=== PATIENT | female | born 1950 | race Caucasian/White ===

== ENCOUNTER → 2021-10-15 10:54 | Outpatient (BNVA) | payer MEDICARE, OTHER, SELFPAY | PROVIDERS: PCP Nurse Practitioner Family; Visit Provider Hospitalist | DX: R91.8 Other nonspecific abnormal finding of lung field (principal); J98.11 Atelectasis | CPT/HCPCS: 99202 ==

== ENCOUNTER 2021-10-16 07:25 | Day surgery (SDC) | payer MEDICARE, OTHER, SELFPAY ==
[2021-10-16] VITALS (12 sets, daily range): BP systolic 98–148; BP diastolic 46–69; PULSE 77–113; RESP 15–28; TEMP 36.2–36.9; O2SAT 93–97; BMI 29.1
--- NOTE | ~2021-10-16 | XR_ITS ---
EXAMINATION: XR CHEST CLINICAL INFORMATION: Status post bronchoscopy and left biopsies COMPARISON: None TECHNIQUE: AP portable view of the chest was obtained. FINDINGS: There is soft tissue density seen involving the superior left and right upper lobe suspicious for possible mass and less likely atelectatic change. No pneumothorax. There is some haziness seen at the left lung base which may be related to small pleural effusion. Right hemithorax unremarkable. Heart normal size. No evidence of pulmonary edema. XR/XR chest 1V IMPRESSION: Left upper lobe density without pneumothorax identified. Question small left pleural effusion.
--- NOTE | 2021-10-16 08:01 | HO.ANESPROP2 ---
HPI - Anesthesia Eval Consult details Narrative: 71 F for EBUS mild MR hyper Parathyroidism , Sleep Apnea , CPAP PMFSH Active Problems Active Problems: All Active Problems (Updated 10/16/21 @ 07:37 by Mary Saab RN) Atelectasis of left lung (Acute) Lung mass (Acute) Past Medical History Medical History (Updated 10/16/21 @ 07:37 by Mary Saab RN) Atelectasis of left lung Elevated cholesterol Lung mass Mild aortic regurgitation Family History Family history of problems with anesthesia: No Surgical History Surgical History (Updated 10/16/21 @ 07:38 by Mary Saab RN) History of total hip replacement Hx of appendectomy Hx of colonoscopy History of Problems with Anesthesia: No Social History Social History (Updated 10/15/21 @ 11:26 by ALEENA Reinoso) Patient Tobacco Use Status: Never used Tobacco Meds Allergies Allergy/AdvReac Type Severity Reaction Status Date / Time No Known Allergies Allergy Verified 10/15/21 11:25 Home Medications Medication Instructions Recorded Confirmed Last Taken Type celecoxib 100 mg capsule mg PO 10/15/21 Unknown History denosumab 60 mg/mL subcutaneous mg SUBCUT 10/15/21 Unknown History syringe (Prolia) rosuvastatin 10 mg tablet 10 mg PO BEDTIME 10/15/21 Unknown History Exam Exam Date and Time: October 16, [id number] Height,Weight and Vital Signs: Height 5 ft 3.5 in Weight 75.75 kg Last Vital Signs Temp 98.4 F 10/16/21 07:52 Pulse 77 10/16/21 07:52 Resp 16 10/16/21 07:52 BP 148/69 H 10/16/21 07:52 Pulse Ox 93 10/16/21 07:52 Airway Mallampati Class: II TM Dist: >3cm Neck ROM: Full Loose/Missing/Broken Teeth: Yes (Crowns ) Heart: rrr Lungs: bl breath sounds Assessment and Plan Assessment Anesthesia Assessment: Anesthesia Plan Discussed Final Anesthetic Review Family History of Problems with Anesthesia: No History of Problems with Anesthesia: No NPO: Yes ASA Class: III Final Preanesthetic Review: Anes Risks/Benef Reviewed Patient Risk: High Procedure Risk: Intermediate Anesthetic Plan Anesthetic Plan: GA Disposition: Standard PACU
[2021-10-16] MEDS: Lactated Ringers 1,000 ML 80 ML IVCONT (08:13)
--- NOTE | 2021-10-16 08:46 | MHC.SHP ---
Pre-Procedural Eval Section A Date of Service: 10/16/21 The patient is an INPATIENT: No The History & Physical has been completed within 30 days and I have reviewed it.: Yes Section B Chief Complaint: Lung Cancer Allergies: Allergies Allergy/AdvReac Type Severity Reaction Status Date / Time No Known Allergies Allergy Verified 10/15/21 11:25 Plan I have reviewed the history and physical and performed a pertinent physical examination on my patient. No changes have occurred unless specified.
--- NOTE | 2021-10-16 10:06 | PM.OP ---
Brief Operative Note Date of Service: 10/16/21 Pre-op diagnosis: left lung mass Post-op diagnosis: same Procedure: EBUS with TBNA and bronchoscopy with biopsy Implants: Surgeon: Williams Begum MD Anesthesia: GETA Was an Technical Support Internship used for this Procedure?: No Estimated blood loss (mL): 2 Pathology: other (SCARLET biopsies) Condition: stable Disposition: same day
[2021-10-16] MEDS: Racepinephrine HCL 0.5 ML VIAL.NEB INHALE (11:25)
--- NOTE | 2021-10-16 15:20 | OP_ITS ---
SURGEON: Williams Begum MD PREOPERATIVE DIAGNOSIS: Left lung mass and atelectasis. POSTOPERATIVE DIAGNOSIS: Left lung mass and atelectasis. PROCEDURE PERFORMED: Endobronchial ultrasound bronchoscopy with transbronchial needle aspirations in addition to bronchoscopy with brushings, washings and biopsies. ESTIMATED BLOOD LOSS: COMPLICATIONS: None. ANESTHESIA: General anesthesia was provided with #[address] ASSISTANTS: SPECIMENS: INTERPRETATION: 1. EBUS transbronchial needle aspirations station 4R 7 and left hilar mass. 2. Forceps biopsies of the left upper lobe masslike density. 3. Brushings from the left upper lobe. 4. Bronchial washings from the left upper lobe, both for cytology and microbiology. 5. Status post epinephrine administration 1 n.p.o. 6. Status post DuoNeb and racemic epi x1 via nebulizer. DESCRIPTION OF PROCEDURE: After the patient was adequately sedated, the flexible digital bronchoscope with endobronchial ultrasound was inserted via the ET tube to the level of the trachea. Using lidocaine, a total of 12 mL of lidocaine was administered to the airways for local effect. Using the ultrasound guidance, the lymph node stations were assessed. The patient has very small normal appearing station 4R lymph node measuring about half a cm appeared to have a larger subcarinal lymph node measuring between 1-2 cm in size, irregular in shape. Using ultrasound guidance, the bronchoscope was wedged into the distal left mainstem bronchus also demonstrating irregular activity suggesting hilar mass. Using ultrasound-guided transbronchial needle aspiration and 1 pass collected a station 4R. No significant specimens collected, but because of the normal appearance of the lymph node, we went ahead and moved along 2 stations 7, 3 passes were done at station 7 of the transbronchial needle aspirate and was sent for cytology. Next, the bronchoscope was navigated to the hilar area and 3 specimens were collected of the left hilar masslike density and that was sent to cytology as well. The endobronchial ultrasound was then removed and replaced with the regular bronchoscopy. The bronchoscope was navigated to the entire tracheobronchial airway except for the left upper lobe, where there appears to be a masslike density that was obstructing the left upper lobe airways, both the apical posterior and anterior segment and to some degree the lingular segments. The area looked friable, erythematous and had a foul smell to it suggesting the possibility of an infection. That being said, no evidence of any purulent secretions noted. Using a cytologic brush that was introduced into the left upper lobe and specimen sent to cytology. Then, using forceps, endobronchial biopsies were collected from the mass like obstruction and they sent to pathology. Due to the significant swelling, not so much any bleeding, I did opt to provide epinephrine and 1 ampules of epinephrine 1:1000 was provided mixed in with saline to the left upper lobe with interval improvement of the swelling. The bronchoscope was then removed. The total endoscopic time approximately 45 minutes. The patient tolerated the procedure well. She was extubated after surgery. She did have some evidence of stridor. The patient received a DuoNeb and then received 1 treatment with racemic epi and she did feel better. MD ELBA Gagnon/ARLETTE / [phone]
== END 2021-10-16 12:34 | disposition home or self-care (01) ==
PROVIDERS: PCP Nurse Practitioner Family; Visit Provider Hospitalist
PROC: (CPT 31653; principal; 2021-10-16 09:00)
DX: C34.82 Malignant neoplasm of overlapping sites of left bronchus and lung (principal); C77.1 Secondary and unspecified malignant neoplasm of intrathoracic lymph nodes; J98.11 Atelectasis; R06.00 Dyspnea, unspecified
CPT/HCPCS: 31653; 31625; 31623; 36415; 71045; 81210; 81235; 86850; 86900; 86901; 87071; 87205; 88112; 88173; 88305; 88341; 88342; 88360; 88374; 88377; 94640; J0171; J2405; J3010

== ENCOUNTER → 2021-10-24 13:39 | Outpatient (BNV) | payer MEDICARE, OTHER, SELFPAY | PROVIDERS: PCP Nurse Practitioner Family; Referring Provider Hospitalist; Visit Provider Internal Medicine | DX: C34.90 Malignant neoplasm of unspecified part of unspecified bronchus or lung (principal) | CPT/HCPCS: 99213; 99214 ==

== ENCOUNTER 2021-10-29 13:36 | Outpatient (REF) | payer MEDICARE, OTHER, SELFPAY ==
--- NOTE | ~2021-10-29 | MR_ITS ---
EXAMINATION: MR BRAIN WITHOUT AND WITH CONTRAST CLINICAL INFORMATION: 71-year-old with history of lung CA undergoing staging. COMPARISON: None TECHNIQUE: Multiplanar, multisequence MRI of the brain was obtained before and after the intravenous administration of 7.5 mL Gadavist. FINDINGS: Brain Volume: Within normal limits. Structural: No malformations. Brain and Meninges: DWI sequence demonstrates no restricted diffusion. Specifically, there is no evidence for acute or subacute cerebral ischemia. There are scattered small zones of FLAIR/T2 signal hyperintensity within the subcortical and deeper white matter of both cerebral hemispheres with no abnormal enhancement, likely reflecting chronic ischemic microangiopathy. Note is made of a 6 x 5 x 6 mm extra-axial enhancing dural-based mass along the anterior aspect of the right middle cranial fossa, best visualized on image 9 of series 9 and image 19 of series 10 which corresponds to a T2 hypointense structure on the axial T2-weighted images. This could reflect a small meningioma, but given the patient's history, metastatic disease cannot be entirely excluded. Some adjacent dural enhancement is seen consistent with a dural tail. A follow-up in 3 months is recommended to further assess this to include thin section postcontrast imaging. The remainder of the brain is normal in signal intensity. There is no evidence for hemorrhage, hemosiderin staining or abnormal mineral deposition. No extra-axial fluid collections, parenchymal mass lesion, or midline shift. Ventricles and Subarachnoid Spaces: The ventricular system and subarachnoid spaces are within normal limits without hydrocephalus. Orbital Structures: Bilateral lens extractions are noted. Otherwise, the visualized orbital structures are grossly unremarkable within the limitations of the study. Vascular: Signal voids are noted in the visualized major intracranial vessels. Sinuses and Osseous Structures: Note is made of a 9 mm focus of the T1 signal loss on the left side of the C3 vertebral body which raises the possibility for metastatic focus. There is bilateral facet arthropathy at C3-C4 and C4-C5. MR/MR head/brain wo/w con IMPRESSION: 1. 6 mm extra-axial enhancing mass lesion along the anterior aspect of the right middle cranial fossa, likely reflecting a small meningioma. Given the patient's history, metastatic disease cannot be entirely excluded and, therefore, a follow-up MRI of the brain with contrast and thin section postcontrast imaging is recommended in 3 months to reassess. 2. Chronic microvascular ischemic white matter changes in both cerebral hemispheres. 3. Focus of signal loss on the left side of the C3 vertebral body which is worrisome for the possibility of osseous metastatic disease. Recommend correlation with radionuclide skeletal scintigraphy. The [facility] staff will call to confirm receipt of this report with acknowledgement of the findings and any recommendations.
== END 2021-10-29 13:37 | disposition home or self-care (01) ==
LOC: HO.MRI 13:36
PROVIDERS: PCP Nurse Practitioner Family; Visit Provider Internal Medicine
DX: C34.90 Malignant neoplasm of unspecified part of unspecified bronchus or lung (principal)
CPT/HCPCS: 70553; A9585

== ENCOUNTER → 2021-10-30 13:17 | Outpatient (BNVA) | payer MEDICARE, OTHER, SELFPAY | PROVIDERS: PCP Nurse Practitioner Family; Visit Provider Hospitalist | DX: J98.11 Atelectasis (principal); R91.8 Other nonspecific abnormal finding of lung field | CPT/HCPCS: 99212 ==

== ENCOUNTER 2021-11-11 12:42 | Outpatient (REF) | payer MEDICARE, OTHER, SELFPAY ==
--- NOTE | ~2021-11-11 | CT_ITS ---
EXAMINATION: CT ANGIOGRAM OF THE CHEST WITH AND WITHOUT CONTRAST (CT PULMONARY ANGIOGRAM FOR PE) CLINICAL INFORMATION: Reason for Exam History of non-small cell lung cancer. Chest pain. ?P.E COMPARISON: Previous outside chest CT 10/14/2021 chest x-ray 10/16/2021 TECHNIQUE: Prior to contrast administration, noncontrast localization images were obtained. Subsequently, multidetector volumetric imaging was performed from the thoracic inlet to below the diaphragms following the administration of 65 mL Omnipaque 350 intravenous contrast. No contrast reaction reported Sagittal, coronal, and MIP oblique sagittal reformatted images were obtained on the CT workstation, uploaded to PACS, and reviewed. This CT examination was performed using dose optimization techniques as appropriate, variously including the following: *Automated exposure control *Adjustment of mA and/or kV according to patient size (this includes techniques or standardized protocols for targeted exams where dose is matched to indication/reason for exam; i.e. extremities or head) *Use of iterative reconstruction technique Total exam dose-length product 129 mGy-cm FINDINGS: QUALITY OF STUDY/CONTRAST BOLUS: Satisfactory. PULMONARY ARTERIES: No central or segmental pulmonary emboli. THORACIC AORTA: No aneurysm or dissection. LUNG: There is volume loss to the left upper lobe. There is abnormal soft tissue seen in the left upper lobe along the left pleural fissure. This appears decreased in size from October 2021 exam. There is improved aeration of the more anterior left upper lobe compared to October 2021 exam. There is abnormal soft tissue seen surrounding the left upper lobe bronchus. This is slightly decreased. There is a small 3 mm right lower lobe nodule adjacent to the major fissure axial image 396 and 415 series 12. There is subsegmental atelectasis at the right lung base. PLEURA: There is a trace left pleural effusion or pleural thickening that is unchanged. There is no right pleural effusion. There is no pneumothorax.. MEDIASTINUM: There are small mediastinal lymph nodes. These appear stable. No enlarged mediastinal lymph nodes are seen. There is abnormal soft tissue seen in the central left upper lobe surrounding the left upper lobe bronchus questionable for mass versus adenopathy. This area measures 2 x 2.5 cm axial image 25 series 6. This is decreased in size from approximately 2.8 x 4.2 cm October 2021 exam. The heart does not appear enlarged. There is a small pericardial effusion. This is not appreciably changed. The thoracic aorta is normal in caliber. No pulmonary embolism is seen. No evidence of septal bowing or right heart strain. CHEST WALL/AXILLA: No axillary or internal mammary lymphadenopathy. OSSEOUS STRUCTURES: There are multiple sclerotic bone lesions involving the T2 and T5 T10 and L1 vertebral bodies. There is a pathologic compression fracture of the right inferior endplate T10 vertebral body. UPPER ABDOMEN: Unremarkable. No reflux of contrast into the hepatic veins to suggest elevated right heart pressures. CT/CT angio chest PE protocol IMPRESSION: No evidence of pulmonary embolism. Interval decrease in size in the mass in the left upper lobe and improved aeration of the left upper lobe. Stable sclerotic bone lesions and probable pathologic compression fracture of the right inferior endplate of the T10 vertebral body. VTE: negative
== END 2021-11-11 12:43 | disposition home or self-care (01) ==
LOC: HO.CT 12:42
PROVIDERS: PCP Nurse Practitioner Family; Visit Provider Internal Medicine Medical Oncology
DX: C34.90 Malignant neoplasm of unspecified part of unspecified bronchus or lung (principal); R07.9 Chest pain, unspecified
CPT/HCPCS: 71275

== ENCOUNTER → 2021-11-17 13:01 | Outpatient (REF) | payer MEDICARE, OTHER, SELFPAY ==
--- NOTE | 2021-11-17 13:03 | CA_ITS ---
Transthoracic Echocardiogram Patient (Last, First, Middle): Marleen Romero, Gender: Female Date of : 1950 Age: 71 Procedure Date: 11/17/2021 Procedure Type: Transthoracic Echocardiogram Location: OP Height: 160.02 cm Weight: 80.74 kg BSA: 1.84 m2 Heart Rate: bpm BP: 144 / 70 mmHg Automatic Drill Operator: JANETTE Referring MD: Luli Castillo MD Symptoms: scheduled to start osimertinib Study Quality: Fair ECG Rhythm: Sinus Conclusions: - The left ventricular systolic function is normal. The calculated ejection fraction is 64% by biplane method. - No obvious valvular pathology seen on this study. - Small pericardial effusion localized posterior to the left ventricle. Findings Left Ventricle Normal left ventricular cavity size. There is mildly increased left ventricular wall thickness. The left ventricular systolic function is normal. The calculated ejection fraction is 64% by biplane method. There is no evidence of regional wall motion abnormalities. Diastolic function is normal for age. LV peak GLS -18.5% (normal). Right Ventricle Normal right ventricular cavity size and systolic function. Atria Both atria are normal in size. Aortic Valve There is a normal trileaflet aortic valve. There is no aortic valve stenosis. There is no aortic valve regurgitation. Mitral Valve The mitral valve appears normal. There is trace mitral valve regurgitation. There is no mitral valve stenosis. Pulmonic Valve The pulmonic valve was not well visualized. Tricuspid Valve There is no tricuspid valve regurgitation. The pulmonary artery systolic pressure is normal. Great Vessels The aortic annulus, sinuses of valsalva, and asc aorta are normal in size. Venous The inferior vena cava is normal in size and collapses greater than 50% with inspiration. Pericardium/Pleural Small pericardial effusion localized posterior to the left ventricle. Prior Study Comparison No prior study available for comparison. Recommendations, Care & Conclusions No obvious valvular pathology seen on this study. Measurements 2D Linear Measurements IVSd: 1.01 0.6-0.9/0.6-1.0 cm LVIDd: 4.09 3.9-5.3/4.2-5.9 cm LVIDd Index: 2.22 2.4-3.2/2.2-3.1 cm/m2 LVIDs: 2.35 2.0-3.6 cm LVPWd: 1.03 0.7-1.1 cm Ao Root: 3.20 2.1-3.5 cm LA Diam: 3.20 2.7-3.8/3.0-4.0 cm LAIDs Index: 1.74 1.5-2.3 cm/m2 LV Mass: 168.41 67-162/88-224 g LV Mass Index: 91.52 43-95/49-115 g/m2 LVOT Diam: 2.00 3.0+(-)1.3 cm 2D Systolic Function EF 4C: 66.60 >55% EF 2C: 60.40 >55% EF BiP: 63.90 >55% Mitral Valve MV Pk E: 1.16 MV PK A: 1.15 MV Decel Time: 193.00 E/A: 1.00 E'Lateral: 7.62 E'Medial: 7.29 E/E' Med: 15.90 E/E' Lat: 15.20 PHT: 56.00 MVA PHT: 3.93 Decel [place]: 6.00 Aortic Valve AoV Pk Mohan: 1.57 AoV Mn Mohan: 0.99 AoV VTI: 0.36 AoV Pk Grad: 10.00 Aov Mn Grad: 5.00 STEPHANIE Cont.VTI: 3.19 LVOT LVOT Pk Mohan: 1.56 LVOT Mn Mohan: 1.07 LVOT VTI: 0.37 LVOT Pk Grad: 10.00 LVOT Mn Grad: 5.00 LVOT Diam: 2.00 LVOT Area: 3.14 Diastolic Function MV Pk E: 1.16 MV Pk A: 1.15 E/A: 1.00 E'Medial: 7.29 E/E' Med: 15.90 E' Laterial: 7.62 E/E' Lat: 15.20 Right Ventricle TAPSE (mm): 25.00 TVS' Mohan: 12.00 Tricuspid Valve TR Pk Mohan: 1.21 TR Pk Grad: 6.00 RA Press: 8.00 RVSP: 14.00 Great Vessels Aorta Ao Root-2D: 3.20 2.0-3.7 cm Ao Asc: 2.90 2.1-3.4 cm Ao Arch: 2.50 Updated in Other Vendor System with Status of Final Donovan Spann MD electronically signed on 11/17/2021 4:08:41 PM with status of Final
== END ==
LOC: HO.CARD 13:01
PROVIDERS: PCP Nurse Practitioner Family; Visit Provider Internal Medicine
DX: I42.7 Cardiomyopathy due to drug and external agent (principal); T45.1X5A Adverse effect of antineoplastic and immunosuppressive drugs, initial encounter; Y92.9 Unspecified place or not applicable
CPT/HCPCS: 93306

== ENCOUNTER → 2021-11-20 10:48 | Outpatient (REF) | payer MEDICARE, OTHER, SELFPAY ==
--- NOTE | ~2021-11-20 | NM_ITS ---
EXAMINATION: NM BONE SCAN OF THE WHOLE BODY CLINICAL INFORMATION: Lung cancer, bone metastases, progression at T10. COMPARISON: No previous bone scan is available for comparison. Radiographs of the chest dated 10/16/2021 is available for comparison. CT angiogram of the chest dated 11/11/2021 and MRI of the brain dated 10/29/2021 are also available for comparison. TECHNIQUE: Multiple gamma scintillation camera images of the whole body were performed 2.75 hours following the intravenous administration of 25 mCi Tc-99m MDP. FINDINGS: In the head, there is increased activity in the frontal calvarium bilaterally, which may be in part due to hyperostosis frontalis interna, but the intensity as well as the heterogeneity, particularly on the right suggests this increased activity is not entirely due to hyperostosis. There is also some increased activity that is likely in the clivus and also likely abnormal. In the thoracic cage and upper extremities, several foci of mildly increased activity are present in the ribs, most prominently in the lateral aspect of the left ninth rib and the posterolateral aspect of the right ninth rib. Is also a lesion in the coracoid process of the right scapula and another in the medial aspect of the upper left scapula. There is intense abnormality in the upper sternum. In the spine, multiple moderate to markedly intense foci are present throughout the thoracic and lumbar spine and in the cervical spine likely at C3 an corresponding to the abnormality visualized at this site on the 10/29/2021 MRI. The most intense abnormality is diffusely in the T10 vertebral body. In the pelvis, multiple foci of mildly to moderately increased activity are present in the posterior iliac bones bilaterally, the left side of the upper sacrum and the left acetabular region. In the lower extremities, there is minimally increased activity in the medial compartment of the left knee and faintly in a small focus laterally in the right knee. There is mildly increased activity in the first metatarsophalangeal joint regions bilaterally. No other definite bony abnormalities are noted. The urinary bladder and faint visualization of both kidneys are noted. NM/NM bone scan whole body IMPRESSION: Widespread metastatic tumor involvement of bone. The most intense abnormalities are in the T10 vertebral body, upper sternum, and upper thoracic spine, but as noted above, multiple abnormalities are present.
[2021-11-20 11:16] LABS: MANUAL DIFF FLAG NO
[2021-11-20 11:32] LABS: Basophils Percent Auto 0.3 % (0-2); Eosinophils Absolute Auto 0.2 X10*3/uL (0.0-0.4); Eosinophils Percent Auto 3.3 % (0-4); Hematocrit 40.6 % (37.0-47.0); Hemoglobin 13.2 g/dl (12.0-16.0); Imm Gran Abs Auto 0.02 X10*3/uL (0.00-0.03); Imm Gran Pct Auto 0.3 % (0.0-0.4); Lymphocytes Absolute Auto 0.8 X10*3/uL (1.2-4.9); Lymphocytes Percent Auto 12.4 % (20-40); Mean Corpuscular HGB Conc 32.5 g/dl (31.0-35.0); Mean Corpuscular Hemoglobin 30.9 pg (27.0-33.0); Mean Corpuscular Volume 95.1 fL (80.0-98.0); Mean Platelet Volume 9.8 fL (9.4-12.3); Monocytes Absolute Auto 0.4 X10*3/uL (0.1-1.2); Neutrophils Absolute Auto 5.2 x10*3/uL (2.0-8.3); Neutrophils Percent Auto 77.7 % (45-73); Platelet Count 180 X10*3/uL (160-400); Red Blood Count 4.27 X10*6/uL (4.20-5.50); Red Cell Distribution Width 13.8 % (11.0-16.0); White Blood Count 6.7 X10*3/uL (4.8-10.8)
[2021-11-20 12:09] LABS: Alanine Aminotransferase 32 U/L (0-31); Albumin Level 4.1 g/dL (3.5-5.0); Alkaline Phosphatase 141 U/L (39-117); Anion Gap 12 (12-20); Aspartate Amino Transferase 24 U/L (5-31); Bilirubin Total 0.4 mg/dL (0.0-1.0); Blood Urea Nitrogen 17 mg/dL (9-16); Calcium 9.8 mg/dL (8.4-10.2); Carbon Dioxide 24 mmol/L (22-29); Chloride 107 mmol/L (96-108); Estimated Glomerular Filt Rate 52; Glucose Random 105 mg/dL (60-115); Potassium 4.8 mmol/L (3.3-5.1); Sodium 138 mmol/L (135-145); Total Protein 6.7 g/dL (6.5-8.0)
== END ==
LOC: HO.NUCMED 10:48
PROVIDERS: Absent Provider Internal Medicine; PCP Nurse Practitioner Family; Visit Provider Internal Medicine Medical Oncology
DX: C79.51 Secondary malignant neoplasm of bone (principal); C34.90 Malignant neoplasm of unspecified part of unspecified bronchus or lung
CPT/HCPCS: 36415; 78306; 80053; 82378; 85025; A9503

== ENCOUNTER 2022-02-02 13:23 | Outpatient (REF) | payer MEDICARE, OTHER, SELFPAY ==
--- NOTE | ~2022-02-02 | XR_ITS ---
EXAMINATION: XR CHEST CLINICAL INFORMATION: Malignant neoplasm. COMPARISON: 11/11/2021 and 10/16/2021. TECHNIQUE: 2 views of the chest were obtained. FINDINGS: There is a 2 cm spiculated mass seen within the left upper lobe adjacent to a discoid density. There appears be less loss of volume within the lingula compared to previous studies. No new region of disease is appreciated. No pneumothorax or pleural effusion. Heart normal size. No evidence of pulmonary edema. XR/XR chest 2V IMPRESSION: Left upper lobe irregular mass density. Appearance of improved aeration of the lingula since prior studies.
== END 2022-02-02 13:24 | disposition home or self-care (01) ==
LOC: HO.XRAY 13:23
PROVIDERS: PCP Nurse Practitioner Family; Visit Provider Hospitalist
DX: C34.90 Malignant neoplasm of unspecified part of unspecified bronchus or lung (principal); J98.11 Atelectasis
CPT/HCPCS: 71046; 99212

== ENCOUNTER 2022-02-09 15:20 | Outpatient (REF) | payer MEDICARE, OTHER, SELFPAY ==
--- NOTE | ~2022-02-09 | MR_ITS ---
EXAMINATION: MR BRAIN WITHOUT AND WITH CONTRAST CLINICAL INFORMATION: 72-year-old with history of lung CA for followup exam. COMPARISON: None TECHNIQUE: Multiplanar, multisequence MRI of the brain was obtained before and after the intravenous administration of 8 mL Gadavist. FINDINGS: BRAIN VOLUME: No interval change. STRUCTURAL: No malformations. BRAIN AND MENINGES: DWI sequence demonstrates no restricted diffusion to suggest acute or subacute cerebral ischemia. Redemonstrated are scattered foci of FLAIR/T2 signal hyperintensity in the white matter of both cerebral hemispheres with no abnormal enhancement stable in appearance consistent with chronic ischemic microangiopathy. No new parenchymal T2 hyperintensities are identified. The previously noted small extra-axial enhancing mass along the anterior aspect of the right middle cranial fossa is stable in size and configuration when compared to the previous study. This most likely represents a very small meningioma and appears to demonstrate susceptibility-weighted signal loss suggesting some degree of calcification. Previously noted adjacent dural enhancement is stable. The remainder of the study demonstrates no new intracranial mass lesions, abnormal enhancement, significant space-occupying process or mass effect when accounting for ghosting artifacts in the posterior fossa. No extra-axial fluid collections are identified. No evidence for hemorrhage, hemosiderin staining or abnormal mineral deposition. VENTRICLES AND SUBARACHNOID SPACES: The ventricular system and subarachnoid spaces are within normal limits without hydrocephalus stable in appearance. ORBITAL STRUCTURES: Bilateral lens extractions are again noted. Otherwise, the visualized orbital structures are grossly unremarkable within the limitations of the study. VASCULAR: Signal voids are noted in the visualized major intracranial vessels. 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 No abnormality seen to correspond to the findings on the previous bone scan in this location. Previous bone scan suggested some abnormal activity in the clivus. Clival marrow signal appears grossly unremarkable. The previously noted lesion involving the C3 vertebral body on the left is again noted similar to previous study. MR/MR head/brain wo/w con IMPRESSION: 1. Stable small extra-axial enhancing lesion along the anterior right middle cranial fossa, likely a meningioma. No abnormal uptake was noted in this region on the previous bone scan. 2. 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 No specific abnormality seen to correspond to the abnormal activity on previous bone scan in this region. C3 vertebral body lesion on the left is again noted consistent with a metastasis. 3. Chronic ischemic microangiopathy in the white matter of both cerebral hemispheres largely unchanged in appearance. No abnormal brain parenchymal or leptomeningeal enhancement seen throughout the remainder of the brain. 4. Note that thin section postcontrast gradient echo T1-weighted imaging was not performed at this time and therefore there is less sensitivity for detecting tiny brain metastases on the current study. However, there is no brain edema or mass effect.
== END 2022-02-09 15:21 | disposition home or self-care (01) ==
LOC: HO.MRI 15:20
PROVIDERS: Visit Provider Internal Medicine
DX: C34.90 Malignant neoplasm of unspecified part of unspecified bronchus or lung (principal)
CPT/HCPCS: 70553; A9585

== ENCOUNTER 2022-03-18 12:38 | Outpatient (REF) | payer MEDICARE, OTHER, SELFPAY ==
--- NOTE | 2022-03-18 13:45 | PFT_ITS ---
INDICATION: Lung cancer. SPIROMETRY: FEV1 to FVC 75%, post bronchodilator 69%, pre bronchodilators with an FEV1 of 2.15 L, which is 100% predicted and an FVC of 2.87 L which is 101% predicted. No significant response to bronchodilators noted. The maximum voluntary ventilation 113% predicted. LUNG VOLUMES: Total lung capacity 116% predicted. DIFFUSION CAPACITY: DLCO 64% predicted. COMPARISONS: None available. INTERPRETATION: There appears to be a reversible obstructive ventilatory defect suggestive of hyperreactive airways and diagnosis of asthma. No significant response to bronchodilators noted. There is some evidence of small airway disease, which also could be associated with diagnosis of asthma. Normal maximum voluntary ventilation. Lung volumes are within normal limits. Diffusion capacity, there is a mild diffusion impairment. Clinical correlation warranted. Williams Begum MD MR/MODL / [id number]
== END 2022-03-18 12:39 | disposition home or self-care (01) ==
LOC: HO.RESP 12:38
PROVIDERS: Visit Provider Hospitalist
DX: C34.90 Malignant neoplasm of unspecified part of unspecified bronchus or lung (principal); J98.11 Atelectasis; Z79.899 Other long term (current) drug therapy
CPT/HCPCS: 94060; 94727; 94729

== ENCOUNTER 2022-03-31 09:00 | Outpatient (REF) | payer MEDICARE, OTHER, SELFPAY ==
--- NOTE | ~2022-03-31 | PE_ITS ---
EXAMINATION: PET/CT IMAGING WHOLE BODY INDICATION: Assess for response to therapy. COMPARISON: Comparison CT chest dated 11/11/2021. TECHNIQUE: Dedicated coincidence imaging from the base of the skull to the thighs. 16.4 mCi F-18 deoxyglucose. FINDINGS: The neck activity is felt to be within normal limits. In the mediastinum, there is mild activity in the left hilar region. This is measuring 3.1 SUV max. Baseline mediastinal activity is measuring 2.1 SUV max. The left lung upper lobe abnormality continues to decrease with some residual opacity showing mild uptake at 1.7 SUV max. This appears more peripheral in the lung field, but the left lung is shifting due to better expansion of the lung. Therefore, this could well represent an area of atelectasis or infiltrate but tumor cannot be excluded. No suspicious finding in the right lung. Upper Abdomen: The liver uptake is felt to be within normal limits. Normal low-level splenic uptake. Normal uptake within the kidneys and bladder. Low-level bowel uptake is noted. Some uptake is seen about the prosthesis on the right greater than left. Multiple sclerotic bony lesions are once again seen, but there is no suspicious associated uptake. PET/PET CT fusion skull to thigh IMPRESSION: Morphologically, the area in the left upper lobe continues to decrease in size. There is mild uptake in residual lung opacity and, as described, some mild uptake in the left hilum which is likely adenopathy. Although these findings could be inflammatory, residual tumor would need to be considered and attention to followup would be recommended here. Importantly, there is no other suspicious uptake. Multiple sclerotic bony lesions are seen consistent with metastatic disease. Please Correlate with the patient's history of a previous malignancy such as prostate. Importantly, none of these areas demonstrate suspicious increased uptake. Attention to followup.
== END 2022-03-31 09:01 | disposition home or self-care (01) ==
LOC: HO.PET 09:00
PROVIDERS: Visit Provider Internal Medicine
DX: Z13.89 Encounter for screening for other disorder (principal)

== ENCOUNTER → 2022-05-08 13:00 | Outpatient (BNVA) | payer MEDICARE, OTHER, SELFPAY | PROVIDERS: PCP Nurse Practitioner Family; Visit Provider Hospitalist | DX: C34.90 Malignant neoplasm of unspecified part of unspecified bronchus or lung (principal); J98.11 Atelectasis; J45.909 Unspecified asthma, uncomplicated; Z79.899 Other long term (current) drug therapy | CPT/HCPCS: 99212 ==

== ENCOUNTER → 2022-08-03 10:50 | Outpatient (REF) | payer MEDICARE, OTHER, SELFPAY ==
--- NOTE | ~2022-08-03 | NM_ITS ---
EXAMINATION: NM BONE SCAN OF THE WHOLE BODY CLINICAL INFORMATION: 72-year-old female with history of lung cancer, metastases to the bone. For follow-up. COMPARISON: Whole-body bone scan done on 11/20/2021. TECHNIQUE: Multiple gamma scintillation camera images of the whole body were 3 hours following the intravenous administration of 28 mCi Tc-99m MDP. FINDINGS: In the head, bifrontal abnormal increased radiotracer activities are present, appear more pronounced since the prior study (right greater than left). In the thoracic cage and upper extremities, multifocal abnormal increased activities involving sternum, and the thoracic cage appear improved. In the spine, abnormal increased radiotracer activities within the proximal to mid cervical spine appear improved. Multifocal increased radiotracer activities involving the thoracic spine, specifically the most intense abnormal activity seen involving T10 shows significant interval improvement. Multifocal increased radiotracer activities involving the lumbar spine also appear improved. In the pelvis, multifocal abnormal increased activity seen bilaterally within the posterior iliac spine show interval improvement. In the lower extremities, mildly increased radiotracer activities around both knees and both feet appear stable, likely represent posttraumatic and/or degenerative changes. No other definite bony abnormalities are noted. The urinary bladder and faint visualization of both kidneys are noted. NM/NM bone scan whole body IMPRESSION: 1. Relative mild increased radiotracer activities are present at both frontal calvarium, new since prior study dated 11/20/2021. 2. The remainder of the entire visualized axial and appendicular skeleton otherwise shows significant interval improvement, specifically in the spine, the thoracic cage, the sternum and the pelvis since prior the prior whole body bone scan dated 11/20/2021.
== END ==
LOC: HO.NUCMED 10:50
PROVIDERS: PCP Nurse Practitioner Family; Visit Provider Internal Medicine
DX: C79.51 Secondary malignant neoplasm of bone (principal)
CPT/HCPCS: 78306; A9503

== ENCOUNTER 2022-11-19 08:14 | Outpatient (REF) | payer MEDICARE, OTHER, SELFPAY ==
--- NOTE | ~2022-11-19 | CT_ITS ---
EXAMINATION: CT CHEST WITH CONTRAST CLINICAL INFORMATION: Lung cancer, response to treatment COMPARISON: 11/11/2021 TECHNIQUE: Multidetector volumetric CT imaging of the chest was obtained after the administration of 65 mL of Omnipaque 350 intravenous contrast without immediate adverse reactions. Axial MIP volume rendering provided. Sagittal and coronal reformatted images were obtained. This CT examination was performed using dose optimization techniques as appropriate, variously including the following: *Automated exposure control *Adjustment of mA and/or kV according to patient size (this includes techniques or standardized protocols for targeted exams where dose is matched to indication/reason for exam; i.e. extremities or head) *Use of iterative reconstruction technique DLP: 140 FINDINGS: LUNGS: Left upper lobe volume loss and soft tissue along the pleural fissure has decreased from prior study measuring up to 9 mm in maximum thickness (8:37) with more linear opacity as it extends to the hilum without any discrete left hilar soft tissue. Lungs are otherwise clear. No new or enlarging pulmonary nodule. Central airways are patent. MEDIASTINUM: No mediastinal adenopathy. No hilar adenopathy. No significant coronary artery atherosclerotic calcifications. PLEURA: There is no pleural effusion. No pleural mass or thickening. AXILLA: No lymphadenopathy. UPPER ABDOMEN: Small hiatal hernia. OSSEOUS STRUCTURES/SOFT TISSUES: Again seen are numerous sclerotic lesions throughout the spine, which have increased from prior study. A reference T10 vertebral body lesion completely occupies the vertebral body with possible vertebral body height by approximately 10% and endplate erosive changes (9:16) additional sclerotic foci are new from prior study. A L1 vertebral body sclerotic lesion measures 2.1 cm (9:56) and was not present on prior study. There is increased sclerosis of the manubrium (9:65) with expansile appearance of the superior aspect. CT/CT chest w IV con IMPRESSION: 1. Left upper lobe volume loss and soft tissue along the pleural fissure has decreased from prior study. No new or enlarging pulmonary nodule. 2. Interval increase in numerous sclerotic lesions throughout the spine and manubrium.
[2022-11-19] MEDS: iohexoL 350 MG/ML 100 ML INFUS..BTL IV (09:06)
== END 2022-11-19 08:15 | disposition home or self-care (01) ==
LOC: HO.CT 08:14
PROVIDERS: PCP Nurse Practitioner Family; Visit Provider Internal Medicine
DX: C34.90 Malignant neoplasm of unspecified part of unspecified bronchus or lung (principal)
CPT/HCPCS: 71260; Q9967

== ENCOUNTER → 2022-12-04 10:48 | Outpatient (REF) | payer MEDICARE, OTHER, SELFPAY ==
--- NOTE | ~2022-12-04 | NM_ITS ---
EXAMINATION: NM BONE SCAN OF THE WHOLE BODY CLINICAL INFORMATION: History of lung cancer. Metastatic bone. Followup. COMPARISON: Bone scan 08/03/2022. TECHNIQUE: Multiple gamma scintillation camera images of the whole body were performed 3 hours following the intravenous administration of 28 mCi Tc-99m MDP. FINDINGS: In the head, again visualized a bifrontal areas of radiotracer activity similar previous study. No new areas. In the thoracic cage and upper extremities, there is increased metabolic activity seen in the upper sternum and right 10th posterior rib, stable. The degree of activity is similar. In the spine, there is mild increased radiotracer activity in mid cervical spine in the anterior projection similar previous study. There are multiple areas of focal activity seen within the upper mid and lower thoracic vertebrae in a similar intensity and number. No new areas of activity seen. In the pelvis, mild increased activity seen in bilateral posterior iliac spine, unchanged. In the lower extremities, mild increase activity seen in the bilateral medial knee joints and bilateral 1st metatarsophalangeal joints of the feet. However, the degree of activity in mild 1st MTP joint space has decreased. No other definite bony abnormalities are noted. The urinary bladder and faint visualization of both kidneys are noted. NM/NM bone scan whole body IMPRESSION: Increased radiotracer activity in bifrontal skull, mid cervical spine, thoracic, pelvis, spine and right rib cage is stable. There are no new areas of radiotracer activity seen at this time.
== END ==
LOC: HO.NUCMED 10:48
PROVIDERS: PCP Nurse Practitioner Family; Visit Provider Internal Medicine
DX: C34.90 Malignant neoplasm of unspecified part of unspecified bronchus or lung (principal)
CPT/HCPCS: 78306; A9503

== ENCOUNTER → 2022-12-08 12:24 | Outpatient (BNVA) | payer MEDICARE, OTHER, SELFPAY | PROVIDERS: PCP Nurse Practitioner Family; Visit Provider Hospitalist | DX: J98.11 Atelectasis (principal); J45.909 Unspecified asthma, uncomplicated; C34.90 Malignant neoplasm of unspecified part of unspecified bronchus or lung | CPT/HCPCS: 99212 ==

== ENCOUNTER 2023-03-01 08:37 | Outpatient (REF) | payer MEDICARE, OTHER, SELFPAY ==
--- NOTE | ~2023-03-01 | CT_ITS ---
EXAMINATION: CT CHEST WITH CONTRAST CLINICAL INFORMATION: Check for disease progression. Lung cancer. COMPARISON: Previous chest CT most recent November 2022 TECHNIQUE: Multidetector volumetric CT imaging of the chest was obtained after the administration of 85 mL of Omnipaque 350 intravenous contrast without immediate adverse reactions. Axial MIP volume rendering provided. Sagittal and coronal reformatted images were obtained. This CT examination was performed using dose optimization techniques as appropriate, variously including the following: *Automated exposure control *Adjustment of mA and/or kV according to patient size (this includes techniques or standardized protocols for targeted exams where dose is matched to indication/reason for exam; i.e. extremities or head) *Use of iterative reconstruction technique DLP: 158 mGy-cm FINDINGS: LUNGS: Volume loss to the left upper lobe. Masslike density in the left upper lobe partially abutting an accessory pleural fissure measures 1.3 x 2.6 cm AP transverse dimension compared to 1.2 x 2 cm and is slightly increased in size. This has spiculations largest anterior spiculation appears increased in thickness. There is a small 3 mm peripheral or subpleural right lower lobe nodule adjacent to the major fissure axial image 293 series 5 that is stable. There is scarring or subsegmental atelectasis at the lung bases. MEDIASTINUM: Abnormal soft tissue seen in the left hilum surrounding the left upper lobe bronchus appears increased. There is some abnormal soft tissue seen inferiorly surrounding the proximal left lower lobe bronchus as well. There is increased soft tissue seen in the left precarinal regions that appears increased. Normal heart size. No pericardial effusion. No coronary artery calcification. PLEURA: There is no pleural effusion. No pleural mass or thickening. AXILLA: No lymphadenopathy. UPPER ABDOMEN: See abdominal and pelvic CT from the same day. OSSEOUS STRUCTURES: Diffuse sclerotic bone disease does not appear appreciably changed. CT/CT chest w IV con IMPRESSION: Slight interval increase in the spiculated nodule in the left upper lobe and interval increase in abnormal soft tissue in the central left lung/hilar adenopathy and left precarinal mediastinal adenopathy. Stable diffuse sclerotic bone disease. Fleischner guidelines were followed.
--- NOTE | ~2023-03-01 | CT_ITS ---
EXAMINATION: CT ABDOMEN AND PELVIS WITH CONTRAST CLINICAL INFORMATION: Disease progression. Lung cancer. COMPARISON: Previous PET/CT March 2022 TECHNIQUE: Multidetector volumetric images were obtained from the superior aspect of the liver through the pubic symphysis following administration 85 mL of Omnipaque 350 intravenous contrast. Sagittal and coronal reformatted images were obtained on the technologist's workstation. Oral contrast: Yes This CT examination was performed using dose optimization techniques as appropriate, variously including the following: *Automated exposure control *Adjustment of mA and/or kV according to patient size (this includes techniques or standardized protocols for targeted exams where dose is matched to indication/reason for exam; i.e. extremities or head) *Use of iterative reconstruction technique DLP: 475 mGy-cm FINDINGS: LUNG BASES: The visualized lung bases are unremarkable. LIVER, GALLBLADDER, AND BILIARY TREE: Question low-attenuation lesion in the anterior segment of the right lobe of the liver measuring 6 x 10 mm axial image 24 series 3. Area of earlier arterial phase enhancement seen on chest CT in the more superior anterior segment of the right lobe of the liver. Normal gallbladder. No biliary duct dilatation. PANCREAS: Unremarkable. SPLEEN: Unremarkable. ADRENAL GLANDS: Unremarkable. KIDNEYS AND URETERS: The kidneys are normal in size, shape, and attenuation. No hydronephrosis, hydroureter, or calculi seen. No perinephric stranding. BLADDER: Unremarkable. GASTROINTESTINAL TRACT: Severe diverticulosis of the colon. Small and large bowel is otherwise unremarkable. The appendix has been removed. The stomach is collapsed. ABDOMINAL WALL: Small umbilical hernia containing fat. LYMPH NODES: Normal. VASCULAR: Prominent pelvic vessels questionable for pelvic congestion, left greater than right. The abdominal aorta is normal in caliber. No aneurysm. PELVIC VISCERA: Prominent pelvic vessels questionable for pelvic congestion, left side greater than right. Uterus and adnexa are otherwise unremarkable. OSSEOUS STRUCTURES: Right hip replacement. Diffuse sclerotic bone disease. This does not appear appreciably changed from PET/CT. No fracture. Degenerative changes of the spine and left hip. CT/CT abdomen pelvis w IV con IMPRESSION: Question 6 x 10 mm low-attenuation liver lesion in the right lobe of the liver. This could be further evaluated with MRI clinically indicated. Diffuse sclerotic bone disease. Severe diverticulosis of the colon. Question pelvic congestion. Fleischner guidelines were followed.
[2023-03-01] MEDS: iohexoL 350 MG/ML 100 ML INFUS..BTL 85 ML IV (10:14)
== END 2023-03-01 08:38 | disposition home or self-care (01) ==
LOC: HO.CT 08:37
PROVIDERS: PCP Nurse Practitioner Family; Visit Provider Internal Medicine
DX: C34.90 Malignant neoplasm of unspecified part of unspecified bronchus or lung (principal); C79.51 Secondary malignant neoplasm of bone
CPT/HCPCS: 71260; 74177; Q9967

== ENCOUNTER → 2023-03-16 13:03 | Outpatient (BNVA) | payer MEDICARE, OTHER, SELFPAY | PROVIDERS: PCP Nurse Practitioner Family; Visit Provider Hospitalist | DX: J98.11 Atelectasis (principal); J45.909 Unspecified asthma, uncomplicated; C34.90 Malignant neoplasm of unspecified part of unspecified bronchus or lung | CPT/HCPCS: 99212 ==

== ENCOUNTER → 2023-03-17 07:50 | Outpatient (REF) | payer MEDICARE, OTHER, SELFPAY ==
--- NOTE | ~2023-03-17 | NM_ITS ---
EXAMINATION: NM BONE SCAN OF THE WHOLE BODY CLINICAL INFORMATION: History of lung cancer, secondary malignant neoplasm of bone. Question progression. COMPARISON: The previous bone scan dated 12/04/2022 is available for comparison. No recent radiographs are available for comparison. The diagnostic CT scan of the chest, abdomen, and pelvis, dated 03/01/2023, is available for comparison. TECHNIQUE: Multiple gamma scintillation camera images of the whole body were performed 3 hours following the intravenous administration of 28 mCi Tc-99m MDP. FINDINGS: In the head, there is mildly increased activity in a bilaterally symmetrical distribution in the frontal calvarium, probably due to hyperostosis frontalis interna. There is an additional focus closer to the midline in the right frontal skull which may represent pathological lesion. In the thoracic cage and upper extremities, there is moderately increased activity in the upper sternum extending into the right side of the sternal manubrium. There is minimally increased activity in the acromioclavicular joints bilaterally that is probably arthritic. In the spine, multiple foci of moderately increased activity are present in the thoracic spine, most prominently at the T10 level and the T5 but several additional lesions are present. There is also abnormally increased activity at multiple sites in the lumbar spine, most prominently in the L4 vertebral body. In the pelvis, foci of mildly increased activity are present in the posterior iliac bones bilaterally adjacent to the sacroiliac joints. There is mildly increased activity diffusely in the left acetabulum. In the lower extremities, a photopenic defect from a well-healed right total hip prosthesis is noted. There is a mild diffuse increase in activity in both knees, slightly more prominently in the medial compartment of the left knee. There is mildly increased activity in the first metatarsophalangeal joint regions bilaterally. No other definite bony abnormalities are noted. The urinary bladder and faint visualization of both kidneys are noted. Compared to the previous bone scan dated 12/04/2022, there has been no change. No new lesions are visualized. The CT scan dated 03/01/2023 shows diffuse sclerotic metastases. NM/NM bone scan whole body IMPRESSION: Stable metastatic tumor involvement of bone. There is no evidence of progression.
== END ==
LOC: HO.NUCMED 07:50
PROVIDERS: PCP Nurse Practitioner Family; Visit Provider Internal Medicine
DX: C79.51 Secondary malignant neoplasm of bone (principal)
CPT/HCPCS: 78306; A9503

== ENCOUNTER 2023-03-23 07:07 | Outpatient (REF) | payer MEDICARE, OTHER, SELFPAY ==
--- NOTE | ~2023-03-23 | PE_ITS ---
EXAMINATION: Fluorine-18 FDG PET/CT Scan CLINICAL INDICATION: Subsequent treatment management. Lung cancer on therapy, question disease progression. PROCEDURE: 67 minutes following the intravenous administration of 17.5 mCi of fluorine 18 FDG, images from the base of the skull to the mid thighs were obtained using a combined PET/CT scanner with CT scan based attenuation correction. No oral contrast was administered. No intravenous contrast was administered. Transverse, coronal, sagittal, and volume reconstruction projections were obtained. The patient's blood glucose as determined by a finger stick, was 89 mg/dl immediately prior to injection. Total CT exam dose-length product 608.76 mGy-cm * These CT images were obtained using dose optimization techniques as appropriate, variously including the following: Automated exposure control * Adjustment of mA and/or kV according to patient size (this includes techniques or standardized protocols for targeted exams where dose is matched to indication/reason for exam; i.e. extremities or head) * Use of iterative reconstruction technique COMPARISON: The previous PET CT scan dated 03/31/2022 is available for comparison. The diagnostic CT scan of the chest, abdomen, and pelvis, dated 03/01/2023, is available for comparison. The report of a less recent prior PET CT scan from October 2021 is available, but the images from that study are not available for review. FINDINGS: NECK AND VISUALIZED HEAD: No foci of abnormal FDG activity are noted. The distribution of FDG activity is physiological. There is no cervical lymphadenopathy. THORAX: There there is a fluid density opacity in the left upper lobe measures approximately 2.2 x 1.2 cm in largest transverse dimensions, slice 206/698. This shows a mean density of 15.6 Hounsfield units. There is no associated abnormal FDG activity. It does not appear significantly changed from the 03/01/[address] scan but appears smaller than on the 03/31/[address] scan, and at that time this focus was weakly FDG avid showing SUVmax 1.7. There has been a mild increase in FDG avidity in a left proximal peribronchial lymph node at the bifurcation of the left mainstem bronchus which now shows SUVmax 4.0, versus SUVmax 3.1 on 03/31/2022. In addition to this mild increase in FDG avidity, there is additional FDG activity extending anterolaterally from this along the course of the left upper lobe bronchus. No additional FDG avid foci or other suspicious pulmonary nodules are visualized. An additional small subcentimeter nodule adjacent to the major fissure in the right lung visualized on the 03/01/[address] scan is not apparent on these nondiagnostic CT images. There is a left perihilar soft tissue density that now shows increased FDG activity which is a new finding compared to 03/31/2022. This shows SUVmax 4.1, slice 74/267 and corresponds to a soft tissue density that measures 1.4 x 0.8 cm in largest transverse dimensions. This appears unchanged when compared to the more recent chest CT dated 03/01/2023. No additional foci of abnormal FDG activity are present in the chest. No additional mediastinal, supraclavicular, no axillary lymphadenopathy is present. There Is scarring or atelectasis posteriorly in the right lung base which is slightly thicker and more prominent than on the 03/01/2023 CT scan but otherwise similar in extent and distribution. There is very weak diffuse FDG activity associated with this. Less prominent scarring is present in the left lung base, most prominently in the lingula. There is no pleural or pericardial fluid, or pneumothorax. ABDOMEN AND PELVIS: No foci of abnormal FDG activity are present in the abdomen or pelvis. There is mild FDG activity throughout the gastrointestinal tract without a suspicious focal component. There is diffuse diverticulosis without evidence of diverticulitis. The hollow viscera are otherwise unremarkable. A subcentimeter hypodensity visualized on the IV contrast enhanced CT scan of the abdomen and pelvis dated 03/01/2023 is not apparent on these nondiagnostic CT images. There is no abnormal FDG activity in this region. The liver appears unremarkable. The gallbladder, spleen, kidneys, adrenal glands and pancreas appear unremarkable. There is no retroperitoneal, mesenteric, pelvic or inguinal lymphadenopathy. The pelvic organs are unremarkable. MUSCULOSKELETAL: There are no foci of abnormal FDG activity in the osseous structures. Multiple sclerotic foci in the spine and pelvis appears stable compared to the prior PET CT scan dated 03/31/2022 and none of these show abnormal FDG activity. The most prominent lesions are in the T2, T5 T10, L1, L2, and the left upper sacrum. VASCULAR: Scattered vascular calcifications are noted. PET/PET CT fusion skull to thigh IMPRESSION: 1. FDG avid left hilar and proximal peribronchial foci are noted and are strongly suspicious for recurrent metastatic lymphadenopathy. Mild progression in the left proximal peribronchial region and a new left perihilar focus of developed since the sixth 10/30/[address] scan. 2. A fluid density in the left upper lobe now shows no abnormal FDG activity, consistent with a complete metabolic response to therapy of this previously FDG avid focus. 3. Multifocal dense sclerotic osseous lesions appear stable since 03/31/2022 and show no abnormal FDG activity. These are most consistent with healed metastases. 4. A subcentimeter hypodensity in the right lobe of the liver visualized on the diagnostic 03/01/2023 CT scan is not apparent on these nondiagnostic CT images and is too small to be characterized on the FDG PET images. This could be further characterized with MRI, performed without and with intravenous contrast, if clinically indicated. 5. No additional abnormalities suspicious for other metastatic or malignant lesions are noted.
== END 2023-03-23 07:08 | disposition home or self-care (01) ==
LOC: HO.PET 07:07
PROVIDERS: PCP Nurse Practitioner Family; Visit Provider Internal Medicine
DX: Z13.89 Encounter for screening for other disorder (principal)

== ENCOUNTER 2023-04-02 08:43 | Day surgery (SDC) | payer MEDICARE, OTHER, SELFPAY ==
--- NOTE | 2023-04-01 10:08 | HO.ANESPROP2 ---
HPI - Anesthesia Eval Consult details Narrative: 73yo F for Endoscopic Bronchial Ultrasound s/p same 10/2021 with GA-ETT 8 PMFSH Active Problems Active Problems: All Active Problems (Updated 12/10/22 @ 09:38 by Brigid Diallo PA-C) Lung cancer (Chronic ~10/2021) Bone metastases (Acute) Atelectasis of left lung (Acute) Asthma (Acute) Past Medical History Medical History Asthma Atelectasis of left lung Elevated cholesterol Hyperparathyroidism Lung cancer (~10/2021) Mild aortic regurgitation Family History Family History Sister Ovarian cancer Mother Lung cancer High cholesterol Daughter Depression Family history of problems with anesthesia: No Surgical History Surgical History History of appendectomy History of bronchoscopy (~10/2021) History of colonoscopy History of total left hip replacement History of Problems with Anesthesia: No Social History Social History Household Members: Spouse and Children Housing: House Are you a primary career placement services counselor to a significant other at home: No Do you presently have visiting nurse or other home services: No Patient Tobacco Use Status: Never used Tobacco service: No Current occupational status: retired 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 Current occupational exposures/hazards: Yes (Stress) Meds Allergies Allergy/AdvReac Type Severity Reaction Status Date / Time No Known Allergies Allergy Verified 04/15/23 09:58 Home Medications Medication Instructions Recorded Confirmed Last Taken Type denosumab 60 mg/mL subcutaneous 60 mg subcut QMONTH 10/15/21 04/05/23 Unknown History syringe (Prolia) rosuvastatin 10 mg tablet (Crestor) 10 mg PO BEDTIME 10/15/21 04/05/23 Unknown History Rebekah-C 1 tab PO DAILY 12/08/21 04/05/23 Unknown History Multi Vitamin 1 tab PO DAILY 12/08/21 04/05/23 Unknown History lactobacillus combination no.4 3 3,000 mmu cells PO DAILY 01/05/22 04/05/23 Unknown History billion cell capsule (Probiotic) cholecalciferol (vitamin D3) 25 25 mcg PO DAILY 02/02/22 04/05/23 Unknown History mcg (1,000 unit) capsule biotin 10,000 mcg disintegrating 10,000 mcg PO DAILY 07/22/22 04/05/23 Unknown History tablet melatonin 5 mg tablet 5 mg PO BEDTIME PRN Sleep 11/10/22 04/05/23 Unknown History celecoxib 100 mg capsule (Celebrex) 100 mg PO BID 03/16/23 04/05/23 Unknown History krill oil 500 mg capsule mg PO 03/16/23 Unknown History nebulizers 03/16/23 04/05/23 Unknown History Exam Exam Date and Time: April 01, 2023 1008 Pertinent Lab Results Pertinent Lab Results: Laboratory Tests 02/05/23 03/05/23 11:58 12:08 WBC 4.8 Hgb 14.0 Hct 42.6 Plt Count 144 L Sodium 138 Potassium 4.5 Chloride 105 Carbon Dioxide 25 BUN 14 Creatinine 0.86 Narrative Narrative: ECHO 11/2021 Conclusions: - The left ventricular systolic function is normal.? The ? calculated ejection fraction is 64% by biplane method. ? - No obvious valvular pathology seen on this study.? - Small pericardial effusion localized posterior to the left ? ? ventricle. ? ? Assessment and Plan Assessment Anesthesia Assessment: Chart Reviewed Final Anesthetic Review Family History of Problems with Anesthesia: No History of Problems with Anesthesia: No
[2023-04-02] VITALS (7 sets, daily range): BP systolic 116–160; BP diastolic 36–59; PULSE 71–81; RESP 16–18; TEMP 36.4–36.8; O2SAT 95–97; BMI 31.4
--- NOTE | 2023-04-02 08:49 | P.CONAN_ITS ---
[facility] Active Problems Active Problems: All Active Problems (Updated 12/10/22 @ 09:38 by Brigid Diallo PA-C) Lung cancer (Chronic ~10/2021) Bone metastases (Acute) Atelectasis of left lung (Acute) Asthma (Acute) Past Medical History Medical History Asthma Atelectasis of left lung Elevated cholesterol Hyperparathyroidism Lung cancer (~10/2021) Mild aortic regurgitation Functional capacity: independent ambulation Family History Family History Sister Ovarian cancer Mother Lung cancer High cholesterol Daughter Depression Family history of problems with anesthesia: No Surgical History Surgical History History of appendectomy History of bronchoscopy (~10/2021) History of colonoscopy History of total left hip replacement History of Problems with Anesthesia: No Social History Social History Household Members: Spouse and Children Housing: House Are you a primary animal daycare provider to a significant other at home: No Do you presently have visiting nurse or other home services: No Patient Tobacco Use Status: Never used Tobacco Advance Directives: No Advance Directives Information Provided: Yes service: No Current occupational status: retired 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 Current occupational exposures/hazards: Yes (Stress) Meds Allergies Allergy/AdvReac Type Severity Reaction Status Date / Time No Known Allergies Allergy Verified 03/16/23 13:15 Active Medications: Current Medications Lactated Ringer's (Lr) 1,000 mls @ 50 mls/hr IVCONT .Q20H [facility] Home Medications Medication Instructions Recorded Confirmed Last Taken Type denosumab 60 mg/mL subcutaneous 60 mg subcut QMONTH 10/15/21 03/10/23 Unknown History syringe (Prolia) rosuvastatin 10 mg tablet (Crestor) 10 mg PO BEDTIME 10/15/21 03/10/23 Unknown History Rebekah-C 1 tab PO DAILY 12/08/21 03/10/23 Unknown History Multi Vitamin 1 tab PO DAILY 12/08/21 03/10/23 Unknown History lactobacillus combination no.4 3 3,000 mmu cells PO DAILY 01/05/22 03/10/23 Unknown History billion cell capsule (Probiotic) cholecalciferol (vitamin D3) 25 25 mcg PO DAILY 02/02/22 03/10/23 Unknown History mcg (1,000 unit) capsule biotin 10,000 mcg disintegrating 10,000 mcg PO DAILY 07/22/22 03/10/23 Unknown History tablet melatonin 5 mg tablet 5 mg PO BEDTIME PRN Sleep 11/10/22 03/10/23 Unknown History celecoxib 100 mg capsule (Celebrex) 100 mg PO BID 03/16/23 Unknown History krill oil 500 mg capsule mg PO 03/16/23 Unknown History nebulizers 03/16/23 Unknown History Exam Exam Date and Time: April 02, 2023 0849 Height,Weight and Vital Signs: Height 5 ft 3 in Weight 80.286 kg Airway Mallampati Class: III TM Dist: >3cm Neck ROM: Full Heart: RRR Lungs: Left lung less BS Assessment and Plan Final Anesthetic Review Family History of Problems with Anesthesia: No History of Problems with Anesthesia: No NPO: Yes ASA Class: III Final Preanesthetic Review: Meds/Allgs Chart Reviewed, Consent Obtained/Reviewed and Anes Risks/Benef Reviewed Patient Risk: Intermediate Procedure Risk: Intermediate Anesthetic Plan Anesthetic Plan: GA Disposition: Standard PACU
[2023-04-02] MEDS: Lactated Ringers 1,000 ML 50 ML IVCONT (09:10)
--- NOTE | 2023-04-02 09:18 | MHC.SHP ---
Pre-Procedural Eval Section A Date of Service: 04/02/23 Changes since office visit: No Cold of Flu in the past 2 weeks, No New Medical Problems, No Changes in Medication and No Patient answered all questions The History & Physical has been completed within 30 days and I have reviewed it.: Yes Section B Chief Complaint: Malignant neoplasm of unspecified part of unspecif Allergies: Allergies Allergy/AdvReac Type Severity Reaction Status Date / Time No Known Allergies Allergy Verified 03/16/23 13:15 Plan I have reviewed the history and physical and performed a pertinent physical examination on my patient. No changes have occurred unless specified. Time Spent With Patient Time: Total time managing care of this patient today ____ minutes.
--- NOTE | 2023-04-02 11:33 | HO.POSTANES ---
Post Anesthesia Evaluation Post Anesthesia Evaluation Date of Service: 04/02/23 Vital Signs: Vital Signs Temp Pulse Resp BP Pulse Ox O2 Del Method O2 Flow Rate 04/02/23 11:27 97.5 F 81 16 116/52 L 97 Shovel Mask 10 04/02/23 08:57 98 F 78 18 160/59 H 96 Room Air FiO2 04/02/23 11:27 60 04/02/23 08:57 Anesthesia: General Endotracheal-GETA Mental Status: Awake Pain Control: Satisfactory Nausea/Vomiting: None Hydration: Adequate Anesthesia-Related Issues: No Anes. Related Issues
--- NOTE | 2023-04-06 23:37 | OP_ITS ---
DATE OF SERVICE: 04/02/2023 SURGEON: Williams Begum MD PREOPERATIVE DIAGNOSIS: Lung cancer. POSTOPERATIVE DIAGNOSIS: Lung cancer. PROCEDURE PERFORMED: Bronchoscopy. ESTIMATED BLOOD LOSS: COMPLICATIONS: ANESTHESIA: General endotracheal anesthesia. ASSISTANTS: None. SPECIMENS: DESCRIPTION OF PROCEDURE: After the patient was adequately sedated, the flexible digital bronchoscope with endobronchial ultrasound (EBUS) was introduced into the ET tube to the level of the trachea. Tracheal mucosa appeared normal. Using the ultrasound guidance, the different lymph node stations were evaluated. Based on the PET scan, there was some FDG activity at station 4L in addition to station 11L. I did visualize small, ill-defined lymph node in station 4L, although not very well circumscribed. Using the ultrasound guidance, real-time transbronchial needle aspirations were collected there. Five passes were done and no evidence of any complications. After that, the EBUS was navigated to station 11L. No real significant lymph nodes appreciated in that area, just normal lung tissue. There was 1 lymph node measuring about less than a centimeter, although there was a pulmonary arterial vessel in between me and the area, so I could not reach it safely. Therefore, I navigated to station 7, where the patient did have a lymph node about a centimeter in size, although it was not positive on PET scan. We collected specimens there with transbronchial needle aspirations there. Four specimens were collected and sent to the appropriate cytology. Bronchial washings were also collected. No evidence of any endobronchial lesions. However just to be complete, using forceps, endobronchial biopsies were collected in that hilar area, where there was some FDG activity. No evidence of any active bleeding. Good hemostasis at the end of the procedure. The bronchoscope was then removed. The total endoscopic time was approximately 40 minutes. INTERPRETATION: 1. Transbronchial needle aspirations with EBUS at station 4L and 7. 2. Bilateral bronchial washings for cytology and microbiology. 3. Endobronchial biopsies with forceps at the level of the left upper lobe area. Williams Begum MD MR/MODL / [id number] MTDD
== END 2023-04-02 12:50 | disposition home or self-care (01) ==
PROVIDERS: PCP Nurse Practitioner Family; Visit Provider Hospitalist
PROC: (CPT 31628; principal; 2023-04-02 10:00)
DX: C34.90 Malignant neoplasm of unspecified part of unspecified bronchus or lung (principal); Z80.1 Family history of malignant neoplasm of trachea, bronchus and lung; Z80.9 Family history of malignant neoplasm, unspecified; J98.11 Atelectasis; J45.909 Unspecified asthma, uncomplicated; Z79.51 Long term (current) use of inhaled steroids; I35.1 Nonrheumatic aortic (valve) insufficiency; E78.00 Pure hypercholesterolemia, unspecified; E21.3 Hyperparathyroidism, unspecified; Z79.899 Other long term (current) drug therapy; Z96.642 Presence of left artificial hip joint; Z86.16 Personal history of COVID-19
CPT/HCPCS: 31628; 31652; 31623; 87070; 87205; 88112; 88172; 88173; 88177; 88305; J0171; J2250; J3010

== ENCOUNTER 2023-04-07 12:40 | Outpatient (REF) | payer MEDICARE, OTHER, SELFPAY ==
--- NOTE | 2023-04-07 13:52 | PFT_ITS ---
FLOWS: 1. FEV1 96% of predicted at 2.03 L. 2. FVC 95% of predicted at 2.65 L. 3. FEV1 to FVC ratio of 0.77. 4. No bronchodilator response, except in small to medium airways. LUNG VOLUMES: 1. Total lung capacity 90% of predicted at 4.42 L. 2. Residual volume 76% of predicted at 1.67 L. 3. Slow vital capacity 101% of predicted at 2.75 L. 4. Expiratory reserve volume 89% of predicted at 0.55 L. 5. Diffusion capacity is mildly decreased. IMPRESSION: No obstructive or restrictive ventilatory defect. No bronchodilator response, except in small to medium airways. Decreased diffusion capacity suggests emphysema. MD SHAMAR Flynn/MODL / [id number]
== END 2023-04-07 12:41 | disposition home or self-care (01) ==
LOC: HO.RESP 12:40
PROVIDERS: PCP Nurse Practitioner Family; Visit Provider Hospitalist
DX: C34.90 Malignant neoplasm of unspecified part of unspecified bronchus or lung (principal)
CPT/HCPCS: 94060; 94727; 94729

== ENCOUNTER → 2023-04-15 09:46 | Outpatient (BNVA) | payer MEDICARE, OTHER, SELFPAY | PROVIDERS: PCP Nurse Practitioner Family; Visit Provider Hospitalist | DX: J45.909 Unspecified asthma, uncomplicated (principal); J98.11 Atelectasis; C34.90 Malignant neoplasm of unspecified part of unspecified bronchus or lung | CPT/HCPCS: 99212 ==

== ENCOUNTER → 2023-05-03 13:41 | Outpatient (BNV) | payer MEDICARE, OTHER, SELFPAY | PROVIDERS: PCP Nurse Practitioner Family; Referring Provider Hospitalist; Visit Provider Internal Medicine Cardiovascular Disease | DX: R94.31 Abnormal electrocardiogram [ECG] [EKG] (principal); Z51.81 Encounter for therapeutic drug level monitoring | CPT/HCPCS: 93010 ==

== ENCOUNTER 2023-05-28 13:59 | Outpatient (AMB) | payer MEDICARE, OTHER, SELFPAY ==
[2023-05-28 14:07] VITALS: BP 128/70; PULSE 64; O2SAT 95; BMI 30.3
--- NOTE | 2023-05-28 14:07 | MHC.OFFVIS ---
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 Prior to that she was doing well. The patient states that because her symptoms were getting significantly worse she was evaluated by primary care doctor who requested a chest x-ray. The chest x-ray was abnormal therefore she was requested for an urgent CT scan of the chest that she had just a few days ago. The patient CT scan demonstrated an abnormal finding concerning for a masslike density causing obstruction to the left upper lobe in addition to that some mild lymphadenopathy and some other potential Bony lesions. Therefore the concern was that this could be a malignant process. The patient was referred to Pulmonary urgently. the patient does have the dyspnea symptoms therefore we did go for brief walking oximetry. The patient did become dyspneic and her oxygen did drop to about 91%. Although at this point she does not qualify for oxygen. In the office we did personally review her CT scan images and it appears that the masslike density is causing in airway obstruction that is causing atelectasis of the anterior segment of the left upper lobe. Therefore bronchoscopic evaluation will be helpful at this time to assess the degree of obstruction and also for diagnostic intervention. the best option is to undergo a endobronchial ultrasound bronchoscopy at this time. In addition to that we talked about the importance of getting a PET scan to assess the severity of disease. On further questioning she does states that her sister of cancer at a younger age. 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 In addition to that 1 of her parents also of lung cancer later in life, but they smoked. At this point the patient is agreeable to undergo the bronchoscopy. We were able to arrange to undergo the EBUS. 12/08/2022 the patient is here for pulmonary follow-up. The the patient now is recovered from COVID-19. She was not that sick. She did get packs lobe it. However, after she started developing worsening cough and chest tightness in addition to mucus production. Also with significant shortness of breath. She continues on her targeted chemotherapy. Recently had a repeat CT scan of the chest were personally reviewed. It appears that she has additional areas of sclerotic bone lesions. Question metastatic disease. The patient did have a request for a PET scan but was denied by her insurance. She did now have a nuclear study bone scan that is still pending results. Will plan to present her at tumor conference in order to discuss if there is any evidence of any progression of disease. Otherwise the parenchymal lung condition appear to be smaller when compared to her previous CT scan which is reassuring although does have around about like of the structure therefore should be monitored very closely. 03/16/2023 the patient is here for a pulmonary follow-up visit. She is still having shortness of breath with activity. Bfqd-[id number] severity. Complaining of chest tightness. She does not have a rescue inhaler. I will make sure to get her Xopenex because she tends to be more sensitive to the inhaler. The patient did have additional imaging studies. Appears that she has interval worsening of her cancer. She will be have additional clears testing and potentially PET scan on potentially will need require additional biopsies. She may need either bone biopsy versus a lung biopsy. I will talk with Oncology. In the meantime will try to maximize her respiratory capacity. Will have a repeat PFTs in 2 months with follow-up. The patient does have a cough. Nonproductive in nature moderate severity. Will go ahead and start the patient on Bentson eyes provided some relief from that sensation. In addition to that she does have her nebulized that she finds helpful. 04/15/2023 the patient is here for a pulmonary follow-up visit. She is status post bronchoscopy, EBUS. She did have an abnormal PET scan with some FDG activity in the the left hilar area and also in the left paratracheal area. The patient did undergo the EBUS without any significant findings. Did send transbronchial needle aspiration from station 4 L with cannot get adequate lymphoid tissue. There was an 18 relief form well suggesting a lymph node in that area either. I did get samples from station 7 demonstrating lymphoid tissue without any malignant see although the PET scan did not show any evidence of any activity in that area. Station 11 L could not be acquired based on the fact that does the vest between the lymph node and the airway and the area looks small 1st place. We did do surgical biopsies in the left upper lobe area and all negative for cancer. At this point it is reassuring at least that there was anything significant on the bronchoscopy. Although, she still going to be referred to [place] for additional evaluation in case she is not responding to the targeted chemotherapy. She is complaining of increasing shortness of breath and cough after the bronchoscopy. Will try some prednisone at this time. Culture negative any mucus clears will hold off on antibiotics. We did go over her inhalers. She should have the Symbicort twice a day and also in the rescue inhaler will be provided as well. 05/28/2023 the patient is here for pulmonary follow-up visit. She is status post bronchoscopy in [place]. Apparently they were able to reach the abnormal density in her lung. She was told that it was consistent with cancer. She still waiting the final pathology. However, she has a hard time breathing. She has chest tightness and significant coughing. Moderate in severity. Difficult time sleeping. Typically does not get congested. The cough is typically nonproductive. Denies any fevers or chills. On exam she does have significant wheezing and a prolonged expiratory phase. Explained to her that the cough is mainly a pumpkin spastic cough. the the patient start with prednisone taper and will optimize her respiratory therapy at this time as well. She will follow-up with Oncology and hopefully she has completed the prednisone in order for her to start a new chemotherapy regimen depending on the pathology molecular markers. [facility] Medical History Asthma Atelectasis of left lung Elevated cholesterol Hyperparathyroidism Lung cancer (~10/2021) Mild aortic regurgitation Surgical History History of appendectomy History of bronchoscopy (~10/2021) History of colonoscopy History of total left hip replacement Family History Sister Ovarian cancer Mother Lung cancer High cholesterol Daughter Depression Social History Household Members: Spouse and Children Housing: House Are you a primary rn patient care to a significant other at home: No Do you presently have visiting nurse or other home services: No Patient Tobacco Use Status: Never used Tobacco service: No Current occupational status: retired 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 Current occupational exposures/hazards: Yes (Stress) Review of Systems Const Denies fatigue, Denies night sweats and Denies poor appetite ENT Denies change in voice, Denies lip swelling, Denies mouth pain and Denies tongue swelling Card Denies chest pain and Reports dyspnea on exertion Resp Reports cough, Reports dyspnea on exertion and Reports wheezing GI Denies abdominal pain Musc Denies no additional complaints Skin/Breast Reports rash Neuro Denies Neuro-related abnormal movements Psych Denies no additional complaints Endo Denies fatigue Elias/Lymph Denies easy bleeding and Denies lymphadenopathy Aller/Immun Denies lip swelling, Denies tongue swelling and Reports wheezing Physical Exam Vital Signs: Last Vital Signs Pulse 64 05/28/23 14:07 BP 128/70 05/28/23 14:07 Pulse Ox 95 05/28/23 14:07 Oxygen Delivery Method Room Air 05/28/23 14:07 BMI result Body Mass Index 30.3 Const General: alert Neck Neck: Yes normal visual inspection, Yes full ROM and Yes no lymphadenopathy Chest Chest palpation & inspection: normal inspection of the chest Resp Effort & Inspection: Actively coughing Quality: actively coughing and prolonged expiratory phase Auscultation: no crackles, no rales, no rhonchi, wheezes and diminished lung sounds Cardio Rate: regular rate Rhythm: regular rhythm Heart sounds: S1 normal heart sound present and S2 normal heart sound present GI Palpation (GI): Soft to palpation and nontender Auscultation: normal bowel sounds Skin General skin exam: rashes and/or lesions noted Office Procedures 6 Minute Walk Time:: 14:20 SPO2 % at rest: 97 Pulse at rest: 75 SPO2 % during excercise: 96 Pulse during excercise: 96 SPO2 % after excercise: 96 Pulse after excercise: 97 Distance in yards walked: 300 Viola Score: 5 Performance Observations:: pt walked on level surface for 6 minutes. spo2 remained in upper 90's the whole walk. viola score 5. no oxygen required at this time. information relayed to Dr. Begum. [id number] - 6 Minute Walk Assessment & Plan Assessment & Plan (1) Atelectasis of left lung: Code(s): J98.11 - Atelectasis (2) Lung cancer: Onset Date: ~10/2021 Comment: (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) Code(s): C34.90 - Malignant neoplasm of unspecified part of unspecified bronchus or lung (3) Asthma: Code(s): J45.909 - Unspecified asthma, uncomplicated Plan continue Symbicort daily Nebulizer Add BUdesonide BID DANE BID Prednisone taper Short-acting beta agonist as needed nebulizer Bezonates for cough Awaiting pathology from [place] F/U with oncology F/U 4-6 months Medications: New prednisone PO daily; Take 2 tabs daily x 5 days, then 1 tablet daily x 5 days 10 days 15 tabs 0RF codeine-guaifenesin 10-100 mg/5 mL 10 mL PO Q6H 10 days PRN 300 mL 0RF cough budesonide 0.5 mg (2 mL) inhalation BID 30 days 120 mL 11RF J44.9 - Chronic obstructive pulmonary disease, unspecified Discontinued osimertinib 80 mg PO DAILY 30 tabs 3RF osimertinib 80 mg (2 x 40 mg) PO DAILY 60 tabs 0RF osimertinib 80 mg PO DAILY 30 tabs 3RF Coding Level of Care Code Est Pt Level 4 (16403) Diagnoses Atelectasis of left lung J98.11 Lung cancer C34.90 Asthma J45.909 CPT Codes Coding ([id number]) Time Spent (min) 18
[2023-05-28 14:39] VITALS: PULSE 75; O2SAT 97
== END 2023-05-28 14:45 | disposition home or self-care (01) ==
PROVIDERS: PCP Nurse Practitioner Family; Visit Provider Hospitalist
DX: J98.11 Atelectasis (principal); C34.90 Malignant neoplasm of unspecified part of unspecified bronchus or lung; J45.909 Unspecified asthma, uncomplicated
CPT/HCPCS: 94618; 99214

== ENCOUNTER → 2023-05-28 13:59 | Outpatient (BNVA) | payer MEDICARE, OTHER, SELFPAY | PROVIDERS: PCP Nurse Practitioner Family; Visit Provider Hospitalist | DX: C34.90 Malignant neoplasm of unspecified part of unspecified bronchus or lung (principal); J98.11 Atelectasis; J45.909 Unspecified asthma, uncomplicated | CPT/HCPCS: 94618; 99212 ==

== ENCOUNTER 2023-08-16 12:54 | Outpatient (AMB) | payer MEDICARE, OTHER, SELFPAY ==
[2023-08-16 13:12] VITALS: BP 128/60; PULSE 65; O2SAT 97; BMI 30.3
--- NOTE | 2023-08-16 13:12 | MHC.OFFVIS ---
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 Prior to that she was doing well. The patient states that because her symptoms were getting significantly worse she was evaluated by primary care doctor who requested a chest x-ray. The chest x-ray was abnormal therefore she was requested for an urgent CT scan of the chest that she had just a few days ago. The patient CT scan demonstrated an abnormal finding concerning for a masslike density causing obstruction to the left upper lobe in addition to that some mild lymphadenopathy and some other potential Bony lesions. Therefore the concern was that this could be a malignant process. The patient was referred to Pulmonary urgently. the patient does have the dyspnea symptoms therefore we did go for brief walking oximetry. The patient did become dyspneic and her oxygen did drop to about 91%. Although at this point she does not qualify for oxygen. In the office we did personally review her CT scan images and it appears that the masslike density is causing in airway obstruction that is causing atelectasis of the anterior segment of the left upper lobe. Therefore bronchoscopic evaluation will be helpful at this time to assess the degree of obstruction and also for diagnostic intervention. the best option is to undergo a endobronchial ultrasound bronchoscopy at this time. In addition to that we talked about the importance of getting a PET scan to assess the severity of disease. On further questioning she does states that her sister of cancer at a younger age. 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 In addition to that 1 of her parents also of lung cancer later in life, but they smoked. At this point the patient is agreeable to undergo the bronchoscopy. We were able to arrange to undergo the EBUS. 05/28/2023 the patient is here for pulmonary follow-up visit. She is status post bronchoscopy in [place]. Apparently they were able to reach the abnormal density in her lung. She was told that it was consistent with cancer. She still waiting the final pathology. However, she has a hard time breathing. She has chest tightness and significant coughing. Moderate in severity. Difficult time sleeping. Typically does not get congested. The cough is typically nonproductive. Denies any fevers or chills. On exam she does have significant wheezing and a prolonged expiratory phase. Explained to her that the cough is mainly a pumpkin spastic cough. the the patient start with prednisone taper and will optimize her respiratory therapy at this time as well. She will follow-up with Oncology and hopefully she has completed the prednisone in order for her to start a new chemotherapy regimen depending on the pathology molecular markers. 08/16/2023 the patient is here for a pulmonary follow-up visit. She was evaluated at [facility] and started a clinical trial. seems to be tolerating the trial for now. Her next dose is next week. She is been having persistent cough though. Moderate severity. Worse at nighttime. Typically nonproductive. Affecting her sleep. She feels tired during the daytime. She does leave the bedroom and goes so far where she can sleep upright. Denies any significant reflux disease. She does have a postnasal drip. On examination the patient does have some expiratory wheezing and post isolation coughing. She does have a Symbicort inhaler but she does not use it regularly. The patient would be better off with a simpler inhaler such as Trelegy that will be able to cover her throughout the day and therefore she would not miss her dosages. In addition to that a rescue inhaler that she can use as needed. She is going to stop the budesonide for now just to try to simplify her respiratory regimen. I did emphasize that inhaler therapy should not interact with her chemotherapy. [facility] Medical History Asthma Atelectasis of left lung Elevated cholesterol Hyperparathyroidism Lung cancer (~10/2021) Mild aortic regurgitation Surgical History History of appendectomy History of bronchoscopy (~10/2021) History of colonoscopy History of total left hip replacement Family History Sister Ovarian cancer Mother Lung cancer High cholesterol Daughter Depression Social History Household Members: Spouse and Children Housing: House Are you a primary human services care specialist to a significant other at home: No Do you presently have visiting nurse or other home services: No Patient Tobacco Use Status: Never used Tobacco service: No 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 occupational 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 Current occupational exposures/hazards: Yes (Stress) Review of Systems Const Denies fatigue, Denies night sweats and Denies poor appetite ENT Denies change in voice, Denies lip swelling, Denies mouth pain and Denies tongue swelling Card Denies chest pain and Reports dyspnea on exertion Resp Reports cough, Reports dyspnea on exertion and Reports wheezing GI Denies abdominal pain Musc Denies no additional complaints Skin/Breast Reports rash Neuro Denies Neuro-related abnormal movements Psych Denies no additional complaints Endo Denies fatigue Elias/Lymph Denies easy bleeding and Denies lymphadenopathy Aller/Immun Denies lip swelling, Denies tongue swelling and Reports wheezing Physical Exam Vital Signs: Last Vital Signs Pulse 65 08/16/23 13:12 BP 128/60 08/16/23 13:12 Pulse Ox 97 08/16/23 13:12 Oxygen Delivery Method Room Air 08/16/23 13:12 BMI result Body Mass Index 30.3 Const General: alert Neck Neck: Yes normal visual inspection, Yes full ROM and Yes no lymphadenopathy Chest Chest palpation & inspection: normal inspection of the chest Resp Effort & Inspection: Actively coughing Quality: actively coughing and prolonged expiratory phase Auscultation: no crackles, no rales, no rhonchi, wheezes and diminished lung sounds Cardio Rate: regular rate Rhythm: regular rhythm Heart sounds: S1 normal heart sound present and S2 normal heart sound present GI Palpation (GI): Soft to palpation and nontender Auscultation: normal bowel sounds Skin General skin exam: rashes and/or lesions noted Assessment & Plan Assessment & Plan (1) Atelectasis of left lung: Code(s): J98.11 - Atelectasis (2) Lung cancer: Onset Date: ~10/2021 Comment: (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) Code(s): C34.90 - Malignant neoplasm of unspecified part of unspecified bronchus or lung Qualifiers: Laterality: unspecified laterality Lung location: unspecified part of lung Qualified Code(s): C34.90 - Malignant neoplasm of unspecified part of unspecified bronchus or lung (3) Asthma: Code(s): J45.909 - Unspecified asthma, uncomplicated Qualifiers: Asthma complication type: uncomplicated Asthma persistence: persistent Asthma severity: moderate Qualified Code(s): J45.40 - Moderate persistent asthma, uncomplicated Plan stop Symbicort daily start Trelegy 200 daily DANE as needed Nebulizer stop BUdesonide BID DANE BID Bezonates for cough Clinical trial on chemo sleep with HOB elevated F/U 3-4 months Medications: New nmrgsquuykl-rihkupdjj-equphndl 200-62.5-25 mcg (Trelegy Ellipta) 1 inh inhalation DAILY 30 days 60 ea 12RF Coding Level of Care Code Est Pt Level 4 (31719) Diagnoses Atelectasis of left lung J98.11 Malignant neoplasm of lung, unspecified laterality, unspecified part of lung C34.90 Laterality: unspecified laterality Lung location: unspecified part of lung Moderate persistent asthma without complication J45.40 Asthma complication type: uncomplicated Asthma persistence: persistent Asthma severity: moderate Time Spent (min) 17
== END 2023-08-16 13:43 | disposition home or self-care (01) ==
PROVIDERS: PCP Nurse Practitioner Family; Visit Provider Hospitalist
DX: J98.11 Atelectasis (principal); C34.90 Malignant neoplasm of unspecified part of unspecified bronchus or lung; J45.40 Moderate persistent asthma, uncomplicated
CPT/HCPCS: 99214

== ENCOUNTER → 2023-08-16 12:54 | Outpatient (BNVA) | payer MEDICARE, OTHER, SELFPAY | PROVIDERS: PCP Nurse Practitioner Family; Visit Provider Hospitalist | DX: J45.40 Moderate persistent asthma, uncomplicated (principal); J98.11 Atelectasis; C34.90 Malignant neoplasm of unspecified part of unspecified bronchus or lung | CPT/HCPCS: 99212 ==

== ENCOUNTER 2023-11-30 13:00 | Outpatient (AMB) | payer MEDICARE, OTHER, SELFPAY ==
[2023-11-30 13:18] VITALS: PULSE 75; O2SAT 95; BMI 30.5
--- NOTE | 2023-11-30 13:18 | MHC.OFFVIS ---
Intake Vital Signs 11/30/23 13:18 Height 5 ft 3 in Weight 172 lb BMI 30.5 Pulse 75 Pulse Source Pulse Oximeter Pulse Oximetry (%) 95 Oxygen Delivery Method Room Air Intake Visit Reasons: lung mass : 3 month f/u [employer]ty [employer] Cook Required: No Allergies No Known Allergies Allergy (Verified 11/30/23 13:19) HPI HPI Comments History of Present Illness Details The patient is a 73-year-old woman, lifelong nonsmoker who apparently was in his usual state health until the last several weeks when she started developing increasing shortness of breath. Prior to that she was doing well. The patient states that because her symptoms were getting significantly worse she was evaluated by primary care doctor who requested a chest x-ray. The chest x-ray was abnormal therefore she was requested for an urgent CT scan of the chest that she had just a few days ago. The patient CT scan demonstrated an abnormal finding concerning for a masslike density causing obstruction to the left upper lobe in addition to that some mild lymphadenopathy and some other potential Bony lesions. Therefore the concern was that this could be a malignant process. The patient was referred to Pulmonary urgently. the patient does have the dyspnea symptoms therefore we did go for brief walking oximetry. The patient did become dyspneic and her oxygen did drop to about 91%. Although at this point she does not qualify for oxygen. In the office we did personally review her CT scan images and it appears that the masslike density is causing in airway obstruction that is causing atelectasis of the anterior segment of the left upper lobe. Therefore bronchoscopic evaluation will be helpful at this time to assess the degree of obstruction and also for diagnostic intervention. the best option is to undergo a endobronchial ultrasound bronchoscopy at this time. In addition to that we talked about the importance of getting a PET scan to assess the severity of disease. On further questioning she does states that her sister of cancer at a younger age. 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 In addition to that 1 of her parents also of lung cancer later in life, but they smoked. At this point the patient is agreeable to undergo the bronchoscopy. We were able to arrange to undergo the EBUS. 05/28/2023 the patient is here for pulmonary follow-up visit. She is status post bronchoscopy in [place]. Apparently they were able to reach the abnormal density in her lung. She was told that it was consistent with cancer. She still waiting the final pathology. However, she has a hard time breathing. She has chest tightness and significant coughing. Moderate in severity. Difficult time sleeping. Typically does not get congested. The cough is typically nonproductive. Denies any fevers or chills. On exam she does have significant wheezing and a prolonged expiratory phase. Explained to her that the cough is mainly a pumpkin spastic cough. the the patient start with prednisone taper and will optimize her respiratory therapy at this time as well. She will follow-up with Oncology and hopefully she has completed the prednisone in order for her to start a new chemotherapy regimen depending on the pathology molecular markers. 08/16/2023 the patient is here for a pulmonary follow-up visit. She was evaluated at [facility] and started a clinical trial. seems to be tolerating the trial for now. Her next dose is next week. She is been having persistent cough though. Moderate severity. Worse at nighttime. Typically nonproductive. Affecting her sleep. She feels tired during the daytime. She does leave the bedroom and goes so far where she can sleep upright. Denies any significant reflux disease. She does have a postnasal drip. On examination the patient does have some expiratory wheezing and post isolation coughing. She does have a Symbicort inhaler but she does not use it regularly. The patient would be better off with a simpler inhaler such as Trelegy that will be able to cover her throughout the day and therefore she would not miss her dosages. In addition to that a rescue inhaler that she can use as needed. She is going to stop the budesonide for now just to try to simplify her respiratory regimen. I did emphasize that inhaler therapy should not interact with her chemotherapy. 11/30/2023 the patient is here for a pulmonary follow-up visit. To take part in the trial at [facility]. She seems to be responding to the trial medication. She did have a CT scan back in October 18 and then more recently repeat CT scan which is 6 weeks later. It appears that the left upper lobe nodular densities unchanged. The atelectasis in the lingula is improved. The patient did have some new ground-glass nodularity area in the right middle lobe. I did suggest that this is likely infectious process. She had been coughing for about 6-8 weeks. Her cough is now better. Recently she was diagnosed with the UTI in she was started on an antibiotic. Likely the antibiotic now is treating her lung as well. The patient does have a Trelegy inhaler. She does not use it regularly. She does have some expiratory wheezing so therefore I did suggest that she use the inhaler at least 3 times a week and then use her rescue inhaler as needed. The patient will be following up in [place]. [facility] Medical History Asthma Atelectasis of left lung Elevated cholesterol Hyperparathyroidism Lung cancer (~10/2021) Mild aortic regurgitation Surgical History History of appendectomy History of bronchoscopy (~10/2021) History of colonoscopy History of total left hip replacement Family History Sister Ovarian cancer Mother Lung cancer High cholesterol Daughter Depression Social History Household Members: Spouse and Children Housing: House Are you a primary care professional to a significant other at home: No Do you presently have visiting nurse or other home services: No Patient Tobacco Use Status: Never used Tobacco service: No 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 Current occupational exposures/hazards: Yes (Stress) Review of Systems Const Denies fatigue, Denies night sweats and Denies poor appetite ENT Denies change in voice, Denies lip swelling, Denies mouth pain and Denies tongue swelling Card Denies chest pain and Reports dyspnea on exertion Resp Reports cough, Reports dyspnea on exertion and Reports wheezing GI Denies abdominal pain Musc Denies no additional complaints Skin/Breast Reports rash Neuro Denies Neuro-related abnormal movements Psych Denies no additional complaints Endo Denies fatigue Elias/Lymph Denies easy bleeding and Denies lymphadenopathy Aller/Immun Denies lip swelling, Denies tongue swelling and Reports wheezing Physical Exam Vital Signs: Last Vital Signs Pulse 75 11/30/23 13:18 Pulse Ox 95 11/30/23 13:18 Oxygen Delivery Method Room Air 11/30/23 13:18 BMI result Body Mass Index 30.5 Const General: alert Neck Neck: Yes normal visual inspection, Yes full ROM and Yes no lymphadenopathy Chest Chest palpation & inspection: normal inspection of the chest Resp Effort & Inspection: Actively coughing Quality: actively coughing and prolonged expiratory phase Auscultation: no crackles, no rales, no rhonchi, no wheezes and diminished lung sounds Cardio Rate: regular rate Rhythm: regular rhythm Heart sounds: S1 normal heart sound present and S2 normal heart sound present GI Palpation (GI): Soft to palpation and nontender Auscultation: normal bowel sounds Skin General skin exam: rashes and/or lesions noted Assessment & Plan Assessment & Plan (1) Atelectasis of left lung: Code(s): J98.11 - Atelectasis (2) Lung cancer: Onset Date: ~10/2021 Comment: (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) Code(s): C34.90 - Malignant neoplasm of unspecified part of unspecified bronchus or lung Qualifiers: Laterality: unspecified laterality Lung location: unspecified part of lung Qualified Code(s): C34.90 - Malignant neoplasm of unspecified part of unspecified bronchus or lung (3) Asthma: Code(s): J45.909 - Unspecified asthma, uncomplicated Qualifiers: Asthma complication type: uncomplicated Asthma persistence: persistent Asthma severity: moderate Qualified Code(s): J45.40 - Moderate persistent asthma, uncomplicated Plan conitnue Trelegy 200 daily DANE as needed Nebulizer Bezonates for cough cough medicine Clinical trial on chemo sleep with HOB elevated F/U 3-4 months Medications: Refilled codeine-guaifenesin 10-100 mg/5 mL 10 mL PO Q6H PRN 300 mL 0RF cough 10 days Coding Level of Care Code Est Pt Level 4 (12818) Diagnoses Atelectasis of left lung J98.11 Malignant neoplasm of lung, unspecified laterality, unspecified part of lung C34.90 Laterality: unspecified laterality Lung location: unspecified part of lung Moderate persistent asthma without complication J45.40 Asthma complication type: uncomplicated Asthma persistence: persistent Asthma severity: moderate Time Spent (min) 18
== END 2023-11-30 13:49 | disposition home or self-care (01) ==
PROVIDERS: PCP Nurse Practitioner Family; Visit Provider Hospitalist
DX: J98.11 Atelectasis (principal); C34.90 Malignant neoplasm of unspecified part of unspecified bronchus or lung; J45.40 Moderate persistent asthma, uncomplicated
CPT/HCPCS: 99214

== ENCOUNTER → 2023-11-30 13:00 | Outpatient (BNVA) | payer MEDICARE, OTHER, SELFPAY | PROVIDERS: PCP Nurse Practitioner Family; Visit Provider Hospitalist | DX: J98.11 Atelectasis (principal); J45.40 Moderate persistent asthma, uncomplicated; C34.90 Malignant neoplasm of unspecified part of unspecified bronchus or lung | CPT/HCPCS: 99212 ==

== ENCOUNTER 2024-02-29 13:49 | Outpatient (AMB) | payer MEDICARE, OTHER, SELFPAY ==
[2024-02-29 14:00] VITALS: PULSE 78; O2SAT 96; BMI 31.7
--- NOTE | 2024-02-29 14:00 | A.OFFVIS_ITS ---
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 Prior to that she was doing well. The patient states that because her symptoms were getting significantly worse she was evaluated by primary care doctor who requested a chest x-ray. The chest x-ray was abnormal therefore she was requested for an urgent CT scan of the chest that she had just a few days ago. The patient CT scan demonstrated an abnormal finding concerning for a masslike density causing obstruction to the left upper lobe in addition to that some mild lymphadenopathy and some other potential Bony lesions. Therefore the concern was that this could be a malignant process. The patient was referred to Pulmonary urgently. the patient does have the dyspnea symptoms therefore we did go for brief walking oximetry. The patient did become dyspneic and her oxygen did drop to about 91%. Although at this point she does not qualify for oxygen. In the office we did personally review her CT scan images and it appears that the masslike density is causing in airway obstruction that is causing atelectasis of the anterior segment of the left upper lobe. Therefore bronchoscopic evaluation will be helpful at this time to assess the degree of obstruction and also for diagnostic intervention. the best option is to undergo a endobronchial ultrasound bronchoscopy at this time. In addition to that we talked about the importance of getting a PET scan to assess the severity of disease. On further questioning she does states that her sister of cancer at a younger age. 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 In addition to that 1 of her parents also of lung cancer later in life, but they smoked. At this point the patient is agreeable to undergo the bronchoscopy. We were able to arrange to undergo the EBUS. 05/28/2023 the patient is here for pulmonary follow-up visit. She is status post bronchoscopy in [place]. Apparently they were able to reach the abnormal density in her lung. She was told that it was consistent with cancer. She still waiting the final pathology. However, she has a hard time breathing. She has chest tightness and significant coughing. Moderate in severity. Difficult time sleeping. Typically does not get congested. The cough is typically nonproductive. Denies any fevers or chills. On exam she does have significant wheezing and a prolonged expiratory phase. Explained to her that the cough is mainly a pumpkin spastic cough. the the patient start with prednisone taper and will optimize her respiratory therapy at this time as well. She will follow-up with Oncology and hopefully she has completed the prednisone in order for her to start a new chemotherapy regimen depending on the pathology molecular markers. 08/16/2023 the patient is here for a pulmonary follow-up visit. She was evaluated at [facility] and started a clinical trial. seems to be tolerating the trial for now. Her next dose is next week. She is been having persistent cough though. Moderate severity. Worse at nighttime. Typically nonproductive. Affecting her sleep. She feels tired during the daytime. She does leave the bedroom and goes so far where she can sleep upright. Denies any significant reflux disease. She does have a postnasal drip. On examination the patient do es have some expiratory wheezing and post isolation coughing. She does have a Symbicort inhaler but she does not use it regularly. The patient would be better off with a simpler inhaler such as Trelegy that will be able to cover her throughout the day and therefore she would not miss her dosages. In addition to that a rescue inhaler that she can use as needed. She is going to stop the budesonide for now just to try to simplify her respiratory regimen. I did emphasize that inhaler therapy should not interact with her chemotherapy. 11/30/2023 the patient is here for a pulmonary follow-up visit. To take part in the trial at [facility]. She seems to be responding to the trial medication. She did have a CT scan back in October 18 and then more recently repeat CT scan which is 6 weeks later. It appears that the left upper lobe nodular densities unchanged. The atelectasis in the lingula is improved. The patient did have some new ground-glass nodularity area in the right middle lobe. I did suggest that this is likely infectious process. She had been coughing for about 6-8 weeks. Her cough is now better. Recently she was diagnosed with the UTI in she was started on an antibiotic. Likely the antibiotic now is treating her lung as well. The patient does have a Trelegy inhaler. She does not use it regularly. She does have some expiratory wheezing so therefore I did suggest that she use the inhaler at least 3 times a week and then use her rescue inhaler as needed. The patient will be following up in [place]. 02/29/2024 the patient is here for a pulmonary follow-up visit. She continues to respond well to the experimental chemotherapy agent. She is tolerating it well. She denies any adverse effects. She does get steroids with the treatment that cause her to be energetic for some time until she crashes. Otherwise she is doing well she continues with current respiratory therapy denies any worsening cough or wheezing. She is going on a cruise I will make sure to send him medications for her to take with her. In the meantime she continues her inhalers without any issues. She recently did undergo a CT scan of the chest done at [facility] and we were able to compared to her CT scan that she had back in February 2023. Seems like her left upper lobe nodular density has shrunken little bit in size which is very reassuring. She still has areas of atelectas is. And she also has some mediastinal lymphadenopathy. Seems overall that her CT scan is unchanged or improved which is reassuring that she is responding positively to her experimental therapy. [facility] Medical History Asthma Atelectasis of left lung Elevated cholesterol Hyperparathyroidism Lung cancer (~10/2021) Mild aortic regurgitation Surgical History History of appendectomy History of bronchoscopy (~10/2021) History of colonoscopy History of total left hip replacement Family History Sister Ovarian cancer Mother Lung cancer High cholesterol Daughter Depression Social History Household Members: Spouse and Children Housing: House Are you a primary child care attendant to a significant other at home: No Do you presently have visiting nurse or other home services: No Patient Tobacco Use Status: Never used Tobacco service: No Current occupational status: retired 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 Current occupational exposures/hazards: Yes (Stress) Review of Systems Const Denies fatigue, Denies night sweats and Denies poor appetite ENT Denies change in voice, Denies lip swelling, Denies mouth pain and Denies tongue swelling Card Denies chest pain and Reports dyspnea on exertion Resp Reports cough, Reports dyspnea on exertion and Denies wheezing GI Denies abdominal pain Musc Denies no additional complaints Skin/Breast Denies rash Neuro Denies Neuro-related abnormal movements Psych Denies no additional complaints Endo Denies fatigue Elias/Lymph Denies easy bleeding and Denies lymphadenopathy Aller/Immun Denies lip swelling, Denies tongue swelling and Denies wheezing Physical Exam Vital Signs: Last Vital Signs Pulse 78 02/29/24 14:00 Pulse Ox 96 02/29/24 14:00 Oxygen Delivery Method Room Air 02/29/24 14:00 BMI result Body Mass Index 31.7 Const General: alert Neck Neck: Yes normal visual inspection, Yes full ROM and Yes no lymphadenopathy Chest Chest palpation & inspection: normal inspection of the chest Resp Effort & Inspection: Actively coughing Quality: actively coughing and prolonged expiratory phase Auscultation: no crackles, no rales, no rhonchi, no wheezes and diminished lung sounds Cardio Rate: regular rate Rhythm: regular rhythm Heart sounds: S1 normal heart sound present and S2 normal heart sound present GI Palpation (GI): Soft to palpation and nontender Auscultation: normal bowel sounds Skin General skin exam: rashes and/or lesions noted Assessment & Plan Assessment & Plan (1) Atelectasis of left lung: Code(s): J98.11 - Atelectasis Category: Medical (2) Lung cancer: Onset Date: ~10/2021 Comment: (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) Code(s): C34.90 - Malignant neoplasm of unspecified part of unspecified bronchus or lung Category: Medical Qualifiers: Laterality: unspecified laterality Lung location: unspecified part of lung Qualified Code(s): C34.90 - Malignant neoplasm of unspecified part of unspecified bronchus or lung (3) Asthma: Code(s): J45.909 - Unspecified asthma, uncomplicated Category: Medical Qualifiers: Asthma complication type: uncomplicated Asthma persistence: persistent Asthma severity: moderate Qualified Code(s): J45.40 - Moderate persistent asthma, uncomplicated Plan conitnrajiv Koeniglegy 200 daily DANE as needed Nebulizer Bezonates for cough cough medicine Clinical trial on chemo sleep with HOB elevated F/U 6 months Medications: New doxycycline hyclate 100 mg PO BID 20 caps 0RF 10 days prednisone PO daily; Take 2 tabs daily x 5 days, then 1 tablet daily x 5 days 15 tabs 0RF 10 days Coding Level of Care Code Est Pt Level 4 (06312) Diagnoses Atelectasis of left lung J98.11 Malignant neoplasm of lung, unspecified laterality, unspecified part of lung C34.90 Laterality: unspecified laterality Lung location: unspecified part of lung Moderate persistent asthma without complication J45.40 Asthma complication type: uncomplicated Asthma persistence: persistent Asthma severity: moderate Time Spent (min) 17
== END 2024-02-29 14:23 | disposition home or self-care (01) ==
PROVIDERS: Visit Provider Hospitalist
DX: J98.11 Atelectasis (principal); C34.90 Malignant neoplasm of unspecified part of unspecified bronchus or lung; J45.40 Moderate persistent asthma, uncomplicated
CPT/HCPCS: 99214

== ENCOUNTER → 2024-02-29 13:49 | Outpatient (BNVA) | payer MEDICARE, OTHER, SELFPAY | PROVIDERS: Visit Provider Hospitalist | DX: C34.90 Malignant neoplasm of unspecified part of unspecified bronchus or lung (principal) | CPT/HCPCS: 99212 ==

== ENCOUNTER 2024-09-01 13:49 | Outpatient (AMB) | payer MEDICARE, OTHER, SELFPAY ==
[2024-09-01 14:01] VITALS: BP 120/62; PULSE 75; O2SAT 95; BMI 30.8
--- NOTE | 2024-09-01 14:01 | A.OFFVIS_ITS ---
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 Prior to that she was doing well. The patient states that because her symptoms were getting significantly worse she was evaluated by primary care doctor who requested a chest x-ray. The chest x-ray was abnormal therefore she was requested for an urgent CT scan of the chest that she had just a few days ago. The patient CT scan demonstrated an abnormal finding concerning for a masslike density causing obstruction to the left upper lobe in addition to that some mild lymphadenopathy and some other potential Bony lesions. Therefore the concern was that this could be a malignant process. The patient was referred to Pulmonary urgently. the patient does have the dyspnea symptoms therefore we did go for brief walking oximetry. The patient did become dyspneic and her oxygen did drop to about 91%. Although at this point she does not qualify for oxygen. In the office we did personally review her CT scan images and it appears that the masslike density is causing in airway obstruction that is causing atelectasis of the anterior segment of the left upper lobe. Therefore bronchoscopic evaluation will be helpful at this time to assess the degree of obstruction and also for diagnostic intervention. the best option is to undergo a endobronchial ultrasound bronchoscopy at this time. In addition to that we talked about the importance of getting a PET scan to assess the severity of disease. On further questioning she does states that her sister of cancer at a younger age. 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 In addition to that 1 of her parents also of lung cancer later in life, but they smoked. At this point the patient is agreeable to undergo the bronchoscopy. We were able to arrange to undergo the EBUS. 05/28/2023 the patient is here for pulmonary follow-up visit. She is status post bronchoscopy in [place]. Apparently they were able to reach the abnormal density in her lung. She was told that it was consistent with cancer. She still waiting the final pathology. However, she has a hard time breathing. She has chest tightness and significant coughing. Moderate in severity. Difficult time sleeping. Typically does not get congested. The cough is typically nonproductive. Denies any fevers or chills. On exam she does have significant wheezing and a prolonged expiratory phase. Explained to her that the cough is mainly a pumpkin spastic cough. the the patient start with prednisone taper and will optimize her respiratory therapy at this time as well. She will follow-up with Oncology and hopefully she has completed the prednisone in order for her to start a new chemotherapy regimen depending on the pathology molecular markers. 08/16/2023 the patient is here for a pulmonary follow-up visit. She was evaluated at [facility] and started a clinical trial. seems to be tolerating the trial for now. Her next dose is next week. She is been having persistent cough though. Moderate severity. Worse at nighttime. Typically nonproductive. Affecting her sleep. She feels tired during the daytime. She does leave the bedroom and goes so far where she can sleep upright. Denies any significant reflux disease. She does have a postnasal drip. On examination the patient does have some expiratory wheezing and post isolation coughing. She does have a Symbicort inhaler but she does not use it regularly. The patient would be better off with a simpler inhaler such as Trelegy that will be able to cover her throughout the day and therefore she would not miss her dosages. In addition to that a rescue inhaler that she can use as needed. She is going to stop the budesonide for now just to try to simplify her respiratory regimen. I did emphasize that inhaler therapy should not interact with her chemotherapy. 11/30/2023 the patient is here for a pulmonary follow-up visit. To take part in the trial at [facility]. She seems to be responding to the trial medication. She did have a CT scan back in October 18 and then more recently repeat CT scan which is 6 weeks later. It appears that the left upper lobe nodular densities unchanged. The atelectasis in the lingula is improved. The patient did have some new ground-glass nodularity area in the right middle lobe. I did suggest that this is likely infectious process. She had been coughing for about 6-8 weeks. Her cough is now better. Recently she was diagnosed with the UTI in she was started on an antibiotic. Likely the antibiotic now is treating her lung as well. The patient does have a Trelegy inhaler. She does not use it regularly. She does have some expiratory wheezing so therefore I did suggest that she use the inhaler at least 3 times a week and then use her rescue inhaler as needed. The patient will be following up in [place]. 02/29/2024 the patient is here for a pulmonary follow-up visit. She continues to respond well to the experimental chemotherapy agent. She is tolerating it well. She denies any adverse effects. She does get steroids with the treatment that cause her to be energetic for some time until she crashes. Otherwise she is doing well she continues with current respiratory therapy denies any worsening cough or wheezing. She is going on a cruise I will make sure to send him medications for her to take with her. In the meantime she continues her inhalers without any issues. She recently did undergo a CT scan of the chest done at [facility] and we were able to compared to her CT scan that she had back in February 2023. Seems like her left upper lobe nodular density has shrunken little bit in size which is very reassuring. She still has areas of atelectasis. And she also has some mediastinal lymphadenopathy. Seems overall that her CT scan is unchanged or improved which is reassuring that she is responding positively to her experimental therapy. 09/01/2024 the patient is here for pulmonary follow-up visit. She continues with her Spiriva until chemotherapy trial. She just signed up for another year. The medication that she is taking has not yet been approved by the FDA so therefore she will continue with the trial. Once the trial completes then she may have to make other decisions. At least from a respiratory status she has had does have increased dyspnea on exertion. [id number] severity. She started going for walks but she walks slowly. She has been taking her Trelegy but not regularly. I did encourage her to take it regularly and to look for the pulmonary rehabilitation online. She lives too far away for the in-person program. She is going to look into the program take medication. When she completes the program if she wants to take a different maintenance medication that has the ability of taking it as needed she can always call and we can make a switch to either air supra or Symbicort. She had been on Symbicort in the past. The patient will continue having imaging studies in [place]. She does state that the findings of the abnormal density has been stable and unchanged. It does not appear to be regressing size but seems like the chemotherapy is keeping it from progressing. Otherwise patient is without any other complaints. She will follow-up in 6-8 months. [facility] Medical History Asthma Atelectasis of left lung Elevated cholesterol Hyperparathyroidism Lung cancer (~10/2021) Mild aortic regurgitation Surgical History History of appendectomy History of bronchoscopy (~10/2021) History of colonoscopy History of total left hip replacement Family History Sister Ovarian cancer Mother Lung cancer High cholesterol Daughter Depression Social History Household Members: Spouse and Children Housing: House Are you a primary after school caregiver to a significant other at home: No Do you presently have visiting nurse or other home services: No Patient Tobacco Use Status: Never used Tobacco service: No Current occupational status: retired 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 Current occupational exposures/hazards: Yes (Stress) Review of Systems Const Denies fatigue, Denies night sweats and Denies poor appetite ENT Denies change in voice, Denies lip swelling, Denies mouth pain and Denies tongue swelling Card Denies chest pain and Reports dyspnea on exertion Resp Reports cough, Reports dyspnea on exertion and Denies wheezing GI Denies abdominal pain Musc Denies no additional complaints Skin/Breast Denies rash Neuro Denies Neuro-related abnormal movements Psych Denies no additional complaints Endo Denies fatigue Elias/Lymph Denies easy bleeding and Denies lymphadenopathy Aller/Immun Denies lip swelling, Denies tongue swelling and Denies wheezing Physical Exam Vital Signs: Last Vital Signs Pulse 75 09/01/24 14:01 BP 120/62 09/01/24 14:01 Pulse Ox 95 09/01/24 14:01 Oxygen Delivery Method Room Air 09/01/24 14:01 BMI result Body Mass Index 30.8 Const General: alert Neck Neck: Yes normal visual inspection, Yes full ROM and Yes no lymphadenopathy Chest Chest palpation & inspection: normal inspection of the chest Resp Effort & Inspection: normal respiratory effort Auscultation: no crackles, no rales, no rhonchi, no wheezes and diminished lung sounds Cardio Rate: regular rate Rhythm: regular rhythm Heart sounds: S1 normal heart sound present and S2 normal heart sound present GI Palpation (GI): Soft to palpation and nontender Auscultation: normal bowel sounds Skin General skin exam: rashes and/or lesions noted Assessment & Plan Assessment & Plan (1) Atelectasis of left lung: Code(s): J98.11 - Atelectasis Category: Medical (2) Lung cancer: Onset Date: ~10/2021 Comment: (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) Code(s): C34.90 - Malignant neoplasm of unspecified part of unspecified bronchus or lung Category: Medical Qualifiers: Laterality: unspecified laterality Lung location: unspecified part of lung Qualified Code(s): C34.90 - Malignant neoplasm of unspecified part of unspecified bronchus or lung (3) Asthma: Code(s): J45.909 - Unspecified asthma, uncomplicated Category: Medical Qualifiers: Asthma complication type: uncomplicated Asthma persistence: persistent Asthma severity: moderate Qualified Code(s): J45.40 - Moderate persistent asthma, uncomplicated Plan conitnue Trelegy 200 daily DANE as needed Nebulizer Bezonates for cough cough medicine Clinical trial on chemo sleep with HOB elevated F/U 6 months Coding Level of Care Code Est Pt Level 4 (27984) Diagnoses Atelectasis of left lung J98.11 Malignant neoplasm of lung, unspecified laterality, unspecified part of lung C34.90 Laterality: unspecified laterality Lung location: unspecified part of lung Moderate persistent asthma without complication J45.40 Asthma complication type: uncomplicated Asthma persistence: persistent Asthma severity: moderate Time Spent (min) 16
== END 2024-09-01 14:29 | disposition home or self-care (01) ==
PROVIDERS: PCP Nurse Practitioner Family; Visit Provider Hospitalist
DX: J98.11 Atelectasis (principal); C34.90 Malignant neoplasm of unspecified part of unspecified bronchus or lung; J45.40 Moderate persistent asthma, uncomplicated
CPT/HCPCS: 99214

== ENCOUNTER → 2024-09-01 13:49 | Outpatient (BNVA) | payer MEDICARE, OTHER, SELFPAY | PROVIDERS: Visit Provider Hospitalist | DX: J98.11 Atelectasis (principal); C34.90 Malignant neoplasm of unspecified part of unspecified bronchus or lung; J45.40 Moderate persistent asthma, uncomplicated | CPT/HCPCS: 99212 ==

== ENCOUNTER 2025-07-24 14:15 | Outpatient (AMB) | payer MEDICARE, OTHER, SELFPAY ==
[2025-07-24 14:16] VITALS: BP 124/60; PULSE 76; O2SAT 98
--- NOTE | 2025-07-24 14:16 | A.OFFVIS_ITS ---
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 Prior to that she was doing well. The patient states that because her symptoms were getting significantly worse she was evaluated by primary care doctor who requested a chest x-ray. The chest x-ray was abnormal therefore she was requested for an urgent CT scan of the chest that she had just a few days ago. The patient CT scan demonstrated an abnormal finding concerning for a masslike density causing obstruction to the left upper lobe in addition to that some mild lymphadenopathy and some other potential Bony lesions. Therefore the concern was that this could be a malignant process. The patient was referred to Pulmonary urgently. the patient does have the dyspnea symptoms therefore we did go for brief walking oximetry. The patient did become dyspneic and her oxygen did drop to about 91%. Although at this point she does not qualify for oxygen. In the office we did personally review her CT scan images and it appears that the masslike density is causing in airway obstruction that is causing atelectasis of the anterior segment of the left upper lobe. Therefore bronchoscopic evaluation will be helpful at this time to assess the degree of obstruction and also for diagnostic intervention. the best option is to undergo a endobronchial ultrasound bronchoscopy at this time. In addition to that we talked about the importance of getting a PET scan to assess the severity of disease. On further questioning she does states that her sister of cancer at a younger age. 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 In addition to that 1 of her parents also of lung cancer later in life, but they smoked. At this point the patient is agreeable to undergo the bronchoscopy. We were able to arrange to undergo the EBUS. 05/28/2023 the patient is here for pulmonary follow-up visit. She is status post bronchoscopy in [place]. Apparently they were able to reach the abnormal density in her lung. She was told that it was consistent with cancer. She still waiting the final pathology. However, she has a hard time breathing. She has chest tightness and significant coughing. Moderate in severity. Difficult time sleeping. Typically does not get congested. The cough is typically nonproductive. Denies any fevers or chills. On exam she does have significant wheezing and a prolonged expiratory phase. Explained to her that the cough is mainly a pumpkin spastic cough. the the patient start with prednisone taper and will optimize her respiratory therapy at this time as well. She will follow-up with Oncology and hopefully she has completed the prednisone in order for her to start a new chemotherapy regimen depending on the pathology molecular markers. 08/16/2023 the patient is here for a pulmonary follow-up visit. She was evaluated at [facility] and started a clinical trial. seems to be tolerating the trial for now. Her next dose is next week. She is been having persistent cough though. Moderate severity. Worse at nighttime. Typically nonproductive. Affecting her sleep. She feels tired during the daytime. She does leave the bedroom and goes so far where she can sleep upright. Denies any significant reflux disease. She does have a postnasal drip. On examination the patient does have some expiratory wheezing and post isolation coughing. She does have a Symbicort inhaler but she does not use it regularly. The patient would be better off with a simpler inhaler such as Trelegy that will be able to cover her throughout the day and therefore she would not miss her dosages. In addition to that a rescue inhaler that she can use as needed. She is going to stop the budesonide for now just to try to simplify her respiratory regimen. I did emphasize that inhaler therapy should not interact with her chemotherapy. 11/30/2023 the patient is here for a pulmonary follow-up visit. To take part in the trial at [facility]. She seems to be responding to the trial medication. She did have a CT scan back in October 18 and then more recently repeat CT scan which is 6 weeks later. It appears that the left upper lobe nodular densities unchanged. The atelectasis in the lingula is improved. The patient did have some new ground-glass nodularity area in the right middle lobe. I did suggest that this is likely infectious process. She had been coughing for about 6-8 weeks. Her cough is now better. Recently she was diagnosed with the UTI in she was started on an antibiotic. Likely the antibiotic now is treating her lung as well. The patient does have a Trelegy inhaler. She does not use it regularly. She does have some expiratory wheezing so therefore I did suggest that she use the inhaler at least 3 times a week and then use her rescue inhaler as needed. The patient will be following up in [place]. 02/29/2024 the patient is here for a pulmonary follow-up visit. She continues to respond well to the experimental chemotherapy agent. She is tolerating it well. She denies any adverse effects. She does get steroids with the treatment that cause her to be energetic for some time until she crashes. Otherwise she is doing well she continues with current respiratory therapy denies any worsening cough or wheezing. She is going on a cruise I will make sure to send him medications for her to take with her. In the meantime she continues her inhalers without any issues. She recently did undergo a CT scan of the chest done at [facility] and we were able to compared to her CT scan that she had back in February 2023. Seems like her left upper lobe nodular density has shrunken little bit in size which is very reassuring. She still has areas of atelectasis. And she also has some mediastinal lymphadenopathy. Seems overall that her CT scan is unchanged or improved which is reassuring that she is responding positively to her experimental therapy. 09/01/2024 the patient is here for pulmonary follow-up visit. She continues with her Spiriva until chemotherapy trial. She just signed up for another year. The medication that she is taking has not yet been approved by the FDA so therefore she will continue with the trial. Once the trial completes then she may have to make other decisions. At least from a respiratory status she has had does have increased dyspnea on exertion. Dxzg-fx-liqzgkln severity. She started going for walks but she walks slowly. She has been taking her Trelegy but not regularly. I did encourage her to take it regularly and to look for the pulmonary rehabilitation online. She lives too far away for the in-person program. She is going to look into the program take medication. When she completes the program if she wants to take a different maintenance medication t hat has the ability of taking it as needed she can always call and we can make a switch to either air supra or Symbicort. She had been on Symbicort in the past. The patient will continue having imaging studies in [place]. She does state that the findings of the abnormal density has been stable and unchanged. It does not appear to be regressing size but seems like the chemotherapy is keeping it from progressing. Otherwise patient is without any other complaints. She will follow-up in 6-8 months. 07/24/2025 the patient is here for pulmonary follow-up visit. Overall the patient is doing well. Although she did have a upper respiratory illness and then afterwards she has had a cough. The cough is been cosl-rp-dkqhjzfq severity associated with some mucus production. She has not taking anything hhhj-xsz-tsakhde as of yet. She is also getting a chemo that sometimes affects her immune system. Therefore, it is not unreasonable for her to go on a Z-Jaleel. She is going to talk to her healthcare team in [place] to make sure she is able to take a Z-Jaleel with her chemotherapy regimen. Should be okay. The patient otherwise is doing good she continues on her respiratory inhalers with good response. 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 She will have another PET scan soon to address the question of metastatic disease. But for now she seems to be tolerating her chemotherapy trial that isn't currently an experimental trial. She has been on it for the last 2 years and she has been seems to be fairly stable on it. [facility] Medical History Asthma Atelectasis of left lung Elevated cholesterol Hyperparathyroidism Lung cancer (~10/2021) Mild aortic regurgitation Surgical History History of appendectomy History of bronchoscopy (~10/2021) History of colonoscopy History of total left hip replacement Family History Sister Ovarian cancer Mother Lung cancer High cholesterol Daughter Depression Social History Household Members: Spouse and Children Housing: House Are you a primary medication care manager to a significant other at home: No Do you presently have visiting nurse or other home services: No Patient Tobacco Use Status: Never used Tobacco service: No Current occupational status: retired 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 Current occupational exposures/hazards: Yes (Stress) Review of Systems Const Denies fatigue, Denies night sweats and Denies poor appetite ENT Denies change in voice, Denies lip swelling, Denies mouth pain and Denies tongue swelling Card Denies chest pain and Reports dyspnea on exertion Resp Reports chest congestion, Reports cough, Reports dyspnea on exertion and Denies wheezing GI Denies abdominal pain Musc Denies no additional complaints Skin/Breast Denies rash Neuro Denies Neuro-related abnormal movements Psych Denies no additional complaints Endo Denies fatigue Elias/Lymph Denies easy bleeding and Denies lymphadenopathy Aller/Immun Denies lip swelling, Denies tongue swelling and Denies wheezing Physical Exam Vital Signs: Last Vital Signs Pulse 76 07/24/25 14:16 BP 124/60 07/24/25 14:16 Pulse Ox 98 07/24/25 14:16 Oxygen Delivery Method Room Air 07/24/25 14:16 BMI result Body Mass Index 30.0 Const General: alert Neck Neck: Yes normal visual inspection, Yes full ROM and Yes no lymphadenopathy Chest Chest palpation & inspection: normal inspection of the chest Resp Effort & Inspection: normal respiratory effort Auscultation: no crackles, no rales, no rhonchi, no wheezes and diminished lung sounds Cardio Rate: regular rate Rhythm: regular rhythm Heart sounds: S1 normal heart sound present and S2 normal heart sound present GI Palpation (GI): Soft to palpation and nontender Auscultation: normal bowel sounds Skin General skin exam: rashes and/or lesions noted Assessment & Plan Assessment & Plan (1) Atelectasis of left lung: Code(s): J98.11 - Atelectasis Category: Medical (2) Lung cancer: Onset Date: ~10/2021 Comment: (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) Code(s): C34.90 - Malignant neoplasm of unspecified part of unspecified bronchus or lung Category: Medical Qualifiers: Laterality: unspecified laterality Lung location: unspecified part of lung Qualified Code(s): C34.90 - Malignant neoplasm of unspecified part of unspecified bronchus or lung (3) Asthma: Code(s): J45.909 - Unspecified asthma, uncomplicated Category: Medical Qualifiers: Asthma complication type: uncomplicated Asthma persistence: persistent Asthma severity: moderate Qualified Code(s): J45.40 - Moderate persistent asthma, uncomplicated Plan stopped Trelegy 200 daily DANE as needed Nebulizer Bezonates for cough cough medicine [facility] Clinical trial chemo regimen continue sleep with HOB elevated pepcid PM F/U 6 months Medications: New azithromycin 500 mg PO DAILY 5 tabs 0RF 5 days Coding Level of Care Code Est Pt Level 4 (78445) Complex EM visit Add On G2211 Diagnoses Atelectasis of left lung J98.11 Malignant neoplasm of lung, unspecified laterality, unspecified part of lung C34.90 Laterality: unspecified laterality Lung location: unspecified part of lung Moderate persistent asthma without complication J45.40 Asthma complication type: uncomplicated Asthma persistence: persistent Asthma severity: moderate Time Spent (min) 16
--- OUTSIDE RECORDS SUMMARY | 2025-07-24 17:12 | XMS_ITS | Encounter Summary ---
Author Organization [facility] Address [address] [place] [address] Phone Care Team Providers Care Respiratory Assistant Name Role Phone Kimberly Bullard POWDER EXPERT Primary Care Provider [phone] Braulio Curran MD Unavailable [phone] Dominic Rivera MD , PhD Unavailable Luli Castillo MD Unavailable [phone] Tricia Brock RN Unavailable [email or web address] Otilia Garcia RN Unavailable [phone] System, Provider Not In PhD Unavailable Unav ailable System, Provider Not In PhD Primary Care Provide r Unavailable Keara Smith POWDER EXPERT Primary Care Provide r Sherin Thomas RN Unavailable [email or web address] Tri Burleson RN Unavailable [email or web address] [email or web address] Mildred Rust RN Unavailable [email or web address] Nanette Tavarez RN Unavailable [email or web address] Alina Pop RN Unavailable Parish [email or web address] Luann House RN Unavailable [email or web address] Daxa Leija RN Unavailable Encounter Details Date Type Department Care Team (Late st Contact Info) Description 12/21/2023 Procedure Pass [facility] [place], [place] [address] Floor [place] [id number] Social History Tobacco Use Types Packs/Day Years Used Date Smoking Tobacco: Never Smokeless Tobacco: Never Alcohol Use Standard Drinks/Week Comments Not Currently 0 (1 standard drink = 0.6 oz pur e alcohol) Child or Family Care Answer Date Record ed Do you have problems with on e of the following making it difficult for you to work, study, or receive health care? No 04/22/2023 Education Answer Date Recorded Are you interested in more education? Not on nolvia e 02/05/2023 Are you concerned about learning? Not on file 02/05/2023 No 02/05/2023 No 02/05/2023 Food Answer Date Recorded Within the past 6 months we worried whether our food would run out before we got money to buy more. Never True 04/22/2023 Within the past 6 months the food we bought just didn't last and we didn't have enough money to get more. Never True Residential Stability Answer Date Recor ded What is your housing situation today? I have mando sing 04/22/2023 How many times have you move d in the past 12 months? Zero (I did not move) 04/22/2023 Paying for Meds Answer Date Recorded Do you have trouble paying for medicines? No 04/22/2023 Paying Utility Bills Answer Date Record ed Do you have trouble paying your heating or elect ricity bill? No 04/22/2023 Transportation Answer Date Recorded Has the lack of transportati on kept you from medical appointments or from getting medications? No 04/22/2023 Digital Access Answer Date Recorded No 03/09/2023 No 03/09/2023 Reliable internet access at home? Not on file 03/09/2023 Device with a working camera? Not on file Intimate Partner Violence Answer Date R ecorded Are you denied basic needs s uch as food, clothing, or medical care? Deferred 07/29/2023 In the past 12 months have y ou been in a relationship with a person who hurts, threatens, or tries to control you? Deferred 07/29/2023 Are you denied basic needs s uch as food, clothing, or medical care? Deferred 07/29/2023 In the past 12 months have y ou been in a relationship with a person who hurts, threatens, or tries to control you? Deferred 07/29/2023 Comments No Sex and Gender Information Value Date Recorded Sex Assigned at Female 04/07/2023 10:02 AM EDT Legal Sex Female 2:49 PM EDT Gender Identity Female 04/16/2020 11:29 AM EDT Sexual Orientation Straight 04/07/2023 10 :02 AM EDT documented as of this encounter Plan of Treatment Upcoming Encounters Date Type Department Care Team (Late st Contact Info) Description 01/18/2025 Procedure Pass [facility] Environmental Protection Inspector Sebastian [address] [facility] [address] [place] [address] 01/18/2025 Procedure Pass [facility] [address] [place] [address] 01/18/2025 Procedure Pass [facility] [address] [facility] [address] [place] [address] 01/18/2025 Procedure Pass [facility] Cardiac Echo [address] [facility] [address] [place] [address] 08/07/2025 9:30 AM EDT Blood Draw Laboratory Services, [facility] [address] [facility] 3rd [place] [address] Dominic Rivera MD, PhD [address] [place] [phone] 08/07/2025 10:30 AM EDT Office Visit [facility] Center for Thoracic Oncology, [facility] at [address] [address] Fela Sandoval NP [address] [place] [address] [email or web address] 08/07/2025 10:30 AM EDT Nurse Only [facility] Center for Thoracic Oncology, [facility] at [address] [address] Dominic Rivera MD, PhD [address] [place] [phone] 08/07/2025 11:30 AM EDT Infusion Infusion Therapy Services [facility] at [address] [address] Dominic Rivera MD, PhD [address] [place] [phone] Luann House, RN [address] [place] [phone] Olga [email or web address] 08/24/2025 9:00 AM EST Appointment [facility] Cardiac Echo 850 [address] [facility] [address] [place] [address] Dominic Rivera MD, PhD [address] [place] [phone] 08/24/2025 10:15 AM EST Appointment [facility] [address] [facility] [address] [place] [address] Dominic Rivear MD, PhD [address] [place] [phone] 08/24/2025 11:15 AM EST Appointment [facility] Environmental Protection Inspector Center [address] [facility] [address] [place] [address] Dominic Rivera MD, PhD [address] [place] [phone] 08/29/2025 10:30 AM EST Blood Draw Laboratory Services, [facility] [address] [facility] 2nd [place] [address] Dominic Rivera MD, PhD [address] [place] [phone] 08/29/2025 11:30 AM EST Office Visit [facility], [address] [place] [address] Dominic Rivera MD, PhD [address] [place] [phone] 08/29/2025 11:30 AM EST Nurse Only [facility], [address] [place] [address] Dominic Rivera MD, PhD [address] [place] [phone] 08/29/2025 12:30 PM EST Infusion Infusion Therapy Services [place] [facility], [facility] [address] [facility] [place] [address] 08/31/2025 9:00 AM EST Telemedicine [facility] ENDOCRINE MEDICINE [address] [place] [address] Elkin Hogue MD [address] [place] [address] [address] [place] [address] [email or web address] documented as of this encounter Visit Diagnoses Not on filedocumented in this encounter Additional Health Concerns Assessment Noted Time PHQ-2 Depression Total Score: 0 05/07/20 23 8:20 AM EDT documented as of this encounter Care Teams Respiratory Assistant Relationship Specialty Start Date End Date Kimberly Bullard NP [address] [place] [phone] [email or web address] PCP - General Family Medicine 02/09/19 12/21/23 System, Provider Not In, PhD [facility] [address] PCP - General 12/22/23 12/26/23 Keara Smith NP [address] [place] [phone] PCP - General 12/27/23 Braulio Curran MD [address] [place] [phone] [email or web address] Endocrinology 06/21/20 Dominic Rivera MD, PhD [address] [place] [address] [email or web address] Medical Oncology 07/16/23 Luli Castillo MD [address] [place] [address] [email or web address] 07/29/23 Tricia Brock RN [address] [place] [address] [email or web address] Primary Infusion Nurse 09/08/23 Otilia Garcia RN [address] [place] [phone] [email or web address] Associate Infusion Nurse 10/20/23 System, Provider Not In, PhD Partners [facility] [address] [place] [address] 12/01/23 12/26/23 Sherin Thomas, VINICIUS [address] [place] [phone] [email or web address] Associate Infusion Nurse 12/20/23 04/11/24 Tri Burleson RN [address] [place] [address] [email or web address] Associate Infusion Nurse 05/15/24 Mildred Rust RN [address] [place] [phone] [email or web address] Associate Infusion Nurse 05/15/24 Nanette Tavarez RN [address] [place] [id number] [email or web address] Primary Infusion Nurse 06/23/24 Alina Pop, VINICIUS [address] [place] [phone] [email or web address] Associate Infusion Nurse 06/28/24 Luann House, VINICIUS [address] [place] [phone] [email or web address] Primary Infusion Nurse 10/02/24 Daxa Leija, RN [address] [place] [phone] [email or web address] Associate Infusion Nurse 01/31/25 documented as of this encounter Additional Source Comments The information contained in this document represents components of the legal health record. It is not the complete legal health record.[facility]
--- OUTSIDE RECORDS SUMMARY | 2025-07-24 17:12 | XMS_ITS | Encounter Summary ---
Author Organization [facility] Address [address] [place] [address] Phone Care Team Providers Care Legal Arbitrator Name Role Phone Kimberly Bullard POLITICAL SCIENTIST Primary Care Provider [phone] Braulio Curran MD Unavailable [phone] Luli Castillo MD Unavailable [phone] Dominic Rivera MD , PhD Unavailable Luli Castillo MD Unavailable [phone] Nanette Hernandez RN Unavailable [email or web address] Tricia Brock RN Unavailable Omar [email or web address] u Otilia Garcia RN Unavailable [phone] System, Provider Not In PhD Unavailable Unav ailable System, Provider Not In PhD Primary Care Provide r Unavailable Keara Smith POLITICAL SCIENTIST Primary Care Provide r Sherin Thomas RN Unavailable [email or web address] u Tri Burleson RN Unavailable ирина [email or web address] Mildred Rust RN Unavailable ham [email or web address] Nanette Tavarez RN Unavailable LIZZY [email or web address] Alina Pop RN Unavailable Parish [email or web address] Luann House RN Unavailable Batool [email or web address] Daxa Leija RN Unavailable [phone] Encounter Details Date Type Department Care Team (Late st Contact Info) Description 07/15/2023 Procedure Pass [facility] CT Imaging, [place] [address] [place] [address] Social History Tobacco Use Types Packs/Day Years [...] with a working camera? Not on file Comments No Sex and Gender Information Value Date Recorded Sex Assigned at Female 04/07/2023 10:02 AM EDT Legal Sex Female 2:49 PM EDT Gender Identity Female 04/16/2020 11:29 AM EDT Sexual Orientation Straight 04/07/2023 10 :02 AM EDT documented as of this encounter Plan of Treatment Upcoming Encounters Date Type Department Care Team (Late st Contact Info) Description 01/18/2025 Procedure Pass [facility] Registered Radiation Therapist [place] [address] [facility] [address] [place] [address] 01/18/2025 Procedure Pass [facility] [address] [facility] [address] [place] [address] 01/18/2025 Procedure Pass [facility] [address] [facility] [address] [place] [address] 01/18/2025 Procedure Pass [facility] Cardiac Echo 850 [address] [facility] [address] [place] [address] 08/07/2025 9:30 AM EDT Blood Draw Laboratory Services, [facility] at [address] [place] [address] Dominic Rivera MD, PhD [address] [place] [address] 08/07/2025 10:30 AM EDT Office Visit [facility] for Thoracic Oncology, [facility] at [address] [address] Fela Sandoval NP [address] [place] [address] [email or web address] 08/07/2025 10:30 AM EDT Nurse Only [facility] for Thoracic Oncology, [facility] [place] [address] [address] Dominic Rivera MD, PhD [address] [place] [address] 08/07/2025 11:30 AM EDT Infusion Infusion Therapy Services [facility] [place] [facility] [place] [address] [address] Dominic Rivera MD, PhD [address] [place] [address] Luann House RN [address] [place] [address] Olga [email or web address]. [facility] 08/24/2025 9:00 AM EST Appointment [facility] Cardiac Echo [address] [place] [address] Dominic Rivera MD, PhD [address] [place] [address] 08/24/2025 10:15 AM EST Appointment [facility] Registered Radiation Therapist [place] [address] [address] Dominic Rivera MD, PhD [address] [place] [address] 08/24/2025 11:15 AM EST Appointment [facility] [address] [address] Dominic Rivera MD, PhD [address] [place] [address] 08/29/2025 10:30 AM EST Blood Draw Laboratory Services, [facility] [address] [facility], 2nd [place] [address] Dominic Rivera MD, PhD [address] [place] [address] [email or web address] 08/29/2025 11:30 AM EST Office Visit [facility] for Thoracic Oncology, [facility] [address] [facility], [address] [place] [address] Dominic Rivera MD, PhD [address] [place] [address] [email or web address] 08/29/2025 11:30 AM EST Nurse Only [facility] Thoracic Oncology, [address], [address] [place] [address] Dominic Rivera MD, PhD [address] [place] [address] [email or web address] 08/29/2025 12:30 PM EST Infusion Infusion Therapy Services [facility] [address] [place] [address] 08/31/2025 9:00 AM EST Telemedicine [facility] ENDOCRINE MEDICINE [address] [place] [address] Elkin Hogue MD [address] [place] [address] [address] [place] [address] [email or web address] documented as of this encounter Visit Diagnoses Not on filedocumented in this encounter Additional Health Concerns Assessment Noted Time PHQ-2 Depression Total Score: 0 05/07/20 23 8:20 AM EDT documented as of this encounter Care Teams Legal Arbitrator Relationship Specialty Start Date End Date Kimberly Bullard, POLITICAL SCIENTIST [address] [place] [address] [email or web address] PCP - General Family Medicine 02/09/19 12/21/23 System, Provider Not In, PhD Partners [address] [address] PCP - General 12/22/23 12/26/23 Keara Smith NP [address] [place] [address] PCP - General 12/27/23 Braulio Curran MD [address] [place] [address] [email or web address] Endocrinology 06/21/20 Luli Castillo MD [address] [place] [address] [email or web address] Internal Medicine 07/16/23 11/15/23 Dominic Rivera MD, PhD [address] [place] [address] [email or web address] Medical Oncology 07/16/23 Luli Castillo MD [address] [place] [address] [email or web address] Internal Medicine 07/29/23 Nanette Hernandez RN [address] [place] [address] [email or web address] Primary Infusion Nurse 07/29/23 11/09/23 Tricia Brock RN [address] [place] [address] [email or web address] Primary Infusion Nurse 09/08/23 Otilia Garcia RN [address] [place] [address] [email or web address] Associate Infusion Nurse 10/20/23 System, Provider Not In, PhD Partners [address] [address] 12/01/23 12/26/23 Sherin Thomas, VINICIUS [address] [place] [address] [email or web address] Associate Infusion Nurse 12/20/23 04/11/24 Tri Burleson RN [address] [place] [address] [email or web address] Associate Infusion Nurse 05/15/24 Mildred Rust RN [address] [place] [address] [email or web address] Associate Infusion Nurse 05/15/24 Nanette Tavarez RN [address] [place] [address] [email or web address] Primary Infusion Nurse 06/23/24 Alina Pop, VINICIUS [address] [place] [address] [email or web address] Associate Infusion Nurse 06/28/24 Luann House RN [address] [place] [address] Olga [email or web address] Primary Infusion Nurse 10/02/24 Daxa Leija, RN [address] [place] [address] [email or web address] Associate Infusion Nurse 01/31/25 documented as of this encounter Additional Source Comments The information contained in this document represents components of the legal health record. It is not the complete legal health record.[facility]
--- OUTSIDE RECORDS SUMMARY | 2025-07-24 17:12 | XMS_ITS | Patient Health Record ---
Author [facility] Address [address] [place] [address] Care Team Providers Care Ball Sorter Name Role Phone Keara Smith Primary Care Provider Unavailtato figueroa Sharon Allan Unavailable [phone] Allergies No Known Allergies Reason For Referral No Information Medications Medication SIG (Take, Route, Frequency, Duration) Notes Start Date End Date Status Fish Oil Not-Taking Pepcid AC Active CeleBREX 50 MG 1 capsule Orally Onc e a day Active Rosuvastatin Calcium Active Multivitamin Active Vitamin D Active Prolia 60 MG/ML as directed Subcutaneous every 6 mos Active Synthroid Not-Taking Melatonin Not-Taking Tagrisso 80 MG 1 tablet Orally Once a day Not-Taking Jqleij-Tqfcjtyfa-QXI Complex Not-Taking Immunizations Vaccine Route Administration Date Status Comme nts Influenza Unknown 08/03/2024 Administered Social History Tobacco Use: Social History Observation Description Date Details (start date - stop date) Never Smoker NA - NA Tobacco use other than smoking: Question Answer Notes Are you an other tobacco user? No Tobacco Control (Standard) Question Answer Notes Tobacco use: Nonsmoker Additional Findings: Tobacco non-user Current no nsmoker AUDIT-C (Standard) Question Answer Notes Did you have a drink containing alcohol in the p ast year? No Points 0 Interpretation Negative Problems Problem Type SNOMED Code ICD Code Onset Dates Problem Status W/U Status Risk Notes Problem Plantar wart (07723244) Plantar wart (B07.0) Active confirmed Vital Signs Blood pressure diastolic 70 mm Hg 05/16/2025 Height 5ft 3.5in in 05/16/2025 Blood pressure systolic 120 mm Hg 05/16/2025 Weight 170 lbs 05/16/2025 BMI 29.64 kg/m2 05/16/2025 Procedures Procedure Date Ordered Date Performed Result Body Sit e 63267-Ghecrewt Plate 09/01/2024 N/A 14504-Hjtqiezi Plate 04/06/2025 N/A 05360-Ixmc Destruction, 1-14 05/16/2025 N/A 72834-Nektrdzy Plate 05/16/2025 N/A Encounters Encounter Location Date Provider Diagnosis [address] [address] 09/01/2024 Sharon Black Pain in left foot M79.672 ; Hallux valgus (acquired), right foot M20.11 ; Ingrown nail L60.0 ; Pain in left ankle and joints of left foot M25.572 ; Bursitis of left foot M77.52 ; Hallux valgus (acquired), left foot M20.12 ; Pain in right foot M79.671 ; Pain in right ankle and joints of right foot M25.571 and Bursitis of right foot M77.[address] [address] 04/06/2025 Sharon Black Ingrown nail L60.0 and Tinea unguium B35.[address] [address] 05/16/2025 Sharon Black Right foot pain M79.671 ; Plantar wart B07.0 and Ingrown nail L60.[address] [address] 08/30/2024 Sharon Black [facility] [address] [place] [address] 05/14/2025 Sharon Black Assessments Encounter Date Diagnosis (ICD Code) Assessment Notes Treatment Notes Treatment Clinical Notes Section Notes 09/01/2024 Pain in left foot (ICD-10 - M79.672) 04/06/2025 Tinea unguium (ICD-10 - B35.1) 04/06/2025 Ingrown nail (ICD-10 - L60.0) 05/16/2025 Plantar wart (ICD-10 - B07.0) 09/01/2024 Hallux valgus (acquired), right foot (ICD-10 - M20.11) Chronic problem, Worse (4) 05/16/2025 Right foot pain (ICD-10 - M79.671) 09/01/2024 Ingrown nail (ICD-10 - L60.0) 05/16/2025 Ingrown nail (ICD-10 - L60.0) 09/01/2024 Pain in left ankle and joints of left foot (ICD-10 - M25.572) 09/01/2024 Bursitis of left foot (ICD-10 - M77.52) 09/01/2024 Hallux valgus (acquired), left foot (ICD-10 - M20.12) 09/01/2024 Pain in right foot (ICD-10 - M79.671) 09/01/2024 Pain in right ankle and joints of right foot (ICD-10 - M25.571) 09/01/2024 Bursitis of right foot (ICD-10 - M77.51) 05/16/2025 Other Plan Of Treatment Pending Test Test Name Order Date 32515-Gyhl Destruction, 1-14 05/16/2025 49263-Fyuhmhxq Plate 12/10/2023 71993-Ocqmhbkn Plate 09/01/2024 46704-Wlccbblv Plate 04/06/2025 74692-Dieysugw Plate 05/16/2025 Insurance Providers Payer Name Payer Address Payer Phone Subscriber Number Group Number Insured Name Patient Relationship to Insured Coverage Start Date Coverage End Date Medicare National [employer] [address] [place] [address] [id number] Marleen Romero Self - patient is the insured [facility] [address] [place], [place] [id number] [phone] [id number] Marleen Romero Self - patient is the insured Medical (General) History Medical History History ICD Code Arthritis Cataracts Lyme disease Osteoporosis Measles Mumps Chicken pox Joint implants/screws lung cancer Hallux rigidus, right foot M20.21 Primary osteoarthritis, right ankle and foot M19.071 Hallux valgus (acquired), right foot M20 .11 Hallux valgus (acquired), left foot M20. 12 Surgical History Surgery Date(Month/Year) appendectomy 1987 right hip replacement 2005 Hospitalization History Reason Date(Month/Year) increase calcium 01/02
--- OUTSIDE RECORDS SUMMARY | 2025-07-24 17:12 | XMS_ITS | Encounter Summary ---
Author Organization [facility] Address [address] [place] [address] Phone Care Team Providers Care Insurance Billing Specialist Name Role Phone Kimberly Bullard ELECTRIC MOTOR REPAIRMAN Primary Care Provider [phone] Braulio Curran MD Unavailable [phone] Dominic Rivera MD , PhD Unavailable Luli Castillo MD Unavailable [phone] Tricia Brock RN Unavailable Omar [email or web address] Otilia Garcia RN Unavailable [phone] System, Provider Not In PhD Unavailable Unav ailable System, Provider Not In PhD Primary Care Provide r Unavailable Keara Smith ELECTRIC MOTOR REPAIRMAN Primary Care Provide r Sherin Thomas RN Unavailable [email or web address] Tri Burleson RN Unavailable ирина [email or web address] Mildred Rust RN Unavailable [email or web address] Nanette Tavarez RN Unavailable [email or web address] [email or web address] Alina Pop RN Unavailable Parish [email or web address] Luann House RN Unavailable Batool [email or web address] Daxa Leija RN Unavailable [phone] Encounter Details Date Type Department Care Team (Late st Contact Info) Description 12/21/2023 Procedure Pass [facility] [place] [facility] [place] [address] [facility] 3rd [place] [address] Social History Tobacco Use Types Packs/Day Years [...] st Contact Info) Description 01/18/2025 Procedure Pass [facility] Developer Programmer Analyst [place] [address] [facility] [address] [place] [address] 01/18/2025 Procedure Pass [facility] [address] [facility] [address] [place] [address] 01/18/2025 Procedure Pass [facility] [address] [facility] [address] [place] [address] 01/18/2025 Procedure Pass [facility] Cardiac Echo 850 [address] [facility] [address] [place] [address] 08/07/2025 9:30 AM EDT Blood Draw Laboratory Services, [facility] [place] [address] [facility] 3rd [place] [address] Dominic Rivera MD, PhD [address] [place] [address] 08/07/2025 10:30 AM EDT Office Visit [facility] for Thoracic Oncology, [facility] [place] at [address] [address] Fela Sandoval NP [address] [place] [address] [email or web address] 08/07/2025 10:30 AM EDT Nurse Only [facility] for Thoracic Oncology, [facility] at [address] [address] Dominic Rivera MD, PhD [address] [place] [address] 08/07/2025 11:30 AM EDT Infusion Infusion Therapy Services [facility] at [address] [address] Dominic Rivera MD, PhD [address] [place] [address] Luann House, RN [address] [place] [address] Olga Lidia@[email or web address]. [facility] 08/24/2025 9:00 AM EST Appointment [facility] Cardiac Echo 850 [address] [facility] [address] [place] [address] Dominic Rivera MD, PhD [address] [place] [address] 08/24/2025 10:15 AM EST Appointment [facility] Program[facility] [address] [facility] [address] [place] [address] Dominic Rivera MD, PhD [address] [place] [address] 08/24/2025 11:[address] [facility]' Developer Programmer Analyst Center [address] [facility] [address] [place] [address] Dominic Rivera MD, PhD [address] [place] [address] 08/29/2025 10:30 AM EST Blood Draw Laboratory Services, [facility] [address] [facility], 2nd [place] [address] Dominic Rivera MD, PhD [address] [place] [address] 08/29/2025 11:30 AM EST Office Visit [facility] for Thoracic Oncology, [address] [place] [address] Dominic Rivera MD, PhD [address] [place] [address] 08/29/2025 11:30 AM EST Nurse Only [facility] for Thoracic Oncology, [address] [place] [address] Dominic Rivera MD, PhD [address] [place] [address] 08/29/2025 12:30 PM EST Infusion Infusion Therapy Services [facility] 9, [facility] [address] [facility], [address] [place] [address] 08/31/2025 9:00 AM EST Telemedicine [facility] ENDOCRINE MEDICINE [address] [place] [address] Elkin Hogue MD [address] [place] [address] [address] [place] [address] ANNABELLE@[email or web address] documented as of this encounter Visit Diagnoses Not on filedocumented in this encounter Additional Health Concerns Assessment Noted Time PHQ-2 Depression Total Score: 0 05/07/20 23 8:20 AM EDT documented as of this encounter Care Teams Insurance Billing Specialist Relationship Specialty Start Date End Date Kimberly Bullard NP [address] [place] [address] [email or web address] PCP - General Family Medicine 02/09/19 12/21/23 System, Provider Not In, PhD Partners [address] PCP - General 12/22/23 12/26/23 Keara Smith NP [address] [place] [address] PCP - General 12/27/23 Braulio Curran MD [address] [place] [address] [email or web address] Endocrinology 06/21/20 Dominic Rivera MD, PhD [address] [place] [address] [email or web address] Medical Oncology 07/16/23 Luli Castillo MD [address] [place] [address] [email or web address] Internal Medicine 07/29/23 Tricia Brock RN [address] [place] [address] [email or web address] Primary Infusion Nurse 09/08/23 Otilia Garcia RN [address] [place] [address] [email or web address] Associate Infusion Nurse 10/20/23 System, Provider Not In, PhD Partners [facility] [address] [place] [address] 12/01/23 12/26/23 Sherin Thomas, VINICIUS [address] [place] [address] [email or web address] Associate Infusion Nurse 12/20/23 04/11/24 Tri Burleson RN [address] [place] [address] [email or web address] Associate Infusion Nurse 05/15/24 Mildred Rust RN [address] [place] [address] [email or web address] Associate Infusion Nurse 05/15/24 Nanette Tavarez RN [address] [place] [address] [email or web address] Primary Infusion Nurse 06/23/24 Alina Pop, VINICIUS [address] [place] [address] [email or web address] Associate Infusion Nurse 06/28/24 Luann House, VINICIUS [address] [place] [address] Olga [email or web address] Primary Infusion Nurse 10/02/24 Daxa Leija, RN [address] [place] [address] [email or web address] Associate Infusion Nurse 01/31/25 documented as of this encounter Additional Source Comments The information contained in this document represents components of the legal health record. It is not the complete legal health record.[facility]
--- OUTSIDE RECORDS SUMMARY | 2025-07-24 17:12 | XMS_ITS | Encounter Summary ---
Author Organization [facility] Address [address] [place] [address] Phone Care Team Providers Care Woodwind Instrument Repairer Name Role Phone Kimberly Bullard CHRONOGRAPH OPERATOR Primary Care Provider [phone] Braulio Curran MD Unavailable [phone] Luli Castillo MD Unavailable [phone] Dominic Rivera MD , PhD Unavailable Luli Castillo MD Unavailable [phone] Nanette Hernandez RN Unavailable Norma@[email or web address] Tricia Brock RN Unavailable Omar [email or web address] u Otilia Garcia RN Unavailable [phone] System, Provider Not In PhD Unavailable Unav ailable System, Provider Not In PhD Primary Care Provide r Unavailable Keara Smith CHRONOGRAPH OPERATOR Primary Care Provide r Sherin Thomas RN Unavailable [email or web address] u Tri Burleson RN Unavailable ирина [email or web address] Mildred Rust RN Unavailable [email or web address] Nanette Tavarez RN Unavailable LIZZY [email or web address].[facility] Alina Pop RN Unavailable Parish [email or web address] Luann House RN Unavailable Batool [email or web address] Daxa Leija RN Unavailable Encounter Details Date Type Department Care Team (Late st Contact Info) Description 07/15/2023 Procedure Pass [facility] Echocardiography [address] [place] [address] Social History Tobacco Use Types Packs/Day Years [...] st Contact Info) Description 01/18/2025 Procedure Pass [facility] Sales Person [place] [address] [place] [address] 01/18/2025 Procedure Pass [facility] [address] [place] [address] 01/18/2025 Procedure Pass [facility] [address] [place] [address] 01/18/2025 Procedure Pass [facility] Cardiac Echo 850 [address] [place] [address] 08/07/2025 9:30 AM EDT Blood Draw Laboratory Services, [facility] at [address] [address] Dominic Rivera MD, PhD [address] [place] [address] 08/07/2025 10:30 AM EDT Office Visit [facility] for Thoracic Oncology, [facility] [place] at [address] [address] Fela Sandoval NP [address] [place] [address] [email or web address] 08/07/2025 10:30 AM EDT Nurse Only [facility] for Thoracic Oncology, [facility] at [address] [place] [address] Dominic Rivera MD, PhD [address] [place] [address] 08/07/2025 11:30 AM EDT Infusion Infusion Therapy Services [facility] [place] [facility] [place] [address] [address] Dominic Rivera MD, PhD [address] [place] [address] Luann House RN [address] [place] [address] Olga [email or web address]. [facility] 08/24/2025 9:00 AM EST Appointment [facility] Cardiac Echo [address] [place] [address] Dominic Rivera MD, PhD [address] [place] [address] 08/24/2025 10:15 AM EST Appointment [facility] Sales Person [place] [address] [place] [address] Dominic Rivera MD, PhD [address] [place] [address] 08/24/2025 11:15 AM EST Appointment [facility] [address] [place] [address] Dominic Rivera MD, PhD [address] [place] [address] 08/29/2025 10:30 AM EST Blood Draw Laboratory Services, [facility] [address] [facility], 2nd [place] [address] Dominic Rivera MD, PhD [address] [place] [address] [email or web address] 08/29/2025 11:30 AM EST Office Visit [facility] Thoracic Oncology, [facility] [address] [facility], [address] [place] [address] Dominic Rivera MD, PhD [address] [place] [address] [email or web address] 08/29/2025 11:30 AM EST Nurse Only [facility] Thoracic Oncology, [address], [address] [place] [address] Dominic Rivera MD, PhD [address] [place] [address] [email or web address] 08/29/2025 12:30 PM EST Infusion Infusion Therapy Services [facility] [address], [address] [place] [address] 08/31/2025 9:00 AM EST Telemedicine [facility] ENDOCRINE MEDICINE [address] [place] [address] Elkin Hogue MD [address] [place] [address] [address] [place] [address] ANNABELLE@[email or web address] documented as of this encounter Visit Diagnoses Not on filedocumented in this encounter Additional Health Concerns Assessment Noted Time PHQ-2 Depression Total Score: 0 05/07/20 23 8:20 AM EDT documented as of this encounter Care Teams Woodwind Instrument Repairer Relationship Specialty Start Date End Date Kimberly Bullard CHRONOGRAPH OPERATOR [address] [place] [address] [email or web address] PCP - General Family Medicine 02/09/19 12/21/23 System, Provider Not In, PhD Partners [address] [address] PCP - General 12/22/23 12/26/23 Keara Smith NP [address] [place] [address] PCP - General 12/27/23 Braulio Curran MD [address] [place] [address] [email or web address] Endocrinology 06/21/20 Luli Castillo MD [address] [place] [address] [email or web address] Internal Medicine 07/16/23 11/15/23 Dominic Rivera MD, PhD [address] [place] [address] [email or web address] Medical Oncology 07/16/23 Luli Castillo MD [address] [place] [address] [email or web address] 07/29/23 Nanette Hernandez RN [address] [place] [address] Norma@[facility] Primary Infusion Nurse 07/29/23 11/09/23 Tricia Brock RN [address] [place] [address] [email or web address] Primary Infusion Nurse 09/08/23 Otilia Garcia RN [address] [place] [address] [email or web address] Associate Infusion Nurse 10/20/23 System, Provider Not In, PhD Partners [facility] 2 [place] [address] 12/01/23 12/26/23 Sherin Thomas, VINICIUS [address] [place] [address] [email or web address] Associate Infusion Nurse 12/20/23 04/11/24 Tri Burleson RN [address] [place] [address] [email or web address] Associate Infusion Nurse 05/15/24 Mildred Rust RN [address] [place] [address] [email or web address] Associate Infusion Nurse 05/15/24 Nanette Tavarez RN [address] [place] [address] MARINO@[facility] Primary Infusion Nurse 06/23/24 Ailna oPp, VINICIUS [address] [place] [address] [email or web address] Associate Infusion Nurse 06/28/24 Luann House RN [address] [place] [address] Olga Lidia@[facility] Primary Infusion Nurse 10/02/24 Daxa Leija, RN [address] [place] [address] KIRA@[email or web address] Associate Infusion Nurse 01/31/25 documented as of this encounter Additional Source Comments The information contained in this document represents components of the legal health record. It is not the complete legal health record.[facility]
--- OUTSIDE RECORDS SUMMARY | 2025-07-24 17:12 | XMS_ITS | Encounter Summary ---
Author Organization [facility] Address [address] [place] [address] Phone Care Team Providers Care Quality Assurance Supervisor Final Name Role Phone Kimberly Bullard CONTAINER WASHER MACHINE Primary Care Provider [phone] Braulio Curran MD Unavailable [phone] Luli Castillo MD Unavailable [phone] Dominic Rivera MD , PhD Unavailable Luli Castillo MD Unavailable [phone] Nanette Hernandez RN Unavailable Norma@[email or web address] Tricia Brock RN Unavailable Omar [email or web address] u Otilia Garcia RN Unavailable [phone] System, Provider Not In PhD Unavailable Unav ailable System, Provider Not In PhD Primary Care Provide r Unavailable Keara Smith CONTAINER WASHER MACHINE Primary Care Provide r Sherin Thomas RN Unavailable [email or web address] Tri Burleson RN Unavailable ирина [email or web address] Mildred Rust RN Unavailable [email or web address] Nanette Tavarez RN Unavailable LIZZY [email or web address] Alina Pop RN Unavailable Parish [email or web address] Luann House RN Unavailable Batool [email or web address] Daxa Leija RN Unavailable [phone] Encounter Details Date Type Department Care Team (Late st Contact Info) Description 07/15/2023 Procedure Pass [facility] CT Imaging, [place] [address] [place] [address] Social History Tobacco Use Types Packs/Day Years [...] st Contact Info) Description 01/18/2025 Procedure Pass [facility] Wireless Network Engineer [place] [address] [facility] [address] [place] [address] 01/18/2025 Procedure Pass [facility] [address] [facility] [address] [place] [address] 01/18/2025 Procedure Pass [facility] 850 [facility] [address] [place] [address] 01/18/2025 Procedure Pass [facility] Cardiac Echo 850 850 [facility] [address] [place] [address] 08/07/2025 9:30 AM EDT Blood Draw Laboratory Services, [facility] at [address] [place] [address] Dominic Rivera MD, PhD [address] [place] [address] 08/07/2025 10:30 AM EDT Office Visit [facility] for Thoracic Oncology, [facility] at [address] [address] Fela Sandoval NP [address] [place] [address] [email or web address]. [email or web address].[facility] 08/07/2025 10:30 AM EDT Nurse Only [facility] for Thoracic Oncology, [facility] at [place] [address] [address] Dominic Rivera MD, PhD [address] [place] [address] 08/07/2025 11:30 AM EDT Infusion Infusion Therapy Services [facility] [place] [facility] [place] [address] [address] Dominic Rivera MD, PhD [address] [place] [address] Luann House RN [address] [place] [address] Olga [email or web address]. [facility] 08/24/2025 9:00 AM EST Appointment [facility] Cardiac Echo [address] [place] [address] Dominic Rivera MD, PhD [address] [place] [address] 08/24/2025 10:15 AM EST Appointment [facility] Wireless Network Engineer [place] [address] [address] Dominic Rivera MD, PhD [address] [place] [address] 08/24/2025 11:15 AM EST Appointment [facility] [address] [address] Dominic Rivera MD, PhD [address] [place] [address] 08/29/2025 10:30 AM EST Blood Draw Laboratory Services, [facility] 450 [facility], 2nd [place] [address] Dominic Rivera MD, PhD [address] [place] [address] [email or web address] 08/29/2025 11:30 AM EST Office Visit [facility] for Thoracic Oncology, [facility] [address] [facility], [address]th [place] [address] Dominic Rivera MD, PhD [address] [place] [address] [email or web address] 08/29/2025 11:30 AM EST Nurse Only [facility] Thoracic Oncology, [address], [address]th [place] [address] Dominic Rivera MD, PhD [address] [place] [address] [email or web address] 08/29/2025 12:30 PM EST Infusion Infusion Therapy Services [facility] [address], [address]th [place] [address] 08/31/2025 9:00 AM EST Telemedicine [facility] ENDOCRINE MEDICINE [address] [place] [address] Elkin Hogue MD [address] [place] [address] [address] [place] [address] ANNABELLE@[email or web address] documented as of this encounter Visit Diagnoses Not on filedocumented in this encounter Additional Health Concerns Assessment Noted Time PHQ-2 Depression Total Score: 0 05/07/20 23 8:20 AM EDT documented as of this encounter Care Teams Quality Assurance Supervisor Final Relationship Specialty Start Date End Date Kimberly Bullard, CONTAINER WASHER MACHINE [address] [place] [address] [email or web address] PCP - General Family Medicine 02/09/19 12/21/23 System, Provider Not In, PhD Partners [address] [address] PCP - General 12/22/23 12/26/23 Keara Smith NP [address] [place] [address] PCP - General 12/27/23 Braulio Curran MD [address] [place] [address] [email or web address] Endocrinology 06/21/20 Luli Castillo MD [address] [place] [address] [email or web address] Internal Medicine 07/16/23 11/15/23 Dominic Rivera MD, PhD [address] [place] [address] [email or web address] Medical Oncology 07/16/23 Luli Castillo MD [address] [place] [address] [email or web address] Internal Medicine 07/29/23 Nanette Hernandez RN [address] [place] [address] [email or web address] Primary Infusion Nurse 07/29/23 11/09/23 Tricia Brock RN [address] [place] [address] [email or web address] Primary Infusion Nurse 09/08/23 Otilia Garcia RN [address] [place] [address] [email or web address] Associate Infusion Nurse 10/20/23 System, Provider Not In, PhD Partners [address] [address] 12/01/23 12/26/23 Sherin Thomas, VINICIUS [address] [place] [address] [email or web address] Associate Infusion Nurse 12/20/23 04/11/24 Tri Burleson RN [address] [place] [address] [email or web address] Associate Infusion Nurse 05/15/24 Mildred Rust RN [address] [place] [address] [email or web address] Associate Infusion Nurse 05/15/24 Nanette Tavarez RN [address] [place] [address] MARINO@[facility] Primary Infusion Nurse 06/23/24 Alina Pop, VINICIUS [address] [place] [address] [email or web address] Associate Infusion Nurse 06/28/24 Luann House RN [address] [place] [address] Olga Lidia@[facility] Primary Infusion Nurse 10/02/24 Daxa Leija, RN [address] [place] [address] KIRA@[email or web address] Associate Infusion Nurse 01/31/25 documented as of this encounter Additional Source Comments The information contained in this document represents components of the legal health record. It is not the complete legal health record.[facility]
--- OUTSIDE RECORDS SUMMARY | 2025-07-24 17:12 | XMS_ITS | Encounter Summary ---
Author Organization [facility] Address [address] [place] [address] Phone Care Team Providers Care Machine Molder Squeeze Name Role Phone Kimberly Bullard ROTARY SURFACE GRINDER Primary Care Provider [phone] Braulio Curran MD Unavailable [phone] Dominic Rivera MD , PhD Unavailable Luli Castillo MD Unavailable [phone] Tricia Brock RN Unavailable Omar [email or web address] u Otilia Garcia RN Unavailable [phone] System, Provider Not In PhD Unavailable Unav ailable System, Provider Not In PhD Primary Care Provide r Unavailable Keara Smith ROTARY SURFACE GRINDER Primary Care Provide r Sherin Thomas RN Unavailable [email or web address] Tri Burleson RN Unavailable ирина [email or web address] Mildred Rust RN Unavailable [email or web address] Nanette Tavarez RN Unavailable LIZZY [email or web address] Alina Pop RN Unavailable Parish [email or web address] Luann House RN Unavailable Batool [email or web address] Daxa Leija RN Unavailable Encounter Details Date Type Department Care Team (Late st Contact Info) Description 12/21/2023 Procedure Pass [facility] [place] [facility] [place] 300 [facility] 3rd [place] [address] Social History Tobacco Use Types Packs/Day Years [...] st Contact Info) Description 01/18/2025 Procedure Pass [facility] Dynamometer Tester Engine [place] 850 [facility] [address] [place] [address] 01/18/2025 Procedure Pass [facility] 850 [facility] [address] [place] [address] 01/18/2025 Procedure Pass [facility] 850 [facility] [address] [place] [address] 01/18/2025 Procedure Pass [facility] Cardiac Echo 850 850 [facility] [address] [place] [address] 08/07/2025 9:30 AM EDT Blood Draw Laboratory Services, [facility] at [place] 300 [facility] 3rd [place] [address] Dominic Rivera MD, PhD [address] [place] [address] 08/07/2025 10:30 AM EDT Office Visit [facility] for Thoracic On[facility], [facility] [place] at [address] [address] Fela Sandoval NP 450 [place] [address] [email or web address] 08/07/2025 10:30 AM EDT Nurse Only [facility] for Thoracic On[facility], [facility] at [address] [address] Dominic Rivera MD, PhD [address] [place] [address] 08/07/2025 11:30 AM EDT Infusion Infusion Therapy Services [facility] at [address] [address] Dominic Rivera MD, PhD [address] [place] [address] Luann House, RN [address] [place] [address] Olga Lidia@[facility]. [facility] 08/24/2025 9:00 AM EST Appointment [facility] Cardiac Echo 850 850 [facility] 422 [place] [address] Dominic Rivera MD, PhD [address] [place] [address] 08/24/2025 10:15 AM EST Appointment [facility] 850 [facility] [address] [place] [address] Dominic Rivera MD, PhD [address] [place] [address] 08/24/2025 11:15 AM EST Appointment [facility] Dynamometer Tester [facility] 850 [facility] [address] [place] [address] Dominic Rivera MD, PhD [address] [place] [address] 08/29/2025 10:30 AM EST Blood Draw Laboratory Services, [facility] 450 [facility], 2nd [place] [address] Dominic Rivera MD, PhD [address] [place] [address] 08/29/2025 11:30 AM EST Office Visit [facility] for Thoracic Oncology, [address], [address] [place] [address] Dominic Rivera MD, PhD [address] [place] [address] 08/29/2025 11:30 AM EST Nurse Only [facility] for Thoracic Oncology, [address], [address]th [place] [address] Dominic Rivera MD, PhD [address] [place] [address] 08/29/2025 12:30 PM EST Infusion Infusion Therapy Services [facility] 9, [facility] 450 [facility], [address]th [place] [address] 08/31/2025 9:00 AM EST Telemedicine [facility] ENDOCRINE MEDICINE 45 [place] [address] Elkin Hogue MD [address] [place] [address] [address] [place] [address] ANNABELLE@[facility] documented as of this encounter Visit Diagnoses Not on filedocumented in this encounter Additional Health Concerns Assessment Noted Time PHQ-2 Depression Total Score: 0 05/07/20 23 8:20 AM EDT documented as of this encounter Care Teams Machine Molder Squeeze Relationship Specialty Start Date End Date Kimberly Bullard NP [address] [place] [address] [email or web address] PCP - General Family Medicine 02/09/19 12/21/23 System, Provider Not In, PhD Partners [address] PCP - General 12/22/23 12/26/23 Keara Smith NP [address] [place] [address] PCP - General 12/27/23 Braulio Curran MD [address] [place] [address] [email or web address] Endocrinology 06/21/20 Dominic Rivera MD, PhD [address] [place] [address] [email or web address] Medical Oncology 07/16/23 Luli Castillo MD 575 [place] [address] Internal Medicine 07/29/23 Tricia Brock RN 575 [place] [address] [email or web address] Primary Infusion Nurse 09/08/23 Otilia Garcia RN [address] [place] [address] [email or web address]@[facility] Associate Infusion Nurse 10/20/23 System, Provider Not In, PhD Partners [facility] 2 [place] [address] 12/01/23 12/26/23 Sherin Thomas, VINICIUS [address] [place] [address] [email or web address] Associate Infusion Nurse 12/20/23 04/11/24 Tri Burleson RN 300 [place] [address] [email or web address] Associate Infusion Nurse 05/15/24 Mildred Rust RN [address] [place] [address] [email or web address] Associate Infusion Nurse 05/15/24 Nanette Tavarez RN [address] [place] [address] MARINO@[facility] Primary Infusion Nurse 06/23/24 Alina Pop, VINICIUS [address] [place] [address] Vicente@[facility] Associate Infusion Nurse 06/28/24 Luann House, VINICIUS [address] [place] [address] Olga Lidia@[facility] Primary Infusion Nurse 10/02/24 Daxa Leija, RN [address] [place] [address] [email or web address]@[email or web address] Associate Infusion Nurse 01/31/25 documented as of this encounter Additional Source Comments The information contained in this document represents components of the legal health record. It is not the complete legal health record.[facility]
--- OUTSIDE RECORDS SUMMARY | 2025-07-24 17:12 | XMS_ITS | Encounter Summary ---
Author Organization [facility] Address [address] [place] [address] Phone Care Team Providers Care Metalizer Field Operation Name Role Phone Kimberly Bullard BOLT HEADER Primary Care Provider [phone] Braulio Curran MD Unavailable [phone] uLli Castillo MD Unavailable [phone] Dominic Rivera MD , PhD Unavailable Luli Castillo MD Unavailable [phone] Nanette Hernandez RN Unavailable [email or web address] Tricia Brock RN Unavailable mOar [email or web address] u Otilia Garcia RN Unavailable [phone] System, Provider Not In PhD Unavailable Unav ailable System, Provider Not In PhD Primary Care Provide r Unavailable Keara Smith BOLT HEADER Primary Care Provide r Sherin Thomas RN Unavailable kathleen [email or web address] u Tri Burleson RN Unavailable ирина [email or web address] Mildred Rust RN Unavailable ham [email or web address]. [facility] Nanette Tavarez RN Unavailable LIZZY [email or web address] Alina Pop RN Unavailable Parish [email or web address] Luann House RN Unavailable Batool [email or web address] Daxa Leija RN Unavailable Encounter Details Date Type Department Care Team (Late st Contact Info) Description 07/15/2023 Procedure Pass [facility] [address] [facility] 2nd [place] [address] Social History Tobacco Use Types Packs/Day Years [...] st Contact Info) Description 01/18/2025 [facility] Ruling Machine Operator [place] [address] [facility] [address] [place] [address] 01/18/2025 Procedure Pass [facility] [address] [facility] [address] [place] [address] 01/18/2025 Procedure Pass [facility] [address] [facility] [address] [place] [address] 01/18/2025 Procedure Pass [facility] Cardiac Echo 850 [address] [facility] [address] [place] [address] 08/07/2025 9:30 AM EDT Blood Draw Laboratory Services, [facility] at [address] [address] Dominic Rivera MD, PhD [address] [place] [address] 08/07/2025 10:30 AM EDT Office Visit [facility], [facility] at [address] [address] Fela Sandoval NP [address] [place] [address] [email or web address]. [email or web address].[facility] 08/07/2025 10:30 AM EDT Nurse Only [facility], [facility] at [place] [address] [address] Dominic Rivera MD, PhD [address] [place] [address] 08/07/2025 11:30 AM EDT Infusion Infusion Therapy Services [facility] at [address] [address] Dominic Rivera MD, PhD [address] [place] [address] Luann House RN [address] [place] [place] [address] Olga Lidia@[facility]. [facility] 08/24/2025 9:00 AM EST Appointment [facility] Cardiac Echo [address] [place] [address] Dominic Rivera MD, PhD [address] [place] [address] 08/24/2025 10:15 AM EST Appointment [facility] Ruling Machine Operator [address] [address] Dominic Rivera MD, PhD [address] [place] [address] 08/24/2025 11:15 AM EST Appointment [facility] Ruling Machine Operator [place] [address] [address] Dominic Rivera MD, PhD [address] [place] [address] 08/29/2025 10:30 AM EST Blood Draw Laboratory Services, [facility] [address] [facility], 2nd [place] [address] Dominic Rivera MD, PhD [address] [place] [address] [email or web address] 08/29/2025 11:30 AM EST Office Visit [facility], [address], [address] [place] [address] Dominic Rivera MD, PhD [address] [place] [address] [email or web address] 08/29/2025 11:30 AM EST Nurse Only [facility], [address], [address]th [place] [address] Dominic Rivera MD, PhD [address] [place] [address] [email or web address] 08/29/2025 12:30 PM EST Infusion Infusion Therapy Services [place] [address], [address], [address]th [place] [address] 08/31/2025 9:00 AM EST Telemedicine [facility] ENDOCRINE MEDICINE [address] [place] [address] Elkin Hogue MD [address] [place] [address] [address] [place] [address] ANNABELLE@[email or web address] documented as of this encounter Visit Diagnoses Not on filedocumented in this encounter Additional Health Concerns Assessment Noted Time PHQ-2 Depression Total Score: 0 05/07/20 23 8:20 AM EDT documented as of this encounter Care Teams Metalizer Field Operation Relationship Specialty Start Date End Date Kimberly Bullard, ZENOBIA [address] [place] [address] [email or web address] PCP - General Family Medicine 02/09/19 12/21/23 System, Provider Not In, PhD [facility] [address] [address] PCP - General 12/22/23 12/26/23 Keara Smith NP [address] [place] [address] PCP - General 12/27/23 Braulio Curran MD [address] [place] [address] [email or web address] Endocrinology 06/21/20 Luli Castillo MD [address] [place] [address] [email or web address] Internal Medicine 07/16/23 11/15/23 Dominic Rivera MD, PhD [address] [place] [address] lena@[email or web address] Medical Oncology 07/16/23 Luli Castillo MD [address] [place] [address] [email or web address]@[email or web address] Internal Medicine 07/29/23 Nanette Hernandez RN [address] [place] [address] Norma@[facility] Primary Infusion Nurse 07/29/23 11/09/23 Tricia Brock RN [address] [place] [address] Katya@[facility] Primary Infusion Nurse 09/08/23 Otilia Garcia RN [address] [place] [address] [email or web address]@[email or web address] Associate Infusion Nurse 10/20/23 System, Provider Not In, PhD [facility] [address] [address] 12/01/23 12/26/23 Sherin Thomas, VINICIUS [address] [place] [address] [email or web address]@[facility] Associate Infusion Nurse 12/20/23 04/11/24 Tri Burleson RN [address] [place] [place] [address] [email or web address] Associate Infusion Nurse 05/15/24 Mildred Rust RN [address] [place] [address] [email or web address] Associate Infusion Nurse 05/15/24 Nanette Tavarez RN [address] [place] [address] MARINO@[facility] [place] Primary Infusion Nurse 06/23/24 Alina Pop, VINICIUS [address] [place] [address] Vicente@[facility] Associate Infusion Nurse 06/28/24 Luann House RN [address] [place] [address] Olga Lidia@[facility] Primary Infusion Nurse 10/02/24 aDxa Leija, RN [address] [place] [address] KIRA@[facility] Associate Infusion Nurse 01/31/25 documented as of this encounter Additional Source Comments The information contained in this document represents components of the legal health record. It is not the complete legal health record.[facility]
--- OUTSIDE RECORDS SUMMARY | 2025-07-24 17:13 | XMS_ITS | Encounter Summary ---
Author Organization [facility] Address [address] [place] [address] Phone Care Team Providers Care Dressmaker Helper Name Role Phone Braulio Curran MD Unavailable [phone] Dominic Rivera MD, PhD Unavailable Luli Castillo MD Unavailable [phone] Tricia Brock RN Unavailable Omar Berman@[facility].[place] .[facility] Otilia Garcia RN Unavailable [phone] Keara Smith FRANCHISE SPECIALIST Primary Care Provide r Tri Burleson RN Unavailable ирина [email or web address]@[email or web address].[place]. Mildred Sarkar RN Unavailable ham [email or web address] Nanette Tavarez RN Unavailable LIZZY [email or web address] lAina Mayorga RN Unavailable Parish [email or web address] Luann Lopes RN Unavailable Batool [email or web address] Daxa Soriano RN Unavailable [phone] Encounter Details Date Type Department Care Team (Late st Contact Info) Description 04/27/2024 Procedure Pass [facility] [place] [address] 3rd Floor [place] [id number] Social History Tobacco Use Types Packs/Day Years [...] st Contact Info) Description 01/18/2025 Procedure Pass [facility] Rn Examiner [place] [address] [facility] [address] [place] [address] 01/18/2025 Procedure Pass [facility] [address] [facility] [address] [place] [address] 01/18/2025 Procedure Pass [facility] [address] [facility] [address] [place] [address] 01/18/2025 Procedure Pass [facility] Cardiac Echo 850 [address] [facility] [address] [place] [address] 08/07/2025 9:30 AM EDT Blood Draw Laboratory Services, [facility] at [address] 3rd [place] [address] Dominic Rivera MD, PhD [address] [place] [address] 08/07/2025 10:30 AM EDT Office Visit [facility] On[facility], [facility] [place] at [address] [address] Fela Sandoval NP [address] [place] [address] [email or web address]. [facility] 08/07/2025 10:30 AM EDT Nurse Only [facility] for [facility] On[facility], [facility] at [address] [address] Dominic Rivera MD, PhD [address] [place] [address] 08/07/2025 11:30 AM EDT Infusion Infusion Therapy Services [place], [facility] at [address] [address] Dominic Rivera MD, PhD [address] [place] [address] Luann House RN [address] [place] [address] Olga Lidia@[facility]. [facility] 08/24/2025 9:00 AM EST Appointment [facility] Cardiac Echo [address] [place] [address] 422 [place] [address] Dominic Rivera MD, PhD [address] [place] [address] 08/24/2025 10:15 AM EST Appointment [facility] Rn Examiner [place] [address] [place] [address] Dominic Rivera MD, PhD [address] [place] [address] 08/24/2025 11:15 AM EST Appointment [facility] Rn Examiner [place] [address] [place] [address] Dominic Rivera MD, PhD [address] [place] [address] [email or web address] 08/29/2025 10:30 AM EST Blood Draw Laboratory Services, [facility] [address] [facility], 2nd [place] [address] Dominic Rivera MD, PhD [address] [place] [address] [email or web address] 08/29/2025 11:30 AM EST Office Visit [facility] for Thoracic Oncology, [address], [address]th [place] [address] Dominic Rivera MD, PhD [address] [place] [address] [email or web address] 08/29/2025 11:30 AM EST Nurse Only [facility] for Thoracic Oncology, [address], [address]th [place] [address] Dominic Rivera MD, PhD [address] [place] [address] [email or web address] 08/29/2025 12:30 PM EST Infusion Infusion Therapy Services [address], [address] [place] [address] 08/31/2025 9:00 AM EST Telemedicine [facility] ENDOCRINE MEDICINE 45 [place] [address] Elkin Hogue MD [address] [place] [address] [address] [place] [address] ANNABELLE@[facility] documented as of this encounter Visit Diagnoses Not on filedocumented in this encounter Additional Health Concerns Assessment Noted Time PHQ-2 Depression Total Score: 0 07/28/20 23 8:20 AM EDT documented as of this encounter Care Teams Dressmaker Helper Relationship Specialty Start Date End Date Keara Smith NP [address] [place] [address] PCP - General 12/27/23 Braulio Curran MD [email or web address] Endocrinology 06/21/20 Dominic Rivera MD, PhD [address] [place] [address] [email or web address] Medical Oncology 07/16/23 Luli Castillo MD [address] [place] [address] [email or web address] Medicine 07/29/23 Tricia Brock RN [address] [place] [address] Katya@[email or web address] Primary Infusion Nurse 09/08/23 Otilia Garcia RN [address] [place] [address] [email or web address]@[facility] Associate Infusion Nurse 10/20/23 Tri Burleson RN [address] [place] [address] [email or web address] Associate Infusion Nurse 05/15/24 Mildred Rust RN 300 [place] [address] [email or web address] Associate Infusion Nurse 05/15/24 Nanette Tavarez RN [address] [place] [address] MARINO@[facility] Primary Infusion Nurse 06/23/24 Alina Pop, RN [address] [place] [address] [email or web address]@[facility] NAJMA.[facility] Associate Infusion Nurse 06/28/24 Luann House, VINICIUS [address] [place] [address] Olga Lidia@[facility] Primary Infusion Nurse 10/02/24 Daxa Leija RN [address] [place] [address] KIRA@[facility] .[facility] Associate Infusion Nurse 01/31/25 documented as of this encounter Additional Source Comments The information contained in this document represents components of the legal health record. It is not the complete legal health record.[facility]
--- OUTSIDE RECORDS SUMMARY | 2025-07-24 17:13 | XMS_ITS | Encounter Summary ---
Author Organization [facility] Address [address] [place] [address] Phone Care Team Providers Care Sour Bleaching Pleater Name Role Phone Braulio Curran MD Unavailable [phone] Dominic Rivera MD, PhD Unavailable Luli Castillo MD Unavailable [phone] Tricia Brock RN Unavailable Omar [email or web address] .[facility] Otilia Garcia RN Unavailable [phone] Keara Smith FLOOR SPACE ALLOCATOR Primary Care Provide r Tri Burleson RN Unavailable ирина [email or web address]. Mildred Sarkar RN Unavailable ham [email or web address] Nanette Tavarez RN Unavailable LIZZY [email or web address] Alina Mayorga RN Unavailable Parish [email or web address] Luann Lopes RN Unavailable Batool [email or web address] Daxa Soriano RN Unavailable [phone] Encounter Details Date Type Department Care Team (Late st Contact Info) Description 04/27/2024 Procedure Pass [facility] [place], [place] [address] 4th Floor [place], [facility]67 Social History Tobacco Use Types Packs/Day Years [...] Description 01/18/2025 Procedure Pass [facility] Drapery And Upholstery Estimator [place] [address] [facility] [address] [place] [address] 01/18/2025 Procedure Pass [facility] [address] [facility] [address] [place] [address] 01/18/2025 Procedure Pass [facility] [address] [facility] [address] [place] [address] 01/18/2025 Procedure Pass [facility] Cardiac Echo 850 [address] [facility] [address] [place] [address] 08/07/2025 9:30 AM EDT Blood Draw Laboratory Services, [facility] at [address] 3rd [place] [address] Dominic Rivera MD, PhD [address] [place] [address] 08/07/2025 10:30 AM EDT Office Visit [facility] for Thoracic Oncology, [facility] [place] at [address] [address] Fela Sandoval NP [address] [place] [address] [email or web address]. [facility] 08/07/2025 10:30 AM EDT Nurse Only [facility] for Thoracic Oncology, [facility] at [address] [address] Dominic Rivera MD, PhD [address] [place] [address] 08/07/2025 11:30 AM EDT Infusion Infusion Therapy Services [place], [facility] at [address] [address] Dominic Rivera MD, PhD [address] [place] [address] Luann House RN [address] [place] [address] Olga Lidia@[email or web address]. [facility] 08/24/2025 9:00 AM EST Appointment [facility] Cardiac Echo [address] [place] [address] 422 [place] [address] Dominic Rivera MD, PhD [address] [place] [address] 08/24/2025 10:15 AM EST Appointment [facility] Drapery And Upholstery Estimator [place] [address] [place] [address] [place] [address] Dominic Rivera MD, PhD [address] [place] [address] 08/24/2025 11:15 AM EST Appointment [facility] Drapery And Upholstery Estimator [place] [address] [place] [address] [place] [address] Dominic Rivera MD, PhD [address] [place] [address] [email or web address] 08/29/2025 10:30 AM EST Blood Draw Laboratory Services, [facility] [address] [facility], 2nd [place] [address] Dominic Rivera MD, PhD [address] [place] [address] [email or web address] 08/29/2025 11:30 AM EST Office Visit [facility] for Thoracic Oncology, [address], [address]th [place] [address] Dominic Rivera MD, PhD [address] [place] [address] [email or web address] 08/29/2025 11:30 AM EST Nurse Only [facility] for Thoracic Oncology, [address], [address]th [place] [address] Dominic Rivera MD, PhD [address] [place] [address] [email or web address] 08/29/2025 12:30 PM EST Infusion Infusion Therapy Services [address] [place] [address] 08/31/2025 9:00 AM EST Telemedicine [facility] ENDOCRINE MEDICINE 45 [place] [address] Elkin Hogue MD [address] [place] [address] [address] [place] [address] ANNABELLE@[facility] documented as of this encounter Visit Diagnoses Not on filedocumented in this encounter Additional Health Concerns Assessment Noted Time PHQ-2 Depression Total Score: 0 07/28/20 23 8:20 AM EDT documented as of this encounter Care Teams Sour Bleaching Pleater Relationship Specialty Start Date End Date Keara Smith NP [address] [place] [address] PCP - General 12/27/23 Braulio Curran MD [email or web address] Endocrinology 06/21/20 Dominic Rivera MD, PhD [address] [place] [address] [email or web address] Medical Oncology 07/16/23 Luli Castillo MD [address] [place] [address] ally@[facility] Internal Medicine 07/29/23 Tricia Brock RN [address] [place] [address] [email or web address] Primary Infusion Nurse 09/08/23 Otilia Garcia RN [address] [place] [address] WALLY@[facility] Associate Infusion Nurse 10/20/23 Tri Burleson RN [address] [place] [address] [email or web address] Associate Infusion Nurse 05/15/24 Mildred Rust RN 300 [place] [address] [email or web address] Associate Infusion Nurse 05/15/24 Nanette Tavarez RN [address] [place] [address] MARINO@[facility] Primary Infusion Nurse 06/23/24 Alina Pop, RN [address] [place] [address] Vicente@[facility] NAJMA.[facility] Associate Infusion Nurse 06/28/24 Luann House, VINICIUS [address] [place] [address] Olga Lidia@[facility] Primary Infusion Nurse 10/02/24 Daxa Leija RN [address] [place] [address] KIRA@[facility] .[facility] Associate Infusion Nurse 01/31/25 documented as of this encounter Additional Source Comments The information contained in this document represents components of the legal health record. It is not the complete legal health record.[facility]
--- OUTSIDE RECORDS SUMMARY | 2025-07-24 17:13 | XMS_ITS | Encounter Summary ---
Author Organization [facility] Address [address] [place] [address] Phone Care Team Providers Care Vascular Technologist Sonographer Name Role Phone Braulio Curran MD Unavailable [phone] Dominic Rivera MD, PhD Unavailable Luli Castillo MD Unavailable [phone] Tricia Brock RN Unavailable Omar [email or web address] .[facility] Otilia Garcia RN Unavailable [phone] Keara Smith METAL POURER Primary Care Provide r Tri Burleson RN Unavailable ирина [email or web address]. Mildred Sarkar RN Unavailable [email or web address] Nanette Tavarez RN Unavailable LIZZY [email or web address] Alina Mayorga RN Unavailable Parish [email or web address] Luann Lopes RN Unavailable Batool [email or web address] Daxa Soriano RN Unavailable [phone] Encounter Details Date Type Department Care Team (Late st Contact Info) Description 10/24/2024 Procedure Pass [facility] Cardiac Echo 850 [address] [facility] [address] [place] [id number] Social History Tobacco Use Types Packs/Day Years [...] st Contact Info) Description 01/18/2025 [facility] Pass [facility] [address] [facility] [address] [place] [address] 01/18/2025 Procedure [facility] [address] [facility] [address] [place] [address] 01/18/2025 Procedure [facility] [address] [facility] [address] [place] [address] 01/18/2025 Procedure Pass [facility] Cardiac Echo 850 [address] [facility] [address] [place] [address] 08/07/2025 9:30 AM EDT Blood Draw Laboratory Services, [facility] at [address] 3rd [place] [address] Dominic Rivera MD, PhD [address] [place] [address] 08/07/2025 10:30 AM EDT Office Visit [facility] Center for Thoracic Oncology, [facility] [place] at [address] [address] Fela Sandoval NP [address] [place] [address] [email or web address]. [facility] 08/07/2025 10:30 AM EDT Nurse Only [facility] Center for Thoracic Oncology, [facility] at [address] [address] Dominic Rivera MD, PhD [address] [place] [address] [email or web address] 08/07/2025 11:30 AM EDT Infusion Infusion Therapy Services [place], [facility] at [address] [address] Dominic Rivera MD, PhD [address] [place] [address] [email or web address] Luann House RN [address] [place] [address] Olga [email or web address]. [facility] 08/24/2025 9:00 AM EST Appointment [facility] Cardiac Echo [address] [place] [address] Dominic Rivera MD, PhD [address] [place] [address] 08/24/2025 10:15 AM EST Appointment [facility] [address] [place] [place] [address] Dominic Rivera MD, PhD [address] [place] [address] 08/24/2025 11:15 AM EST Appointment [facility] [address] [place] [address] Dominic Rivera MD, PhD [address] [place] [address] [email or web address] 08/29/2025 10:30 AM EST Blood Draw Laboratory Services, [address], 2nd [place] [address] Dominic Rivera MD, PhD [address] [place] [address] 08/29/2025 11:30 AM EST Office Visit [facility] for Thoracic Oncology, [address], 9th [place] [address] Dominic Rivera MD, PhD [address] [place] [address] [email or web address] 08/29/2025 11:30 AM EST Nurse Only [facility] for Thoracic Oncology, [address], [address]th [place] [address] Dominic Rivera MD, PhD [address] [place] [address] [email or web address] 08/29/2025 12:30 PM EST Infusion Infusion Therapy Services [address], [address] [place] [address] 08/31/2025 9:00 AM EST Telemedicine [facility] ENDOCRINE MEDICINE 45 [place] [address] Elkin Hogue MD [address] [place] [address] [address] [place] [address] [email or web address] documented as of this encounter Visit Diagnoses Not on filedocumented in this encounter Additional Health Concerns Assessment Noted Time PHQ-2 Depression Total Score: 0 05/07/20 8:20 AM EDT documented as of this encounter Care Teams Vascular Technologist Sonographer Relationship Specialty Start Date End Date Keara Smith NP [address] [place] [address] PCP - General 12/27/23 Braulio Curran MD [email or web address] Endocrinology 06/21/20 Dominic Rivera MD, PhD [address] [place] [address] [email or web address] Medical Oncology 07/16/23 Luli Castillo MD [address] [place] [address] [email or web address] 07/29/23 Tricia Brock, RN [address] [place] [address] [email or web address] Primary Infusion Nurse 09/08/23 Otilia Garcia RN [address] [place] [address] [email or web address]@[email or web address] Associate Infusion Nurse 10/20/23 Tri Burleson RN [address] [place] [address] [email or web address] Associate Infusion Nurse 05/15/24 Mildred Rust RN [address] [place] [address] [email or web address] Associate Infusion Nurse 05/15/24 Nanette Tavarez RN [address] [place] [address] MARINO@[email or web address] Primary Infusion Nurse 06/23/24 Alina Pop, RN 450 [place] [address] [email or web address] Associate Infusion Nurse 06/28/24 Luann House, VINICIUS [address] [place] [address] Olga [email or web address] Primary Infusion Nurse 10/02/24 Daxa Leija RN [address] [place] [address] [email or web address]@[email or web address] Associate Infusion Nurse 01/31/25 documented as of this encounter Additional Source Comments The information contained in this document represents components of the legal health record. It is not the complete legal health record.[facility]
--- OUTSIDE RECORDS SUMMARY | 2025-07-24 17:13 | XMS_ITS | Encounter Summary ---
Author Organization [facility] Address [address] [place] [address] Phone Care Team Providers Care Hydraulic Press Servicer Name Role Phone Braulio Curran MD Unavailable [phone] Dominic Rivera MD, PhD Unavailable Luli Castillo MD Unavailable [phone] Tricia Brock RN Unavailable Omar [email or web address] .[facility] Otilia Garcia RN Unavailable [phone] Keara Smith SUPPLY AND DISTRIBUTION MANAGER Primary Care Provide r Tri Burleson RN Unavailable ирина [email or web address]. Mildred Sarkar RN Unavailable ham [email or web address] Nanette Tavarez RN Unavailable LIZZY [email or web address] Alina Mayorga RN Unavailable Parish [email or web address] Luann Lopes RN Unavailable Batool [email or web address] Daxa Soriano RN Unavailable Encounter Details Date Type Department Care Team (Late st Contact Info) Description 09/26/2024 Procedure Pass [facility] [place] [facility] [place] [place] [address] Floor [place] [id number] Social History Tobacco Use Types Packs/Day Years [...] st Contact Info) Description 01/18/2025 Procedure Pass [facility] Case Checker [place] 850 [facility] [address] [place] [address] 01/18/2025 Procedure Pass [facility] 850 [facility] [address] [place] [address] 01/18/2025 Procedure Pass [facility] 850 [facility] [address] [place] [address] 01/18/2025 Procedure Pass [facility] Cardiac Echo 850 850 [facility] [address] [place] [address] 08/07/2025 9:30 AM EDT Blood Draw Laboratory Services, [facility] at [address]rd [place] [address] Dominic Rivera MD, PhD [address] [place] [address] 08/07/2025 10:30 AM EDT Office Visit [facility] Center for Thoracic Oncology, [facility] [place] at [address] [address] Fela Sandoval NP [address] [place] [address] [email or web address]. [facility] 08/07/2025 10:30 AM EDT Nurse Only [facility] Center for Thoracic Oncology, [facility] at [address] [address] Dominic Rivera MD, PhD [address] [place] [address] 08/07/2025 11:30 AM EDT Infusion Infusion Therapy Services [place], [facility] at [address] [address] Dominic Rivera MD, PhD [address] [place] [address] Luann House RN [address] [place] [address] Olga Lidia@[email or web address]. COUNTS INCLUDE 234 BEDS AT [facility] 08/24/2025 9:00 AM EST Appointment [facility] Cardiac Echo [address] [place] [address] 422 [place] [address] Dominic Rivera MD, PhD [address] [place] [address] 08/24/2025 10:15 AM EST Appointment [facility] Case Checker [place] [address] [place] [place] [address] Dominic Rivera MD, PhD [address] [place] [address] 08/24/2025 11:15 AM EST Appointment [facility] Case Checker [place] [address] [place] [address] [place] [address] Dominic Rivera MD, PhD [address] [place] [address] [email or web address] 08/29/2025 10:30 AM EST Blood Draw Laboratory Services, [facility] 450 [facility], 2nd [place] [address] Dominic Rivera MD, PhD [address] [place] [address] [email or web address] 08/29/2025 11:30 AM EST Office Visit [facility] for Thoracic Oncology, [address], [address]th [place] [address] Dominic Rivera MD, PhD [address] [place] [address] [email or web address] 08/29/2025 11:30 AM EST Nurse Only [facility] for Thoracic Oncology, [address], [address]th [place] [address] Dominic Rivera MD, PhD [address] [place] [address] [email or web address] 08/29/2025 12:30 PM EST Infusion Infusion Therapy Services [address], [address]th [place] [address] 08/31/2025 9:00 AM EST Telemedicine [facility] ENDOCRINE MEDICINE 45 [place] [address] Elkin Hogue MD [address] [place] [address] [address] [place] [address] ANNABELLE@[email or web address] documented as of this encounter Visit Diagnoses Not on filedocumented in this encounter Additional Health Concerns Assessment Noted Time PHQ-2 Depression Total Score: 0 07/28/20 23 8:20 AM EDT documented as of this encounter Care Teams Hydraulic Press Servicer Relationship Specialty Start Date End Date Keara Smith NP [address] [place] [address] PCP - General 12/27/23 Braulio Curran MD [email or web address] Endocrinology 06/21/20 Dominic Rivera MD, PhD [address] [place] [address] [email or web address] Medical Oncology 07/16/23 Luli Castillo MD [address] [place] [address] [email or web address] Medicine 07/29/23 Tricia Brock RN [address] [place] [address] [email or web address] Primary Infusion Nurse 09/08/23 Otilia Garcia RN [address] [place] [address] WALLY@[facility] Associate Infusion Nurse 10/20/23 Tri Burleson RN [address] [place] [address] [email or web address] Associate Infusion Nurse 05/15/24 Mildred Rust RN 300 [place] [address] [email or web address] Associate Infusion Nurse 05/15/24 Nanette Tavarez RN [address] [place] [address] [email or web address] Primary Infusion Nurse 06/23/24 Alina Pop, RN [address] [place] [address] [email or web address] Associate Infusion Nurse 06/28/24 Luann House, VINICIUS [address] [place] [address] Olga [email or web address] Primary Infusion Nurse 10/02/24 Daxa Leija RN [address] [place] [address] KIRA@[email or web address] .[facility] Associate Infusion Nurse 01/31/25 documented as of this encounter Additional Source Comments The information contained in this document represents components of the legal health record. It is not the complete legal health record.[facility]
--- OUTSIDE RECORDS SUMMARY | 2025-07-24 17:13 | XMS_ITS | Encounter Summary ---
Author Organization [facility] Address [address] [place] [address] Phone Care Team Providers Care Bricklayer Sewer Name Role Phone Kimberly Bullard DREDGE OPERATOR Primary Care Provider Braulio Curran MD Unavailable [phone] Luli Castillo MD Unavailable [phone] Dominic Rivera MD , PhD Unavailable Luli Castillo MD Unavailable [phone] Nanette Hernandez RN Unavailable [email or web address] Tricia Brock RN Unavailable Omar Berman@[email or web address] u Otilia Garcia RN Unavailable [phone] System, Provider Not In PhD Unavailable Unav ailable System, Provider Not In PhD Primary Care Provide r Unavailable Keara Smith DREDGE OPERATOR Primary Care Provide r Sherin Thomas RN Unavailable [email or web address] [email or web address] u Tri Burleson RN Unavailable ирина [email or web address] Mildred Rust RN Unavailable ham [email or web address] Nanette Tavarez RN Unavailable LIZZY [email or web address] Alina Pop RN Unavailable Parish [email or web address].[facility] Luann House RN Unavailable Batool [email or web address]@[facility] Daxa Leija RN Unavailable Encounter Details Date Type Department Care Team (Late st Contact Info) Description 10/22/2023 Procedure Pass [facility] CT Imaging, [place] [address] [place] [address] Social History Tobacco Use Types Packs/Day Years [...] st Contact Info) Description 01/18/2025 Procedure Pass [facility] Hydraulic Engineer [place] [address] [facility] [address] [place] [address] 01/18/2025 Procedure Pass [facility] Hydraulic Engineer [place] [address] [facility] [address] [place] [address] 01/18/2025 Procedure Pass [facility] Hydraulic Engineer [place] [address] [facility] [address] [place] [address] 01/18/2025 Procedure Pass [facility] Cardiac Echo 850 [address] [facility] [address] [place] [address] 08/07/2025 9:30 AM EDT Blood Draw Laboratory Services, [facility] [place] [facility] [place] 300 [facility] 3rd [place] [address] Dominic Rivera MD, PhD [address] [place] [address] 08/07/2025 10:30 AM EDT Office Visit [facility] for Thoracic Oncology, [facility] at [address] [address] Fela Sandoval NP 450 [place] [address] [email or web address]. [facility] 08/07/2025 10:30 AM EDT Nurse Only [facility] Thoracic Oncology, [facility] at [address] [address] Dominic Rivera MD, PhD [address] [place] [address] 08/07/2025 11:30 AM EDT Infusion Infusion Therapy Services [facility] at [address] [address] Dominic Rivera MD, PhD [address] [place] [address] [email or web address] Luann House, RN 300 [place] [address] Olga Lidia@[facility]. [facility] 08/24/2025 9:00 AM EST Appointment [facility] Cardiac Echo 850 850 [facility] 422 [place] [address] Dominic Rivera MD, PhD [address] [place] [address] 08/24/2025 10:15 AM EST Appointment [facility] 850 [facility] [address] [place] [address] Dominic Rivera MD, PhD [address] [place] [address] 08/24/2025 11:15 AM EST Appointment [facility] [address] [facility] [address] [place] [address] Dominic Rivera MD, PhD [address] [place] [address] 08/29/2025 10:30 AM EST Blood Draw Laboratory Services, [address], 2nd [place] [address] Dominic Rivera MD, PhD [address] [place] [address] 08/29/2025 11:30 AM EST Office Visit [facility] for Thoracic Oncology, [address], 9th [place] [address] Dominic Rivera MD, PhD [address] [place] [address] 08/29/2025 11:30 AM EST Nurse Only [facility] for Thoracic Oncology, [address], 9th [place] [address] Dominic Rivera MD, PhD [address] [place] [address] 08/29/2025 12:30 PM EST Infusion Infusion Therapy Services [place] 9, [facility] 450 [facility], 9th [place] [address] 08/31/2025 9:00 AM EST Telemedicine [facility] ENDOCRINE MEDICINE [address] [place] [address] Elkin Hogue MD [address] [place] [address] PB [address] [place] [address] ANNABELLE@[email or web address] documented as of this encounter Visit Diagnoses Not on filedocumented in this encounter Additional Health Concerns Assessment Noted Time PHQ-2 Depression Total Score: 0 05/07/20 23 8:20 AM EDT documented as of this encounter Care Teams Bricklayer Sewer Relationship Specialty Start Date End Date Kimberly Bullard NP [address] [place] [address] [email or web address] PCP - General Family Medicine 02/09/19 12/21/23 System, Provider Not In, PhD [facility] [address] [address] PCP - General 12/22/23 12/26/23 Keara Smiht NP [address] [place] [address] PCP - General 12/27/23 Braulio Curran MD [address] [place] [address] [email or web address] Endocrinology 06/21/20 Luli Castillo MD [address] [place] [address] [email or web address] Internal Medicine 07/16/23 11/15/23 Dominic Rivera MD, PhD [address] [place] [address] [email or web address] Medical Oncology 07/16/23 Luli Castillo MD [address] [place] [phone] [email or web address] Internal Medicine 07/29/23 Nanette Hernandez, RN [address] [place] [address] Norma@[facility] Primary Infusion Nurse 07/29/23 11/09/23 Tricia Brock RN [address] [place] [address] [email or web address] Primary Infusion Nurse 09/08/23 Otilia Garcia RN [address] [place] [address] [email or web address] Associate Infusion Nurse 10/20/23 System, Provider Not In, PhD [facility] [address] 12/01/23 12/26/23 Sherin Thomas, VINICIUS [address] [place] [address] [email or web address] Associate Infusion Nurse 12/20/23 04/11/24 Tri Burleson RN [address] [place] [address] [email or web address] Associate Infusion Nurse 05/15/24 Mildred Rust RN [address] [place] [address] [email or web address] Associate Infusion Nurse 05/15/24 Nanette Tavarez RN [address] [place] [address] MARINO@[facility] Primary Infusion Nurse 06/23/24 Alina Pop, VINICIUS [address] [place] [address] [email or web address] Associate Infusion Nurse 06/28/24 Luann House RN [address] [place] [address] Olga Lidia@[facility] Primary Infusion Nurse 10/02/24 Daxa Leija, RN [address] [place] [address] KIRA@[facility] Associate Infusion Nurse 01/31/25 documented as of this encounter Additional Source Comments The information contained in this document represents components of the legal health record. It is not the complete legal health record.[facility]
--- OUTSIDE RECORDS SUMMARY | 2025-07-24 17:13 | XMS_ITS | Encounter Summary ---
Author Organization [facility] Address [address] [place] [address] Phone Care Team Providers Care Psychiatric Social Worker Supervisor Name Role Phone Kimberly Bullard RIVETER HAND Primary Care Provider [phone] Braulio Curran MD Unavailable [phone] Luli Castillo MD Unavailable [phone] Dominic Rivera MD , PhD Unavailable Luli Castillo MD Unavailable [phone] Nanette Hernandez RN Unavailable [email or web address] Tricia Brock RN Unavailable Omar [email or web address] u Otilia Garcia RN Unavailable [phone] System, Provider Not In PhD Unavailable Unav ailable System, Provider Not In PhD Primary Care Provide r Unavailable Keara Smith RIVETER HAND Primary Care Provide r Sherin Thomas RN Unavailable [email or web address] u Tri Burleson RN Unavailable ирина [email or web address] Mildred Rust RN Unavailable ham [email or web address] Nanette Tavarez RN Unavailable LIZZY [email or web address] Alina Pop RN Unavailable Parish [email or web address].[place] Luann House RN Unavailable Batool [email or web address] Daxa Leija RN Unavailable [phone] Encounter Details Date Type Department Care Team (Late st Contact Info) Description 10/22/2023 Procedure Pass [facility] MR Imaging, [place] [address] [place] [address] Social History Tobacco Use Types Packs/Day Years [...] st Contact Info) Description 01/18/2025 Procedure Pass [facility] [place] [address] [facility] [address] [place] [address] 01/18/2025 Procedure Pass [facility] [place] [address] [place] [address] 01/18/2025 Procedure Pass [facility] [place] [address] [place] [address] 01/18/2025 Procedure Pass [facility] Cardiac Echo 850 [address] [place] [address] 08/07/2025 9:30 AM EDT Blood Draw Laboratory Services, [facility] [place] [facility] [place] [address] 3rd [place] [address] Dominic Rivera MD, PhD [address] [place] [address] 08/07/2025 10:30 AM EDT Office Visit [facility] for Thoracic [facility], [facility] at [address] [address] Fela Sandoval NP 450 [place] [address] [email or web address]. [facility] 08/07/2025 10:30 AM EDT Nurse Only [facility] Thoracic Oncology, [facility] at [address] [address] Dominic Rivera MD, PhD [address] [place] [address] 08/07/2025 11:30 AM EDT Infusion Infusion Therapy Services [facility] at [address] [address] oDminic Rivera MD, PhD [address] [place] [address] [email or web address] Luann House, RN 300 [place] [address] Olga [email or web address]. [facility] 08/24/2025 9:00 AM EST Appointment [facility] Cardiac Echo 850 850 [facility] 422 [place] [address] Dominic Rivera MD, PhD [address] [place] [address] 08/24/2025 10:15 AM EST Appointment [facility] [address] [place] [address] Dominic Rivera MD, PhD [address] [place] [address] 08/24/2025 11:15 AM EST Appointment [facility] [address] [place] [address] Dominic Rivera MD, PhD [address] [place] [address] 08/29/2025 10:30 AM EST Blood Draw Laboratory Services, [address], 2nd [place] [address] Dominic Rivera MD, PhD [address] [place] [address] 08/29/2025 11:30 AM EST Office Visit [facility], [address], [address] [place] [address] Dominic Rivera MD, PhD [address] [place] [address] 08/29/2025 11:30 AM EST Nurse Only [facility], [address], [address]th [place] [address] Dominic Rivera MD, PhD [address] [place] [address] 08/29/2025 12:30 PM EST Infusion Infusion Therapy Services [place], [facility] 450 [facility], 9th [place] [address] 08/31/2025 9:00 AM EST Telemedicine [facility] ENDOCRINE MEDICINE [address] [place] [address] Elkin Hogue MD [address] [place] [address] [address] [place] [address] ANNABELLE@[email or web address] documented as of this encounter Visit Diagnoses Not on filedocumented in this encounter Additional Health Concerns Assessment Noted Time PHQ-2 Depression Total Score: 0 05/07/20 23 8:20 AM EDT documented as of this encounter Care Teams Psychiatric Social Worker Supervisor Relationship Specialty Start Date End Date Kimberly Bullard NP [address] [place] [address] [email or web address] PCP - General Family Medicine 02/09/19 12/21/23 System, Provider Not In, PhD [facility] [address] [address] PCP - General 12/22/23 12/26/23 Keara Smith NP [address] [place] [address] PCP - General 12/27/23 Braulio Curran MD [address] [place] [address] [email or web address] Endocrinology 06/21/20 Luli Castillo MD [address] [place] [address] [email or web address] 07/16/23 11/15/23 Dominic Rivera MD, PhD [address] [place] [address] [email or web address] Medical Oncology 07/16/23 Luli Castillo MD [address] [place] [address] [email or web address] [employer] [facility] Internal Medicine 07/29/23 Nanette Hernandez, RN [address] [place] [address] Norma@[facility] Primary Infusion Nurse 07/29/23 11/09/23 Tricia Brock RN [address] [place] [address] [email or web address] Primary Infusion Nurse 09/08/23 Otilia Garcia RN [address] [place] [address] [email or web address] Associate Infusion Nurse 10/20/23 System, Provider Not In, PhD [facility] [address] 12/01/23 12/26/23 Sherin Thomas, VINICIUS [address] [place] [address] [email or web address] Associate Infusion Nurse 12/20/23 04/11/24 Tri Burleson RN [address] [place] [address] [email or web address] Associate Infusion Nurse 05/15/24 Mildred Rust RN [address] [place] [address] [email or web address] Associate Infusion Nurse 05/15/24 Nanette Tavarez RN [address] [place] [address] MARINO@[facility] Primary Infusion Nurse 06/23/24 Alina Pop, VINICIUS [address] [place] [address] [email or web address]@[email or web address] Associate Infusion Nurse 06/28/24 Luann House RN [address] [place] [address] Olga Lidia@[facility] Primary Infusion Nurse 10/02/24 Daxa Leija, RN [address] [place] [address] [email or web address]@[email or web address] Associate Infusion Nurse 01/31/25 documented as of this encounter Additional Source Comments The information contained in this document represents components of the legal health record. It is not the complete legal health record.[facility]
--- OUTSIDE RECORDS SUMMARY | 2025-07-24 17:13 | XMS_ITS | Encounter Summary ---
Author Organization [facility] Address [address] [place] [address] Phone Care Team Providers Care Sample Taker Operator Name Role Phone Kimberly Bullard BUSINESS TAXES SPECIALIST Primary Care Provider [phone] Braulio Curran MD Unavailable [phone] Luli Castillo MD Unavailable [phone] Dominic Rivera MD , PhD Unavailable Luli Castillo MD Unavailable [phone] Nanette Hernandez RN Unavailable Norma@[email or web address] Tricia Brock RN Unavailable Omar [email or web address] u Otilia Garcia RN Unavailable System, Provider Not In PhD Unavailable Unav ailable System, Provider Not In PhD Primary Care Provide r Unavailable Keara Smith BUSINESS TAXES SPECIALIST Primary Care Provide r Sherin Thomas RN Unavailable [email or web address] u Tri Burleson RN Unavailable ирина [email or web address] Mildred Rust RN Unavailable ham [email or web address] Nanette Tavarez RN Unavailable LIZZY [email or web address] Alina Pop RN Unavailable Parish [email or web address].[place] Luann House RN Unavailable Batool [email or web address] Daxa Leija RN Unavailable [phone] Encounter Details Date Type Department Care Team (Late st Contact Info) Description 04/28/2023 Procedure Pass [facility] Imaging [facility], [facility] [place] [address] [facility], Floor L1 [place], [facility]15 Social History Tobacco Use Types Packs/Day Years [...] st Contact Info) Description 01/18/2025 Procedure Pass [facility] [address] [facility] [address], [place] [address] 01/18/2025 Procedure Pass [facility] [address] [facility] [address] [place] [address] 01/18/2025 Procedure Pass [facility] [address] [facility] [address] [place] [address] 01/18/2025 Procedure Pass [facility] Cardiac Echo [address] [facility] [address] [place] [address] 08/07/2025 9:30 AM EDT Blood Draw Laboratory Services, [facility] at [address] 3rd [place] [address] Dominic Rivera MD, PhD [address] [place] [address] 08/07/2025 10:30 AM EDT Office Visit [facility] for Thoracic Oncology, [facility] at [address] [address] Fela Sandoval NP 450 [place] [address] [email or web address]. [facility] [place] [facility] 08/07/2025 10:30 AM EDT Nurse Only [facility] for [facility], [facility] at [address] [address] Dominic Rivera MD, PhD [address] [place] [address] 08/07/2025 11:30 AM EDT Infusion Infusion Therapy Services [place], [facility] [place] [address] [address] Dominic Rivera MD, PhD [address] [place] [address] Luann House RN [address] [place] [address] Olga Lidia@[email or web address]. [place].[facility] 08/24/2025 9:00 AM EST Appointment [facility] Cardiac Echo [address] [place] [address] Dominic Rivera MD, PhD [address] [place] [address] 08/24/2025 10:15 AM EST Appointment [facility] Standards Analyst [place] [address] [address] Dominic Rivera MD, PhD [address] [place] [address] 08/24/2025 11:15 AM EST Appointment [facility] Standards Analyst [place] [address] [place] [address] Dominic Rivera MD, PhD [address] [place] [address] [email or web address] 08/29/2025 10:30 AM EST Blood Draw Laboratory Services, [facility] [address] [facility], 2nd [place] [address] Dominic Rivera MD, PhD [address] [place] [address] [email or web address] 08/29/2025 11:30 AM EST Office Visit [facility] for Thoracic Oncology, [facility] [address] [facility], 9th [place] [address] Dominic Rivera MD, PhD [address] [place] [address] [email or web address] 08/29/2025 11:30 AM EST Nurse Only [facility] for Thoracic Oncology, [address], [address]th [place] [address] Dominic Rivera MD, PhD [address] [place] [address] [email or web address] 08/29/2025 12:30 PM EST Infusion Infusion Therapy Services [address], [address] [place] [address] 08/31/2025 9:00 AM EST Telemedicine [facility] ENDOCRINE MEDICINE 45 [place] [address] Elkin Hogue MD [address] [place] [address] [address] [place] [address] ANNABELLE@[email or web address] documented as of this encounter Visit Diagnoses Not on filedocumented in this encounter Additional Health Concerns Assessment Noted Time PHQ-2 Depression Total Score: 0 05/07/20 23 8:20 AM EDT documented as of this encounter Care Teams Sample Taker Operator Relationship Specialty Start Date End Date Kimberly Bullard, BUSINESS TAXES SPECIALIST [address] [place] [address] [email or web address] PCP - General Family Medicine 02/09/19 12/21/23 System, Provider Not In, PhD [facility] [address] [address] PCP - General 12/22/23 12/26/23 Keara Smith, ZENOBIA [address] [place] [address] PCP - General 12/27/23 Braulio Curran MD [address] [place] [address] [email or web address] Endocrinology 06/21/20 Luli Castillo MD [address] [place] [address] [email or web address] Internal Medicine 07/16/23 11/15/23 Dominic Rivera MD, PhD [address] [place] [address] [email or web address] Medical Oncology 07/16/23 Luli Castillo MD [address] [place] [address] [email or web address] Internal Medicine 07/29/23 Nanette Hernandez RN [address] [place] [address] Norma@[facility] Primary Infusion Nurse 07/29/23 11/09/23 Tricia Brock RN [address] [place] [address] [email or web address] Primary Infusion Nurse 09/08/23 Otilia Garcia RN [address] [place] [address] WALLY@[email or web address] Associate Infusion Nurse 10/20/23 System, Provider Not In, PhD [facility] [address] 12/01/23 12/26/23 Sherin Thomas, VINICIUS [address] [place] [address] [email or web address] Associate Infusion Nurse 12/20/23 04/11/24 Tri Burleson, VINICIUS [address] [place] [address] [email or web address] Associate Infusion Nurse 05/15/24 Mildred Rust RN [address] [place] [address] [email or web address] Associate Infusion Nurse 05/15/24 Nanette Tavarez RN [address] [place] [address] MARINO@[email or web address] Primary Infusion Nurse 06/23/24 Alina Pop, VINICIUS [address] [place] [address] Vicente@[email or web address] Associate Infusion Nurse 06/28/24 Luann House, VINICIUS [address] [place] [address] Olga [email or web address]@[email or web address] Primary Infusion Nurse 10/02/24 Daxa Leija, RN [address] [place] [address] [email or web address]@[facility] Associate Infusion Nurse 01/31/25 documented as of this encounter Additional Source Comments The information contained in this document represents components of the legal health record. It is not the complete legal health record.[facility]
--- OUTSIDE RECORDS SUMMARY | 2025-07-24 17:13 | XMS_ITS | Encounter Summary ---
Author Organization [facility] Address [address] [place] [address] Phone Care Team Providers Care Cider Press Operator Name Role Phone Braulio Curran MD Unavailable [phone] Dominic Rivera MD, PhD Unavailable Luli Castillo MD Unavailable [phone] Tricia Brock RN Unavailable Omar [email or web address] .[facility] Otilia Garcia RN Unavailable Keara Smith GRILL ATTENDANT Primary Care Provide r Tri Burleson RN Unavailable ирина [email or web address]. Mildred Sarkar RN Unavailable ham [email or web address] Nanette Tavarez RN Unavailable LIZZY [email or web address].[place].E Alina Mayorga RN Unavailable Parish [email or web address].ED Luann Lopes RN Unavailable Batool [email or web address].E Daxa Soriano RN Unavailable [phone] Encounter Details Date Type Department Care Team (Late st Contact Info) Description 09/26/2024 Procedure Pass [facility] [place] [facility] [place], MRI [address] 4th Floor [place], [facility]67 Social History Tobacco Use Types Packs/Day Years [...] st Contact Info) Description 01/18/2025 Procedure Pass [facility] Orthotist Prosthetist [place] [address] [facility] [address] [place] [address] 01/18/2025 Procedure Pass [facility] [address] [facility] [address] [place] [address] 01/18/2025 Procedure Pass [facility] [address] [facility] [address] [place] [address] 01/18/2025 Procedure Pass [facility] Cardiac Echo 850 850 [facility] [address] [place] [address] 08/07/2025 9:30 AM EDT Blood Draw Laboratory Services, [facility] at [address] 3rd [place] [address] Dominic Rivera MD, PhD [address] [place] [address] 08/07/2025 10:30 AM EDT Office Visit [facility] for Thoracic Oncology, [facility] [place] at [address] [address] Fela Sandoval NP [address] [place] [address] [email or web address]. [facility] 08/07/2025 10:30 AM EDT Nurse Only [facility] Center for Thoracic Oncology, [facility] at [address] [address] Dominic Rivera MD, PhD [address] [place] [address] 08/07/2025 11:30 AM EDT Infusion Infusion Therapy Services [place], [facility] at [address] [address] Dominic Rivera MD, PhD [address] [place] [address] Luann House RN [address] [place] [address] Olga Lidia@[facility]. [facility] 08/24/2025 9:00 AM EST Appointment [facility] Cardiac Echo [address] [place] [address] 422 [place] [address] Dominic Rivera MD, PhD [address] [place] [address] 08/24/2025 10:15 AM EST Appointment [facility] Orthotist Prosthetist [place] [address] [place] [address] Dominic Rivera MD, PhD [address] [place] [address] 08/24/2025 11:15 AM EST Appointment [facility] Orthotist Prosthetist [place] [address] [place] [address] Dominic Rivera MD, PhD [address] [place] [address] [email or web address] 08/29/2025 10:30 AM EST Blood Draw Laboratory Services, [facility] 450 [facility], 2nd [place] [address] Dominic Rivera MD, PhD [address] [place] [address] [email or web address] 08/29/2025 11:30 AM EST Office Visit [facility] for Thoracic Oncology, [address] [place] [address] Dominic Rivera MD, PhD [address] [place] [address] [email or web address] 08/29/2025 11:30 AM EST Nurse Only [facility] for [facility]cology, [address], [address]th [place] [address] Dominic Rivera MD, PhD [address] [place] [address] [email or web address] 08/29/2025 12:30 PM EST Infusion Infusion Therapy Services [address] [place] [address] 08/31/2025 9:00 AM EST Telemedicine [facility] ENDOCRINE MEDICINE 45 [place] [address] Elkin Hogue MD [address] [place] [address] [address] [place] [address] ANNABELLE@[email or web address] documented as of this encounter Visit Diagnoses Not on filedocumented in this encounter Additional Health Concerns Assessment Noted Time PHQ-2 Depression Total Score: 0 07/28/20 23 8:20 AM EDT documented as of this encounter Care Teams Cider Press Operator Relationship Specialty Start Date End Date Keara Smith NP [address] [place] [address] PCP - General 12/27/23 Braulio Curran MD [email or web address] Endocrinology 06/21/20 Dominic Rivera MD, PhD [address] [place] [address] [email or web address] Medical Oncology 07/16/23 Luli Castillo MD [address] [place] [address] [email or web address] Medicine 07/29/23 Tricia Brock RN [address] [place] [address] Katya@[email or web address] Primary Infusion Nurse 09/08/23 Otilia Garcia RN [address] [place] [address] [email or web address]@[facility] Associate Infusion Nurse 10/20/23 Tri Burleson RN [address] [place] [address] [email or web address] Associate Infusion Nurse 05/15/24 Mildred Rust RN 300 [place] [address] [email or web address] Associate Infusion Nurse 05/15/24 Nanette Tavarez RN [address] [place] [address] MARINO@[email or web address] Primary Infusion Nurse 06/23/24 Alina Pop, RN [address] [place] [address] Vicente@[facility] Associate Infusion Nurse 06/28/24 Luann House, VINICIUS [address] [place] [address] Olga Lidia@[facility] Primary Infusion Nurse 10/02/24 Daxa Leija RN [address] [place] [address] KIRA@[facility] .[facility] Associate Infusion Nurse 01/31/25 documented as of this encounter Additional Source Comments The information contained in this document represents components of the legal health record. It is not the complete legal health record.[facility]
--- OUTSIDE RECORDS SUMMARY | 2025-07-24 17:13 | XMS_ITS | Encounter Summary ---
Author Organization [facility] Address [address] [place] [address] Phone Care Team Providers Care Barrel Burner Name Role Phone Braulio Curran MD Unavailable [phone] Dominic Rivera MD, PhD Unavailable Luli Castillo MD Unavailable [phone] Tricia Brock RN Unavailable Omar [email or web address] .[facility] Otilia Garcia RN Unavailable [phone] Keara Smith CAR WASH ATTENDANT AUTOMATIC Primary Care Provide r Tri Burleson RN Unavailable ирина [email or web address]. Mildred Sarkar RN Unavailable ham [email or web address] Nanette Tavarez RN Unavailable LIZZY [email or web address] Alina Mayorga RN Unavailable Parish [email or web address] Luann Lopes RN Unavailable Batool [email or web address] Daxa Soriano RN Unavailable [phone] Encounter Details Date Type Department Care Team (Late st Contact Info) Description 04/27/2024 Procedure Pass [facility] [place] [address] 3rd Floor [place] [id number] Social History Tobacco Use Types Packs/Day Years [...] st Contact Info) Description 01/18/2025 Procedure Pass [facility] Legal Mediator [place] [address] [place] [address] 01/18/2025 Procedure Pass [facility] [address] [facility] [address] [place] [address] 01/18/2025 Procedure Pass [facility] [address] [facility] [address] [place] [address] 01/18/2025 Procedure Pass [facility] Cardiac Echo 850 [address] [place] [address] 08/07/2025 9:30 AM EDT Blood Draw Laboratory Services, [facility] at [address] 3rd [place] [address] Dominic Rivera MD, PhD [address] [place] [address] 08/07/2025 10:30 AM EDT Office Visit [facility] Center for Thoracic Oncology, [facility] [place] at [address] [address] Fela Sandoval NP [address] [place] [address] [email or web address] 08/07/2025 10:30 AM EDT Nurse Only [facility] Center for Thoracic Oncology, [facility] at [address] [address] Dominic Rivera MD, PhD [address] [place] [address] 08/07/2025 11:30 AM EDT Infusion Infusion Therapy Services [place], [facility] at [address] [address] Dominic Rivera MD, PhD [address] [place] [address] Luann House RN [address] [place] [address] Olga Lidia@[facility]. [facility] 08/24/2025 9:00 AM EST Appointment [facility] Cardiac Echo [address] [place] [address] 422 [place] [address] Dominic Rivera MD, PhD [address] [place] [address] 08/24/2025 10:15 AM EST Appointment [facility] Legal Mediator [place] [address] [place] [address] [place] [address] Dominic Rivera MD, PhD [address] [place] [address] 08/24/2025 11:15 AM EST Appointment [facility] Legal Mediator [place] [address] [place] [address] Dominic Rivera MD, PhD [address] [place] [address] [email or web address] 08/29/2025 10:30 AM EST Blood Draw Laboratory Services, [facility] [address] [facility], 2nd [place] [address] Dominic Rivera MD, PhD [address] [place] [address] [email or web address] 08/29/2025 11:30 AM EST Office Visit [facility] for [facility] On[facility], [address], [address]th [place] [address] Dominic Rivera MD, PhD [address] [place] [address] [email or web address] 08/29/2025 11:30 AM EST Nurse Only [facility], [address], 9th [place] [address] Dominic Rivera MD, PhD [address] [place] [address] [email or web address] 08/29/2025 12:30 PM EST Infusion Infusion Therapy Services [address], [address] [place] [address] 08/31/2025 9:00 AM EST Telemedicine [facility] ENDOCRINE MEDICINE 45 [place] [address] Elkin Hogue MD [address] [place] [address] [address] [place] [address] ANNABELLE@[email or web address] documented as of this encounter Visit Diagnoses Not on filedocumented in this encounter Additional Health Concerns Assessment Noted Time PHQ-2 Depression Total Score: 0 07/28/20 23 8:20 AM EDT documented as of this encounter Care Teams Barrel Burner Relationship Specialty Start Date End Date Keara Smith NP [address] [place] [address] PCP - General 12/27/23 Braulio Curran MD [email or web address] Endocrinology 06/21/20 Dominic Rivera MD, PhD [address] [place] [address] [email or web address]@[facility] Medical Oncology 07/16/23 Luli Castillo MD [address] [place] [address] [email or web address] Internal Medicine 07/29/23 Tricia Brock RN [address] [place] [address] Katya@[email or web address] Primary Infusion Nurse 09/08/23 Otilia Garcia RN [address] [place] [address] [email or web address]@[facility] Associate Infusion Nurse 10/20/23 Tri Burleson RN [address] [place] [address] [email or web address] Associate Infusion Nurse 05/15/24 Mildred Rust RN 300 [place] [address] [email or web address] Associate Infusion Nurse 05/15/24 Nanette Tavarez RN [address] [place] [address] MARINO@[facility] Primary Infusion Nurse 06/23/24 Alina Pop, RN [address] [place] [address] Vicente@[facility] NAJMA.[facility] Associate Infusion Nurse 06/28/24 Luann House, VINICIUS [address] [place] [address] Olga Lidia@[email or web address] Primary Infusion Nurse 10/02/24 Daxa Leija RN [address] [place] [address] KIRA@[facility]Be[facility] .[facility] Associate Infusion Nurse 01/31/25 documented as of this encounter Additional Source Comments The information contained in this document represents components of the legal health record. It is not the complete legal health record.[facility]
--- OUTSIDE RECORDS SUMMARY | 2025-07-24 17:13 | XMS_ITS | Encounter Summary ---
Author Organization [facility] Address [address] [place] [address] Phone Care Team Providers Care Intake Coordinator Name Role Phone Kimberly Bullard THEATER TEACHER Primary Care Provider Braulio Curran MD Unavailable [phone] Dominic Rivera MD , PhD Unavailable Luli Castillo MD Unavailable [phone] Tricia Brock RN Unavailable Omar [email or web address] u Otilia Garcia RN Unavailable [phone] System, Provider Not In PhD Unavailable Unav ailable System, Provider Not In PhD Primary Care Provide r Unavailable Keara Smith THEATER TEACHER Primary Care Provide r Sherin Thomas RN Unavailable [email or web address] u Tri Burleson RN Unavailable ирина [email or web address].[facility] Mildred Rust RN Unavailable ham [email or web address]. edu Nanette Tavarez RN Unavailable LIZZY [email or web address].[email or web address] Alina Pop RN Unavailable Parish [email or web address].[place].[facility] Luann House RN Unavailable Batool [email or web address] Daxa Leija RN Unavailable Encounter Details Date Type Department Care Team (Late st Contact Info) Description 12/21/2023 Procedure Pass [facility] Cardiac Echo 850 [address] [facility] [address] [place] [address] Social History Tobacco Use Types Packs/Day Years [...] st Contact Info) Description 01/18/2025 Procedure Pass [facility] Signal Circuit Designer [place] [address] [facility] [address] [place] [address] 01/18/2025 Procedure Pass [facility] [address] [facility] [address] [place] [address] 01/18/2025 Procedure [facility] [address] [facility] [address] [place] [address] 01/18/2025 Procedure Pass [facility] Cardiac Echo 850 [address] [facility] [address] [place] [address] 08/07/2025 9:30 AM EDT Blood Draw Laboratory Services, [facility] [place] [address] [facility] 3rd [place] [address] Dominic Rivera MD, PhD [address] [place] [address] 08/07/2025 10:30 AM EDT Office Visit [facility] Center for Thoracic Oncology, [facility] [place] [address] [address] Fela Sandoval NP 450 [place] [address] [email or web address] 08/07/2025 10:30 AM EDT Nurse Only [facility] Center for Thoracic Oncology, [facility] at [address] [address] Dominic Rivera MD, PhD [address] [place] [address] 08/07/2025 11:30 AM EDT Infusion Infusion Therapy Services [place], [facility] at [address] [address] Dominic Rivera MD, PhD [address] [place] [address] [email or web address] Luann House, RN [address] [place] [address] Olga Lidia@[email or web address]. [facility] 08/24/2025 9:00 AM EST Appointment [facility] Cardiac Echo 850 [address] [facility] 422 [place] [address] Dominic Rivera MD, PhD [address] [place] [address] 08/24/2025 10:15 AM EST Appointment [facility] [address] [facility] [address] [place] [address] Dominic Rivera MD, PhD [address] [place] [address] 08/24/2025 11:15 AM EST Appointment [facility] [address] [facility] [address] [place] [address] Dominic Rivera MD, PhD [address] [place] [address] 08/29/2025 10:30 AM EST Blood Draw Laboratory Services, [address], 2nd [place] [address] Dominic Rivera MD, PhD [address] [place] [address] 08/29/2025 11:30 AM EST Office Visit [facility] for Thoracic Oncology, [address], 9th [place] [address] Dominic Rivera MD, PhD [address] [place] [address] 08/29/2025 11:30 AM EST Nurse Only [facility] for [facility]acic Oncology, [address], 9th [place] [address] Dominic Rivera MD, PhD [address] [place] [address] 08/29/2025 12:30 PM EST Infusion Infusion Therapy Services [place] [address], [address], 9th [place] [address] 08/31/2025 9:00 AM EST Telemedicine [facility] ENDOCRINE MEDICINE 45 [place] [address] Elkin Hogue MD [address] [place] [address] [address]4 [place] [address] ANNABELLE@[facility] documented as of this encounter Visit Diagnoses Not on filedocumented in this encounter Additional Health Concerns Assessment Noted Time PHQ-2 Depression Total Score: 0 05/07/20 23 8:20 AM EDT documented as of this encounter Care Teams Intake Coordinator Relationship Specialty Start Date End Date Kimberly Bullard NP [address] [place] [address] [email or web address] PCP - General Family Medicine 02/09/19 12/21/23 System, Provider Not In, PhD Partners [address] [address] PCP - General 12/22/23 12/26/23 Keara Smith NP [address] [place] [address] PCP - General 12/27/23 Braulio Curran MD [address] [place] [address] [email or web address] Endocrinology 06/21/20 Dominic Rivera MD, PhD [address] [place] [address] [email or web address] Medical Oncology 07/16/23 Luli Castillo MD [address] [place] [address] [email or web address] Medicine 07/29/23 Tricia Brock RN [address] [place] [address] Katya@[facility]. [facility] Primary Infusion Nurse 09/08/23 Otilia Garcia RN [address] [place] [address] [email or web address] Associate Infusion Nurse 10/20/23 System, Provider Not In, PhD Partners [address] [address] 12/01/23 12/26/23 Sherin Thomas, VINICIUS [address] [place] [address] [email or web address] Associate Infusion Nurse 12/20/23 04/11/24 Tri Burleson RN [address] [place] [address] [email or web address] Associate Infusion Nurse 05/15/24 Mildred Rust RN [address] [place] [address] [email or web address] Associate Infusion Nurse 05/15/24 Nanette Tavarez RN [address] [place] [address] MARINO@[facility] Primary Infusion Nurse 06/23/24 Alina Pop, VINICIUS [address] [place] [address] Vicente@[facility] Associate Infusion Nurse 06/28/24 Luann House RN [address] [place] [address] Olga Lidia@[facility] Primary Infusion Nurse 10/02/24 Daxa Leija, VINICIUS [address] [place] [address] KIRA@[email or web address] Associate Infusion Nurse 01/31/25 documented as of this encounter Additional Source Comments The information contained in this document represents components of the legal health record. It is not the complete legal health record.[facility]
--- OUTSIDE RECORDS SUMMARY | 2025-07-24 17:13 | XMS_ITS | Encounter Summary ---
Author Organization [facility] Address [address] [place] [address] Phone Care Team Providers Care X Ray Developer Name Role Phone Braulio Curran MD Unavailable [phone] Dominic Rivera MD, PhD Unavailable Luli Castillo MD Unavailable [phone] Tricia Brock RN Unavailable Omar [email or web address] .[facility] Otilia Garcia RN Unavailable [phone] Keara Smith CLINICAL NURSING PROFESSOR Primary Care Provide r Tri Burleson RN Unavailable ирина [email or web address] afb. Mildred Sarkar RN Unavailable ham [email or web address] Nanette Tavarez RN Unavailable LIZZY [email or web address].E Alina Mayorga RN Unavailable Parish [email or web address].ED Luann Lopes RN Unavailable Batool [email or web address].E Daxa Soriano RN Unavailable [phone] Encounter Details Date Type Department Care Team (Late st Contact Info) Description 04/27/2024 Procedure Pass [facility] Cardiac Echo 850 [address] [facility] [address] [place] [phone] Social History Tobacco Use Types Packs/Day Years [...] st Contact Info) Description 01/18/2025 Procedure Pass [facility] [address] [facility] [address] [place] [address] 01/18/2025 Procedure Pass [facility] [address] [facility] [address] [place] [address] 01/18/2025 Procedure Pass [facility] [address] [facility] [address] [place] [address] 01/18/2025 Procedure Pass [facility] Cardiac Echo 850 [address] [facility] [address] [place] [address] 08/07/2025 9:30 AM EDT Blood Draw Laboratory Services, [facility] at [address] 3rd [place] [address] Dominic Rivera MD, PhD [address] [place] [address] 08/07/2025 10:30 AM EDT Office Visit [facility] Center for Thoracic Oncology, [facility] [place] at [address] [address] Fela Sandoval NP [address] [place] [address] Nicolas@[email or web address]. [facility] 08/07/2025 10:30 AM EDT Nurse Only [facility] Center for Thoracic Oncology, [facility] at [address] [address] Dominic Rivera MD, PhD [address] [place] [address] [email or web address] 08/07/2025 11:30 AM EDT Infusion Infusion Therapy Services [place], [facility] at [address] [address] Dominic Rivera MD, PhD [address] [place] [address] [email or web address] Luann House RN [address] [place] [address] Olga Lidia@[email or web address]. [facility] 08/24/2025 9:00 AM EST Appointment [facility] Cardiac Echo [address] [place] [address] Dominic Rivera MD, PhD [address] [place] [address] 08/24/2025 10:15 AM EST Appointment [facility] [employer] [facility] [facility] [address] [place] [address] Dominic Rivera MD, PhD [address] [place] [address] 08/24/2025 11:15 AM EST Appointment [facility] [address] [place] [address] Dominic Rivera MD, PhD [address] [place] [address] [email or web address] 08/29/2025 10:30 AM EST Blood Draw Laboratory Services, [address], [address] [place] [address] Dominic Rivera MD, PhD [address] [place] [address] 08/29/2025 11:30 AM EST Office Visit [facility] for Thoracic Oncology, [address], [address]th [place] [address] Dominic Rivera MD, PhD [address] [place] [address] [email or web address] 08/29/2025 11:30 AM EST Nurse Only [facility] for Thoracic Oncology, [address], [address]th [place] [address] Dominic Rivera MD, PhD [address] [place] [address] [email or web address] 08/29/2025 12:30 PM EST Infusion Infusion Therapy Services [address] [place] [address] 08/31/2025 9:00 AM EST Telemedicine [facility] ENDOCRINE MEDICINE 45 [place] [address] Elkin Hogue MD [address] [place] [address] [address] [place] [address] ANNABELLE@[facility] documented as of this encounter Visit Diagnoses Not on filedocumented in this encounter Additional Health Concerns Assessment Noted Time PHQ-2 Depression Total Score: 0 05/07/20 8:20 AM EDT documented as of this encounter Care Teams X Ray Developer Relationship Specialty Start Date End Date Keara Smith NP [address] [place] [address] PCP - General 12/27/23 Braulio Curran MD [email or web address] Endocrinology 06/21/20 Dominic Rivera MD, PhD [address] [place] [address] [email or web address] Medical Oncology 07/16/23 Luli Castillo MD [address] [place] [address] [email or web address] 07/29/23 Tricia Brock, RN [address] [place] [address] [email or web address] Primary Infusion Nurse 09/08/23 Otilia Garcia RN [address] [place] [address] WALLY@[email or web address] Associate Infusion Nurse 10/20/23 Tri Burleson RN [address] [place] [address] [email or web address] Associate Infusion Nurse 05/15/24 Mildred Rust RN [address] [place] [address] [email or web address] Associate Infusion Nurse 05/15/24 Nanette Tavarez RN [address] [place] [address] MARINO@[facility] Primary Infusion Nurse 06/23/24 Alina Pop, RN 450 [place] [address] Vicente@[facility] Associate Infusion Nurse 06/28/24 Luann House, VINICIUS [address] [place] [address] Olga Lidia@[facility] Primary Infusion Nurse 10/02/24 Daxa Leija RN [address] [place] [address] KIRA@[facility] Associate Infusion Nurse 01/31/25 documented as of this encounter Additional Source Comments The information contained in this document represents components of the legal health record. It is not the complete legal health record.[facility]
--- OUTSIDE RECORDS SUMMARY | 2025-07-24 17:13 | XMS_ITS | Encounter Summary ---
Author Organization [facility] Address [address] [place] [address] Phone Care Team Providers Care Weapons System Instrument Mechanic Name Role Phone Braulio Curran MD Unavailable [phone] Dominic Rivera MD, PhD Unavailable Luli Castillo MD Unavailable [phone] Tricia Brock RN Unavailable Omar [email or web address] .[facility] Otilia Garcia RN Unavailable Keara Smith SUPERVISOR TELEVISION CHASSIS REPAIR Primary Care Provide r Sherin Thomas RN Unavailable kathleen [email or web address] .[facility] Tri Burleson RN Unavailable ирина [email or web address]. Mildred Sarkar RN Unavailable ham [email or web address] .[facility] Nanette Tavarez RN Unavailable LIZZY [email or web address].[place].E Alina Mayorga RN Unavailable Parish [email or web address].[place].ED Luann Lopes RN Unavailable Batool [email or web address].[place].Daxa Layton RN Unavailable Encounter Details Date Type Department Care Team (Late st Contact Info) Description 01/12/2024 Documentation [facility], [facility] [place] [address] [facility], 9th [place] [address] Walker Reyes RN [address] [place] [address] [email or web address] Social History Tobacco Use Types Packs/Day Years [...] your housing situation today? I have mando vivi 04/22/2023 How many times have you move [...] st Contact Info) Description 01/18/2025 Procedure Pass [facility] Land Classifier Paul Smiths [address] [facility] [address] [place] [address] 01/18/2025 Procedure Pass [facility] [address] [facility] [address] [place] [address] 01/18/2025 Procedure Pass [facility] [address] [facility] [address] [place] [address] 01/18/2025 Procedure Pass [facility] Cardiac Echo 850 [address] [facility] [address] [place] [address] 08/07/2025 9:30 AM EDT Blood Draw Laboratory Services, [facility] [address] [facility] 3rd [place] [address] Dominic Rivera MD, PhD [address] [place] [address] 08/07/2025 10:30 AM EDT Office Visit [facility], [facility] [address] [address] Fela Sandoval NP [address] [place] [address] [email or web address] 08/07/2025 10:30 AM EDT Nurse Only [facility], [facility] [address] [address] Dominic Rivera MD, PhD [address] [place] [address] 08/07/2025 11:30 AM EDT Infusion Infusion Therapy Services [facility] at [address] [address] Dominic Rivera MD, PhD [address] [place] [address] Luann House RN [address] [place] [address] Olga Lidia@[facility]. [facility] 08/24/2025 9:00 AM EST Appointment [facility] Cardiac Echo 850 [address] [facility] [address] [place] [address] Dominic Rivera MD, PhD [address] [place] [address] 08/24/2025 10:15 AM EST Appointment [facility] [address] [facility] [address] [place] [address] Dominic Rivera MD, PhD [address] [place] [address] 08/24/2025 11:15 AM EST Appointment [facility] [address] [facility] [address] [place] [address] Dominic Rivera MD, PhD [address] [place] [address] 08/29/2025 10:30 AM EST Blood Draw Laboratory Services, [address], 2nd [place] [address] Dominic Rivera MD, PhD [address] [place] [address] 08/29/2025 11:30 AM EST Office Visit [facility] On[facility], [address], [address]th [place] [address] Dominic Rivera MD, PhD [address] [place] [address] 08/29/2025 11:30 AM EST Nurse Only [facility], [address], [address]th [place] [address] Dominic Rivera MD, PhD [address] [place] [address] 08/29/2025 12:30 PM EST Infusion Infusion Therapy Services wkey 9, [address], [address]th [place] [address] 08/31/2025 9:00 AM EST Telemedicine [facility] ENDOCRINE MEDICINE [address] [place] [address] Elkin Hogue MD [address] [place] [address] [address] [place] [address] ANNABELLE@[facility] documented as of this encounter Visit Diagnoses Not on filedocumented in this encounter Additional Health Concerns Assessment Noted Time PHQ-2 Depression Total Score: 0 05/07/20 23 8:20 AM EDT documented as of this encounter Care Teams Weapons System Instrument Mechanic Relationship Specialty Start Date End Date Keara Smith NP [address] [place] [address] PCP - General 12/27/23 Braulio Curran MD [email or web address] Endocrinology 06/21/20 Dominic Rivera MD, PhD [address] [place] [address] [email or web address] Medical Oncology 07/16/23 Luli Castillo MD [address] [place] [address] [email or web address] Internal Medicine 07/29/23 Tricia Brock RN [address] [place] [address] Katya@[facility] Primary Infusion Nurse 09/08/23 Otilia Garcia RN [address] [place] [address] [email or web address] Associate Infusion Nurse 10/20/23 Sherin Thomas RN [address] [place] [address] naima@[facility] Associate Infusion Nurse 12/20/23 04/11/24 Tri Burleson VINICIUS [address] [place] [address] [email or web address] Associate Infusion Nurse 05/15/24 Mildred Rust RN [address] [place] [address] [email or web address] Associate Infusion Nurse 05/15/24 Nanette Tavarez RN [address] [place] [address] MARINO@[facility] Primary Infusion Nurse 06/23/24 Alina Pop, VINICIUS [address] [place] [address] Vicente@[facility] Associate Infusion Nurse 06/28/24 Luann House RN [address] [place] [address] Olga Lidia@[facility] Primary Infusion Nurse 10/02/24 Daxa Leija, VINICIUS [address] [place] [address] KIRA@[facility] Associate Infusion Nurse 01/31/25 documented as of this encounter Additional Source Comments The information contained in this document represents components of the legal health record. It is not the complete legal health record.[facility]
--- OUTSIDE RECORDS SUMMARY | 2025-07-24 17:13 | XMS_ITS | Encounter Summary ---
Author Organization [facility] Address [address] [place] [address] Phone Care Team Providers Care Esters And Emulsifiers Supervisor Name Role Phone Braulio Curran MD Unavailable [phone] Dominic Rivera MD, PhD Unavailable Luli Castillo MD Unavailable [phone] Tricia Brock RN Unavailable Omar Berman@[facility].[place] .[facility] Otilia aGrcia RN Unavailable [phone] Keara Smith SUPERVISOR GRAIN [employer] YEAST PLANTS Primary Care Provide r Tri Burleson RN Unavailable ирина [email or web address].[place]. Mildred Sarkar RN Unavailable ham [email or web address] Nanette Tavarez RN Unavailable LIZZY [email or web address].[place].E Alina Mayorga RN Unavailable Parish [email or web address].[place].ED Luann Lopes RN Unavailable Batool [email or web address].[place].E Daxa Soriano RN Unavailable [phone] Encounter Details Date Type Department Care Team (Late st Contact Info) Description 09/26/2024 Procedure Pass [facility] [place] [address] [place] 3rd Floor [place] [id number] Social History Tobacco Use Types Packs/Day Years [...] st Contact Info) Description 01/18/2025 Procedure Pass [facility] Utility System Operator [place] [address] [facility] [address] [place] [address] 01/18/2025 Procedure Pass [facility] [address] [facility] [address] [place] [address] 01/18/2025 Procedure Pass [facility] [address] [facility] [address] [place] [address] 01/18/2025 Procedure Pass [facility] Cardiac Echo 850 850 [facility] [address] [place] [address] 08/07/2025 9:30 AM EDT Blood Draw Laboratory Services, [facility] at [address] 3rd [place] [address] Dominic Rivera MD, PhD [address] [place] [address] 08/07/2025 10:30 AM EDT Office Visit [facility] for Thoracic On[facility], [facility] [place] at [address] [address] Fela Sandoval NP [address] [place] [address] Nicolas@[facility]. [facility] 08/07/2025 10:30 AM EDT Nurse Only [facility] for [facility] On[facility], [facility] at [address] [address] Dominic Rivera MD, PhD [address] [place] [address] 08/07/2025 11:30 AM EDT Infusion Infusion Therapy Services [place], [facility] at [address] [address] Dominic Rivera MD, PhD [address] [place] [address] Luann House RN [address] [place] [address] Olga Lidia@[facility] 08/24/2025 9:00 AM EST Appointment [facility] Cardiac Echo [address] [place] [address] [address] [place] [address] Dominic Rivera MD, PhD [address] [place] [address] 08/24/2025 10:15 AM EST Appointment [facility] Utility System Operator [place] [address] [place] [address] [place] [address] Dominic Rivera MD, PhD [address] [place] [address] 08/24/2025 11:15 AM EST Appointment [facility] Utility System Operator [place] [address] [place] [address] [place] [address] Dominic Rivera MD, PhD [address] [place] [address] [email or web address] 08/29/2025 10:30 AM EST Blood Draw Laboratory Services, [facility] [address] [facility], 2nd [place] [address] Dominic Rivera MD, PhD [address] [place] [address] [email or web address] 08/29/2025 11:30 AM EST Office Visit [facility] for [facility] On[facility], [address], 9th [place] [address] Dominic Rivera MD, PhD [address] [place] [address] [email or web address] 08/29/2025 11:30 AM EST Nurse Only [facility] for [facility] On[facility], [address], 9th [place] [address] Dominic Rivera MD, PhD [address] [place] [address] [email or web address] 08/29/2025 12:30 PM EST Infusion Infusion Therapy Services [address], [address] [place] [address] 08/31/2025 9:00 AM EST Telemedicine [facility] ENDOCRINE MEDICINE 45 [place] [address] Elkin Hogue MD [address] [place] [address] [address] [place] [address] ANNABELLE@[facility] documented as of this encounter Visit Diagnoses Not on filedocumented in this encounter Additional Health Concerns Assessment Noted Time PHQ-2 Depression Total Score: 0 07/28/20 23 8:20 AM EDT documented as of this encounter Care Teams Esters And Emulsifiers Supervisor Relationship Specialty Start Date End Date Keara Smith NP [address] [place] [address] PCP - General 12/27/23 Braulio Curran MD [email or web address] Endocrinology 06/21/20 Dominic Rivera MD, PhD [address] [place] [address] [email or web address] Medical Oncology 07/16/23 Luli Castillo MD [address] [place] [address] [email or web address] 07/29/23 Tricia Brock RN [address] [place] [address] [email or web address]@[email or web address] Primary Infusion Nurse 09/08/23 Otilia Garcia RN [address] [place] [address] WALLY@[email or web address] Associate Infusion Nurse 10/20/23 Tri Burleson RN [address] [place] [address] [email or web address] Associate Infusion Nurse 05/15/24 Mildred Rust RN 300 [place] [address] [email or web address] Associate Infusion Nurse 05/15/24 Nanette Tavarez RN [address] [place] [address] MARINO@[facility] Primary Infusion Nurse 06/23/24 Alina Pop, RN [address] [place] [address] Vicente@[facility] NAJMA.[facility] Associate Infusion Nurse 06/28/24 Luann House, VINICIUS [address] [place] [address] Olga Lidia@[facility] Primary Infusion Nurse 10/02/24 Daxa Leija RN [address] [place] [address] KIRA@[facility] PEORIABea .[facility] Associate Infusion Nurse 01/31/25 documented as of this encounter Additional Source Comments The information contained in this document represents components of the legal health record. It is not the complete legal health record.[facility]
--- OUTSIDE RECORDS SUMMARY | 2025-07-24 17:13 | XMS_ITS | Encounter Summary ---
Author Organization [facility] Address [address] [place] [address] Phone Care Team Providers Care Voting Machine Repairer Name Role Phone Kimberly Bullard STROKE PROGRAM COORDINATOR Primary Care Provider [phone] Braulio Curran MD Unavailable Luli Castillo MD Unavailable [phone] Dominic Rivera MD , PhD Unavailable Luli Castillo MD Unavailable [phone] Nanette Hernandez RN Unavailable [email or web address] Tricia Brock RN Unavailable Omar [email or web address] u Otilia Garcia RN Unavailable [phone] System, Provider Not In PhD Unavailable Unav ailable System, Provider Not In PhD Primary Care Provide r Unavailable Keara Smith STROKE PROGRAM COORDINATOR Primary Care Provide r Sherin Thomas RN Unavailable [email or web address] [email or web address] u Tri Burleson RN Unavailable ирина [email or web address] Mildred Rust RN Unavailable ham [email or web address] Nanette Tavarez RN Unavailable LIZZY [email or web address] Alina Pop RN Unavailable Parish [email or web address] Luann House RN Unavailable Batool [email or web address] Daxa Leija RN Unavailable Encounter Details Date Type Department Care Team (Late st Contact Info) Description 10/22/2023 Procedure Pass [facility] Echocardiography [address] [place] [address] Social History Tobacco Use Types Packs/Day Years [...] st Contact Info) Description 01/18/2025 Procedure Pass [facility] [place] [address] [facility] [address] [place] [address] 01/18/2025 Procedure Pass [facility] [place] [address] [facility] [address] [place] [address] 01/18/2025 Procedure Pass [facility] [address] [facility] [address] [place] [address] 01/18/2025 Procedure Pass [facility] Cardiac Echo 850 [address] [facility] [address] [place] [address] 08/07/2025 9:30 AM EDT Blood Draw Laboratory Services, [facility] [place] [facility] [place] [address] [facility] 3rd [place] [address] Dominic Rivera MD, PhD [address] [place], [place] [phone] 08/07/2025 10:30 AM EDT Office Visit [facility] for Thoracic Oncology, [facility] at [address] [address] Fela Sandoval NP [address] [place] [phone] [email or web address] 08/07/2025 10:30 AM EDT Nurse Only [facility] for Thoracic Oncology, [facility] at [address] [address] Dominic Rivera MD, PhD [address] [place] [address] 08/07/2025 11:30 AM EDT Infusion Infusion Therapy Services [facility] at [address] [address] Dominic Rivera MD, PhD [address] [place] [address] [email or web address] Luann House, RN 300 [place] [address] Olga Lidia@[facility]. [facility] 08/24/2025 9:00 AM EST Appointment [facility] Cardiac Echo 850 850 [facility] 422 [place] [address] Dominic Rivera MD, PhD [address] [place] [address] 08/24/2025 10:15 AM EST Appointment [facility] 850 [facility] [address] [place] [address] Dominic Rivera MD, PhD [address] [place] [address] 08/24/2025 11:15 AM EST Appointment [facility] 850 [facility] [address] [place] [address] Dominic Rivera MD, PhD [address] [place] [address] 08/29/2025 10:30 AM EST Blood Draw Laboratory Services, [address], 2nd [place] [address] Dominic Rivera MD, PhD [address] [place] [address] 08/29/2025 11:30 AM EST Office Visit [facility] for Thoracic Oncology, [address], [address]th [place] [address] Dominic Rivera MD, PhD [address] [place] [address] 08/29/2025 11:30 AM EST Nurse Only [facility] for Thoracic Oncology, [address], [address]th [place] [address] Dominic Rivera MD, PhD [address] [place] [address] 08/29/2025 12:30 PM EST Infusion Infusion Therapy Services [place] 9, [facility] [address] [facility], [address]th [place] [address] 08/31/2025 9:00 AM EST Telemedicine [facility] ENDOCRINE MEDICINE 45 [place] [address] Elkin Hogue MD [address] [place] [address] [address] [place] [address] ANNABELLE@[facility] documented as of this encounter Visit Diagnoses Not on filedocumented in this encounter Additional Health Concerns Assessment Noted Time PHQ-2 Depression Total Score: 0 05/07/20 23 8:20 AM EDT documented as of this encounter Care Teams Voting Machine Repairer Relationship Specialty Start Date End Date Kimberly Bullard STROKE PROGRAM COORDINATOR [address] [place] [address] [email or web address] PCP - General Family Medicine 02/09/19 12/21/23 System, Provider Not In, PhD Partners [address] [address] PCP - General 12/22/23 12/26/23 Keara Smith NP [address] [place] [address] PCP - General 12/27/23 Braulio Curran MD [address] [place] [address] [email or web address] Endocrinology 06/21/20 Luli Castillo MD [address] [place] [phone] [email or web address] 07/16/23 11/15/23 Dominic Rivera MD, PhD [address] [place] [address] Medical Oncology 07/16/23 Luli Castillo MD [address] [place] [phone] [email or web address] va medical centerApceraj[facility] Internal Medicine 07/29/23 Nanette Hernandez, RN [address] [place] [address] Norma@[facility] Primary Infusion Nurse 07/29/23 11/09/23 Tricia Brock RN [address] [place] [address] [email or web address]@[facility] Primary Infusion Nurse 09/08/23 Otilia Garcia RN [address] [place] [address] WALLY@[facility] Associate Infusion Nurse 10/20/23 System, Provider Not In, PhD Partners [address] 12/01/23 12/26/23 Sherin Thomas, VINICIUS [address] [place] [address] [email or web address] Associate Infusion Nurse 12/20/23 04/11/24 Tri Burleson RN [address] [place] [address] [email or web address] Associate Infusion Nurse 05/15/24 Mildred Rust RN [address] [place] [address] [email or web address] Associate Infusion Nurse 05/15/24 Nanette Tavarez RN [address] [place] [phone] MARINO@[facility] Primary Infusion Nurse 06/23/24 Alina Pop, VINICIUS [address] [place] [phone] Vicente@[facility] Associate Infusion Nurse 06/28/24 Luann House, VINICUIS [address] [place] [address] Olga Lidia@[facility] Primary Infusion Nurse 10/02/24 Daxa Leija, RN [address] [place] [address] [email or web address].[employer] [facility] Associate Infusion Nurse 01/31/25 documented as of this encounter Additional Source Comments The information contained in this document represents components of the legal health record. It is not the complete legal health record.[facility]
--- OUTSIDE RECORDS SUMMARY | 2025-07-24 17:13 | XMS_ITS | Encounter Summary ---
Author Organization [facility] Address [address] [place] [address] Phone Care Team Providers Care Director Of Neighborhood Service Center Name Role Phone Kimberly Bullard INVESTIGATOR Primary Care Provider [phone] Braulio Curran MD Unavailable [phone] Luli Castillo MD Unavailable [phone] Dominic Rivera MD , PhD Unavailable Luli Castillo MD Unavailable [phone] Nanette Hernandez RN Unavailable [email or web address] Tricia Brock RN Unavailable Omar [email or web address] u Otilia Garcia RN Unavailable System, Provider Not In PhD Unavailable Unav ailable System, Provider Not In PhD Primary Care Provide r Unavailable Keara Smith INVESTIGATOR Primary Care Provide r Sherin Thomas RN Unavailable [email or web address] u Tri Burleson RN Unavailable ирина [email or web address] Mildred Rust RN Unavailable ham [email or web address] Nanette Tavarez RN Unavailable LIZZY [email or web address].[facility] Alina Pop RN Unavailable Parish [email or web address].[facility] Luann House RN Unavailable Batool [email or web address] Daxa Leija RN Unavailable Encounter Details Date Type Department Care Team (Late st Contact Info) Description 05/18/2023 Procedure Pass [facility] Periop [address] [place] [address] Social History Tobacco Use Types Packs/Day Years [...] your housing situation today? I have mando trinidad 04/22/2023 How many times have you move [...] st Contact Info) Description 01/18/2025 Procedure Pass [facility] Security Systems Engineer [place] [address] [facility] [address] [place] [address] 01/18/2025 Procedure Pass [facility] [address] [facility] [address] [place] [address] 01/18/2025 Procedure Pass [facility] [address] [facility] [address] [place] [address] 01/18/2025 Procedure Pass [facility] Cardiac Echo 850 [address] [facility] [address] [place] [address] 08/07/2025 9:30 AM EDT Blood Draw Laboratory Services, [facility] at [address] [address] Dominic Rivera MD, PhD [address] [place] [address] 08/07/2025 10:30 AM EDT Office Visit [facility] for [facility], [facility] [place] at [address] [address] Flea Sandoval NP [address] [place] [address] [email or web address]. [email or web address].[email or web address] 08/07/2025 10:30 AM EDT Nurse Only [facility] for [facility], [facility] at [address] [address] Dominic Rivera MD, PhD [address] [place] [address] 08/07/2025 11:30 AM EDT Infusion Infusion Therapy Services [facility] [place] at [address] [address] Dominic Rivera MD, PhD [address] [place] [address] Luann House RN [address] [place] [address] Olga [email or web address]. [facility] 08/24/2025 9:00 AM EST Appointment [facility] Cardiac Echo [address] [place] [address] Dominic Rivera MD, PhD [address] [place] [address] 08/24/2025 10:15 AM EST Appointment [facility] Security Systems Engineer [address] [address] Dominic Rivera MD, PhD [address] [place] [address] 08/24/2025 11:15 AM EST Appointment [facility] Security Systems Engineer [place] [address] [address] Dominic Rivera MD, PhD [address] [place] [address] 08/29/2025 10:30 AM EST Blood Draw Laboratory Services, [facility] [address] [facility], 2nd [place] [address] Dominic Rivera MD, PhD [address] [place] [address] [email or web address] 08/29/2025 11:30 AM EST Office Visit [facility] Thoracic Oncology, [facility] [address] [facility], 9th [place] [address] Dominic Rivera MD, PhD [address] [place] [address] [email or web address] 08/29/2025 11:30 AM EST Nurse Only [facility] Thoracic Oncology, [address], [address] [place] [address] Dominic Rivera MD, PhD [address] [place] [address] [email or web address] 08/29/2025 12:30 PM EST Infusion Infusion Therapy Services [address], [address] [place] [address] 08/31/2025 9:00 AM EST Telemedicine [facility] ENDOCRINE MEDICINE [address] [place] [address] Elkin Hogue MD [address] [place] [address] [address] [place] [address] [email or web address] documented as of this encounter Visit Diagnoses Not on filedocumented in this encounter Additional Health Concerns Assessment Noted Time PHQ-2 Depression Total Score: 0 05/07/20 23 8:20 AM EDT documented as of this encounter Care Teams Director Of Neighborhood Service Center Relationship Specialty Start Date End Date Kimberly Bullard NP [address] [place] [address] [email or web address] PCP - General Family Medicine 02/09/19 12/21/23 System, Provider Not In, PhD Partners [address] [address] PCP - General 12/22/23 12/26/23 Keara Smiht NP [address] [place] [address] PCP - General 12/27/23 Braulio Curran MD [address] [place] [address] [email or web address] Endocrinology 06/21/20 Luli Castillo MD [address] [place] [address] [email or web address] Internal Medicine 07/16/23 11/15/23 Dominic Rivera MD, PhD [address] [place] [address] [email or web address] Medical Oncology 07/16/23 Luli Castillo MD [address] [place] [address] [email or web address] Medicine 07/29/23 Nanette Hernandez RN [address] [place] [address] Norma@[facility] Primary Infusion Nurse 07/29/23 11/09/23 Tricia Brock RN [address] [place] [address] [email or web address] Primary Infusion Nurse 09/08/23 Otilia Garcia RN [address] [place] [address] [email or web address] Associate Infusion Nurse 10/20/23 System, Provider Not In, PhD Partners [facility] 2 [place] [address] 12/01/23 12/26/23 Sherin Thomas, VINICIUS [address] [place] [address] [email or web address] Associate Infusion Nurse 12/20/23 04/11/24 Tri Burleson, VINICIUS [address] [place] [address] [email or web address] Associate Infusion Nurse 05/15/24 Mildred Rust RN [address] [place] [address] [email or web address] Associate Infusion Nurse 05/15/24 Nanette Tavarez RN [address] [place] [address] [email or web address] Primary Infusion Nurse 06/23/24 Alina Pop, VINICIUS [address] [place] [address] [email or web address]@[email or web address] Associate Infusion Nurse 06/28/24 Luann House RN [address] [place] [address] Olga Lidia@[email or web address] Primary Infusion Nurse 10/02/24 Daxa Leija, RN [address] [place] [address] [email or web address] Associate Infusion Nurse 01/31/25 documented as of this encounter Additional Source Comments The information contained in this document represents components of the legal health record. It is not the complete legal health record.[facility]
--- OUTSIDE RECORDS SUMMARY | 2025-07-24 17:13 | XMS_ITS | Encounter Summary ---
Author Organization [facility] Address [address] [place] [address] Phone Care Team Providers Care Tomato Paste Maker Name Role Phone Kimberly Bullard GENERATION TECHNICIAN Primary Care Provider [phone] Braulio Curran MD Unavailable [phone] Luli Castillo MD Unavailable [phone] Dominic Rivera MD , PhD Unavailable Luli Castillo MD Unavailable [phone] Nanette Hernandez RN Unavailable [email or web address] Tricia Brock RN Unavailable Omar [email or web address] u Otilia Garcia RN Unavailable [phone] System, Provider Not In PhD Unavailable Unav ailable System, Provider Not In PhD Primary Care Provide r Unavailable Keara Smith GENERATION TECHNICIAN Primary Care Provide r Sherin Thomas RN Unavailable [email or web address] u Tri Burleson RN Unavailable ирина [email or web address] Mildred Rust RN Unavailable ham [email or web address] Nanette Tavarez RN Unavailable LIZZY [email or web address]@[email or web address] Alina Pop RN Unavailable Parish [email or web address] Luann House RN Unavailable Batool [email or web address] Daxa Leija RN Unavailable Encounter Details Date Type Department Care Team (Late st Contact Info) Description 10/22/2023 Procedure Pass [facility] CT Imaging, [place] [address] [place] [address] Social History Tobacco Use Types Packs/Day Years [...] Contact Info) Description 01/18/[address] [facility] Metal Tester [place] [address] [facility] [address] [place] [address] 01/18/[address] [facility] Metal Tester [place] [address] [facility] [address] [place] [address] 01/18/[address] [facility] Metal Tester [place] [address] [facility] [address] [place] [address] 01/18/2025 Procedure Pass [facility] Cardiac Echo 850 [address] [facility] [address] [place] [address] 08/07/2025 9:30 AM EDT Blood Draw Laboratory Services, [facility] [place] [address] [facility] 3rd [place] [address] Dominic Rivera MD, PhD [address] [place] [address] 08/07/2025 10:30 AM EDT Office Visit [facility], [facility] at [address] [address] Fela Sandoval NP 450 [place] [address] [email or web address] 08/07/2025 10:30 AM EDT Nurse Only [facility] Thoracic Oncology, [facility] at [address] [address] Dominic Rivera MD, PhD [address] [place] [address] 08/07/2025 11:30 AM EDT Infusion Infusion Therapy Services [facility] at [address] [address] Dominic Rivera MD, PhD [address] [place] [address] [email or web address] Luann House, RN 300 [place] [address] Olga Lidia@[email or web address]. [facility] 08/24/2025 9:00 AM EST Appointment [facility] Cardiac Echo 850 850 [facility] 422 [place] [address] Dominic Rivera MD, PhD [address] [place] [address] 08/24/2025 10:15 AM EST Appointment [facility] [address] [facility] [address] [place] [address] Dominic Rivera MD, PhD [address] [place] [address] [email or web address] 08/24/2025 11:15 AM EST Appointment [facility] [address] [facility] [address] [place] [address] Dominic Rivera MD, PhD [address] [place] [address] 08/29/2025 10:30 AM EST Blood Draw Laboratory Services, [address], 2nd [place] [address] Dominic Rivera MD, PhD [address] [place] [address] 08/29/2025 11:30 AM EST Office Visit [facility], [address], [address] [place] [address] Dominic Rivera MD, PhD [address] [place] [address] [email or web address] 08/29/2025 11:30 AM EST Nurse Only [facility], [address], [address] [place] [address] Dominic Rivera MD, PhD [address] [place] [address] 08/29/2025 12:30 PM EST Infusion Infusion Therapy Services [place] 9, [facility] [address] [facility], [address]th [place] [address] 08/31/2025 9:00 AM EST Telemedicine [facility] ENDOCRINE MEDICINE [address] [place] [address] Elkin Hogue MD [address] [place] [address] [address] [place] [address] ANNABELLE@[email or web address] documented as of this encounter Visit Diagnoses Not on filedocumented in this encounter Additional Health Concerns Assessment Noted Time PHQ-2 Depression Total Score: 0 05/07/20 23 8:20 AM EDT documented as of this encounter Care Teams Tomato Paste Maker Relationship Specialty Start Date End Date Kimberly Bullard NP [address] [place] [phone] [email or web address] PCP - General Family Medicine 02/09/19 12/21/23 System, Provider Not In, PhD Partners [address] [address] PCP - General 12/22/23 12/26/23 Keara Smith NP [address] [place] [address] PCP - General 12/27/23 Braulio Curran MD [address] [place] [address] [email or web address] Endocrinology 06/21/20 Luli Castillo MD [address] [place] [address] [email or web address] 07/16/23 11/15/23 Dominic Rivera MD, PhD [address] [place] [address] [email or web address] Medical Oncology 07/16/23 Luli Castillo MD [address] [place] [address] [email or web address] [place] Internal Medicine 07/29/23 Nanette Hernandez, RN [address] [place] [address] Norma@[facility] Primary Infusion Nurse 07/29/23 11/09/23 Tricia Brock RN [address] [place] [address] [email or web address] Primary Infusion Nurse 09/08/23 Otilia Garcia RN [address] [place] [address] [email or web address]@[email or web address] Associate Infusion Nurse 10/20/23 System, Provider Not In, PhD Partners [address] 12/01/23 12/26/23 Sherin Thomas, VINICIUS [address] [place] [address] [email or web address] Associate Infusion Nurse 12/20/23 04/11/24 Tri Burleson RN [address] [place] [address] [email or web address] Associate Infusion Nurse 05/15/24 Mildred Rust RN [address] [place] [address] [email or web address] Associate Infusion Nurse 05/15/24 Nanette Tavarez RN [address] [place] [address] MARINO@[email or web address] Primary Infusion Nurse 06/23/24 Alina Pop, VINICIUS [address] [place] [address] [email or web address] Associate Infusion Nurse 06/28/24 Luann House RN [address] [place] [address] Olga Lidia@[email or web address] Primary Infusion Nurse 10/02/24 Daxa Leija, RN [address] [place] [address] KIRA@[facility] Associate Infusion Nurse 01/31/25 documented as of this encounter Additional Source Comments The information contained in this document represents components of the legal health record. It is not the complete legal health record.[facility]
--- OUTSIDE RECORDS SUMMARY | 2025-07-24 17:14 | XMS_ITS | Encounter Summary ---
Author Organization [facility] Address [address] [place] [address] Phone Care Team Providers Care Sample Box Maker Name Role Phone Kimberly Bullard DRYING MACHINE TENDER Primary Care Provider Braulio Curran MD Unavailable [phone] Luli Castillo MD Unavailable [phone] Dominic Rivera MD , PhD Unavailable Luli Castillo MD Unavailable [phone] Nanette Hernandez RN Unavailable [email or web address] Tricia Brock RN Unavailable Omar [email or web address] u Otilia Garcia RN Unavailable [phone] System, Provider Not In PhD Unavailable Unav ailable System, Provider Not In PhD Primary Care Provide r Unavailable Keara Smith DRYING MACHINE TENDER Primary Care Provide r Sherin Thomas RN Unavailable [email or web address] u Tri Burleson RN Unavailable ирина [email or web address] Mildred Rust RN Unavailable [email or web address] Nanette Tavarez RN Unavailable LIZZY [email or web address] Alina Pop RN Unavailable Parish [email or web address] Luann House RN Unavailable Batool [email or web address] Daxa Leija RN Unavailable Encounter Details Date Type Department Care Team (Late st Contact Info) Description 09/29/2023 Procedure Pass [facility] [place] [address] [facility] 3rd [place] [address] Social History Tobacco Use Types Packs/Day Years [...] st Contact Info) Description 01/18/2025 Procedure Pass [facility] Director Construction Services [place] [address] [facility] [address] [place] [address] 01/18/2025 Procedure Pass [facility] Care [place] [address] [facility] [address] [place] [address] 01/18/2025 Procedure Pass [facility] Director Construction Services [place] [address] [facility] [address] [place] [address] 01/18/2025 Procedure Pass [facility] Cardiac Echo 850 [address] [facility] [address] [place] [address] 08/07/2025 9:30 AM EDT Blood Draw Laboratory Services, [facility] [place] [facility] [place] [address] [facility] 3rd [place] [address] Dominic Rivera MD, PhD [address] [place] [address] 08/07/2025 10:30 AM EDT Office Visit [facility] for Thoracic [facility], [facility] at [address] [address] Fela Sandoval NP 450 [place] [address] [email or web address] 08/07/2025 10:30 AM EDT Nurse Only [facility], [facility] at [address] [address] Dominic Rivera MD, PhD [address] [place] [address] 08/07/2025 11:30 AM EDT Infusion Infusion Therapy Services [facility] at [address] [address] Dominic Rivera MD, PhD [address] [place] [address] [email or web address] Luann House, VINICIUS 300 [place] [address] Olga Lidia@[email or web address]. [facility] 08/24/2025 9:00 AM EST Appointment [facility] Cardiac Echo 850 850 [facility] 422 [place] [address] Dominic Rivera MD, PhD [address] [place] [address] 08/24/2025 10:15 AM EST Appointment [facility] Director Construction Services Center [address] [facility] [address] [place] [address] Dominic Rivera MD, PhD [address] [place] [address] 08/24/2025 11:15 AM EST Appointment [facility] Director Construction Services [facility] [address] [facility] [address] [place] [address] Dominic Rivera MD, PhD [address] [place] [address] 08/29/2025 10:30 AM EST Blood Draw Laboratory Services, [address], 2nd [place] [address] Dominic Rivera MD, PhD [address] [place] [address] 08/29/2025 11:30 AM EST Office Visit [facility], [address], [address] [place] [address] Dominic Rivera MD, PhD [address] [place] [address] 08/29/2025 11:30 AM EST Nurse Only [facility], [address], [address]th [place] [address] Dominic Rivera MD, PhD [address] [place] [address] 08/29/2025 12:30 PM EST Infusion Infusion Therapy Services [place] 9, [facility] 450 [facility], 9th [place] [address] 08/31/2025 9:00 AM EST Telemedicine [facility] ENDOCRINE MEDICINE 45 [place] [address] Elkin Hogue MD 75 [facility] B-4 [place] [address] ANNABELLE@[facility] documented as of this encounter Visit Diagnoses Not on filedocumented in this encounter Additional Health Concerns Assessment Noted Time PHQ-2 Depression Total Score: 0 05/07/20 23 8:20 AM EDT documented as of this encounter Care Teams Sample Box Maker Relationship Specialty Start Date End Date Kimberly Bullard, ZENOBIA [address] [place] [address] [email or web address] PCP - General Family Medicine 02/09/19 12/21/23 System, Provider Not In, PhD Partners [address] [address] PCP - General 12/22/23 12/26/23 Keara Smith NP [address] [place] [address] PCP - General 12/27/23 Braulio Curran MD [address] [place] [address] [email or web address] Endocrinology 06/21/20 Luli Castillo MD [address] [place] [phone] [email or web address] Medicine 07/16/23 11/15/23 Dominic Rivera MD, PhD [address] [place] [address] Medical Oncology 07/16/23 Luli Castillo MD [address] [place] [address] [email or web address] Internal Medicine 07/29/23 Nanette Hernandez RN [address] [place] [address] Norma@[facility] Primary Infusion Nurse 07/29/23 11/09/23 Tricia Brock RN [address] [place] [address] [email or web address] Primary Infusion Nurse 09/08/23 Otilia Garcia RN [address] [place] [address] [email or web address] Associate Infusion Nurse 10/20/23 System, Provider Not In, PhD Partners [address] 12/01/23 12/26/23 Sherin Thomas, VINICIUS [address] [place] [address] [email or web address] Associate Infusion Nurse 12/20/23 04/11/24 Tri Burleson RN [address] [place] [address] [email or web address] Associate Infusion Nurse 05/15/24 Mildred Rust RN [address] [place] [address] [email or web address] Associate Infusion Nurse 05/15/24 Nanette Tavarez RN [address] [place] [address] [email or web address] Primary Infusion Nurse 06/23/24 Alina Pop, VINICIUS [address] [place] [address] [email or web address] Associate Infusion Nurse 06/28/24 Luann House RN [address] [place] [address] Olga Lidia@[email or web address] Primary Infusion Nurse 10/02/24 Daxa Leija, RN [address] [place] [address] [email or web address] Associate Infusion Nurse 01/31/25 documented as of this encounter Additional Source Comments The information contained in this document represents components of the legal health record. It is not the complete legal health record.[facility]
--- OUTSIDE RECORDS SUMMARY | 2025-07-24 17:14 | XMS_ITS | Encounter Summary ---
Author Organization [facility] Address [address] [place] [address] Phone Care Team Providers Care Assembling Fabricator Name Role Phone Braulio Curran MD Unavailable [phone] Dominic Rivera MD, PhD Unavailable Luli Castillo MD Unavailable [phone] Tricia Brock RN Unavailable Omar [email or web address] [facility] Otilia Garcia RN Unavailable [phone] Keara Smith NETWORK SECURITY OFFICER Primary Care Provide r Tri Burleson RN Unavailable ирина [email or web address]. Mildred Sarkar RN Unavailable ham [email or web address] Nanette Tavarez RN Unavailable LIZZY [email or web address].[place].E Alina Mayorga RN Unavailable Parish [email or web address].ED Luann Lopes RN Unavailable Batool [email or web address].E Daxa Soriano RN Unavailable [phone] Encounter Details Date Type Department Care Team (Late st Contact Info) Description 06/28/2024 Procedure Pass [facility] Carpenter'S Assistant Center [address] [place] [id number] Social History Tobacco Use Types Packs/Day Years [...] st Contact Info) Description 01/18/2025 Procedure Pass [facility] Carpenter'S Assistant [place] [address] [place] [address] 01/18/2025 Procedure Pass [employer] [employer] [facility] [address] [facility] [address] [place] [address] 01/18/2025 Procedure Pass [employer] [facility] [employer] [address] [place] [address] 01/18/2025 Procedure Pass [facility] Cardiac Echo 850 [address] [place] [address] 08/07/2025 9:30 AM EDT Blood Draw Laboratory Services, [facility] at [address] 3rd [place] [address] Dominic Rivera MD, PhD [address] [place] [address] 08/07/2025 10:30 AM EDT Office Visit [facility] Center for Thoracic Oncology, [facility] [place] at [address] 4th [place] [address] Fela Sandoval NP [address] [place] [address] [email or web address] 08/07/2025 10:30 AM EDT Nurse Only [facility] Center for Thoracic Oncology, [facility] at [address] [address] Dominic Rivera MD, PhD [address] [place] [address] 08/07/2025 11:30 AM EDT Infusion Infusion Therapy Services [place], [facility] at [address] [address] Dominic Rivera MD, PhD [address] [place] [address] Luann House RN [address] [place] [address] Olga Lidia@[email or web address]. [facility] 08/24/2025 9:00 AM EST Appointment [facility] Cardiac Echo [address] [place] [address] 422 [place] [address] Dominic Rivera MD, PhD [address] [place] [address] 08/24/2025 10:15 AM EST Appointment [facility] Carpenter'S Assistant [place] [address] [place] [address] [place] [address] Dominic Rivera MD, PhD [address] [place] [address] 08/24/2025 11:15 AM EST Appointment [facility] Carpenter'S Assistant [place] [address] [facility] [address] [place] [address] Dominic Rivera MD, PhD [address] [place] [address] [email or web address] 08/29/2025 10:30 AM EST Blood Draw Laboratory Services, [facility] [address] [facility], 2nd [place] [address] Dominic Rivera MD, PhD [address] [place] [address] [email or web address] 08/29/2025 11:30 AM EST Office Visit [facility], [address], [address]th [place] [address] Dominic Rivera MD, PhD [address] [place] [address] [email or web address] 08/29/2025 11:30 AM EST Nurse Only [facility], [address], [address]th [place] [address] Dominic Rivera MD, PhD [address] [place] [address] [email or web address] 08/29/2025 12:30 PM EST Infusion Infusion Therapy Services [place] [address], [address]th [place] [address] 08/31/2025 9:00 AM EST Telemedicine [facility] ENDOCRINE MEDICINE 45 [place] [address] Elkin Hogue MD [address] [place] [address] [address] [place] [address] ANNABELLE@[email or web address] documented as of this encounter Visit Diagnoses Not on filedocumented in this encounter Additional Health Concerns Assessment Noted Time PHQ-2 Depression Total Score: 0 05/07/20 8:20 AM EDT documented as of this encounter Care Teams Assembling Fabricator Relationship Specialty Start Date End Date Keara Smith NP [address] [place] [address] PCP - General 12/27/23 Braulio Curran MD [email or web address] Endocrinology 06/21/20 Dominic Rivera MD, PhD [address] [place] [address] [email or web address] Medical Oncology 07/16/23 Luli aCstillo MD [address] [place] [address] [email or web address] [facility] 07/29/23 Tricia Brock RN [address] [place] [address] [email or web address] Primary Infusion Nurse 09/08/23 Otilia Garcia RN [address] [place] [address] [email or web address] Associate Infusion Nurse 10/20/23 Tri Burleson RN [address] [place] [address] [email or web address] Associate Infusion Nurse 05/15/24 Mildred Rust RN [address] [place] [address] [email or web address] Associate Infusion Nurse 05/15/24 Nanette Tavarez RN [address] [place] [address] MARINO@[facility] Primary Infusion Nurse 06/23/24 Alina Pop, RN [address] [place] [address] Vicente@[facility] RITIKA.[facility] Associate Infusion Nurse 06/28/24 Luann House, VINICIUS [address] [place] [address] Olga Lidia@[email or web address] Primary Infusion Nurse 10/02/24 Daxa Leija RN [address] [place] [address] KIRA@[email or web address] Associate Infusion Nurse 01/31/25 documented as of this encounter Additional Source Comments The information contained in this document represents components of the legal health record. It is not the complete legal health record.[facility]
--- OUTSIDE RECORDS SUMMARY | 2025-07-24 17:14 | XMS_ITS | Encounter Summary ---
Author Organization [facility] Address [address] [place] [address] Phone Care Team Providers Care Computer Systems Technician Name Role Phone Braulio Curran MD Unavailable [phone] Dominic Rivera MD, PhD Unavailable Luli Castillo MD Unavailable [phone] Tricia Brock RN Unavailable Omar Berman@[email or web address] [facility] Otilia Garcia RN Unavailable [phone] Keara Smith FIELD SALES AGENT Primary Care Provide r Tri Burleson RN Unavailable ирина [email or web address]. Mildred Sarkar RN Unavailable ham [email or web address] Nanette Tavarez RN Unavailable LIZZY [email or web address]@[facility].[place].E Alina Mayorga RN Unavailable Parish [email or web address] Luann Lopes RN Unavailable Batool [email or web address].[email or web address].E Daxa Soriano RN Unavailable [phone] Encounter Details Date Type Department Care Team (Late st Contact Info) Description 06/28/2024 Procedure Pass [facility] and Women's Airplane Pilot Helper Center [address] [facility] [address] [place] [id number] Social History Tobacco Use Types Packs/Day Years [...] st Contact Info) Description 01/18/2025 Procedure Pass [facility] Airplane Pilot Helper [place] [address] [facility] [address] [place] [address] 01/18/2025 Procedure Pass [facility] [address] [facility] [address] [place] [address] 01/18/2025 Procedure Pass [facility] [address] [facility] [address] [place] [address] 01/18/2025 Procedure Pass [facility] Cardiac Echo 850 [address] [facility] [address] [place] [address] 08/07/2025 9:30 AM EDT Blood Draw Laboratory Services, [facility] at [address] [place] [address] Dominic Rivera MD, PhD [address] [place] [address] 08/07/2025 10:30 AM EDT Office Visit [facility] Center for Thoracic Oncology, [facility] [place] at [address] [place] [address] Fela Sandoval NP [address] [place] [address] [email or web address] 08/07/2025 10:30 AM EDT Nurse Only [facility] Center for Thoracic Oncology, [facility] at [address] [address] Dominic Rivera MD, PhD [address] [place] [address] 08/07/2025 11:30 AM EDT Infusion Infusion Therapy Services [place], [facility] at [address] [address] Dominic Rivera MD, PhD [address] [place] [address] Luann House RN [address] [place] [address] Olga Lidia@[email or web address]. [facility] 08/24/2025 9:00 AM EST Appointment [facility] Cardiac Echo [address] [place] [address] 422 [place] [address] Dominic Rivera MD, PhD [address] [place] [address] 08/24/2025 10:15 AM EST Appointment [facility] and [facility] Airplane Pilot Helper [place] [address] [place] [address]882[address] [place] [address] Dominic Rivera MD, PhD [address] [place] [address] 08/24/2025 11:15 AM EST Appointment [facility] Airplane Pilot Helper [place] [address] [facility] [address] [place] [address] Dominic Rivera MD, PhD [address] [place] [address] [email or web address] 08/29/2025 10:30 AM EST Blood Draw Laboratory Services, [facility] [address] [facility], 2nd [place] [address] Dominic Rivera MD, PhD [address] [place] [address] [email or web address] 08/29/2025 11:30 AM EST Office Visit [facility] for Thoracic Oncology, [address], 9th [place] [address] Dominic Rivera MD, PhD [address] [place] [address] [email or web address] 08/29/2025 11:30 AM EST Nurse Only [facility] for Thoracic Oncology, [address], 9th [place] [address] Dominic Rivera MD, PhD [address] [place] [address] [email or web address] 08/29/2025 12:30 PM EST Infusion Infusion Therapy Services [facility] [address], 9th [place] [address] 08/31/2025 9:00 AM EST Telemedicine [facility] ENDOCRINE MEDICINE 45 [place] [address] Elkin Hogue MD [address] [place] [address] [address] [place] [address] ANNABELLE@[facility] documented as of this encounter Visit Diagnoses Not on filedocumented in this encounter Additional Health Concerns Assessment Noted Time PHQ-2 Depression Total Score: 0 05/07/20 8:20 AM EDT documented as of this encounter Care Teams Computer Systems Technician Relationship Specialty Start Date End Date Keara Smith NP [address] [place] [address] PCP - General 12/27/23 Braulio Curran MD [email or web address] Endocrinology 06/21/20 Dominic Rivera MD, PhD [address] [place] [address] [email or web address] Medical Oncology 07/16/23 Luli Castillo MD [address] [place] [address] [email or web address] Internal Medicine 07/29/23 Tricia Brock RN [address] [place] [address] Katya@[facility] Primary Infusion Nurse 09/08/23 Otilia Garcia RN [address] [place] [address] [email or web address] Associate Infusion Nurse 10/20/23 Tri Burleson RN [address] [place] [address] [email or web address] Associate Infusion Nurse 05/15/24 Mildred Rust RN 300 [place] [address] [email or web address] Associate Infusion Nurse 05/15/24 Nanette Tavarez RN [address] [place] [address] MARINO@[email or web address] Primary Infusion Nurse 06/23/24 Alina Pop, RN [address] [place] [address] Vicente@[facility] RITIKA.[facility] Associate Infusion Nurse 06/28/24 Luann House, VINICIUS [address] [place] [address] Olga Lidia@[facility] Primary Infusion Nurse 10/02/24 Daxa Leija RN [address] [place] [address] KIRA@[facility] Associate Infusion Nurse 01/31/25 documented as of this encounter Additional Source Comments The information contained in this document represents components of the legal health record. It is not the complete legal health record.[facility]
--- OUTSIDE RECORDS SUMMARY | 2025-07-24 17:14 | XMS_ITS | Encounter Summary ---
Author Organization [facility] Address [address] [place] [address] Phone Care Team Providers Care Safe And Vault Mechanic Name Role Phone Braulio Currna MD Unavailable [phone] Dominic Rivera MD, PhD Unavailable Luli Castillo MD Unavailable [phone] Tricia Brock RN Unavailable Omar Berman@[email or web address] .[facility] Otilia Garcia RN Unavailable [phone] Keara Smith PROJECT INTERNSHIP Primary Care Provide r Tri Burleson RN Unavailable ирина [email or web address]. Mildred Sarkar RN Unavailable ham [email or web address] Nanette Tavarez RN Unavailable LIZZY [email or web address].[place].E Alina Mayorga RN Unavailable Parish [email or web address].ED Luann Lopes RN Unavailable Batool [email or web address].[place].E Daxa Soriano RN Unavailable [phone] Encounter Details Date Type Department Care Team (Late st Contact Info) Description 10/24/2024 Procedure Pass [facility] [place] [address] 3rd Floor [place] [phone] Social History Tobacco Use Types Packs/Day Years [...] st Contact Info) Description 01/18/2025 Procedure Pass [facility] Senior Validation Engineer [place] [address] [facility] [address] [place] [address] 01/18/2025 Procedure Pass [facility] [address] [facility] [address] [place] [address] 01/18/2025 Procedure Pass [facility] [address] [facility] [address] [place] [address] 01/18/[address] [facility] Cardiac Echo 850 [address] [facility] [address] [place] [address] 08/07/2025 9:30 AM EDT Blood Draw Laboratory Services, [facility] at [address]rd [place] [address] Dominic Rivera MD, PhD [address] [place] [address] 08/07/2025 10:30 AM EDT Office Visit [facility] Center for Thoracic Oncology, [facility] [place] at [address] [address] Fela Sandoval NP [address] [place] [address] [email or web address]. [facility] 08/07/2025 10:30 AM EDT Nurse Only [facility] Center for Thoracic Oncology, [facility] at [address] [address] Dominic Rivera MD, PhD [address] [place] [address] 08/07/2025 11:30 AM EDT Infusion Infusion Therapy Services [place], [facility] at [address] [address] Dmoinic Rivera MD, PhD [address] [place] [address] Luann House RN [address] [place] [address] Olga Lidia@[facility]. [facility] 08/24/2025 9:[address] [facility] Cardiac Echo [address] [place] [address] 422 [place] [address] Dominic Rivera MD, PhD [address] [place] [address] 08/24/2025 10:15 AM EST Appointment [facility] and [facility] Senior Validation Engineer [place] [address] [place] [address] Dominic Rivera MD, PhD [address] [place] [address] 08/24/2025 11:15 AM EST Appointment [facility] Senior Validation Engineer [place] [address] [place] [address] Dominic Rivera MD, PhD [address] [place] [address] [email or web address] 08/29/2025 10:30 AM EST Blood Draw Laboratory Services, [facility] 450 [facility], 2nd [place] [address] Dominic Rivera MD, PhD [address] [place] [address] [email or web address] 08/29/2025 11:30 AM EST Office Visit [facility] for Thoracic Oncology, [address], [address]th [place] [address] Dominic Rivera MD, PhD [address] [place] [address] [email or web address] 08/29/2025 11:30 AM EST Nurse Only [facility] for Thoracic Oncology, [address], [address]th [place] [address] Dominic Rivera MD, PhD [address] [place] [address] [email or web address] 08/29/2025 12:30 PM EST Infusion Infusion Therapy Services [address] [place] [address] 08/31/2025 9:[address] [facility] ENDOCRINE MEDICINE 45 [place] [address] Elkin Hogue MD [address] [place] [address] [address] [place] [address] ANNABELLE@[facility] documented as of this encounter Visit Diagnoses Not on filedocumented in this encounter Additional Health Concerns Assessment Noted Time PHQ-2 Depression Total Score: 0 07/28/20 23 8:20 AM EDT documented as of this encounter Care Teams Safe And Vault Mechanic Relationship Specialty Start Date End Date Keara Smith NP [address] [place] [address] PCP - General 12/27/23 Braulio Curran MD [email or web address] Endocrinology 06/21/20 Dominic Rivera MD, PhD [address] [place] [address] [email or web address] Medical Oncology 07/16/23 Luli Castillo MD [address] [place] [phone] [email or web address] Internal Medicine 07/29/23 Tricia Brock RN [address] [place] [address] [email or web address] Primary Infusion Nurse 09/08/23 Otilia Garcia RN [address] [place] [address] [email or web address]@[email or web address] Associate Infusion Nurse 10/20/23 Tri Burleson RN [address] [place] [address] [email or web address] Associate Infusion Nurse 05/15/24 Mildred Rust RN 300 [place] [address] [email or web address] Associate Infusion Nurse 05/15/24 Nanette Tavarez RN [address] [place] [address] MARINO@[facility] Primary Infusion Nurse 06/23/24 Alina Pop, RN [address] [place] [address] Vicente@[facility] NAJMA.[facility] Associate Infusion Nurse 06/28/24 Luann House, VINICIUS [address] [place] [address] Olga Lidia@[facility] Primary Infusion Nurse 10/02/24 Daxa Leija RN [address] [place] [address] KIRA@[facility] .[facility] Associate Infusion Nurse 01/31/25 documented as of this encounter Additional Source Comments The information contained in this document represents components of the legal health record. It is not the complete legal health record.[facility]
--- OUTSIDE RECORDS SUMMARY | 2025-07-24 17:14 | XMS_ITS | Encounter Summary ---
Author Organization [facility] Address [address] [place] [address] Phone Care Team Providers Care Hotel Guest Service Agent Name Role Phone Braulio Curran MD Unavailable [phone] Dominic Rivera MD, PhD Unavailable Luli Castillo MD Unavailable [phone] Tricia Brock RN Unavailable Omar [email or web address] .[facility] Otilia Garcia RN Unavailable [phone] Keara Smith PUBLIC SAF[employer]Y POLICE Primary Care Provide r Tri Burleson RN Unavailable ирина [email or web address]. Mildred Sarkar RN Unavailable ham [email or web address] Nanette Tavarez RN Unavailable LIZZY [email or web address].[place].E Alina Mayorga RN Unavailable Parish [email or web address].[place].ED Luann Lopes RN Unavailable Batool t@[facility].[place].E Daxa Soriano RN Unavailable [phone] Encounter Details Date Type Department Care Team (Late st Contact Info) Description 02/20/2025 Telephone [facility] ENDOCRINE MEDICINE [address] [place] [address] Elkin Hogue MD [address] [place] [address] [email or web address] Social History Tobacco Use Types [...] uch as food, clothing, or medical care? No 01/02/2025 In the past 12 months have y ou been in a relationship with a person who hurts, threatens, or tries to control you? No 01/02/2025 Are you denied basic needs s uch as food, clothing, or medical care? No 01/02/2025 In the past 12 months have y ou been in a relationship with a person who hurts, threatens, or tries to control you? No 01/02/2025 Comments No Sex and Gender Information Value Date Recorded Sex Assigned at Female 04/07/2023 10:02 AM EDT Legal Sex Female 2:49 PM EDT Gender Identity Female 04/16/2020 11:29 AM EDT Sexual Orientation Straight 04/07/2023 10 :02 AM EDT documented as of this encounter Plan of Treatment Upcoming Encounters Date Type Department Care Team (Late st Contact Info) Description 01/18/2025 Procedure Pass [facility] [address] [facility] [address] [place] [address] 01/18/2025 Procedure Pass [facility] 850 [facility] [address] [place] [address] 01/18/2025 Procedure Pass [facility] [address] [facility] [address] [place] [address] 01/18/2025 Procedure Pass [facility] Cardiac Echo 850 [address] [facility] [address] [place] [address] 08/07/2025 9:30 AM EDT Blood Draw Laboratory Services, [facility] [place] 300 [facility] [address] [place] [address] Dominic Rivera MD, PhD [address] [place], [place] [address] 08/07/2025 10:30 AM EDT Office Visit [facility] for Thoracic Oncology, [facility] [place] 300 [facility] [address] [place] [address] Fela Sandoval NP 450 [place] [address] [email or web address] [facility] 08/07/2025 10:30 AM EDT Nurse Only [facility] for Thoracic Oncology, [facility] at [address] [address] Dominic Rivera MD, PhD [address] [place] [address] 08/07/2025 11:30 AM EDT Infusion Infusion Therapy Services [place], [facility] at [address] [address] Dominic Rivera MD, PhD [address] [place] [address] [email or web address] Luann House, RN [address] [place] [address] Olga Lidia@[facility]. [facility] 08/24/2025 9:00 AM EST Appointment [facility] Cardiac Echo [address] [place] [address] 422 [place] [address] Dominic Rivera MD, PhD [address] [place] [address] 08/24/2025 10:15 AM EST Appointment [facility] [place] [address] [facility] [address] [place] [address] Dominic Rivera MD, PhD [address] [place] [address] 08/24/2025 11:15 AM EST Appointment [facility] [place] [address] [place] [address] Dominic Rivera MD, PhD [address] [place] [address] 08/29/2025 10:30 AM EST Blood Draw Laboratory Services, [facility] 450 [facility], 2nd [place] [address] Dominic Rivera MD, PhD [address] [place] [address] 08/29/2025 11:30 AM EST Office Visit [facility] for Thoracic Oncology, [address], [address] [place] [address] Dominic Rivera MD, PhD [address] [place] [address] [email or web address] 08/29/2025 11:30 AM EST Nurse Only [facility] for Thoracic Oncology, [address], [address] [place] [address] Dominic Rivera MD, PhD [address] [place] [address] 08/29/2025 12:30 PM EST Infusion Infusion Therapy Services [place], [facility] 450 [facility], [address]th [place] [address] 08/31/2025 9:00 AM EST Telemedicine [facility] ENDOCRINE MEDICINE 45 [place] [address] Elkin Hogue MD [address] [place] [address] [address] [place] [address] ANNABELLE@[email or web address] documented as of this encounter Visit Diagnoses Not on filedocumented in this encounter Additional Health Concerns Assessment Noted Time PHQ-2 Depression Total Score: 0 05/07/20 23 8:20 AM EDT documented as of this encounter Care Teams Hotel Guest Service Agent Relationship Specialty Start Date End Date Keara Smith NP [address] [place] [address] PCP - General 12/27/23 Braulio Curran MD [email or web address] Endocrinology 06/21/20 Dominic Rivera MD, PhD [address] [place] [address] [email or web address] Medical Oncology 07/16/23 Luli Castillo MD [address] [place] [address] [email or web address] 07/29/23 Tricia Brock RN [address] [place] [address] [email or web address] Primary Infusion Nurse 09/08/23 Otilia Garcia RN [address] [place] [address] [email or web address]@[facility] Associate Infusion Nurse 10/20/23 Tri Burleson RN 300 [place] [address] [email or web address] Associate Infusion Nurse 05/15/24 Mildred Rust RN 300 [place] [address] [email or web address] Associate Infusion Nurse 05/15/24 Nanette Tavarez RN [address] [place] [address] MARINO@[facility] Primary Infusion Nurse 06/23/24 Alina Pop, VINICIUS [address] [place] [address] Vicente@[facility] Associate Infusion Nurse 06/28/24 Luann House RN [address] [place] [address] Olga Lidia@[facility] Primary Infusion Nurse 10/02/24 Daxa Leija, RN [address] [place] [address] KIRA@[email or web address] .[facility] Associate Infusion Nurse 01/31/25 documented as of this encounter Additional Source Comments The information contained in this document represents components of the legal health record. It is not the complete legal health record.[facility]
--- OUTSIDE RECORDS SUMMARY | 2025-07-24 17:14 | XMS_ITS | Encounter Summary ---
Author Organization [facility] Address [address] [place] [address] Phone Care Team Providers Care Hebrew Cantor Name Role Phone Kimberly Bullard MICROFICHE CAMERA OPERATOR Primary Care Provider [phone] Braulio Curran MD Unavailable [phone] Luli Castillo MD Unavailable [phone] Dominic Rivera MD , PhD Unavailable Luli Castillo MD Unavailable [phone] Nanette Hernandez RN Unavailable Norma@[email or web address] Tricia Brock RN Unavailable Omar Berman@[email or web address].ed u Otilia Garcia RN Unavailable [phone] System, Provider Not In PhD Unavailable Unav ailable System, Provider Not In PhD Primary Care Provide r Unavailable Keara Smith MICROFICHE CAMERA OPERATOR Primary Care Provide r Sherin Thomas RN Unavailable [email or web address] [email or web address].ed u Tri Burlesno RN Unavailable ирина [email or web address] Mildred Rust RN Unavailable ham [email or web address] Nanette Tavarez RN Unavailable LIZZY [email or web address] Alina Pop RN Unavailable Parish [email or web address] Luann House RN Unavailable Batool [email or web address] Daxa Leija RN Unavailable [phone] Encounter Details Date Type Department Care Team (Late st Contact Info) Description 09/29/2023 Procedure Pass [facility] [place] 300 [facility] 3rd [place] [address] Social History Tobacco Use Types Packs/Day Years [...] Info) Description 01/18/2025 Procedure Pass [facility] Sales [facility] [place] [address] [facility] [address] [place] [address] 01/18/2025 Procedure Pass [facility] [place] 850 [facility] [address] [place] [address] 01/18/2025 Procedure Pass [facility] Sales [facility] [place] 850 [facility] [address] [place] [address] 01/18/2025 Procedure Pass [facility] Cardiac Echo 850 850 [facility] [address] [place] [address] 08/07/2025 9:30 AM EDT Blood Draw Laboratory Services, [facility] [place] 300 [facility] 3rd [place] [address] Dominic Rivera MD, PhD [address] [place] [address] 08/07/2025 10:30 AM EDT Office Visit [facility] for Thoracic On[facility], [facility] at [address] [address] Fela Sandoval NP 450 [place] [address] [email or web address] 08/07/2025 10:30 AM EDT Nurse Only [facility] for Thoracic Oncology, [facility] at [address] [address] Dominic Rivera MD, PhD [address] [place] [address] 08/07/2025 11:30 AM EDT Infusion Infusion Therapy [facility] at [address] [address] Dominic Rivera MD, PhD [address] [place] [address] [email or web address] Luann House, VINICIUS 300 [place] [address] Olga Lidia@[email or web address]. [facility] 08/24/2025 9:00 AM EST Appointment [facility] Cardiac Echo 850 850 [facility] 422 [place] [address] Dominic Rivera MD, PhD [address] [place] [address] 08/24/2025 10:15 AM EST Appointment [facility] 850 [facility] [address] [place] [address] Dominic Rivera MD, PhD [address] [place] [address] 08/24/2025 11:15 AM EST Appointment [facility] 850 [facility] [address] [place] [address] Dominic Rivera MD, PhD [address] [place] [address] 08/29/2025 10:30 AM EST Blood Draw Laboratory Services, [address], 2nd [place] [address] Dominic Rivera MD, PhD [address] [place] [address] 08/29/2025 11:30 AM EST Office Visit [facility] for Thoracic Oncology, [address], [address]th [place] [address] Dominic Rivera MD, PhD [address] [place] [address] 08/29/2025 11:30 AM EST Nurse Only [facility] for Thoracic Oncology, [address], [address]th [place] [address] Dominic Rivera MD, PhD [address] [place] [address] 08/29/2025 12:30 PM EST Infusion Infusion Therapy Services [place] [facility], [facility] 450 [facility], 9th [place] [address] 08/31/2025 9:00 AM EST Telemedicine [facility] ENDOCRINE MEDICINE 45 [place] [address] Elkin Hogue MD 75 [facility] [address]4 [place] [address] ANNABELLE@[facility] documented as of this encounter Visit Diagnoses Not on filedocumented in this encounter Additional Health Concerns Assessment Noted Time PHQ-2 Depression Total Score: 0 05/07/20 23 8:20 AM EDT documented as of this encounter Care Teams Hebrew Cantor Relationship Specialty Start Date End Date Kimberly Bullard, ZENOBIA [address] [place] [address] [email or web address] PCP - General Family Medicine 02/09/19 12/21/23 System, Provider Not In, PhD Partners [address] [address] PCP - General 12/22/23 12/26/23 Keara Smith NP [address] [place] [address] PCP - General 12/27/23 Braulio Curran MD [address] [place] [address] [email or web address] Endocrinology 06/21/20 Luli Castillo MD [address] [place] [address] [email or web address] 07/16/23 11/15/23 Dominic Rivera MD, PhD [address] [place] [address] Medical Oncology 07/16/23 Luli Castillo MD [address] [place] [address] [email or web address] Internal Medicine 07/29/23 Nanette Hernandez RN [address] [place] [address] Norma@[facility] Primary Infusion Nurse 07/29/23 11/09/23 Tricia Brock RN [address] [place] [address] [email or web address] Primary Infusion Nurse 09/08/23 Otilia Garcia RN [address] [place] [address] [email or web address] Associate Infusion Nurse 10/20/23 System, Provider Not In, PhD [facility] [address] 12/01/23 12/26/23 Sherin Thomas, VINICIUS [address] [place] [address] [email or web address] Associate Infusion Nurse 12/20/23 04/11/24 Tri Burleson RN [address] [place] [address] [email or web address] Associate Infusion Nurse 05/15/24 Mildred Rust RN [address] [place] [address] [email or web address] Associate Infusion Nurse 05/15/24 Nanette Tavarez RN [address] [place] [address] MARINO@[facility] Primary Infusion Nurse 06/23/24 Alina Pop, VINICIUS [address] [place] [address] Vicente@[email or web address] Associate Infusion Nurse 06/28/24 Luann House RN [address] [place] [address] Olga Lidia@[facility] Primary Infusion Nurse 10/02/24 Daxa Leija, RN [address] [place] [address] [email or web address] Associate Infusion Nurse 01/31/25 documented as of this encounter Additional Source Comments The information contained in this document represents components of the legal health record. It is not the complete legal health record.[facility]
--- OUTSIDE RECORDS SUMMARY | 2025-07-24 17:14 | XMS_ITS | Encounter Summary ---
Author Organization [facility] Address [address] [place] [address] Phone Care Team Providers Care Shop Estimator Name Role Phone Braulio Curran MD Unavailable [phone] Dominic Rivera MD, PhD Unavailable Luli Castillo MD Unavailable [phone] Tricia Brock RN Unavailable Omar Berman@[facility].[place] .[facility] Otilia Garcia RN Unavailable [phone] Keara Smith SHIPPER/RECEIVER Primary Care Provide r Tri Burleson RN Unavailable ирина [email or web address]. Mildred Sarkar RN Unavailable ham [email or web address] Nanette Tavarez RN Unavailable LIZZY [email or web address].[place].E Alina Mayorga RN Unavailable Parish [email or web address].ED Luann Lopes RN Unavailable Batool [email or web address] Daxa Soriano RN Unavailable [phone] Encounter Details Date Type Department Care Team (Late st Contact Info) Description 01/25/2025 Documentation [facility] Center for Thoracic Oncology, [facility] [place] [facility] [place] 300 [facility] 4th [place] [address] Momo Deutsch RN 300 [place] [address] [email or web address] Social History Tobacco Use Types Packs/Day Years [...] st Contact Info) Description 01/18/2025 Procedure Pass [facility] [place] 850 [facility] [address] [place] [address] 01/18/2025 Procedure Pass [facility] [address] [facility] [address] [place] [address] 01/18/2025 Procedure Pass [facility] 850 [facility] [address] [place] [address] 01/18/2025 Procedure Pass [facility] Cardiac Echo 850 [address] [facility] [address] [place] [address] 08/07/2025 9:30 AM EDT Blood Draw Laboratory Services, [facility] [place] [facility] [place] 300 [facility] 3rd [place] [address] Dominic Rivera MD, PhD [address] [place], [place] [address] 08/07/2025 10:30 AM EDT Office Visit [facility] for Thoracic Oncology, [facility] [place] [facility] [place] 300 [facility] 4th [place] [address] Fela Sandoval NP 450 [place] [address] Nicolas@[facility]. [facility] 08/07/2025 10:30 AM EDT Nurse Only [facility] for Thoracic Oncology, [facility] at [address] [address] Dominic Rivera MD, PhD [address] [place] [address] 08/07/2025 11:30 AM EDT Infusion Infusion Therapy Services [place], [facility] at [address] [address] Dominic Rivera MD, PhD [address] [place] [address] Luann House, RN [address] [place] [address] Olga Lidia@[email or web address]. [facility] 08/24/2025 9:00 AM EST Appointment [facility] Cardiac Echo 850 850 [facility] 422 [place] [address] Dominic Rivera MD, PhD [address] [place] [address] 08/24/2025 10:15 AM EST Appointment [facility] [place] 850 [facility] [address] [place] [address] Dominic Rivera MD, PhD [address] [place] [address] 08/24/2025 11:15 AM EST Appointment [facility] 850 [facility] [address] [place] [address] Dominic Rivera MD, PhD [address] [place] [address] 08/29/2025 10:30 AM EST Blood Draw Laboratory Services, [facility] 450 [facility], 2nd Floor [place], [place] Dominic Rivera MD, PhD [address] [place] [address] 08/29/2025 11:30 AM EST Office Visit [facility] for Thoracic Oncology, [address] [place] [address] Dominic Rivera MD, PhD [address] [place] [address] 08/29/2025 11:30 AM EST Nurse Only [facility] for [facility]acic On[facility], [address], [address]th [place] [address] Dominic Rivera MD, PhD [address] [place] [address] 08/29/2025 12:30 PM EST Infusion Infusion Therapy Services [place] [facility], [facility] 450 [facility], 9th [place] [address] 08/31/2025 9:00 AM EST Telemedicine [facility] ENDOCRINE MEDICINE 45 [place] [address] Elkin Hogue MD [address] [place] [address] [address] [place] [address] [email or web address]@[email or web address] documented as of this encounter Visit Diagnoses Not on filedocumented in this encounter Additional Health Concerns Assessment Noted Time PHQ-2 Depression Total Score: 0 05/07/20 23 8:20 AM EDT documented as of this encounter Care Teams Shop Estimator Relationship Specialty Start Date End Date Keara Smith NP [address] [place] [address] PCP - General 12/27/23 Braulio Curran MD [email or web address] Endocrinology 06/21/20 Dominic Rivera MD, PhD [address] [place] [address] [email or web address] Medical Oncology 07/16/23 Luli Castillo MD [address] [place] [address] [email or web address] 07/29/23 Tricia Brock RN 575 [place] [address] Katya@[facility]. [facility] Primary Infusion Nurse 09/08/23 Otilia Garcia RN [address] [place] [address] [email or web address] Associate Infusion Nurse 10/20/23 Tri Burleson RN [address] [place] [address] [email or web address] Associate Infusion Nurse 05/15/24 Mildred Rust RN 300 [place] [address] [email or web address] Associate Infusion Nurse 05/15/24 Nanette Tavarez RN [address] [place] [address] MARINO@[email or web address] Primary Infusion Nurse 06/23/24 Alina Pop, RN [address] [place] [address] [email or web address]@[email or web address] Associate Infusion Nurse 06/28/24 Luann House, VINICIUS [address] [place] [address] Olga Lidia@[facility] Primary Infusion Nurse 10/02/24 Daxa Leija, RN [address] [place] [address] [email or web address]@[email or web address] Associate Infusion Nurse 01/31/25 documented as of this encounter Additional Source Comments The information contained in this document represents components of the legal health record. It is not the complete legal health record.[facility]
--- OUTSIDE RECORDS SUMMARY | 2025-07-24 17:14 | XMS_ITS | Encounter Summary ---
Author Organization [facility] Address [address] [place] [address] Phone Care Team Providers Care Sprinkling System Installer Name Role Phone Kimberly Bullard BLEACH MACHINE OPERATOR Primary Care Provider [phone] Braulio Curran MD Unavailable [phone] Luli Castillo MD Unavailable [phone] Dominic Rivera MD , PhD Unavailable Luli Castillo MD Unavailable [phone] Nanette Hernandez RN Unavailable [email or web address] Tricia Brock RN Unavailable Omar [email or web address] u Otilia Garcia RN Unavailable [phone] System, Provider Not In PhD Unavailable Unav ailable System, Provider Not In PhD Primary Care Provide r Unavailable Keara Smith BLEACH MACHINE OPERATOR Primary Care Provide r Sherin Thomas RN Unavailable [email or web address] u Tri Burleson RN Unavailable ирина [email or web address] Mildred Rust RN Unavailable ham [email or web address] Nanette Tavarez RN Unavailable LIZZY [email or web address] Alina Pop RN Unavailable Parish [email or web address] Luann House RN Unavailable Batool [email or web address] Daxa Leija RN Unavailable [phone] Encounter Details Date Type Department Care Team (Late st Contact Info) Description 09/29/2023 Procedure Pass [facility] Cancer [place], [place] 300 [facility] 4th [place] [address] Social History Tobacco Use Types Packs/Day Years [...] st Contact Info) Description 01/18/2025 Procedure Pass [facility] Supervisor [facility] [place] [address] [facility] [address] [place] [address] 01/18/2025 Procedure Pass [facility] [place] [address] [facility] [address] [place] [address] 01/18/2025 Procedure Pass [facility] Supervisor [facility] [place] [address] [facility] [address] [place] [address] 01/18/2025 Procedure Pass [facility] Cardiac Echo 850 850 [facility] [address] [place] [address] 08/07/2025 9:30 AM EDT Blood Draw Laboratory Services, [facility] [place] 300 [facility] 3rd [place] [address] Dominic Rivera MD, PhD [address] [place] [address] 08/07/2025 10:30 AM EDT Office Visit [facility], [facility] at [address] [address] Fela Sandoval NP 450 [place] [address] [email or web address] 08/07/2025 10:30 AM EDT Nurse Only [facility], [facility] at [address] [address] Dominic Rivera MD, PhD [address] [place] [address] 08/07/2025 11:30 AM EDT Infusion Infusion Therapy Services [facility] at [address] [address] Dominic Rivera MD, PhD [address] [place] [address] [email or web address] Luann House, VINICIUS 300 [place] [address] Olga [email or web address]. [facility] 08/24/2025 9:00 AM EST Appointment [facility] Cardiac Echo 850 850 [facility] 422 [place] [address] Dominic Rivera MD, PhD [address] [place] [address] 08/24/2025 10:15 AM EST Appointment [facility] [address] [facility] [address] [place] [address] Dominic Rivera MD, PhD [address] [place] [address] 08/24/2025 11:15 AM EST Appointment [facility] 850 [facility] [address] [place] [address] Dominic Rivera MD, PhD [address] [place] [address] 08/29/2025 10:30 AM EST Blood Draw Laboratory Services, [address], 2nd [place] [address] Dominic Rivrea MD, PhD [address] [place] [address] 08/29/2025 11:30 AM EST Office Visit [facility], [address], [address]th [place] [address] Dominic Rivera MD, PhD [address] [place] [address] 08/29/2025 11:30 AM EST Nurse Only [facility], [address], [address]th [place] [address] Dominic Rivera MD, PhD [address] [place] [address] 08/29/2025 12:30 PM EST Infusion Infusion Therapy Services [place] [facility], [facility] 450 [facility], 9th [place] [address] 08/31/2025 9:00 AM EST Telemedicine [facility] ENDOCRINE MEDICINE 45 [place] [address] Elkin Hogue MD [address] [facility] [address] [place] [address] ANNABELLE@[facility] documented as of this encounter Visit Diagnoses Not on filedocumented in this encounter Additional Health Concerns Assessment Noted Time PHQ-2 Depression Total Score: 0 05/07/20 23 8:20 AM EDT documented as of this encounter Care Teams Sprinkling System Installer Relationship Specialty Start Date End Date Kimberly Bullard, ZENOBIA [address] [place] [address] [email or web address] PCP - General Family Medicine 02/09/19 12/21/23 System, Provider Not In, PhD Partners [address] [address] PCP - General 12/22/23 12/26/23 Keara Smith NP [address] [place] [address] PCP - General 12/27/23 Braulio Curran MD [address] [place] [address] [email or web address] Endocrinology 06/21/20 Luli Castillo MD [address] [place] [phone] [email or web address] Internal Medicine 07/16/23 11/15/23 Dominic Rivera MD, PhD [address] [place] [address] Medical Oncology 07/16/23 Luli Castillo MD [address] [place] [address] [email or web address] [employer] Internal Medicine 07/29/23 Nanette Hernandez RN [address] [place] [address] Norma@[facility] Primary Infusion Nurse 07/29/23 11/09/23 Tricia Brock RN [address] [place] [address] [email or web address] Primary Infusion Nurse 09/08/23 Otilia Garcia RN [address] [place] [address] [email or web address] Associate Infusion Nurse 10/20/23 System, Provider Not In, PhD [facility] [address] 12/01/23 12/26/23 Sherin Thomas, VINICIUS [address] [place] [address] [email or web address] Associate Infusion Nurse 12/20/23 04/11/24 Tri Burleson RN [address] [place] [address] [email or web address] Associate Infusion Nurse 05/15/24 Mildred Rust RN [address] [place] [address] [email or web address] Associate Infusion Nurse 05/15/24 Nanette Tavarez RN [address] [place] [address] MARINO@[email or web address] Primary Infusion Nurse 06/23/24 Alina Pop, VINICIUS [address] [place] [address] Vicente@[email or web address] Associate Infusion Nurse 06/28/24 Luann House RN [address] [place] [address] Olga Lidia@[email or web address] Primary Infusion Nurse 10/02/24 Daxa Leija, RN [address] [place] [address] KIRA@[email or web address] Associate Infusion Nurse 01/31/25 documented as of this encounter Additional Source Comments The information contained in this document represents components of the legal health record. It is not the complete legal health record.[facility]
--- OUTSIDE RECORDS SUMMARY | 2025-07-24 17:14 | XMS_ITS | Encounter Summary ---
Author Organization [facility] Address [address] [facility] [address] [place] [address] Phone Care Team Providers Care Computer Education Teacher Name Role Phone Braulio Curran MD Unavailable [phone] Dominic Rivera MD, PhD Unavailable Luli Castillo MD Unavailable [phone] Tricia Brock RN Unavailable Omar [email or web address] .[facility] Otilia Garcia RN Unavailable [phone] Keara Smith MACHINE ICER Primary Care Provide r Tri Burleson RN Unavailable ирина [email or web address]. Mildred Sarkar RN Unavailable ham [email or web address] Nanette Tavarez RN Unavailable LIZZY [email or web address].[email or web address].E Alina Mayorga RN Unavailable Parish [email or web address] Luann Lopes RN Unavailable Batool [email or web address] Daxa Soriano RN Unavailable [phone] Encounter Details Date Type Department Care Team (Late st Contact Info) Description 10/24/2024 Procedure Pass [facility] [place], MRI [address] 4th Floor [place], [facility] Social History Tobacco Use Types Packs/Day Years [...] st Contact Info) Description 01/18/2025 Procedure Pass [facility] Funeral Counselor [place] [address] [facility] [address] [place] [address] 01/18/2025 Procedure Pass [facility] [address] [facility] [address] [place] [address] 01/18/2025 Procedure Pass [facility] [address] [facility] [address] [place] [address] 01/18/2025 Procedure Pass [facility] Cardiac Echo 850 [address] [facility] [address] [place] [address] 08/07/2025 9:30 AM EDT Blood Draw Laboratory Services, [facility] at [address] [place] [address] Dominic Rivera MD, PhD [address] [place] [address] 08/07/2025 10:30 AM EDT Office Visit [facility] for [facility], [facility] [place] at [address] [address] Fela Sandoval NP [address] [place] [address] [email or web address] [facility] 08/07/2025 10:30 AM EDT Nurse Only [facility], [facility] at [address] [address] Dominic Rivear MD, PhD [address] [place] [address] 08/07/2025 11:30 AM EDT Infusion Infusion Therapy Services [place], [facility] at [address] [address] Dominic Rivera MD, PhD [address] [place] [address] Luann House RN [address] [place] [address] Olga Lidia@[facility]. [facility] 08/24/2025 9:00 AM EST Appointment [facility] Cardiac Echo [address] [place] [address] 422 [place] [address] Dominic Rivera MD, PhD [address] [place] [address] 08/24/2025 10:15 AM EST Appointment [facility] Funeral Counselor [place] [address] [place] [address] Dominic Rivera MD, PhD [address] [place] [address] 08/24/2025 11:15 AM EST Appointment [facility] Funeral Counselor [place] [address] [place] [address] Dominic Rivera MD, PhD [address] [place] [address] [email or web address] 08/29/2025 10:30 AM EST Blood Draw Laboratory Services, [facility] [address] [facility], 2nd [place] [address] Dominic Rivera MD, PhD [address] [place] [address] [email or web address] 08/29/2025 11:30 AM EST Office Visit [facility], [address], [address]th [place] [address] Dominic Rivera MD, PhD [address] [place] [address] [email or web address] 08/29/2025 11:30 AM EST Nurse Only [facility], [address], [address]th [place] [address] Dominic Rivera MD, PhD [address] [place] [address] [email or web address] 08/29/2025 12:30 PM EST Infusion Infusion Therapy Services [address], [address] [place] [address] 08/31/2025 9:00 AM EST Telemedicine [facility] ENDOCRINE MEDICINE 45 [place] [address] Elkin Hogue MD [address] [place] [address] [address] [place] [address] ANNABELLE@[email or web address] documented as of this encounter Visit Diagnoses Not on filedocumented in this encounter Additional Health Concerns Assessment Noted Time PHQ-2 Depression Total Score: 0 07/28/20 23 8:20 AM EDT documented as of this encounter Care Teams Computer Education Teacher Relationship Specialty Start Date End Date Keara Smith NP [address] [place] [address] PCP - General 12/27/23 Braulio Curran MD [email or web address] Endocrinology 06/21/20 Dominic Rivera MD, PhD [address] [place] [address] [email or web address] Medical Oncology 07/16/23 Luli Castillo MD [address] [place] [address] [email or web address] Internal Medicine 07/29/23 Tricia Brock RN [address] [place] [address] [email or web address] Primary Infusion Nurse 09/08/23 tOilia Garcia RN [address] [place] [address] WALLY@[email or web address] Associate Infusion Nurse 10/20/23 Tri Burleson RN [address] [place] [address] [email or web address] Associate Infusion Nurse 05/15/24 Mildred Rust RN 300 [place] [address] [email or web address] Associate Infusion Nurse 05/15/24 Nanette Tavarez RN [address] [place] [address] MARINO@[facility] Primary Infusion Nurse 06/23/24 Alina Pop, RN [address] [place] [address] Vicente@[facility] NAJMA.[facility] Associate Infusion Nurse 06/28/24 Luann House, VINICIUS [address] [place] [address] Olga Lidia@[facility] Primary Infusion Nurse 10/02/24 Daxa Leija RN [address] [place] [address] KIRA@[facility] .[facility] Associate Infusion Nurse 01/31/25 documented as of this encounter Additional Source Comments The information contained in this document represents components of the legal health record. It is not the complete legal health record.[facility]
--- OUTSIDE RECORDS SUMMARY | 2025-07-24 17:14 | XMS_ITS | Encounter Summary ---
Author Organization [facility] Address [address] [place] [address] Phone Care Team Providers Care Building Trades Instructor Name Role Phone Braulio Curran MD Unavailable [phone] Dominic Rivera MD, PhD Unavailable Luli Castillo MD Unavailable [phone] Tricia Brock RN Unavailable Omar [email or web address] Otilia Garcia RN Unavailable [phone] Keara Smith SUBMARINE ADVISORY TEAM WATCH OFFICER Primary Care Provide r Tri Burleson RN Unavailable ирина [email or web address]. Mildred Sarkar RN Unavailable [email or web address] Nanette Tavarez RN Unavailable LIZZY [email or web address].E Alina Mayorga RN Unavailable Parish [email or web address] Luann Lopes RN Unavailable Batool [email or web address].E Daxa Soriano RN Unavailable [phone] Encounter Details Date Type Department Care Team (Late st Contact Info) Description 10/24/2024 Procedure Pass [facility] [place], [place] [address] [place] [id number] Social History Tobacco Use Types Packs/Day Years [...] st Contact Info) Description 01/18/2025 Procedure Pass [facility] Sonar Watchstander [place] [address] [facility] [address] [place] [address] 01/18/2025 Procedure Pass [facility] [address] [facility] [address] [place] [address] 01/18/2025 Procedure Pass [facility] [address] [facility] [address] [place] [address] 01/18/2025 Procedure Pass [facility] Cardiac Echo 850 [address] [facility] [address] [place] [address] 08/07/2025 9:30 AM EDT Blood Draw Laboratory Services, [facility] at [address]rd [place] [address] Dominic Rivera MD, PhD [address] [place] [address] 08/07/2025 10:30 AM EDT Office Visit [facility], [facility] [place] at [address] [address] Fela Sandoval NP [address] [place] [address] [email or web address] 08/07/2025 10:30 AM EDT Nurse Only [facility], [facility] at [address] [address] Dominic Rivera MD, PhD [address] [place] [address] 08/07/2025 11:30 AM EDT Infusion Infusion Therapy Services [place], [facility] at [address] [address] Dominic Rivera MD, PhD [address] [place] [address] Luann House RN [address] [place] [address] Olga Lidia@[facility]. [facility] 08/24/2025 9:00 AM EST Appointment [facility] Cardiac Echo [address] [place] [address] 422 [place] [address] Dominic Rivera MD, PhD [address] [place] [address] 08/24/2025 10:15 AM EST Appointment [facility] Sonar Watchstander [place] [address] [place] [address] Dominic Rivera MD, PhD [address] [place] [address] 08/24/2025 11:15 AM EST Appointment [facility] Sonar Watchstander [place] [address] [place] [address] Dominic Rivera MD, PhD [address] [place] [address] [email or web address] 08/29/2025 10:30 AM EST Blood Draw Laboratory Services, [facility] 450 [facility], 2nd [place] [address] Dominic Rivera MD, PhD [address] [place] [address] [email or web address] 08/29/2025 11:30 AM EST Office Visit [facility], [address], [address]th [place] [address] Dominic Rivera MD, PhD [address] [place] [address] [email or web address] 08/29/2025 11:30 AM EST Nurse Only [facility], [address], [address]th [place] [address] Dominic Rivera MD, PhD [address] [place] [address] [email or web address] 08/29/2025 12:30 PM EST Infusion Infusion Therapy Services [address] [place] [address] 08/31/2025 9:00 AM EST Telemedicine [facility] ENDOCRINE MEDICINE 45 [place] [address] Elkin Hogue MD [address] [place] [address] [address] [place] [address] ANNABELLE@[facility] documented as of this encounter Visit Diagnoses Not on filedocumented in this encounter Additional Health Concerns Assessment Noted Time PHQ-2 Depression Total Score: 0 07/28/20 23 8:20 AM EDT documented as of this encounter Care Teams Building Trades Instructor Relationship Specialty Start Date End Date Keara Smith NP [address] [place] [address] PCP - General 12/27/23 Braulio Curran MD [email or web address] Endocrinology 06/21/20 Dominic Rivera MD, PhD [address] [place] [address] [email or web address] Medical Oncology 07/16/23 Luli Castillo MD [address] [place] [address] [email or web address] 07/29/23 Tricia Brock RN [address] [place] [address] [email or web address] Primary Infusion Nurse 09/08/23 Otilia Garcia RN [address] [place] [address] WALLY@[facility] Associate Infusion Nurse 10/20/23 Tri Burleson RN [address] [place] [address] [email or web address] Associate Infusion Nurse 05/15/24 Mildred Rust RN 300 [place] [address] [email or web address] Associate Infusion Nurse 05/15/24 Nanette Tavarez RN [address] [place] [address] MARINO@[facility] Primary Infusion Nurse 06/23/24 Alina Pop, RN [address] [place] [address] [email or web address]@[facility] NAJMA.[facility] Associate Infusion Nurse 06/28/24 Luann House, VINICIUS [address] [place] [address] Olga Lidia@[email or web address] Primary Infusion Nurse 10/02/24 Daxa Leija RN [address] [place] [address] KIRA@[facility] .[facility] Associate Infusion Nurse 01/31/25 documented as of this encounter Additional Source Comments The information contained in this document represents components of the legal health record. It is not the complete legal health record.[facility]
--- OUTSIDE RECORDS SUMMARY | 2025-07-24 17:14 | XMS_ITS | Encounter Summary ---
Author Organization [facility] Address [address] [place] [address] Phone Care Team Providers Care Casting Machine Operator Name Role Phone Kimberly Bullard CARE MANAGEMENT ASSOCIATE Primary Care Provider [phone] Braulio Curran MD Unavailable [phone] Luli Castillo MD Unavailable Dominic Rivera MD , PhD Unavailable Luli Castillo MD Unavailable [phone] Nanette Hernandez RN Unavailable [email or web address] Tricia Brock RN Unavailable Omar [email or web address] u Otilia Garcia RN Unavailable [phone] System, Provider Not In PhD Unavailable Unav ailable System, Provider Not In PhD Primary Care Provide r Unavailable Keara Smith CARE MANAGEMENT ASSOCIATE Primary Care Provide r Sherin Thomas RN Unavailable [email or web address] u Tri Burleson RN Unavailable ирина [email or web address] Mildred Rust RN Unavailable ham [email or web address] Nanette Tavarez RN Unavailable LIZZY [email or web address].[place] Alina Pop RN Unavailable Parish [email or web address].[place] Luann House RN Unavailable Batool [email or web address] Heladio Daxalexus Cooper RN Unavailable [phone] Encounter Details Date Type Department Care Team (Late st Contact Info) Description 08/05/2023 Procedure Pass [facility] Cardiac Echo 850 850 [facility] [address] [place] [address] Social History Tobacco Use Types Packs/Day Years [...] st Contact Info) Description 01/18/2025 Procedure Pass [facility] Field Secretary [place] 850 [facility] [address] [place] [address] 01/18/2025 Procedure Pass [facility] Field Secretary [place] 850 [facility] [address] [place] [address] 01/18/2025 Procedure Pass [facility] Field Secretary [place] 850 [facility] [address] [place] [address] 01/18/2025 Procedure Pass [facility] Cardiac Echo 850 850 [facility] [address] [place] [address] 08/07/2025 9:30 AM EDT Blood Draw Laboratory Services, [facility] [place] [facility] [place] 300 [facility] 3rd [place] [address] Dominic Rivera MD, PhD [address] [place], [place] [address] 08/07/2025 10:30 AM EDT Office Visit [facility] Thoracic Oncology, [facility] at [address] [address] Fela Sandoval NP 450 [place] [address] [email or web address] 08/07/2025 10:30 AM EDT Nurse Only [facility] Thoracic Oncology, [facility] at [address] [address] Dominic Rivera MD, PhD [address] [place] [address] 08/07/2025 11:30 AM EDT Infusion Infusion Therapy Services [facility] at [address] [address] Dominic Rivera MD, PhD [address] [place] [address] Luann House, VINICIUS [address] [place] [address] Olga [email or web address]. [facility] 08/24/2025 9:00 AM EST Appointment [facility] Cardiac Echo 850 850 [facility] 422 [place] [address] Dominic Rivera MD, PhD [address] [place] [address] 08/24/2025 10:15 AM EST Appointment [facility] 850 [facility] [address] [place] [address] Dominic Rivera MD, PhD [address] [place] [address] [email or web address] 08/24/2025 11:15 AM EST Appointment [facility] Field Secretary [facility] 850 [facility] [address] [place] [address] Dominic Rivera MD, PhD [address] [place] [address] [email or web address] 08/29/2025 10:30 AM EST Blood Draw Laboratory Services, [address], 2nd [place] [address] Dominic Rivera MD, PhD [address] [place] [address] 08/29/2025 11:30 AM EST Office Visit [facility], [address], [address] [place] [address] Dominic Rivera MD, PhD [address] [place] [address] [email or web address] 08/29/2025 11:30 AM EST Nurse Only [facility], [address], [address] [place] [address] Dominic Rivera MD, PhD [address] [place] [address] 08/29/2025 12:30 PM EST Infusion Infusion Therapy Services [place] 9, [facility] [address] [facility], 9th [place] [address] 08/31/2025 9:00 AM EST Telemedicine [facility] ENDOCRINE MEDICINE 45 [place] [address] Elkin Hogue MD 75 [facility] B[address]4 [place] [address] ANNABELLE@[facility] documented as of this encounter Visit Diagnoses Not on filedocumented in this encounter Additional Health Concerns Assessment Noted Time PHQ-2 Depression Total Score: 0 05/07/20 23 8:20 AM EDT documented as of this encounter Care Teams Casting Machine Operator Relationship Specialty Start Date End Date Kimberly Bullard NP [address] [place] [address] PCP - General Family Medicine 02/09/19 12/21/23 System, Provider Not In, PhD Partners [address] [address] PCP - General 12/22/23 12/26/23 Keara Smith NP [address] [place] [address] PCP - General 12/27/23 Braulio Curran MD [address] [place] [address] [email or web address] Endocrinology 06/21/20 Luli Castillo MD [address] [place] [address] [email or web address] 07/16/23 11/15/23 Dominic Rivera MD, PhD [address] [place] [address] [email or web address] Medical Oncology 07/16/23 Luli Castillo MD [address] [place] [address] [email or web address] Internal Medicine 07/29/23 Nanette Hernandez, RN [address] [place] [address] [email or web address] Primary Infusion Nurse 07/29/23 11/09/23 Tricia Brock RN [address] [place] [address] [email or web address] Primary Infusion Nurse 09/08/23 Otilia Garcia RN [address] [place] [address] [email or web address]@[facility] Associate Infusion Nurse 10/20/23 System, Provider Not In, PhD Partners [address] 12/01/23 12/26/23 Sherin Thomas, VINICIUS [address] [place] [address] [email or web address] Associate Infusion Nurse 12/20/23 04/11/24 Tri Burleson RN [address] [place] [address] [email or web address] Associate Infusion Nurse 05/15/24 Mildred Rust RN [address] [place] [address] [email or web address] Associate Infusion Nurse 05/15/24 Nanette Tavarez RN [address] [place] [address] MARINO@[email or web address] Primary Infusion Nurse 06/23/24 Alina Pop, VINICIUS [address] [place] [address] [email or web address]@[email or web address] Associate Infusion Nurse 06/28/24 Luann House RN 300 [place] [address] Olga [email or web address]@[email or web address] Primary Infusion Nurse 10/02/24 Daxa Leija, RN [address] [place] [address] [email or web address]@[email or web address] Associate Infusion Nurse 01/31/25 documented as of this encounter Additional Source Comments The information contained in this document represents components of the legal health record. It is not the complete legal health record.[facility]
--- OUTSIDE RECORDS SUMMARY | 2025-07-24 17:14 | XMS_ITS | Encounter Summary ---
Author Organization [facility] Address [address] [place] [address] Phone Care Team Providers Care Attache Name Role Phone Braulio Curran MD Unavailable [phone] Dominic Rivera MD, PhD Unavailable Luli Castillo MD Unavailable [phone] Tricia Brock RN Unavailable Omar [email or web address] .[facility] Otilia Gacria RN Unavailable [phone] Keara Smith WELD INSPECTOR Primary Care Provide r Tri Burleson RN Unavailable ирина [email or web address]. Mildred Sarkar RN Unavailable ham [email or web address] Nanette Tavarez RN Unavailable LIZZY [email or web address].[place].E Alina Mayorga RN Unavailable Parish [email or web address].ED Luann Lopes RN Unavailable Batool [email or web address].E Daxa Soriano RN Unavailable [phone] Encounter Details Date Type Department Care Team (Late st Contact Info) Description 06/28/2024 Procedure Pass [facility] Women's Egg Separator Center 850 [facility] [address] [place] [id number] Social History Tobacco Use Types Packs/Day Years [...] st Contact Info) Description 01/18/2025 Procedure Pass [facility] Egg Separator [place] 850 [facility] [address] [place] [address] 01/18/2025 Procedure Pass [facility] 850 [facility] [address] [place] [address] 01/18/2025 Procedure Pass [facility] 850 [facility] [address] [place] [address] 01/18/2025 Procedure Pass [facility] Cardiac Echo 850 850 [facility] [address] [place] [address] 08/07/2025 9:30 AM EDT Blood Draw Laboratory Services, [facility] at [address] 3rd [place] [address] Dominic Rivera MD, PhD [address] [place] [address] 08/07/2025 10:30 AM EDT Office Visit [facility] for Thoracic Oncology, [facility] [place] at [address]th [place] [address] Fela Sandoval NP [address] [place] [address] [email or web address] 08/07/2025 10:30 AM EDT Nurse Only [facility] Center for Thoracic Oncology, [facility] at [address] [address] Dominic Rivera MD, PhD [address] [place] [address] 08/07/2025 11:30 AM EDT Infusion Infusion Therapy Services [place], [facility] at [address] [address] Dominic Rivera MD, PhD [address] [place] [address] Luann House RN [address] [place] [address] Olga Lidia@[email or web address]. [facility] 08/24/2025 9:00 AM EST Appointment [facility] Cardiac Echo [address] [place] [address] 422 [place] [address] Dominic Rivera MD, PhD [address] [place] [address] 08/24/2025 10:15 AM EST Appointment [facility] and [facility] Egg Separator [place] [address] [place] 23980B [place] [address] Dominic Rivera MD, PhD [address] [place] [address] 08/24/2025 11:15 AM EST Appointment [facility] Egg Separator [place] 850 [facility] [address] [place] [address] Dominic Rivera MD, PhD [address] [place] [address] [email or web address] 08/29/2025 10:30 AM EST Blood Draw Laboratory Services, [facility] 450 [facility], 2nd [place] [address] Dominic Rivera MD, PhD [address] [place] [address] [email or web address] 08/29/2025 11:30 AM EST Office Visit [facility] for Thoracic [facility], [address], [address]th [place] [address] Dominic Rivera MD, PhD [address] [place] [address] [email or web address] 08/29/2025 11:30 AM EST Nurse Only [facility] for Thoracic [facility], [address], [address]th [place] [address] Dominic Rivera MD, PhD [address] [place] [address] [email or web address] 08/29/2025 12:30 PM EST Infusion Infusion Therapy Services [place] [address], [address]th [place] [address] 08/31/2025 9:00 AM EST Telemedicine [facility] ENDOCRINE MEDICINE 45 [place] [address] Elkin Hogue MD [address] [place] [address] [address] [place] [address] ANNABELLE@[facility] documented as of this encounter Visit Diagnoses Not on filedocumented in this encounter Additional Health Concerns Assessment Noted Time PHQ-2 Depression Total Score: 0 05/07/20 8:20 AM EDT documented as of this encounter Care Teams Attache Relationship Specialty Start Date End Date Keara Smith NP [address] [place] [address] PCP - General 12/27/23 Braulio Curran MD [email or web address] Endocrinology 06/21/20 Dominic Rivera MD, PhD [address] [place] [address] [email or web address] Medical Oncology 07/16/23 Luli Castillo MD [address] [place] [address] [email or web address] 07/29/23 Tricia Brock RN [address] [place] [address] [email or web address]@[facility] Primary Infusion Nurse 09/08/23 Otilia Garcia RN [address] [place] [address] WALLY@[facility] Associate Infusion Nurse 10/20/23 Tri Burleson RN [address] [place] [address] [email or web address] Associate Infusion Nurse 05/15/24 Mildred Rust RN 300 [place] [address] [email or web address] Associate Infusion Nurse 05/15/24 Nanette Tavarez RN [address] [place] [address] MARINO@[email or web address] Primary Infusion Nurse 06/23/24 Alina Pop, RN [address] [place] [address] [email or web address]@[email or web address] RITIKA.[facility] Associate Infusion Nurse 06/28/24 Luann House, VINICIUS [address] [place] [address] Olga Lidia@[email or web address] Primary Infusion Nurse 10/02/24 Daxa Leija RN [address] [place] [address] KIRA@[facility] Associate Infusion Nurse 01/31/25 documented as of this encounter Additional Source Comments The information contained in this document represents components of the legal health record. It is not the complete legal health record.[facility]
--- OUTSIDE RECORDS SUMMARY | 2025-07-24 17:15 | XMS_ITS | Encounter Summary ---
Author Organization [facility] Address [address] [place] [address] Phone Care Team Providers Care Small Package And Bundle Sorter Clerk Name Role Phone Braulio Curran MD Unavailable [phone] Dominic Rivera MD, PhD Unavailable Luli Castillo MD Unavailable [phone] Tricia Brock RN Unavailable Omar [email or web address] .[facility] Otilia Garcia RN Unavailable [phone] Keara Smith SUPERVISOR TREATING AND PUMPING Primary Care Provide r Tri Burleson RN Unavailable ирина [email or web address]. Mildred Sarkar RN Unavailable ham [email or web address] Nanette Tavarez RN Unavailable LIZZY [email or web address]@[email or web address].[place].E Alina Mayorga RN Unavailable Parish [email or web address].[place].ED Luann Lopes RN Unavailable Batool t@[email or web address].[place].E Daxa Soriano RN Unavailable [phone] Encounter Details Date Type Department Care Team (Late st Contact Info) Description 08/02/2024 Telephone [facility] for Thoracic Oncology, [facility] [place] [facility] [place] 300 [facility] 4th [place] [address] Susanne Aguilar RN [address] [place] [address] [email or web address] Social History Tobacco Use Types Packs/Day [...] Contact Info) Description 01/18/2025 Procedure Pass [facility] Supervisor Forming Department [place] 850 [facility] [address] [place] [address] 01/18/2025 Procedure Pass [facility] 850 [facility] [address] [place] [address] 01/18/2025 Procedure Pass [facility] 850 [facility] [address] [place] [address] 01/18/[address] [facility] Cardiac Echo 850 850 [facility] [address] [place] [address] 08/07/2025 9:30 AM EDT Blood Draw Laboratory Services, [facility] [place] [facility] [place] 300 [facility] [address] [place] [address] Dominic Rivera MD, PhD [address] [place], [place] [address] 08/07/2025 10:30 AM EDT Office Visit [facility] for Thoracic Oncology, [facility] [place] [facility] [place] 300 [facility] [address]th [place] [address] Fela Sandoval NP 450 [place] [address] [email or web address]. [facility] 08/07/2025 10:30 AM EDT Nurse Only [facility] for Thoracic Oncology, [facility] at [place] [address] [address] Dominic Rivera MD, PhD [address] [place] [address] 08/07/2025 11:30 AM EDT Infusion Infusion Therapy Services [facility] at [place] [address] [address] Dominic Rivera MD, PhD [address] [place] [address] Luann House, VINICIUS [address] [place] [address] Olga Lidia@[facility]. [facility] 08/24/2025 9:[address] [facility] Cardiac Echo 850 850 [facility] 422 [place] [address] Dominic Rviera MD, PhD [address] [place] [address] 08/24/2025 10:15 AM EST Appointment [facility] and Women's Supervisor Forming Department Center 850 [facility] [address] [place] [address] Dominic Rivera MD, PhD [address] [place] [address] 08/24/2025 11:15 AM EST Appointment [facility]'s Supervisor Forming Department Center 850 [facility] [address] [place] [address] Dominic Rivera MD, PhD [address] [place] [address] 08/29/2025 10:30 AM EST Blood Draw Laboratory Services, [facility] 450 [facility], 2nd [place] [address] Dominic Rivera MD, PhD [address] [place] [address] 08/29/2025 11:30 AM EST Office Visit [facility] for Thoracic Oncology, [address], [address] [place] [address] Dominic Rivera MD, PhD [address] [place] [address] 08/29/2025 11:30 AM EST Nurse Only [facility] for [facility]acic [facility]cology, [address], [address] [place] [address] Dominic Rivera MD, PhD [address] [place] [address] 08/29/2025 12:30 PM EST Infusion Infusion Therapy Services [place] [address], [address], [address] [place] [address] 08/31/2025 9:[address] [facility] ENDOCRINE MEDICINE 45 [place] [address] Elkin Hogue MD [address] [place] [address] [address] [place] [address] ANNABELLE@[email or web address] documented as of this encounter Visit Diagnoses Not on filedocumented in this encounter Additional Health Concerns Assessment Noted Time PHQ-2 Depression Total Score: 0 05/07/20 8:20 AM EDT documented as of this encounter Care Teams Small Package And Bundle Sorter Clerk Relationship Specialty Start Date End Date Keara Smith NP [address] [place] [address] PCP - General 12/27/23 Braulio Curran MD [email or web address] Endocrinology 06/21/20 Dominic Rivera MD, PhD [address] [place] [address] [email or web address] Medical Oncology 07/16/23 Luli Castillo MD [address] [place] [address] [email or web address] Internal Medicine 07/29/23 Tricia Brock RN 575 [place] [address] Katya@[email or web address]. [facility] Primary Infusion Nurse 09/08/23 Otilia Garcia RN 450 [place] [address] WALLY@[facility] Associate Infusion Nurse 10/20/23 Tri Burleson RN 300 [place] [address] [email or web address] Associate Infusion Nurse 05/15/24 Mildred Rust RN 300 [place] [address] [email or web address] Associate Infusion Nurse 05/15/24 Nanette Tavarez, RN 450 [place] [address] MARINO@[facility] Primary Infusion Nurse 06/23/24 Alina Pop, VINICIUS 450 [place] [address] [email or web address] Associate Infusion Nurse 06/28/24 Luann House, VINICIUS [address] [place] [address] Olga Lidia@[facility] Primary Infusion Nurse 10/02/24 Daxa Leija, RN [address] [place] [address] KIRA@[facility] Associate Infusion Nurse 01/31/25 documented as of this encounter Additional Source Comments The information contained in this document represents components of the legal health record. It is not the complete legal health record.[facility]
--- OUTSIDE RECORDS SUMMARY | 2025-07-24 17:15 | XMS_ITS | Encounter Summary ---
Author Organization [facility] Address [address] [place] [address] Phone Care Team Providers Care Hand Cigar Making Supervisor Name Role Phone Braulio Curran MD Unavailable [phone] Dominic Rivera MD, PhD Unavailable Luli Castillo MD Unavailable [phone] Tricia Brock RN Unavailable Omar [email or web address] .[facility] Otilia Garcia RN Unavailable [phone] Keara Smith ECHO VASCULAR TECHNOLOGIST Primary Care Provide r Tri Burleson RN Unavailable ирина [email or web address]. Mildred Sarkar RN Unavailable ham [email or web address] Nanette Tavarez RN Unavailable LIZZY [email or web address] Alina Mayorga RN Unavailable Parish [email or web address] Luann Lopes RN Unavailable Batool [email or web address] Daxa Soriano RN Unavailable [phone] Encounter Details Date Type Department Care Team (Late st Contact Info) Description 12/14/2024 Procedure Pass [facility] [place] [address] Floor [place] [id number] Social History Tobacco Use Types Packs/Day Years [...] Description 01/18/2025 Procedure Pass [facility] Ct Scan Special Procedures Technologist [place] [address] [place] [address] 01/18/2025 Procedure Pass [facility] [address] [facility] [address] [place] [address] 01/18/2025 Procedure Pass [facility] [address] [place] [address] 01/18/2025 Procedure Pass [facility] Cardiac Echo [address] [place] [address] 08/07/2025 9:30 AM EDT Blood Draw Laboratory Services, [facility] at [address] 3rd [place] [address] Dominic Rivera MD, PhD [address] [place] [address] 08/07/2025 10:30 AM EDT Office Visit [facility] for Thoracic On[facility], [facility] [place] at [address] [address] Fela Sandoval NP [address] [place] [address] [email or web address] 08/07/2025 10:30 AM EDT Nurse Only [facility] Thor[facility] On[facility], [facility] at [address] [address] Dominic Rivera MD, PhD [address] [place] [address] 08/07/2025 11:30 AM EDT Infusion Infusion Therapy Services [place], [facility] at [address] [address] Dominic Rivera MD, PhD [address] [place] [address] Luann House RN [address] [place] [address] Olga Lidia@[facility]. [facility] 08/24/2025 9:00 AM EST Appointment [facility] Cardiac Echo [address] [place] [address] 422 [place] [address] Dominic Rivera MD, PhD [address] [place] [address] 08/24/2025 10:15 AM EST Appointment [facility] Ct Scan Special Procedures Technologist [place] [address] [place] [address] [place] [address] Dominic Rivera MD, PhD [address] [place] [address] 08/24/2025 11:15 AM EST Appointment [facility] Ct Scan Special Procedures Technologist [place] [address] [place] [address] Dominic Rivera MD, PhD [address] [place] [address] [email or web address] 08/29/2025 10:30 AM EST Blood Draw Laboratory Services, [facility] [address] [facility], 2nd [place] [address] Dominic Rivera MD, PhD [address] [place] [address] [email or web address] 08/29/2025 11:30 AM EST Office Visit [facility], [address], [address] [place] [address] Dominic Rivera MD, PhD [address] [place] [address] [email or web address] 08/29/2025 11:30 AM EST Nurse Only [facility], [address], [address] [place] [address] Dominic Rivera MD, PhD [address] [place] [address] [email or web address] 08/29/2025 12:30 PM EST Infusion Infusion Therapy Services [address], [address] [place] [address] 08/31/2025 9:00 AM EST Telemedicine [facility] ENDOCRINE MEDICINE 45 [place] [address] Elkin Hogue MD [address] [place] [address] [address] [place] [address] ANNABELLE@[email or web address] documented as of this encounter Visit Diagnoses Not on filedocumented in this encounter Additional Health Concerns Assessment Noted Time PHQ-2 Depression Total Score: 0 07/28/20 23 8:20 AM EDT documented as of this encounter Care Teams Hand Cigar Making Supervisor Relationship Specialty Start Date End Date Keara Smith NP [address] [place] [address] PCP - General 12/27/23 Braulio Curran MD [email or web address] Endocrinology 06/21/20 Dominic Rivera MD, PhD [address] [place] [address] [email or web address] Medical Oncology 07/16/23 Luli Castillo MD [address] [place] [address] [email or web address] 07/29/23 Tricia Brock RN [address] [place] [address] [email or web address] Primary Infusion Nurse 09/08/23 Otilia Garcia RN [address] [place] [address] [email or web address] Associate Infusion Nurse 10/20/23 Tri Burleson RN [address] [place] [address] [email or web address] Associate Infusion Nurse 05/15/24 Mildred Rust RN [address] [place] [address] [email or web address] Associate Infusion Nurse 05/15/24 Nanette Tavarez RN [address] [place] [address] MARINO@[email or web address] Primary Infusion Nurse 06/23/24 Alina Pop, RN [address] [place] [address] [email or web address]@[email or web address] NAJMA.[facility] Associate Infusion Nurse 06/28/24 Luann House, VINICIUS [address] [place] [address] Olga Lidia@[email or web address] Primary Infusion Nurse 10/02/24 Daxa Leija RN [address] [place] [address] KIRA@[email or web address] .[facility] Associate Infusion Nurse 01/31/25 documented as of this encounter Additional Source Comments The information contained in this document represents components of the legal health record. It is not the complete legal health record.[facility]
--- OUTSIDE RECORDS SUMMARY | 2025-07-24 17:15 | XMS_ITS | Encounter Summary ---
Author Organization [facility] Address [address] [place] [address] Phone Care Team Providers Care Tube Building Machine Operator Name Role Phone Braulio Curran MD Unavailable [phone] Dominic Rivera MD, PhD Unavailable Luli Castillo MD Unavailable [phone] Tricia Brock RN Unavailable Omar [email or web address] .[facility] Otilia Garcia RN Unavailable [phone] Keara Smith DEVELOPMENT EXPERT Primary Care Provide r Tri Burleson RN Unavailable ирина [email or web address]. Mildred Sarkar RN Unavailable ham [email or web address] Nanette Tavarez RN Unavailable LIZZY [email or web address]@[facility].[place].E Alina Mayorga RN Unavailable Parish [email or web address].[place].ED Luann Lopes RN Unavailable Batool t@[facility].[email or web address].E Daxa Soriano RN Unavailable Encounter Details Date Type Department Care Team (Late st Contact Info) Description 12/14/2024 Procedure Pass [facility] [place] [address] Floor [place] [phone] Social History Tobacco Use Types Packs/Day Years [...] Contact Info) Description 01/18/2025 Procedure Pass [facility] Gallery Or Museum Curator [place] [address] [facility] [address] [place] [address] 01/18/2025 Procedure Pass [facility] [address] [facility] [address] [place] [address] 01/18/2025 Procedure Pass [facility] [address] [facility] [address] [place] [address] 01/18/2025 Procedure Pass [facility] Cardiac Echo 850 [address] [facility] [address] [place] [address] 08/07/2025 9:30 AM EDT Blood Draw Laboratory Services, [facility] at [address] 3rd [place] [address] Dominic Rivera MD, PhD [address] [place] [address] 08/07/2025 10:30 AM EDT Office Visit [facility] [place] [facility] Center for Thoracic Oncology, [facility] [place] at [address] [address] Fela Sandoval NP [address] [place] [address] [email or web address]. [facility] 08/07/2025 10:30 AM EDT Nurse Only [facility] [place] [facility] Center for Thoracic Oncology, [facility] at [address] [address] Dominic Rivera MD, PhD [address] [place] [address] 08/07/2025 11:30 AM EDT Infusion Infusion Therapy Services [place], [facility] at [address] [address] Dominic Rivera MD, PhD [address] [place] [address] Luann House RN [address] [place] [address] Olga Lidia@[facility]. [facility] 08/24/2025 9:00 AM EST Appointment [facility] Cardiac Echo [address] [place] [address] 422 [place] [address] Dominic Rivera MD, PhD [address] [place] [address] 08/24/2025 10:15 AM EST Appointment [facility] and [facility] Gallery Or Museum Curator [place] [address] [place] [address] [place] [address] Dominic Rivera MD, PhD [address] [place] [address] 08/24/2025 11:15 AM EST Appointment [facility] Gallery Or Museum Curator [place] [address] [place] [address] [place] [address] Dominic Rivera MD, PhD [address] [place] [address] [email or web address] 08/29/2025 10:30 AM EST Blood Draw Laboratory Services, [facility] [address] [facility], 2nd [place] [address] Dominic Rivera MD, PhD [address] [place] [address] [email or web address] 08/29/2025 11:30 AM EST Office Visit [facility] On[facility], [address], [address]th [place] [address] Dominic Rivera MD, PhD [address] [place] [address] [email or web address] 08/29/2025 11:30 AM EST Nurse Only [facility], [address], [address]th [place] [address] Dominic Rivera MD, PhD [address] [place] [address] [email or web address] 08/29/2025 12:30 PM EST Infusion Infusion Therapy Services [address], [address] [place] [address] 08/31/2025 9:00 AM EST Telemedicine [facility] ENDOCRINE MEDICINE 45 [place] [address] Elkin Hogue MD [address] [place] [address] [address] [place] [address] ANNABELLE@[facility] documented as of this encounter Visit Diagnoses Not on filedocumented in this encounter Additional Health Concerns Assessment Noted Time PHQ-2 Depression Total Score: 0 07/28/20 23 8:20 AM EDT documented as of this encounter Care Teams Tube Building Machine Operator Relationship Specialty Start Date End Date Keara Smith NP [address] [place] [address] PCP - General 12/27/23 Braulio Curran MD [email or web address] Endocrinology 06/21/20 Dominic Rivera MD, PhD [address] [place] [address] [email or web address]@[email or web address] Medical Oncology 07/16/23 Luli Castillo MD [address] [place] [phone] [email or web address] Medicine 07/29/23 Tricia Brock RN [address] [place] [address] [email or web address]@[facility] Primary Infusion Nurse 09/08/23 Otilia Garcia RN [address] [place] [address] [email or web address]@[facility] Associate Infusion Nurse 10/20/23 Tri Burleson RN [address] [place] [address] [email or web address] Associate Infusion Nurse 05/15/24 Mildred Rust RN 300 [place] [address] [email or web address] Associate Infusion Nurse 05/15/24 Nanette Tavarez RN [address] [place] [address] MARINO@[facility] Primary Infusion Nurse 06/23/24 Alina Pop, RN [address] [place] [address] Vicente@[facility] NAJMA.[facility] Associate Infusion Nurse 06/28/24 Luann House, VINICIUS [address] [place] [address] Olga Lidia@[facility] Primary Infusion Nurse 10/02/24 Daxa Leija RN [address] [place] [address] KIRA@[facility] .[facility] Associate Infusion Nurse 01/31/25 documented as of this encounter Additional Source Comments The information contained in this document represents components of the legal health record. It is not the complete legal health record.[facility]
--- OUTSIDE RECORDS SUMMARY | 2025-07-24 17:15 | XMS_ITS | Encounter Summary ---
Author Organization [facility] Address [address] [place] [address] Phone Care Team Providers Care Antisqueak Filler Name Role Phone Kimberly Bullard ARRESTING GEAR OPERATOR Primary Care Provider [phone] Braulio Curran MD Unavailable Luli aCstillo MD Unavailable Dominic Rivera MD , PhD Unavailable Luli Castillo MD Unavailable [phone] Nanette Hernandez RN Unavailable [email or web address] Tricia Brcok RN Unavailable Omar Berman@[email or web address] u Otilia Garcia RN Unavailable [phone] System, Provider Not In PhD Unavailable Unav ailable System, Provider Not In PhD Primary Care Provide r Unavailable Keara Smith ARRESTING GEAR OPERATOR Primary Care Provide r Sherin Thomas RN Unavailable [email or web address].ed u Tri Burleson RN Unavailable ирина [email or web address] Mildred Rust RN Unavailable ham [email or web address]. [facility] Nanette Tavarez RN Unavailable LIZZY [email or web address]@[email or web address].[place].[facility] Alina Pop RN Unavailable Parish [email or web address].[place].[email or web address] Luann House RN Unavailable Batool [email or web address].[email or web address].[email or web address] Daxa Leija RN Unavailable Encounter Details Date Type Department Care Team (Late st Contact Info) Description 08/05/2023 Procedure Pass [facility] Plan[facility] [address] [facility] [address] [place] [address] Social History Tobacco Use Types Packs/Day Years [...] st Contact Info) Description 01/18/2025 Procedure Pass [facility] Planograph Operator [place] [address] [address] [facility] [address] [place] [address] 01/18/2025 Procedure Pass [facility] Planograph Operator [place] [address] [facility] [address] [place] [address] 01/18/2025 Procedure Pass [facility] Planograph Operator [place] [address] [facility] [address] [place] [address] 01/18/2025 Procedure Pass [facility] Cardiac Echo 850 [address] [facility] [facility] [address] [place] [address] 08/07/2025 9:30 AM EDT Blood Draw Laboratory Services, [facility] [place] [facility] [place] [address] [facility] 3rd [place] [address] Dominic Rivera MD, PhD [address] [place] [address] 08/07/2025 10:30 AM EDT Office Visit [facility], [facility] at [address] [address] Fela Sandoval NP 450 [place] [address] [email or web address] 08/07/2025 10:30 AM EDT Nurse Only [facility], [facility] at [address] [address] Dominic Rivera MD, PhD [address] [place] [address] 08/07/2025 11:30 AM EDT Infusion Infusion Therapy Services [facility] at [address] [address] Dominic Rivera MD, PhD [address] [place] [address] [email or web address] Luann House, RN [address] [place] [address] Olga Lidia@[facility]. [facility] 08/24/2025 9:00 AM EST Appointment [facility] Cardiac Echo 850 850 [facility] 422 [place] [address] Dominic Rivera MD, PhD [address] [place] [address] 08/24/2025 10:15 AM EST Appointment [facility] [address] [facility] [address] [place] [address] Dominic Rivera MD, PhD [address] [place] [address] 08/24/2025 11:15 AM EST Appointment [facility] [address] [facility] [address] [place] [address] Dominic Rivera MD, PhD [address] [place] [address] 08/29/2025 10:30 AM EST Blood Draw Laboratory Services, [address], 2nd [place] [address] Dominic Rivera MD, PhD [address] [place] [address] 08/29/2025 11:30 AM EST Office Visit [facility], [address], [address]th [place] [address] Dominic Rivera MD, PhD [address] [place] [address] 08/29/2025 11:30 AM EST Nurse Only [facility], [address], [address]th [place] [address] Dominic Rivera MD, PhD [address] [place] [address] 08/29/2025 12:30 PM EST Infusion Infusion Therapy Services [place] [address], [facility] 450 [facility], 9th [place] [address] 08/31/2025 9:00 AM EST Telemedicine [facility] ENDOCRINE MEDICINE 45 [place] [address] Elkin Hogue MD [address] [facility] [address] [place] [address] ANNABELLE@[facility] documented as of this encounter Visit Diagnoses Not on filedocumented in this encounter Additional Health Concerns Assessment Noted Time PHQ-2 Depression Total Score: 0 05/07/20 23 8:20 AM EDT documented as of this encounter Care Teams Antisqueak Filler Relationship Specialty Start Date End Date Kimberly Bullard ARRESTING GEAR OPERATOR [address] [place] [address] [email or web address] PCP - General Family Medicine 02/09/19 12/21/23 System, Provider Not In, PhD [facility] [address] PCP - General 12/22/23 12/26/23 Keara Smith NP [address] [place] [address] PCP - General 12/27/23 Braulio Curran MD [address] [place] [address] [email or web address] Endocrinology 06/21/20 Luli Castillo MD [address] [place] [address] [email or web address] Medicine 07/16/23 11/15/23 Dominic Rivera MD, PhD [address] [place] [address] Medical Oncology 07/16/23 Luli Castillo MD [address] [place] [address] [email or web address] [employer] Internal Medicine 07/29/23 Nanette Hernandez RN [address] [place] [address] Norma@[facility] Primary Infusion Nurse 07/29/23 11/09/23 Tricia Brock RN [address] [place] [address] [email or web address] Primary Infusion Nurse 09/08/23 Otilia Garcia RN [address] [place] [address] [email or web address]@[facility] Associate Infusion Nurse 10/20/23 System, Provider Not In, PhD [facility] [address] 12/01/23 12/26/23 Sherin Thomas, VINICIUS [address] [place] [address] [email or web address] Associate Infusion Nurse 12/20/23 04/11/24 Tri Burleson RN [address] [place] [address] [email or web address] Associate Infusion Nurse 05/15/24 Mildred Rust RN [address] [place] [address] [email or web address] Associate Infusion Nurse 05/15/24 Nanette Tavarez RN [address] [place] [address] MARINO@[email or web address] Primary Infusion Nurse 06/23/24 Alina Pop, VINICIUS [address] [place] [address] [email or web address] Associate Infusion Nurse 06/28/24 Luann House RN [address] [place] [address] Olga Lidia@[email or web address] Primary Infusion Nurse 10/02/24 Daxa Leija, RN [address] [place] [address] KIRA@[facility] Associate Infusion Nurse 01/31/25 documented as of this encounter Additional Source Comments The information contained in this document represents components of the legal health record. It is not the complete legal health record[facility]
--- OUTSIDE RECORDS SUMMARY | 2025-07-24 17:15 | XMS_ITS | Encounter Summary ---
Author Organization [facility] Address [address] [place] [address] Phone Care Team Providers Care Agricultural Plow Operator Name Role Phone Kimberly Bullard AIR SEALING TECHNICIAN Primary Care Provider [phone] Braulio Curran MD Unavailable [phone] Luli Castillo MD Unavailable [phone] Dominic Rivera MD , PhD Unavailable Luli Castillo MD Unavailable [phone] Nanette Hernandez RN Unavailable [email or web address] Tricia Brock RN Unavailable Omar [email or web address] u Otilia Garcia RN Unavailable [phone] System, Provider Not In PhD Unavailable Unav ailable System, Provider Not In PhD Primary Care Provide r Unavailable Keara Smith AIR SEALING TECHNICIAN Primary Care Provide r Sherin Thomas RN Unavailable [email or web address] u Tri Burleson RN Unavailable ирина [email or web address] Mildred Rust RN Unavailable ham [email or web address]. [facility] Nanette Tavarez RN Unavailable LIZZY [email or web address] STATION.[facility] Alina Pop RN Unavailable Parish [email or web address] STATION.[facility] Luann House RN Unavailable Batool [email or web address] STATION.[facility] Daxa Leija RN Unavailable Encounter Details Date Type Department Care Team (Late st Contact Info) Description 08/05/2023 Procedure Pass [facility] [address] [facility] [address] [place] [address] Social History Tobacco Use Types Packs/Day Years [...] st Contact Info) Description 01/18/2025 Procedure Pass [facility] [place] [address] [facility] [address] [place] [address] 01/18/2025 Procedure Pass [facility] [place] [address] [facility] [address] [facility] [address] [place] [address] 01/18/2025 Procedure Pass [facility] [place] [address] [facility] [address] [facility] [address] [place] [address] 01/18/2025 Procedure Pass [facility] Cardiac Echo 850 [address] [facility] [address] [place] [address] 08/07/2025 9:30 AM EDT Blood Draw Laboratory Services, [facility] [place] [address] [facility] [address] [facility] 3rd [place] [address] Dominic Rivera MD, PhD [address] [place] [address] 08/07/2025 10:30 AM EDT Office Visit [facility], [facility] at [address] [address] Fela Sandoval NP 450 [place] [address] [email or web address] 08/07/2025 10:30 AM EDT Nurse Only [facility], [facility] at [address] [address] Dominic Rivera MD, PhD [address] [place] [address] 08/07/2025 11:30 AM EDT Infusion Infusion Therapy Services [facility] at [address] [address] Dominic Rievra MD, PhD [address] [place] [address] [email or web address] Luann House, RN [address] [place] [address] Olga Lidia@[email or web address]. [facility] 08/24/2025 9:00 AM EST Appointment [facility] Cardiac Echo 850 850 [facility] 422 [place] [address] Dominic Rivera MD, PhD [address] [place] [address] 08/24/2025 10:15 AM EST Appointment [facility] [address] [facility] [address] [place] [address] Dominic Rivera MD, PhD [address] [place] [address] 08/24/2025 11:15 AM EST Appointment [facility] [address] [facility] [address] [place] [address] Dominic Rivera MD, PhD [address] [place] [address] 08/29/2025 10:30 AM EST Blood Draw Laboratory Services, [address], 2nd [place] [address] Dominic Rivera MD, PhD [address] [place] [address] 08/29/2025 11:30 AM EST Office Visit [facility], [address], [address]th [place] [address] Dominic Rivera MD, PhD [address] [place] [address] 08/29/2025 11:30 AM EST Nurse Only [facility], [address], [address]th [place] [address] Dominic Rivera MD, PhD [address] [place] [address] 08/29/2025 12:30 PM EST Infusion Infusion Therapy Services [facility], [facility] 450 [facility], 9th [place] [address] 08/31/2025 9:00 AM EST Telemedicine [facility] ENDOCRINE MEDICINE 45 [place] [address] Elkin Hogue MD 75 [facility] [address] [place] [address] ANNABELLE@[email or web address] documented as of this encounter Visit Diagnoses Not on filedocumented in this encounter Additional Health Concerns Assessment Noted Time PHQ-2 Depression Total Score: 0 05/07/20 23 8:20 AM EDT documented as of this encounter Care Teams Agricultural Plow Operator Relationship Specialty Start Date End Date Kimberly Bullard AIR SEALING TECHNICIAN [address] [place] [address] [email or web address] PCP - General Family Medicine 02/09/19 12/21/23 System, Provider Not In, PhD Partners [address] PCP - General 12/22/23 12/26/23 Keara Smith NP [address] [place] [address] PCP - General 12/27/23 Braulio Curran MD [address] [place] [address] [email or web address] Endocrinology 06/21/20 Luli Castillo MD [address] [place] [address] [email or web address] Internal Medicine 07/16/23 11/15/23 Dominic Rivera MD, PhD [address] [place] [address] Medical Oncology 07/16/23 Luli Castillo MD [address] [place] [address] [email or web address] [employer] Internal Medicine 07/29/23 Nanette Hernandez RN [address] [place] [address] Norma@[facility] Primary Infusion Nurse 07/29/23 11/09/23 Tricia Brock RN [address] [place] [address] [email or web address] Primary Infusion Nurse 09/08/23 Otilia Gacria RN [address] [place] [address] WALLY@[facility] Associate Infusion Nurse 10/20/23 System, Provider Not In, PhD [facility] [address] 12/01/23 12/26/23 Sherin Thomas, VINICIUS [address] [place] [address] [email or web address] Associate Infusion Nurse 12/20/23 04/11/24 Tri Burleson RN [address] [place] [address] [email or web address] Associate Infusion Nurse 05/15/24 Mildred Rust RN [address] [place] [address] [email or web address] Associate Infusion Nurse 05/15/24 Nanette Tavarez RN [address] [place] [address] MARINO@[facility] Primary Infusion Nurse 06/23/24 Alina Pop, VINICIUS [address] [place] [address] [email or web address]@[email or web address] Associate Infusion Nurse 06/28/24 Luann House RN [address] [place] [address] Olga Lidia@[facility] Primary Infusion Nurse 10/02/24 Daxa Leija, RN [address] [place] [address] KIRA@[email or web address] Associate Infusion Nurse 01/31/25 documented as of this encounter Additional Source Comments The information contained in this document represents components of the legal health record. It is not the complete legal health record.[facility]
--- OUTSIDE RECORDS SUMMARY | 2025-07-24 17:15 | XMS_ITS | Encounter Summary ---
Author Organization [facility] Address [address] [place] [address] Phone Care Team Providers Care Construction Grip Name Role Phone Braulio Curran MD Unavailable [phone] Dominic Rivera MD, PhD Unavailable Luli Castillo MD Unavailable [phone] Tricia Brock RN Unavailable Omar Berman@[email or web address] .[facility] Otilia Garcia RN Unavailable [phone] Keara Smith ACCOUNT SERVICES SPECIALIST Primary Care Provide r Tri Burleson RN Unavailable ирина [email or web address]. Mildred Sarkar RN Unavailable ham [email or web address] Nanette Tavarez RN Unavailable [email or web address] [email or web address].E Alina Mayorga RN Unavailable Parish [email or web address] Luann Lopes RN Unavailable Batool [email or web address] Daxa Soriano RN Unavailable [phone] Encounter Details Date Type Department Care Team (Late st Contact Info) Description 08/02/2024 Telephone [facility], [facility] [place] [facility] [place] [address] [facility] 4th [place] [address] Susanne Aguilar RN [address] [place] [address] [email or web address] Social History Tobacco Use Types Packs/Day Years [...] st Contact Info) Description 01/18/2025 Procedure Pass [facility] Outside Sales Account Manager [place] [address] [facility] [address] [place] [address] 01/18/2025 Procedure Pass [facility] [address] [facility] [address] [place] [address] 01/18/2025 Procedure Pass [facility] [address] [facility] [address] [place] [address] 01/18/2025 Procedure Pass [facility] Cardiac Echo 850 [address] [facility] [address] [place] [address] 08/07/2025 9:30 AM EDT Blood Draw Laboratory Services, [facility] [place] [place] 300 [facility] 3rd [place] [address] Dominic Rivera MD, PhD [address] [place], [place] [address] 08/07/2025 10:30 AM EDT Office Visit [facility], [facility] [place] [facility] [place] [address] [facility] 4th [place] [address] Fela Sandoval NP 450 [place] [address] [email or web address]. [facility] 08/07/2025 10:30 AM EDT Nurse Only [facility], [facility] [place] [address] [address] Dominic Rivera MD, PhD [address] [place] [address] 08/07/2025 11:30 AM EDT Infusion Infusion Therapy Services [facility] [place] [address] [address] Dominic Rivera MD, PhD [address] [place] [address] Luann House, VINICIUS 300 [place] [address] Olga Lidia@[email or web address]. [facility] 08/24/2025 9:00 AM EST Appointment [facility] Cardiac Echo 850 850 [facility] 422 [place] [address] Dominic Rivera MD, PhD [address] [place] [address] 08/24/2025 10:15 AM EST Appointment [facility] Outside Sales Account Manager Center 850 [facility] [address] [place] [address] Dominic Rivera MD, PhD [address] [place] [address] 08/24/2025 11:15 AM EST Appointment [facility] Outside Sales Account Manager [facility] [address] [facility] [address] [place] [address] Dominic Rivera MD, PhD [address] [place] [address] 08/29/2025 10:30 AM EST Blood Draw Laboratory Services, [facility] 450 [facility], 2nd [place] [address] Dominic Rivera MD, PhD [address] [place] [address] [email or web address] 08/29/2025 11:30 AM EST Office Visit [facility], [address], 9th [place] [address] Dominic Rivera MD, PhD [address] [place] [address] 08/29/2025 11:30 AM EST Nurse Only [facility], [address], 9th [place] [address] Dominic Rivera MD, PhD [address] [place] [address] 08/29/2025 12:30 PM EST Infusion Infusion Therapy Services [facility] [address], [address], 9th [place] [address] 08/31/2025 9:00 AM EST Telemedicine [facility] ENDOCRINE MEDICINE 45 [place] [address] Elkin Hogue MD [address] [place] [address] [address] [place] [address] ANNABELLE@[facility] documented as of this encounter Visit Diagnoses Not on filedocumented in this encounter Additional Health Concerns Assessment Noted Time PHQ-2 Depression Total Score: 0 05/07/20 8:20 AM EDT documented as of this encounter Care Teams Construction Grip Relationship Specialty Start Date End Date Keara Smith NP [address] [place] [address] PCP - General 12/27/23 Braulio Curran MD [email or web address] Endocrinology 06/21/20 Dominic Rivera MD, PhD [address] [place] [address] [email or web address] Medical Oncology 07/16/23 Luli Castillo MD [address] [place] [address] [email or web address] Internal Medicine 07/29/23 Tricia Brock RN 575 [place] [address] [email or web address]. [facility] Primary Infusion Nurse 09/08/23 Otilia Garcia RN 450 [place] [address] WALLY@[email or web address] Associate Infusion Nurse 10/20/23 Tri Burleson RN 300 [place] [address] [email or web address] Associate Infusion Nurse 05/15/24 Mildred Rust RN 300 [place] [address] [email or web address] Associate Infusion Nurse 05/15/24 Nanette Tavarez, RN 450 [place] [address] MARINO@[email or web address] Primary Infusion Nurse 06/23/24 Alina Pop, VINICIUS 450 [place] [address] [email or web address]@[email or web address] Associate Infusion Nurse 06/28/24 Luann House, VINICIUS [address] [place] [address] Olga Lidia@[facility] Primary Infusion Nurse 10/02/24 Daxa Leija, RN [address] [place] [address] KIRA@[email or web address].[employer] [facility] Associate Infusion Nurse 01/31/25 documented as of this encounter Additional Source Comments The information contained in this document represents components of the legal health record. It is not the complete legal health record.[facility]
--- OUTSIDE RECORDS SUMMARY | 2025-07-24 17:15 | XMS_ITS | Encounter Summary ---
Author Organization [facility] Address [address] [place] [address] Phone Care Team Providers Care Esthetic Dermatologist Name Role Phone Kimberly Bullard CASING SPLITTER Primary Care Provider [phone] Braulio Curran MD Unavailable [phone] Luli Castillo MD Unavailable [phone] Dominic Rivera MD , PhD Unavailable Luli Castillo MD Unavailable [phone] Nanette Hernandez RN Unavailable Norma@[email or web address] Tricia Brock RN Unavailable Omar [email or web address] u Otilia Garcia RN Unavailable [phone] System, Provider Not In PhD Unavailable Unav ailable System, Provider Not In PhD Primary Care Provide r Unavailable Keara Smith CASING SPLITTER Primary Care Provide r Sherin Thomas RN Unavailable [email or web address] u Tri Burleson RN Unavailable ирина [email or web address] Mildred Rust RN Unavailable ham [email or web address] Nanette Tavarez RN Unavailable LIZZY [email or web address] Alina Pop RN Unavailable Parish [email or web address] Luann House RN Unavailable Batool [email or web address]@[facility] Daxa Leija RN Unavailable [phone] Encounter Details Date Type Department Care Team (Late st Contact Info) Description 08/05/2023 Procedure Pass [facility] [place] [facility] [place] 300 [facility] 3rd [place] [address] Social History Tobacco Use Types Packs/Day Years [...] st Contact Info) Description 01/18/2025 Procedure Pass [facility] Manager Wound Issue [address] [facility] [address] [place] [address] 01/18/2025 Procedure Pass [facility] Care Issue [address] [facility] [address] [place] [address] 01/18/2025 Procedure Pass [facility] Manager Wound Issue [address] [facility] [address] [place] [address] 01/18/2025 Procedure Pass [facility] Cardiac Echo 850 [address] [facility] [address] [place] [address] 08/07/2025 9:30 AM EDT Blood Draw Laboratory Services, [facility] [place] [facility] [place] [address] [facility] 3rd [place] [address] Dominic Rivera MD, PhD [address] [place] [address] 08/07/2025 10:30 AM EDT Office Visit [facility], [facility] at [address] [address] Fela Sandoval NP 450 [place] [address] [email or web address] 08/07/2025 10:30 AM EDT Nurse Only [facility], [facility] at [address] [address] Dominic Rivera MD, PhD [address] [place] [address] 08/07/2025 11:30 AM EDT Infusion Infusion Therapy Services [facility] at [address] [address] Dominci Rivera MD, PhD [address] [place] [address] [email or web address] Luann House, VINICIUS 300 [place] [address] Olga Lidia@[facility]. [facility] 08/24/2025 9:00 AM EST Appointment [facility] Cardiac Echo 850 850 [facility] 422 [place] [address] Dominic Rivera MD, PhD [address] [place] [address] 08/24/2025 10:15 AM EST Appointment [facility] Manager Wound [facility] 850 [facility] [address] [place] [address] Dominic Rivera MD, PhD [address] [place] [address] 08/24/2025 11:15 AM EST Appointment [facility] 850 [facility] [address] [place] [address] Dominic Rivera MD, PhD [address] [place] [address] 08/29/2025 10:30 AM EST Blood Draw Laboratory Services, [address], 2nd [place] [address] Dominic Rivera MD, PhD [address] [place] [address] 08/29/2025 11:30 AM EST Office Visit [facility], [address], [address]th [place] [address] Dominic Rivera MD, PhD [address] [place] [address] 08/29/2025 11:30 AM EST Nurse Only [facility], [address], [address]th [place] [address] Dominic Rivera MD, PhD [address] [place] [address] 08/29/2025 12:30 PM EST Infusion Infusion Therapy Services [facility], [facility] 450 [facility], 9th [place] [address] 08/31/2025 9:00 AM EST Telemedicine [facility] ENDOCRINE MEDICINE 45 [place] [address] Elkin Hogue MD 75 [facility] [address] [place] [address] ANNABELLE@[email or web address] documented as of this encounter Visit Diagnoses Not on filedocumented in this encounter Additional Health Concerns Assessment Noted Time PHQ-2 Depression Total Score: 0 05/07/20 23 8:20 AM EDT documented as of this encounter Care Teams Esthetic Dermatologist Relationship Specialty Start Date End Date Kimberly Bullard, ZENOBIA [address] [place] [address] [email or web address] PCP - General Family Medicine 02/09/19 12/21/23 System, Provider Not In, PhD Partners [address] [address] PCP - General 12/22/23 12/26/23 Keara Smith NP [address] [place] [address] PCP - General 12/27/23 Braulio Curran MD [address] [place] [address] [email or web address] Endocrinology 06/21/20 Luli Castillo MD [address] [place] [address] [email or web address] 07/16/23 11/15/23 Dominic Rivera MD, PhD [address] [place] [address] Medical Oncology 07/16/23 Luli Castillo MD [address] [place] [address] [email or web address] Internal Medicine 07/29/23 Nanette Hernandez RN [address] [place] [address] Norma@[facility] Primary Infusion Nurse 07/29/23 11/09/23 Tricia Brock RN [address] [place] [address] Katya@[email or web address] Primary Infusion Nurse 09/08/23 Otilia Garcia RN [address] [place] [address] [email or web address] Associate Infusion Nurse 10/20/23 System, Provider Not In, PhD Partners [address] 12/01/23 12/26/23 Sherin Thomas, VINICIUS [address] [place] [address] [email or web address] Associate Infusion Nurse 12/20/23 04/11/24 Tri Burleson RN [address] [place] [address] [email or web address] Associate Infusion Nurse 05/15/24 Mildred Rust RN [address] [place] [address] [email or web address] Associate Infusion Nurse 05/15/24 Nanette Tavarez RN [address] [place] [address] MARINO@[facility] Primary Infusion Nurse 06/23/24 Alina Pop, VINICIUS [address] [place] [address] Vicente@[facility] Associate Infusion Nurse 06/28/24 Luann House RN [address] [place] [address] Olga Lidia@[facility] Primary Infusion Nurse 10/02/24 Daxa Leija, RN [address] [place] [address] KIRA@[facility] Associate Infusion Nurse 01/31/25 documented as of this encounter Additional Source Comments The information contained in this document represents components of the legal health record. It is not the complete legal health record.[facility]
--- OUTSIDE RECORDS SUMMARY | 2025-07-24 17:15 | XMS_ITS | Encounter Summary ---
Author Organization [facility] Address [address] [place] [address] Phone Care Team Providers Care Animal Shelter Supervisor Name Role Phone Kimberly Bullard DRIVER GUIDE Primary Care Provider [phone] Braulio Curran MD Unavailable [phone] Luli Castillo MD Unavailable [phone] Dominic Rivera MD , PhD Unavailable Luli Castillo MD Unavailable [phone] Nanette Hernandez RN Unavailable [email or web address]@[facility] Tricia Brock RN Unavailable Omar [email or web address] u Otilia Garcia RN Unavailable [phone] System, Provider Not In PhD Unavailable Unav ailable System, Provider Not In PhD Primary Care Provide r Unavailable Keara Smith DRIVER GUIDE Primary Care Provide r Sherin Thomas RN Unavailable [email or web address] u Tri Burleson RN Unavailable ирина [email or web address] Mildred Rust RN Unavailable ham [email or web address] Nanette Tavarez RN Unavailable LIZZY [email or web address]@[email or web address] Alina Pop RN Unavailable Parish [email or web address] Luann House RN Unavailable Batool [email or web address] Daxa Leija RN Unavailable [phone] Encounter Details Date Type Department Care Team (Late st Contact Info) Description 08/05/2023 Procedure Pass [facility] Cancer [facility], MRI 300 [facility] 4th [place] [address] Social History Tobacco Use Types Packs/Day Years [...] st Contact Info) Description 01/18/2025 Procedure Pass [facility] Push Connector Assembler [place] 850 [facility] [address] [place] [address] 01/18/2025 Procedure Pass [facility] [place] 850 [facility] [address] [place] [address] 01/18/2025 Procedure Pass [facility] Push Connector Assembler [place] 850 [facility] [address] [place] [address] 01/18/2025 Procedure Pass [facility] Cardiac Echo 850 850 [facility] [address] [place] [address] 08/07/2025 9:30 AM EDT Blood Draw Laboratory Services, [facility] [place] [facility] [place] 300 [facility] 3rd [place] [address] Dominic Rievra MD, PhD [address] [place] [address] 08/07/2025 10:30 AM EDT Office Visit [facility], [facility] at [address] [address] Fela Sandoval NP [address] [place] [address] [email or web address] 08/07/2025 10:30 AM EDT Nurse Only [facility], [facility] at [address] [address] Dominic Rivera MD, PhD [address] [place] [address] 08/07/2025 11:30 AM EDT Infusion Infusion Therapy Services [facility] at [address] [address] Dominic Rivera MD, PhD [address] [place] [address] [email or web address] Luann House, VINICIUS [address] [place] [address] Olga Lidia@[email or web address]. [facility] 08/24/2025 9:00 AM EST Appointment [facility] Cardiac Echo 850 850 [facility] 422 [place] [address] Dominic Rivera MD, PhD [address] [place] [address] 08/24/2025 10:15 AM EST Appointment [facility] Push Connector Assembl[facility] 850 [facility] [address] [place] [address] Dominic Rivera MD, PhD [address] [place] [address] 08/24/2025 11:15 AM EST Appointment [facility] Push Connector As[facility] 850 [facility] [address] [place] [address] Dominic Rivera MD, PhD [address] [place] [address] [email or web address] 08/29/2025 10:30 AM EST Blood Draw Laboratory Services, [address], 2nd [place] [address] Dominic Rivera MD, PhD [address] [place] [address] 08/29/2025 11:30 AM EST Office Visit [facility], [address], [address]th [place] [address] Dominic Rivera MD, PhD [address] [place] [address] 08/29/2025 11:30 AM EST Nurse Only [facility], [address], [address]th [place] [address] Dominic Rivera MD, PhD [address] [place] [address] 08/29/2025 12:30 PM EST Infusion Infusion Therapy Services [place], [facility] 450 [facility], 9th [place] [address] 08/31/2025 9:00 AM EST Telemedicine [facility] ENDOCRINE MEDICINE [address] [place] [address] Elkin Hogue MD [address] [facility] [address] [place] [address] ANNABELLE@[email or web address] documented as of this encounter Visit Diagnoses Not on filedocumented in this encounter Additional Health Concerns Assessment Noted Time PHQ-2 Depression Total Score: 0 05/07/20 23 8:20 AM EDT documented as of this encounter Care Teams Animal Shelter Supervisor Relationship Specialty Start Date End Date Kimbrely Bullard, ZENOBIA [address] [place] [address] [email or web address] PCP - General Family Medicine 02/09/19 12/21/23 System, Provider Not In, PhD Partners [address] [address] PCP - General 12/22/23 12/26/23 Keara Smith NP [address] [place] [address] PCP - General 12/27/23 Braulio Curran MD [address] [place] [address] [email or web address] Endocrinology 06/21/20 Luli Castillo MD [address] [place] [address] [email or web address] 07/16/23 11/15/23 Dominic Rivera MD, PhD [address] [place] [address] Medical Oncology 07/16/23 Luli Castillo MD [address] [place] [address] [email or web address] [employer] [facility] Internal Medicine 07/29/23 Nanette Hernandez RN [address] [place] [address] [email or web address] Primary Infusion Nurse 07/29/23 11/09/23 Tricia Brock RN [address] [place] [address] [email or web address] Primary Infusion Nurse 09/08/23 Otilia Garcia RN [address] [place] [address] [email or web address] Associate Infusion Nurse 10/20/23 System, Provider Not In, PhD Partners [address] 12/01/23 12/26/23 Sherin Thomas, VINICIUS [address] [place] [address] [email or web address] Associate Infusion Nurse 12/20/23 04/11/24 Tri Burleson RN [address] [place] [address] [email or web address] beds at [facility] Associate Infusion Nurse 05/15/24 Mildred Rust RN [address] [place] [address] [email or web address] Associate Infusion Nurse 05/15/24 Nanette Tavarez RN [address] [place] [address] MARINO@[facility] Primary Infusion Nurse 06/23/24 Alina Pop, VINICIUS [address] [place] [address] Vicente@[facility] Associate Infusion Nurse 06/28/24 Luann House RN [address] [place] [address] Olga Lidia@[facility] Primary Infusion Nurse 10/02/24 Daxa Leija, RN [address] [place] [address] KIRA@[facility] Associate Infusion Nurse 01/31/25 documented as of this encounter Additional Source Comments The information contained in this document represents components of the legal health record. It is not the complete legal health record.[facility]
--- OUTSIDE RECORDS SUMMARY | 2025-07-24 17:15 | XMS_ITS | Encounter Summary ---
Author Organization [facility] Address [address] [place] [address] Phone Care Team Providers Care Bowling Ball Engraver Name Role Phone Kimberly Bullard BED RUBBER Primary Care Provider [phone] Braulio Curran MD Unavailable [phone] Luli Castillo MD Unavailable [phone] Dominic Rivera MD , PhD Unavailable Luli Castillo MD Unavailable Nanette Hernandez RN Unavailable [email or web address] Tricia Brock RN Unavailable Omar [email or web address] u Otilia Garcia RN Unavailable [phone] System, Provider Not In PhD Unavailable Unav ailable System, Provider Not In PhD Primary Care Provide r Unavailable Keara Smith BED RUBBER Primary Care Provide r Sherin Thomas RN Unavailable kathleen [email or web address] u Tri Burleson RN Unavailable ирина [email or web address] Mildred Rust RN Unavailable ham [email or web address]. [facility] Nanette Tavarez RN Unavailable LIZZY [email or web address].[place].[facility] Alina Pop RN Unavailable Parish [email or web address].[facility] Luann House RN Unavailable Batool [email or web address].[facility] Daxa Leija RN Unavailable Encounter Details Date Type Department Care Team (Late st Contact Info) Description 08/05/2023 Procedure Pass [facility] And Access[facility] 850 [facility] [address] [place] [address] Social History Tobacco Use Types Packs/Day Years [...] st Contact Info) Description 01/18/2025 Procedure Pass [facility] Fabric And Accessories Estimator [place] [address] [facility] [address] [place] [address] 01/18/2025 Procedure Pass [facility] Fabric And Accessories Estimator [place] 850 [facility] [address] [place] [address] 01/18/2025 Procedure Pass [facility] Fabric And Accessories Estimator [place] 850 [facility] [address] [place] [address] 01/18/2025 Procedure Pass [facility] Cardiac Echo 850 850 [facility] [address] [place] [address] 08/07/2025 9:30 AM EDT Blood Draw Laboratory Services, [facility] [place] [facility] [place] 300 [facility] 3rd [place] [address] Dominic Rivera MD, PhD [address] [place] [address] 08/07/2025 10:30 AM EDT Office Visit [facility] for Thor[facility], [facility] at [address] [address] Fela Sandoval NP 450 [place] [address] [email or web address] 08/07/2025 10:30 AM EDT Nurse Only [facility] for [facility], [facility] at [address] [address] Dominic Rivera MD, PhD [address] [place] [address] 08/07/2025 11:30 AM EDT Infusion Infusion Therapy Services [facility] at [address] [address] Dominic Rivera MD, PhD [address] [place] [address] [email or web address] Luann House, RN 300 [place] [address] Olga [email or web address]. [facility] 08/24/2025 9:00 AM EST Appointment [facility] Cardiac Echo 850 850 [facility] 422 [place] [address] Dominic Rivera MD, PhD [address] [place] [address] 08/24/2025 10:15 AM EST Appointment [facility] And Access[facility] 850 [facility] [address] [place] [address] Dominic Rivera MD, PhD [address] [place] [address] 08/24/2025 11:15 AM EST Appointment [facility] 850 [facility] [address] [place] [address] Dominic Rivera MD, PhD [address] [place] [address] 08/29/2025 10:30 AM EST Blood Draw Laboratory Services, [address], 2nd [place] [address] Dominic Rivera MD, PhD [address] [place] [address] 08/29/2025 11:30 AM EST Office Visit [facility], [address], [address]th [place] [address] Dominic Rivera MD, PhD [address] [place] [address] 08/29/2025 11:30 AM EST Nurse Only [facility], [address], [address]th [place] [address] Dominic Rivera MD, PhD [address] [place] [address] 08/29/2025 12:30 PM EST Infusion Infusion Therapy Services [place] [facility], [facility] 450 [facility], 9th [place] [address] 08/31/2025 9:00 AM EST Telemedicine [facility] ENDOCRINE MEDICINE 45 [place] [address] Elkin Hogue MD 75 [facility] [address] [place] [address] ANNABELLE@[email or web address] documented as of this encounter Visit Diagnoses Not on filedocumented in this encounter Additional Health Concerns Assessment Noted Time PHQ-2 Depression Total Score: 0 05/07/20 23 8:20 AM EDT documented as of this encounter Care Teams Bowling Ball Engraver Relationship Specialty Start Date End Date Kimberly [place]ard BED RUBBER [address] [place] [address] [email or web address] PCP - General Family Medicine 02/09/19 12/21/23 System, Provider Not In, PhD [facility] [address] PCP - General 12/22/23 12/26/23 Keara Smith NP [address] [place] [address] PCP - General 12/27/23 Braulio Curran MD [address] [place] [address] [email or web address] Endocrinology 06/21/20 Luli Castillo MD [address] [place] [address] [email or web address] Internal Medicine 07/16/23 11/15/23 Dominic Rivera MD, PhD [address] [place] [address] Medical Oncology 07/16/23 Luli Castillo MD [address] [place] [address] [email or web address] [employer] Internal Medicine 07/29/23 Nanette Hernandez RN [address] [place] [address] Norma@[email or web address] Primary Infusion Nurse 07/29/23 11/09/23 Tricia Brock RN [address] [place] [address] [email or web address] Primary Infusion Nurse 09/08/23 Otilia Garcia RN [address] [place] [address] [email or web address] Associate Infusion Nurse 10/20/23 System, Provider Not In, PhD Partners [address] 12/01/23 12/26/23 Sherin Thomas, VINICIUS [address] [place] [address] [email or web address] Associate Infusion Nurse 12/20/23 04/11/24 Tri Burleson RN [address] [place] [address] [email or web address] Associate Infusion Nurse 05/15/24 Mildred Rust RN [address] [place] [address] [email or web address] Associate Infusion Nurse 05/15/24 Nanette Tavarez RN [address] [place] [address] MARINO@[facility] Primary Infusion Nurse 06/23/24 Alina Pop, VINICIUS [address] [place] [address] Vicente@[facility] Associate Infusion Nurse 06/28/24 Luann House RN [address] [place] [address] Olga Lidia@[facility] Primary Infusion Nurse 10/02/24 Daxa Leija, RN [address] [place] [address] [email or web address] Associate Infusion Nurse 01/31/25 documented as of this encounter Additional Source Comments The information contained in this document represents components of the legal health record. It is not the complete legal health record.[facility]
--- OUTSIDE RECORDS SUMMARY | 2025-07-24 17:16 | XMS_ITS | Encounter Summary ---
Author Organization [facility] Address [address] [place] [address] Phone Care Team Providers Care Gear Lapping Machine Operator Name Role Phone Braulio Curran MD Unavailable [phone] Dominic Rivera MD, PhD Unavailable Luli Castillo MD Unavailable Tricia Brock RN Unavailable Omar [email or web address] Otilia Garcia RN Unavailable [phone] Keara Smith CHICKEN AND FISH CLEANER Primary Care Provide r Tri Burleson RN Unavailable ирина [email or web address]. Mildred Sarkar RN Unavailable ham [email or web address] Nanette Tavarez RN Unavailable LIZZY [email or web address] Alina Mayorga RN Unavailable Parish [email or web address] Luann Lopes RN Unavailable Batool [email or web address] Daxa Soriano RN Unavailable [phone] Encounter Details Date Type Department Care Team (Late st Contact Info) Description 01/18/2025 Procedure Pass [facility] Cardiac Echo 850 850 [facility] [address] [place] [id number] Social History Tobacco Use Types Packs/Day Years [...] Info) Description 01/18/2025 Procedure Pass [facility] [place] 850 [facility] [address] [place] [address] 01/18/2025 Procedure Pass [facility] 850 [facility] [address] [place] [address] 01/18/2025 Procedure Pass [facility] 850 [facility] [address] [place] [address] 01/18/2025 Procedure Pass [facility] Cardiac Echo 850 850 [facility] [address] [place] [address] 08/07/2025 9:30 AM EDT Blood Draw Laboratory Services, [facility] at [address] [address] Dominic Rivera MD, PhD [address] [place], [place] [address] 08/07/2025 10:30 AM EDT Office Visit [facility], [facility] at [address] [address] Fela Sandoval NP 450 [place] [address] [email or web address] 08/07/2025 10:30 AM EDT Nurse Only [facility], [facility] at [address] [address] Dominic Rivera MD, PhD [address] [place] [address] 08/07/2025 11:30 AM EDT Infusion Infusion Therapy Services [place], [facility] at [place] [address] [address] Dominic Rivera MD, PhD [address] [place] [address] [email or web address] Luann House RN [address] [place] [address] Olga Lidia@[facility]. [facility] 08/24/2025 9:00 AM EST Appointment [facility] Cardiac Echo [address] [address] Dominic Rivera MD, PhD [address] [place] [address] 08/24/2025 10:15 AM EST Appointment [facility] Vegetable Preparer Center [address] [place] [address] Dominic Rivera MD, PhD [address] [place] [address] 08/24/2025 11:15 AM EST Appointment [facility] Vegetable Preparer Center [address] [place] [address] Dominic Rivera MD, PhD [address] [place] [address] [email or web address] 08/29/2025 10:30 AM EST Blood Draw Laboratory Services, [facility] 450 [facility], 2nd [place] [address] Dominic Rivera MD, PhD [address] [place] [address] 08/29/2025 11:30 AM EST Office Visit [facility] for Thoracic Oncology, [address] [place] [address] Dominic Rivera MD, PhD [address] [place] [address] [email or web address] 08/29/2025 11:30 AM EST Nurse Only [facility] for Thoracic Oncology, [address], [address]th [place] [address] Dominic Rivera MD, PhD [address] [place] [address] [email or web address] 08/29/2025 12:30 PM EST Infusion Infusion Therapy Services [address] [place] [address] 08/31/2025 9:00 AM EST Telemedicine [facility] ENDOCRINE MEDICINE 45 [place] [address] Elkin Hogue MD [address] [place] [address] [address] [place] [address] ANNABELLE@[facility] documented as of this encounter Visit Diagnoses Not on filedocumented in this encounter Additional Health Concerns Assessment Noted Time PHQ-2 Depression Total Score: 0 05/07/20 8:20 AM EDT documented as of this encounter Care Teams Gear Lapping Machine Operator Relationship Specialty Start Date End Date Keara Smith NP [address] [place] [address] PCP - General 12/27/23 Braulio Curran MD [email or web address] Endocrinology 06/21/20 Dominic Rivera MD, PhD [address] [place] [address] [email or web address] Medical Oncology 07/16/23 Luli Castillo MD [address] [place] [address] [email or web address] Medicine 07/29/23 Tricia Brock, RN [address] [place] [address] [email or web address] Primary Infusion Nurse 09/08/23 Otilia Garcia RN [address] [place] [address] WALLY@[facility] Associate Infusion Nurse 10/20/23 Tri Burleson RN 300 [place] [address] [email or web address] Associate Infusion Nurse 05/15/24 Mildred Rust RN 300 [place] [address] [email or web address] Associate Infusion Nurse 05/15/24 Nanette Tavarez RN 450 [place] [address] MARINO@[facility] Primary Infusion Nurse 06/23/24 Alina Pop, VINICIUS 450 [place] [address] Vicente@[email or web address] Associate Infusion Nurse 06/28/24 Luann House, VINICIUS [address] [place] [address] Olga Lidia@[facility] Primary Infusion Nurse 10/02/24 Daxa Leija RN [address] [place] [address] KIRA@[email or web address] Associate Infusion Nurse 01/31/25 documented as of this encounter Additional Source Comments The information contained in this document represents components of the legal health record. It is not the complete legal health record.[facility]
--- OUTSIDE RECORDS SUMMARY | 2025-07-24 17:16 | XMS_ITS ---
Author Organization [facility] Address [address] [place] [address] Phone Care Team Providers Care Draw Machine Operator Name Role Phone Braulio Curran MD Unavailable Dominic Rivera MD, PhD Unavailable Luli Castillo MD Unavailable [phone] Tricia Brock RN Unavailable [email or web address] Otilia Garcia RN Unavailable [phone] Keara Smith VACUUM BOTTLE ASSEMBLER Primary Care Provide r Tri Burleson RN Unavailable ирина [email or web address] Mildred Sarkar RN Unavailable ham [email or web address] Nanette Tavarez RN Unavailable [email or web address] [email or web address] Mayorga RN Unavailable Parish [email or web address] Luann Lopes RN Unavailable [email or web address] Daxa Soriano RN Unavailable [phone] Active Problems Problem Noted Date Diagnosed Date Pancytopenia 01/03/2025 Assessment & Plan (01/03/2025 10:54 AM EDT): WBC 3, H/H 11.8/34, plts 111 (baseline WBC ~3, hmu23-10, HCT 37-40, 100s-140s)Hemodynamically stable. No reported episodes of bleeding. S/p C25D1 of DFCI protocol 20-601 with the HER3 ADC patritumab deruxtecan monotherapy Per #lungCa /. Started on aggressive IVF per #HyperCa, with down trend to 1.96, 9.9/30.5 and 94 respectively. Given clinical stability, all counts down, etiology most likely 2/2 to dilutional effect from IVF. Will continue to monitor - Trend CBC qd - Consider additonal w/u if acutely worsening, e/o bleeding or clinical change - Transfuse to maintain HCT >21, Hgb >7 Lung cancer metastatic to bone 01/02/2025 Assessment & Plan (01/03/2025 10:54 AM EDT): Initially diagnosed 2021 with 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of the lung with an EGFR exon 19 deletion mutation. Extensive bone metastasis at diagnosis. Treated with first- line osimertinib (11/07/21-07/2024) c/b POD so started DFCI protocol 20-601 with the HER3 ADC patritumab deruxtecan monotherapy 07/2023 maintained on to date C25D1 12/13, C26 due on day of admit cancelled iso #hyperCa issues. Plan is for considering more cancer directed treatment. Primary Onc: Dominic Kaufman MD - onc plan per primary onc: Aware of admit - Moderate/High Risk for DVT. low molecular weight heparin - Conitnue home vit D, pepcid PRN, MVI, celebrex PRN - Start tylenol 650mg q6h PRN for COREY - Dispo: likely home w/out services - low threshold for PT eval if RN concern Assessment & Plan (01/02/2025 5:10 PM EDT): Initially diagnosed 2021 with 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of the lung with an EGFR exon 19 deletion mutation. Extensive bone metastasis at diagnosis. Treated with first- line osimertinib (11/07/21-07/2024) c/b POD so started [facility] protocol -60 with the HER3 ADC patritumab deruxtecan monotherapy 07/2023 maintained on to date C25D1 12/13, C26 due on day of admit cancelled iso #hyperCa issues. Plan is for considering more cancer directed treatment. Primary Onc: Dominic Kaufman MD - onc plan per primary onc: aware of admit - Moderate/High Risk for DVT. low molecular weight heparin -c/h vit D, pepcid PRN, MVI, celebrex PRN Hyperparathyroidism 11/21/2024 Overview (11/21/2024): Evaluated in the past for enlarged calcium, previously saw surgeon for enlarged parathyroid nodule, EGFR-related lung cancer 07/20/2023 Assessment & Plan (06/08/2025 9:12 AM EDT): In summary, Huma is a noemi 75 yo F with advanced EGFR mutation lung cancer s/p 1L osimertinib, now on 2L patritumab deruxteecan on [facility] -60 here to coninue with C33. Overall she has been doing really well from the standpoint of side effects from patritumab. She does have a residual sore on her tongue which is slow to heal but this has not been impacting her PO/fluid intake. I reviewed her labs which show stably low WBC and plts, both acceptable for treatment today. AST/ALT are gr1, but similar to prior and adequate to proceed. I also reviewed her restaging scans with Radiology which overall show stable disease. I did share with Huma the results of the bone scan suggesting a healing fracture R 6th rib, but no associated pain. I also reviewed the finding of possible early peritoneal disease, but this appears stable and also is not associated with symptoms. Plan to monitor closely as she continues on patritumab. Plan: - She will proceed with patritumab deruxtecan U3-1402 on clinical trial 20-60 - Continue mouth washes which have been helpful - She has h/o hypercalcemia (admitted 01/02 - 01/04/2025 for hypercalcemia, managed with IV fluids, denosumab, and calcitonin), but Ca is normal today at 10.3 - Per her asbestos shingle inspector, continue her on denosumab 60 mg q6 months, next dose due 07/06/25. - Known umbilical hernia which has been stable. Advised to avoid heavy lifting to prevent exacerbation of the condition. If the hernia becomes tender and painful, surgical intervention may be necessary. - Monitor for any new abdominal symptoms given abd CT findings of possible early peritoneal disease - Soft cystic lesion near L wrist of uncertain etiology - monitor - Skin moisturizers as needed - Return to clinic in 3 weeks to continue with treatment Acquired hallux valgus 05/13/2023 Primary malignant neoplasm o f left lung metastatic to other site 01/07/2022 Scapulalgia 10/16/2020 Spinal stenosis of lumbar re gion without neurogenic claudication 04/16/2020 Assessment & Plan (02/17/2021 9:06 AM EDT): Continue meloxicam 7.5 mg PO BID with food. Continue Physical therapy stretching, strengthening exercises. Sicca syndrome 04/16/2020 Assessment & Plan (02/17/2021 9:07 AM EDT): Continue OTC therapy for Sicca syndrome dryness relief. Chronic pain of left knee 12/26/2019 Elevated blood pressure read ing without diagnosis of hypertension 12/26/2019 Overweight 12/26/2019 Dry eyes 06/27/2019 Hypercalcemia 06/27/2019 Assessment & Plan (01/03/2025 11:42 AM EDT): Per chart review, longstanding hypercalcemia circa 02/2019 w/ inappropriately normal and/or elevated PTH in 06/2019 w/ relatively normal renal function - preceded diagnosis of #lung cancer. Notably also dx w/ osteoporosis; prior tx w/ denosumab by her oncologist for years (120 mg every month)DXA scan showed improvement and denosumab stopped about 1 year ago (~2023) and since stopping cCa serially elevated to 11-12s. S/p endocrine E consult (11/2024); concern for primary hyperparathyroidism and did not meet criteria for parathyroidectomy given her age is >50, her serum calcium not at least 1 above the ULN, and no documented hx of osteoporosis or renal stones with normal renal function. Established w/ local endocrine team; hesitant to treat hypercalcemia per pt, but was referred to endocrine surgery for 01/16/25 to further discuss the utility of parathyroidectomy. Seen in clinic for routine follow up for C26D1 per #lungca; reported feeling poorly with new constipation, excessive thirst, lower abdominal pain, and muscle weakness ( I feel wobbly ), and increasing diffuse bone pain ?related to arthritis (nothing focal), denies F/C falls. VSS, but lab revealed Ca 14.3. Hydration started transferred to ED for further evaluation/TX, and started on IVF. Endo consulted with additional work up sent; repeat PTHrp, Vit D, bone specific alkaline phosphatase level, SPEP w/ immunofixation, UPEP, SFLC all pending. Spot urine calcium, urine creatinine, and urine phosphorus levels with urine calcium to urine creatinine ratio of 0.90 and FePO4 of 17.18%. Per endo given her concurrently elevated PTH level, likely component of primary hyperparathyroidism, though w/ known bone metastases and was being treated with denosumab in the past and on the denosumab her calcium levels were kept in check. Possible that give denosumab holiday and progression of bony dx (NM scan 12/13/24 w/ POD) her hyperCa is multifactorial from hypercalcemia of malignancy from her osteolytic bone lesions combined with hypercalcemia from her primary hyperparathyroidism. Acute worsening of Ca may be 2/2 to worsening renal function and/or denosumab wearing off/combined w/ progressive bone mets. Started on isotonic fluids @200cc/hr (01/02) w/ improvement though continued elevation (cCa 13.1, ionized 1.75). Plan resuming antiresoprtive therapy w/ denosumab x1 120mg and bridging improvement with calcitonin therapy 4units/kg x12h, and continued IVF therapy. - Appreciated endo recommendations; as unable to obtain volume resuscitatation by mouth for discharge will give denosumab 01/03, and use calcitonin as bridge given denosumab delayed effect - f/u PTHrP, 1-25 OH vitamin D, bone specific alkaline phosphatase level, SPEP w/ immunofixation, UPEP and SFLC - Continue NS infusion at 200 ccs/hr (goal UOP ~100-150cc/hr); hold if signs of volume overload - Start calcitonin 4 IU/kg q12h x48 per endo (D1 01/03) - Give Denosumab 120mg SC x1 (01/03) - Monitor corrected Ca/IoCa BID - FYI: given unclear etiology of hyperCa (hyperparathyroidism vs bony mets) would benefit from parathyroidectomy (will be seen 01/16 for OP consult) - if Ca improves s/p resection then likely primarily mediated through her hyperparathyroidism. If Ca does not improved then would suggest 2/2 by osteolytic bone lesions. IF unable to resect; then she should be treated as though she has hypercalcemia of malignancy, since she has progression her bony metastases and we cannot rule this out, with antiresorptive therapy. - Continue tele - Avoid tums/calcium supplements - Monitor strict I/O hypercalcemia - Bowel regimen: start senna/miralax PRN Assessment & Plan (01/02/2025 5:10 PM EDT): Per chart review, longstanding hypercalcemia dating back early 02/2019 with inappropriately normal and/or elevated PTH levels dating back to 06/2019 with relatively normal renal function which preceded her diagnosis of lung cancer. S/p endocrine E consult 11/2024 where it was felt most likely she had primary hyperparathyroidism and did not meet criteria for parathyroidectomy given her age is >50, her serum calcium was not at least 1 above the ULN, and she had no documented history of osteoporosis or renal stones with normal renal function. She was also previously diagnosed with osteoporosis for which she was previously treated with denosumab by her oncologist for years(120 mg every month) and that a DXA scan showed improvement so the denosumab was stopped about 1 year ago and since stopping cCa serially elevated to 11-12s. Established with a local asbestos shingle inspector who has been hesitant to treat her hypercalcemia per pt, but was referred to endocrine surgery for 01/16/25 to further discuss the utility of parathyroidectomy. On admit she intially presented to lung clinic as routine follow-up/C26D1 protocol considerations where she mentioned feeling overall poorly with new constipation, excessive thirst, lower abdominal pain, and muscle weakness ( I feel wobbly ). VSS, but lab revealed Ca 14.3. Hydration started and 911 called to transport to ED for further evaluation and continued treatment. Upon ED arrival completed 700cc NS at the time and she confirmed tolerated this clinical, trial however she has been having increasing fatigue, unsteadiness when walking, increasing thirst, constipation, lower abdominal pain that she believes is due to constipation(last small Bm this AM). She further added increasing diffuse bone pain she feels is due to her ongoing arthritis, denied focal area of bone pain, fevers, falls, or traumatic injury. Endo consulted, reviewed pt has chronic hypercalcemia dating back years with inappropriate PTH levels and low phos levels suggesting primary hyperparathyroidism, previously treated with denosumab(at times with high doses and monthly doses, presumptively for malignancy and bone involvement which may have masked some of the severity of the hypercalcemia). Most recent cCa trend 12-14.5 seems disproportionately high for a PTH level of 50-75 possibly related to downtrend in eGFR which may account for the sudden rise in serum Ca(vs primary hyperparathyroidism iso bone mets). Primary haulpak driver of hyperCa presumed primary hyperparathyroid vs hyperCa of malignancy. -appreciated endo consult recs -baseline ECG and monitor on telemity -check PTHrP, 1-25 OH vitamin D, bone specific alkaline phosphatase level, SPEP w/ immunofixation, UPEP, SFLC. Spot urine calcium, urine creatinine, and urine phosphorus levels with urine calcium to urine creatinine ratio of 0.90 and FePO4 of 17.18% -NS infusion at 200 ccs/hr with the goal of targeting UOP of ~100-150 ccs/hr. If she is not achievining this goal UOP with the NS infusion at 200 ccs/hr, then the infusion can be increased to 300 ccs/hr as long as the patient is not developing evidence of volume overload. -monitor corrected Ca/IoCa BID -avoid pamidronate given primary hyperparathyroid which may require parathyroidectomy which could be delayed if given bishphosphanates -defer calcitonin 4 IU/kg for now per endo -consider resumption of denosumab 120mg SC q4wk -avoid tums/calcium supplements -monitor strict I/O hypercalcemia -bowel regimen: start senna/miralax PRN Assessment & Plan (02/17/2021 9:03 AM EDT): Patient will continue to follow with Endocrine for Hypercalcemia monitoring and therapy. Age-related osteoporosis margarita thomas current pathological fracture 03/09/2019 Assessment & Plan (02/17/2021 9:05 AM EDT): Patient will continue Prolia injections for Osteoporosis. Last injection in December. Due in June. Continue Vitamin D 1000 IU daily. Obstructive sleep apnea 03/09/2019 HLD (hyperlipidemia) 03/09/2019 Assessment & Plan (01/03/2025 10:27 AM EDT): Chronic. Managed on home crestor 10mg. - Continue home statin 10mg qd Assessment & Plan (01/02/2025 5:10 PM EDT): -c/h statin Non-rheumatic mitral regurgitation 03/09/2019 Current Treatment and Therapy Plans 20601: ARM 2: DOSE EXPANSION 5.6 MG/KG U3-1402 IV Q3W* Plan Start Date: 07/29/2023 Plan Provider:Dominic Rivera MD, PhD Linked Problems Primary malignant neoplasm o f left lung metastatic to other siteEGFR-related lung cancer Treatment Medications Current Day (Day 1 , Cycle 36 - Planned for 08/08/2025) ID-HER3-DXd <patritumab deru xtecan; U3-1402> (20-601) IVPB Bag ID-HER3-DXd <patritumab deruxtecan; U3-1402> (20-601) 440 mg in D5W 250 mL IVPB ACCESS AND FLUSH??(DFCI)* Plan Start Date:06/26/2025 Linked Problems EGFR-related lung cancer Treatment Medications No medications scheduled. DENOSUMAB (PROLIA)* Plan Start Date:06/26/2025 Plan Provider:Fela Sandoval NP Linked Problems EGFR-related lung cancerHype rparathyroidism Treatment Medications No medications scheduled. Past Treatment and Therapy Plans Oncology Therapy Plan Plan Name Start Date Discontinue Date Treatment Medications Discontinue Reason Plan Provider DENOSUMAB (XGEVA) 06/26/2025 06/26/2025 No medications scheduled. m. Entered in error Fela Sandoval NP Resolved Problems Problem Noted Date Diagnosed Date Resolved Date NSAID long-term use 12/26/2019 05/13/20 23
--- OUTSIDE RECORDS SUMMARY | 2025-07-24 17:16 | XMS_ITS | Encounter Summary ---
Author Organization [facility] Address [address] [place] [address] Phone Care Team Providers Care Child Center Assistant Name Role Phone Kimberly Bullard FIELD CROP HARVEST CONTRACTOR Primary Care Provider [phone] Braulio Curran MD Unavailable [phone] Luli Castillo MD Unavailable [phone] Dominic Rivera MD , PhD Unavailable Luli Castillo MD Unavailable Nanette Hernandez RN Unavailable [email or web address] Tricia Brock RN Unavailable [email or web address] Otilia Garcia RN Unavailable System, Provider Not In PhD Unavailable Unav ailable System, Provider Not In PhD Primary Care Provide r Unavailable Keara Smith FIELD CROP HARVEST CONTRACTOR Primary Care Provide r Sherin Thomas RN Unavailable [email or web address] Tri Burleson RN Unavailable ирина [email or web address] Mildred Rust RN Unavailable [email or web address] Nanette Tavarez RN Unavailable [email or web address] Alina Pop RN Unavailable Parish [email or web address] Luann House RN Unavailable [email or web address] [email or web address] Daxa Leija RN Unavailable [phone] Encounter Details Date Type Department Care Team (Late st Contact Info) Description 08/05/2023 Procedure Pass [facility] [place] [facility] [place] [address]rd [place] [address] Social History Tobacco Use Types Packs/Day Years [...] 01/18/2025 Procedure Pass [facility] Sales Order Coordinator [place] [address] [place] [address] 01/18/2025 Procedure Pass [facility] Care [place] [address] [place] [address] 01/18/2025 Procedure Pass [facility] Sales Order Coordinator [place] [address] [place] [address] 01/18/2025 Procedure Pass [facility] Cardiac Echo 850 [address] [place] [address] 08/07/2025 9:30 AM EDT Blood Draw Laboratory Services, [facility] [place] [facility] [place] [address]rd [place] [address] Dominic Rivera MD, PhD [address] [place] [address] 08/07/2025 10:30 AM EDT Office Visit [facility], [facility] at [address] [address] Fela Sandoval NP [address] [place] [address] [email or web address] 08/07/2025 10:30 AM EDT Nurse Only [facility], [facility] at [address] [address] Dominic Rivera MD, PhD [address] [place] [address] 08/07/2025 11:30 AM EDT Infusion Infusion Therapy Services [facility] at [address] [address] Dominic Rivera MD, PhD [address] [place] [phone] [email or web address] Luann House, VINICIUS [address] [place] [address] [email or web address] 08/24/2025 9:00 AM EST Appointment [facility] Cardiac Echo 850 [address] [facility] [address] [place] [address] Dominic Rivera MD, PhD [address] [place] [address] 08/24/2025 10:15 AM EST Appointment [facility] Sales Order Coordinator Center [address] [place] [address] Dominic Rivera MD, PhD [address] [place] [address] 08/24/2025 11:15 AM EST Appointment [facility] Sales Order Coordinator Center [address] [place] [address] Dominic Rivera MD, PhD [address] [place] [address] 08/29/2025 10:30 AM EST Blood Draw Laboratory Services, [address] [place] [address] Dominic Rivera MD, PhD [address] [place] [address] 08/29/2025 11:30 AM EST Office Visit [facility], [address] [place] [address] Dominic Rivera MD, PhD [address] [place] [address] 08/29/2025 11:30 AM EST Nurse Only [facility], [address] [place] [address] Dominic Rivera MD, PhD [address] [place] [address] 08/29/2025 12:30 PM EST Infusion Infusion Therapy Services [place] [facility], [facility] [address] [facility], [address] [place] [address] 08/31/2025 9:00 AM EST Telemedicine [facility] ENDOCRINE MEDICINE [address] [place] [address] Elkin Hogue MD [address] [address] [place] [address] [email or web address] documented as of this encounter Visit Diagnoses Not on filedocumented in this encounter Additional Health Concerns Assessment Noted Time PHQ-2 Depression Total Score: 0 05/07/20 23 8:20 AM EDT documented as of this encounter Care Teams Child Center Assistant Relationship Specialty Start Date End Date Kimberly Bullard, ZENOBIA [address] [place] [address] [email or web address] PCP - General Family Medicine 02/09/19 12/21/23 System, Provider Not In, [facility] [employer] [address] [address] PCP - General 12/22/23 12/26/23 Keaar Smith NP [address] [place] [address] PCP - General 12/27/23 Braulio Curran MD [address] [place] [address] [email or web address] Endocrinology 06/21/20 Luli Castillo MD [address] [place] [phone] [email or web address] 07/16/23 11/15/23 Dominic Rivera MD, PhD [address] [place] [phone] Medical Oncology 07/16/23 Luli Castillo MD [address] [place] [phone] [email or web address] Internal Medicine 07/29/23 Nanette Hernandez RN [address] [place] [address] [email or web address] Primary Infusion Nurse 07/29/23 11/09/23 Tricia Brock RN [address] [place] [phone] [email or web address] Primary Infusion Nurse 09/08/23 Otilia Garcia RN [address] [place] [phone] [email or web address] Associate Infusion Nurse 10/20/23 System, Provider Not In, PhD [employer] [address] 12/01/23 12/26/23 Sherin Thomas, VINICIUS [address] [place] [address] [email or web address] Associate Infusion Nurse 12/20/23 04/11/24 Tri Burleson RN [address] [place] [phone] [email or web address] Associate Infusion Nurse 05/15/24 Mildred Rust RN [address] [place] [address] [email or web address] Associate Infusion Nurse 05/15/24 Nanette Tavarez RN [address] [place] [address] [email or web address] Primary Infusion Nurse 06/23/24 Alina Pop, VINICIUS [address] [place] [phone] [email or web address] Associate Infusion Nurse 06/28/24 Luann House RN [address] [place] [address] Olga [email or web address] Primary Infusion Nurse 10/02/24 Daxa Leija, RN [address] [place] [address] [email or web address] Associate Infusion Nurse 01/31/25 documented as of this encounter Additional Source Comments The information contained in this document represents components of the legal health record. It is not the complete legal health record.[facility]
--- OUTSIDE RECORDS SUMMARY | 2025-07-24 17:16 | XMS_ITS | Encounter Summary ---
Author Organization [facility] Address [address] [place] [address] Phone Care Team Providers Care Mines Safety Engineer Name Role Phone Braulio Curran MD Unavailable [phone] Dominic Rivera MD, PhD Unavailable Luli Castillo MD Unavailable [phone] Tricia Brock RN Unavailable Omar [email or web address] .[facility] Otilia Garcia RN Unavailable [phone] Keara Smith WHEEL FITTER Primary Care Provide r Sherin Thomas RN Unavailable [email or web address] .[facility] Tri Burleson RN Unavailable ирина [email or web address]. Mildred Sarkar RN Unavailable ham [email or web address] .[facility] Nanette Tavarez RN Unavailable [email or web address] [email or web address] Alina Mayorga RN Unavailable Parish [email or web address] Luann Lopes RN Unavailable Batool [email or web address].Daxa Layton RN Unavailable Encounter Details Date Type Department Care Team (Late st Contact Info) Description 04/06/2024 Procedure Pass [facility] Cancer [place] [address] 3rd [place] [address] Social History Tobacco Use Types Packs/Day Years [...] st Contact Info) Description 01/18/2025 Procedure Pass [facility] [address] [facility] [address] [place] [address] 01/18/2025 Procedure Pass [facility] [address] [facility] [address] [place] [address] 01/18/2025 Procedure Pass [facility] [address] [facility] [address] [place] [address] 01/18/2025 Procedure Pass [facility] Cardiac Echo 850 [address] [facility] [address] [place] [address] 08/07/2025 9:30 AM EDT Blood Draw Laboratory Services, [facility] [place] at [address]rd [place] [address] Dominic Rivera MD, PhD [address] [place] [address] 08/07/2025 10:30 AM EDT Office Visit [facility] Center for Thoracic Oncology, [facility] [place] at [address] [address] Fela Sandoval NP [address] [place] [address] [email or web address] [facility] 08/07/2025 10:30 AM EDT Nurse Only [facility] Center for Thoracic Oncology, [facility] at [address] [address] Dominic Rivera MD, PhD [address] [place] [address] 08/07/2025 11:30 AM EDT Infusion Infusion Therapy Services [facility] at [address] [address] Dominic Rivera MD, PhD [address] [place] [address] Luann House RN [address] [place] [address] Olga [email or web address]. [email or web address] 08/24/2025 9:00 AM EST Appointment [facility] Cardiac Echo [address] [place] [address] Dominic Rivera MD, PhD [address] [place] [address] 08/24/2025 10:15 AM EST Appointment [facility] Walking Dragline Operator [place] [address] [place] [address] Dominic Rivera MD, PhD [address] [place] [address] 08/24/2025 11:15 AM EST Appointment [facility] Walking Dragline Operator [place] [address] [address] Dominic Rivera MD, PhD [address] [place] [address] [email or web address] 08/29/2025 10:30 AM EST Blood Draw Laboratory Services, [facility] [address], 2nd [place] [address] Dominic Rivera MD, PhD [address] [place] [address] [email or web address] 08/29/2025 11:30 AM EST Office Visit [facility] for [facility] On[facility], [address] [place] [address] Dominic Rivera MD, PhD [address] [place] [address] [email or web address] 08/29/2025 11:30 AM EST Nurse Only [facility] for [facility] On[facility], [address], [address] [place] [address] Dominic Rivera MD, PhD [address] [place] [address] [email or web address] 08/29/2025 12:30 PM EST Infusion Infusion Therapy Services [place] [address], [address], [address] [place] [address] 08/31/2025 9:00 AM EST Telemedicine [facility] ENDOCRINE MEDICINE 45 [place] [address] Elkin Hogue MD [address] [place] [address] [address] [place] [address] [email or web address] documented as of this encounter Visit Diagnoses Not on filedocumented in this encounter Additional Health Concerns Assessment Noted Time PHQ-2 Depression Total Score: 0 05/07/20 8:20 AM EDT documented as of this encounter Care Teams Mines Safety Engineer Relationship Specialty Start Date End Date Keara Smith NP [address] [place] [address] PCP - General 12/27/23 Braulio Curran MD [email or web address] Endocrinology 06/21/20 Dominic Rivera MD, PhD [address] [place] [address] [email or web address] Medical Oncology 07/16/23 Luli Castillo MD [address] [place] [address] [email or web address] Internal Medicine 07/29/23 Tricia Brock, RN [address] [place] [address] [email or web address]@[email or web address]. [facility] Primary Infusion Nurse 09/08/23 Otilia Garcia RN [address] [place] [address] [email or web address] Associate Infusion Nurse 10/20/23 Sherin Thomas RN [address] [place] [address] [email or web address] Associate Infusion Nurse 12/20/23 04/11/24 Tri Burleson, VINICIUS [address] [place] [address] [email or web address] Associate Infusion Nurse 05/15/24 Mildred Rust, VINICIUS [address] [place] [address] [email or web address] Associate Infusion Nurse 05/15/24 Nanette Tavarez RN [address] [place] [address] MARINO@[email or web address] Primary Infusion Nurse 06/23/24 Alina Pop RN [address] [place] [address] Vicente@[email or web address] Associate Infusion Nurse 06/28/24 Luann House RN [address] [place] [address] Olga Lidia@[email or web address] Primary Infusion Nurse 10/02/24 Daxa Leija RN [address] [place] [address] [email or web address] Associate Infusion Nurse 01/31/25 documented as of this encounter Additional Source Comments The information contained in this document represents components of the legal health record. It is not the complete legal health record.[facility]
--- OUTSIDE RECORDS SUMMARY | 2025-07-24 17:16 | XMS_ITS | Encounter Summary ---
Author Organization [facility] Address [address] [place] [address] Phone Care Team Providers Care Cream Cheese Maker Name Role Phone Braulio Curran MD Unavailable [phone] Dominic Rivera MD, PhD Unavailable Luli Castillo MD Unavailable Tricia Brock RN Unavailable Omar [email or web address] .[facility] Otilia Garcia RN Unavailable [phone] Keara mSith CHAIRMAN PRESIDENT AND CHIEF EXECUTIVE OFFICER Primary Care Provide r Tri Burleson RN Unavailable ирина [email or web address]. Mildred Sarkar RN Unavailable ham [email or web address] Nanette Tavarez RN Unavailable LIZZY [email or web address].[place].E Alina Mayorga RN Unavailable Parish [email or web address] Luann Lopes RN Unavailable Batool [email or web address] Daxa Soriano RN Unavailable [phone] Encounter Details Date Type Department Care Team (Late st Contact Info) Description 01/18/2025 Procedure Pass [facility] Cancer [place], [place] [address] [place] [id number] Social History Tobacco Use Types Packs/Day Years [...] st Contact Info) Description 01/18/2025 Procedure Pass [facility] [address] [facility] [address] [place] [address] 01/18/2025 Procedure Pass [facility] [address] [facility] [address] [place] [address] 01/18/2025 Procedure Pass [facility] [address] [facility] [address] [place] [address] 01/18/2025 Procedure Pass [facility] Cardiac Echo [address] [facility] [address] [place] [address] 08/07/2025 9:30 AM EDT Blood Draw Laboratory Services, [facility] at [address] [address] Dominic Rivera MD, PhD [address] [place] [address] 08/07/2025 10:30 AM EDT Office Visit [facility] Center for Thoracic Oncology, [facility] [place] at [address] [address] Fela Sandoval NP [address] [place] [phone] [email or web address] 08/07/2025 10:30 AM EDT Nurse Only [facility] Center for Thoracic Oncology, [facility] at [address] [address] Dominic Rivera MD, PhD [address] [place] [address] 08/07/2025 11:30 AM EDT Infusion Infusion Therapy Services [place], [facility] at [address] [address] Dominic Rivera MD, PhD [address] [place] [address] [email or web address] Luann House RN [address] [place] [address] Olga Lidia@[email or web address]. [facility] 08/24/2025 9:00 AM EST Appointment [facility] Cardiac Echo [address] [place] [address] Dominic Rivera MD, PhD [address] [place] [address] 08/24/2025 10:15 AM EST Appointment [facility] Clinical Immunologist [place] [address] [place] [address] Dominic Rivera MD, PhD [address] [place] [address] 08/24/2025 11:15 AM EST Appointment [facility] Clinical Immunologist [place] [address] [place] [address] Dominic Rivera MD, PhD [address] [place] [address] 08/29/2025 10:30 AM EST Blood Draw Laboratory Services, [address], 2nd [place] [address] Dominic Rivera MD, PhD [address] [place] [address] 08/29/2025 11:30 AM EST Office Visit [facility] for Thoracic Oncology, [address], [address]th [place] [address] Dominic Rivera MD, PhD [address] [place] [address] [email or web address] 08/29/2025 11:30 AM EST Nurse Only [facility] for Thoracic Oncology, [address], [address]th [place] [address] Dominic Rivera MD, PhD [address] [place] [address] [email or web address] 08/29/2025 12:30 PM EST Infusion Infusion Therapy Services [address] [place] [address] 08/31/2025 9:00 AM EST Telemedicine [facility] ENDOCRINE MEDICINE 45 [place] [address] Elkin Hogue MD [address] [place] [address] [address] [place] [address] ANNABELLE@[facility] documented as of this encounter Visit Diagnoses Not on filedocumented in this encounter Additional Health Concerns Assessment Noted Time PHQ-2 Depression Total Score: 0 05/07/20 8:20 AM EDT documented as of this encounter Care Teams Cream Cheese Maker Relationship Specialty Start Date End Date Keara Smith NP [address] [place] [address] PCP - General 12/27/23 Braulio Curran MD [email or web address] Endocrinology 06/21/20 Dominic Rivera MD, PhD [address] [place] [address] [email or web address] Medical Oncology 07/16/23 Luli Castillo MD [address] [place] [phone] [email or web address] Medicine 07/29/23 Tricia Brock, RN [address] [place] [address] [email or web address]@[email or web address] Primary Infusion Nurse 09/08/23 Otilia Garcia RN [address] [place] [address] [email or web address] Associate Infusion Nurse 10/20/23 Tri Burleson RN [address] [place] [address] [email or web address] Associate Infusion Nurse 05/15/24 Mildrde Rust RN [address] [place] [address] [email or web address] Associate Infusion Nurse 05/15/24 Nanette Tavarez RN [address] [place] [address] MARINO@[email or web address] Primary Infusion Nurse 06/23/24 Alina Pop, RN [address] [place] [address] Vicente@[email or web address] MARYVALE NAJMA.[facility] Associate Infusion Nurse 06/28/24 Luann House, VINICIUS [address] [place] [address] Olga Lidia@[email or web address] Primary Infusion Nurse 10/02/24 Daxa Leija RN [address] [place] [address] KIRA@[email or web address] .[facility] Associate Infusion Nurse 01/31/25 documented as of this encounter Additional Source Comments The information contained in this document represents components of the legal health record. It is not the complete legal health record.[facility]
--- OUTSIDE RECORDS SUMMARY | 2025-07-24 17:16 | XMS_ITS | Encounter Summary ---
Author Organization [facility] Address [address] [place] [address] Phone Care Team Providers Care Estimating Engineer Name Role Phone Braulio Curran MD Unavailable [phone] Dominic Rivera MD, PhD Unavailable Luli Castillo MD Unavailable [phone] Tricia Brock RN Unavailable Omar Berman@[email or web address] .[facility] Otilia Garcia RN Unavailable [phone] Keara Smith PIT WORKER POWER SHOVEL Primary Care Provide r Tri Burleson RN Unavailable ирина [email or web address]. Mildred Sarkar RN Unavailable ham [email or web address] Nanette Tavarez RN Unavailable LIZZY [email or web address].E Alina Mayorga RN Unavailable Parish [email or web address] Luann Lopes RN Unavailable Batool [email or web address] Daxa Soriano RN Unavailable [phone] Encounter Details Date Type Department Care Team (Late st Contact Info) Description 07/25/2024 Procedure Pass [facility] Cancer [place], [place] [address] 4th Floor [place], [facility] Social History Tobacco Use Types [...] st Contact Info) Description 01/18/2025 Procedure Pass [facility] Keno Dealer [place] [address] [facility] [address] [place] [address] 01/18/2025 Procedure Pass [facility] [address] [facility] [address] [place] [address] 01/18/2025 Procedure Pass [facility] [address] [facility] [address] [place] [address] 01/18/2025 Procedure Pass [facility] Cardiac Echo 850 [address] [facility] [address] [place] [address] 08/07/2025 9:30 AM EDT Blood Draw Laboratory Services, [facility] at [address] 3rd [place] [address] Dominic Rivera MD, PhD [address] [place] [address] 08/07/2025 10:30 AM EDT Office Visit [facility] Center for Thoracic Oncology, [facility] [place] at [address] [address] Fela Sandoval NP [address] [place] [address] [email or web address]. [facility] 08/07/2025 10:30 AM EDT Nurse Only [facility] Center for Thoracic Oncology, [facility] at [address] [address] Dominic Rivera MD, PhD [address] [place] [address] 08/07/2025 11:30 AM EDT Infusion Infusion Therapy Services [place], [facility] at [address] [address] Dominic Rivera MD, PhD [address] [place] [address] Luann House RN [address] [place] [address] Olga Ldiia@[facility]. [facility] 08/24/2025 9:00 AM EST Appointment [facility] Cardiac Echo [address] [place] [address] [address] [place] [address] Dominic Rivera MD, PhD [address] [place] [address] 08/24/2025 10:15 AM EST Appointment [facility] [place] [address] [place] [address] Dominic Rivera MD, PhD [address] [place] [address] 08/24/2025 11:15 AM EST Appointment [facility] [place] [address] [place] [address] Dominic Rivera MD, PhD [address] [place] [address] [email or web address] 08/29/2025 10:30 AM EST Blood Draw Laboratory Services, [facility] [address] [facility], 2nd [place] [address] Dominic Rivera MD, PhD [address] [place] [address] [email or web address] 08/29/2025 11:30 AM EST Office Visit [facility] for Thoracic Oncology, [address], [address] [place] [address] Dominic Rivera MD, PhD [address] [place] [address] [email or web address] 08/29/2025 11:30 AM EST Nurse Only [facility] for Thoracic Oncology, [address], [address]th [place] [address] Dominic Rivera MD, PhD [address] [place] [address] [email or web address] 08/29/2025 12:30 PM EST Infusion Infusion Therapy Services [address] [place] [address] 08/31/2025 9:00 AM EST Telemedicine [facility] ENDOCRINE MEDICINE 45 [place] [address] Elkin Hogue MD [address] [place] [address] [address] [place] [address] ANNABELLE@[facility] documented as of this encounter Visit Diagnoses Not on filedocumented in this encounter Additional Health Concerns Assessment Noted Time PHQ-2 Depression Total Score: 0 07/28/20 23 8:20 AM EDT documented as of this encounter Care Teams Estimating Engineer Relationship Specialty Start Date End Date Keara Smith NP [address] [place] [address] PCP - General 12/27/23 Braulio Curran MD [email or web address] Endocrinology 06/21/20 Dominic Rivera MD, PhD [address] [place] [address] [email or web address] Medical Oncology 07/16/23 Luli Castillo MD [address] [place] [phone] [email or web address] Medicine 07/29/23 Tricia Brock RN [address] [place] [address] [email or web address] Primary Infusion Nurse 09/08/23 Otilia Garcia RN [address] [place] [address] WALLY@[facility] Associate Infusion Nurse 10/20/23 Tri Burleson RN [address] [place] [address] [email or web address] Associate Infusion Nurse 05/15/24 Mildred Rust RN [address] [place] [address] [email or web address] Associate Infusion Nurse 05/15/24 Nanette Tavarez RN [address] [place] [address] MARINO@[email or web address] Primary Infusion Nurse 06/23/24 Alina Pop, RN [address] [place] [address] [email or web address]@[email or web address] NAJMA.[facility] Associate Infusion Nurse 06/28/24 Luann House, VINICIUS [address] [place] [address] Olga Lidia@[facility] Primary Infusion Nurse 10/02/24 Daxa Leija RN [address] [place] [address] KIRA@[facility] .[facility] Associate Infusion Nurse 01/31/25 documented as of this encounter Additional Source Comments The information contained in this document represents components of the legal health record. It is not the complete legal health record.[facility]
--- OUTSIDE RECORDS SUMMARY | 2025-07-24 17:16 | XMS_ITS | Encounter Summary ---
Author Organization [facility] Address [address] [place] [address] Phone Care Team Providers Care Optomechanical Technician Name Role Phone Braulio Curran MD Unavailable [phone] Dominic Rivera MD, PhD Unavailable Luli Castillo MD Unavailable [phone] Tricia Brock RN Unavailable [email or web address] .[facility] Otilia Garcia RN Unavailable [phone] Keara Smith LOAN REVIEWER Primary Care Provide r Sherin Thomas RN Unavailable [email or web address] .[facility] Tri Burleson RN Unavailable ирина [email or web address]. Mildred Sarkar RN Unavailable [email or web address] .[facility] Nanette Tavarez RN Unavailable LIZZY [email or web address].[place].E Alina Mayorga RN Unavailable Parish [email or web address] Luann Lopes RN Unavailable Batool [email or web address].[email or web address] Layton RN Unavailable Encounter Details Date Type Department Care Team (Late st Contact Info) Description 04/06/2024 Procedure Pass [facility] [place], MRI [address] 4th [place] [address] Social History Tobacco Use Types Packs/Day Years [...] Description 01/18/2025 Procedure Pass [facility] [address] [facility] [address] [place] [address] 01/18/2025 Procedure Pass [facility] [address] [facility] [address] [place] [address] 01/18/2025 Procedure Pass [facility] [address] [facility] [address] [place] [address] 01/18/[address] [facility] Cardiac Echo 850 [address] [facility] [address] [place] [address] 08/07/2025 9:30 AM EDT Blood Draw Laboratory Services, [facility] [place] at [address]rd [place] [address] Dominic Rivera MD, PhD [address] [place] [address] 08/07/2025 10:30 AM EDT Office Visit [facility] for Thoracic On[facility], [facility] [place] at [address] [address] Fela Sandoval NP [address] [place] [address] [email or web address] 08/07/2025 10:30 AM EDT Nurse Only [facility] for Thoracic Oncology, [facility] at [address] [address] Dominic Rivera MD, PhD [address] [place] [address] 08/07/2025 11:30 AM EDT Infusion Infusion Therapy Services [facility] at [address] [address] Dominic Rivera MD, PhD [address] [place] [address] Luann House RN [address] [place] [address] Olga Lidia@[email or web address]. [facility] 08/24/2025 9:[address] [facility] Cardiac Echo [address] [place] [address] Dominic Rivera MD, PhD [address] [place] [address] 08/24/2025 10:15 AM EST Appointment [facility] Component Design Engineer [place] [address] [place] [address] Dominic Rivera MD, PhD [address] [place] [address] 08/24/2025 11:15 AM EST Appointment [facility] Component Design Engineer [place] [address] [address] Dominic Rivera MD, PhD [address] [place] [address] [email or web address] 08/29/2025 10:30 AM EST Blood Draw Laboratory Services, [facility] 450 [facility], 2nd [place] [address] Dominic Rivera MD, PhD [address] [place] [address] [email or web address] 08/29/2025 11:30 AM EST Office Visit [facility] for Thoracic Oncology, [address] [place] [address] Dominic Rivera MD, PhD [address] [place] [address] [email or web address] 08/29/2025 11:30 AM EST Nurse Only [facility] for Thoracic Oncology, [address], [address] [place] [address] Dominic Rivera MD, PhD [address] [place] [address] [email or web address] 08/29/2025 12:30 PM EST Infusion Infusion Therapy Services [place] [address], [address], [address] [place] [address] 08/31/2025 9:[address] [facility] ENDOCRINE MEDICINE 45 [place] [address] Elkin Hogue MD [address] [place] [address] [address] [place] [address] [email or web address] documented as of this encounter Visit Diagnoses Not on filedocumented in this encounter Additional Health Concerns Assessment Noted Time PHQ-2 Depression Total Score: 0 05/07/20 8:20 AM EDT documented as of this encounter Care Teams Optomechanical Technician Relationship Specialty Start Date End Date Keara Smith NP [address] [place] [address] PCP - General 12/27/23 Braulio Curran MD [email or web address] Endocrinology 06/21/20 Dominic Rivera MD, PhD [address] [place] [address] [email or web address] Medical Oncology 07/16/23 Luli Castillo MD [address] [place] [phone] [email or web address] 07/29/23 Tricia Brock, RN [address] [place] [address] [email or web address]. [facility] Primary Infusion Nurse 09/08/23 Otilia Garcia RN [address] [place] [address] [email or web address] Associate Infusion Nurse 10/20/23 Sherin Thomas RN [address] [place] [address] [email or web address] Associate Infusion Nurse 12/20/23 04/11/24 Tri Burleson, V[address]ICI[address] [place] [address] [email or web address] Associate Infusion Nurse 05/15/24 Mildred Rust, [address] [place] [address] [email or web address] Associate Infusion Nurse 05/15/24 Nanette Tavarez RN [address] [place] [phone] MARINO@[email or web address] Primary Infusion Nurse 06/23/24 Alina Pop RN [address] [place] [address] [email or web address] Associate Infusion Nurse 06/28/24 Luann House RN [address] [place] [address] Olga [email or web address] Primary Infusion Nurse 10/02/24 Daxa Leija RN [address] [place] [address] [email or web address] Associate Infusion Nurse 01/31/25 documented as of this encounter Additional Source Comments The information contained in this document represents components of the legal health record. It is not the complete legal health record.[facility]
--- OUTSIDE RECORDS SUMMARY | 2025-07-24 17:16 | XMS_ITS | Encounter Summary ---
Author Organization [facility] Address [address] [place] [address] Phone Care Team Providers Care Certified Medical Technician Name Role Phone Braulio Curran MD Unavailable Dominic Rivera MD, PhD Unavailable Luli Castillo MD Unavailable [phone] Tricia Brock RN Unavailable Omar [email or web address] .[facility] Otilia Garcia RN Unavailable [phone] Keara Smith PHYSICAL METALLURGIST Primary Care Provide r Tri Burleson RN Unavailable ирина [email or web address]. Mildred Sarkar RN Unavailable ham [email or web address] Nanette Tavarez RN Unavailable LIZZY [email or web address] Alina Mayorga RN Unavailable Parish [email or web address] Luann Lopes RN Unavailable Batool [email or web address] Daxa Soriano RN Unavailable [phone] Encounter Details Date Type Department Care Team (Late st Contact Info) Description 07/25/2024 Procedure Pass [facility] [place] [address] [place] [id number] Social History Tobacco Use Types Packs/Day Years [...] st Contact Info) Description 01/18/2025 [facility] Pass [facility] [employer] [employer] [place] [address] [facility] [address] [place] [address] 01/18/2025 Procedure Pass [facility] 850 [facility] [address] [place] [address] 01/18/2025 Procedure Pass [facility] 850 [facility] [address] [place] [address] 01/18/2025 Procedure Pass [facility] Cardiac Echo 850 [address] [facility] [address] [place] [address] 08/07/2025 9:30 AM EDT Blood Draw Laboratory Services, [facility] at [address] [place] [address] Dominic Rivera MD, PhD [address] [place] [address] 08/07/2025 10:30 AM EDT Office Visit [facility] Center for Thoracic Oncology, [facility] [place] at [address] [address] Fela Sandoval NP [address] [place] [address] [email or web address] 08/07/2025 10:30 AM EDT Nurse Only [facility] Center for Thoracic Oncology, [facility] at [address] [address] Dominic Rievra MD, PhD [address] [place] [address] 08/07/2025 11:30 AM EDT Infusion Infusion Therapy Services [place], [facility] at [address] [address] Dominic Rivera MD, PhD [address] [place] [address] Luann House RN [address] [place] [address] Olga Lidia@[email or web address]. [facility] 08/24/2025 9:00 AM EST Appointment [facility] Cardiac Echo [address] [place] [address] 422 [place] [address] Dominic Rivera MD, PhD [address] [place] [address] 08/24/2025 10:[address] [facility] and [facility] [employer] [place] [address] [place] [address] Dominic Rivera MD, PhD [address] [place] [address] 08/24/2025 11:15 AM EST Appointment [facility] [employer] [employer] [place] [address] [place] [address] Dominic Rivera MD, PhD [address] [place] [address] [email or web address] 08/29/2025 10:30 AM EST Blood Draw Laboratory Services, [facility] [address] [facility], 2nd [place] [address] Dominic Rivera MD, PhD [address] [place] [address] [email or web address] 08/29/2025 11:30 AM EST Office Visit [facility] for Thoracic Oncology, [address] [place] [address] Dominic Rivera MD, PhD [address] [place] [address] [email or web address] 08/29/2025 11:30 AM EST Nurse Only [facility] for Thoracic Oncology, [address], [address] [place] [address] Dominic Rivera MD, PhD [address] [place] [address] [email or web address] 08/29/2025 12:30 PM EST Infusion Infusion Therapy Services [address] [place] [address] 08/31/2025 9:00 AM EST Telemedicine [facility] ENDOCRINE MEDICINE [address] [place] [address] Elkin Hogue MD [address] [place] [address] [address] [place] [address] ANNABELLE@[email or web address] documented as of this encounter Visit Diagnoses Not on filedocumented in this encounter Additional Health Concerns Assessment Noted Time PHQ-2 Depression Total Score: 0 07/28/20 23 8:20 AM EDT documented as of this encounter Care Teams Certified Medical Technician Relationship Specialty Start Date End Date Keara Smith NP [address] [place] [address] PCP - General 12/27/23 Braulio Curran MD [email or web address] Endocrinology 06/21/20 Dominic Rivera MD, PhD [address] [place] [address] [email or web address] Medical Oncology 07/16/23 Luli Castillo MD [address] [place] [phone] [email or web address] Internal Medicine 07/29/23 Tricia Brock RN [address] [place] [address] [email or web address] Primary Infusion Nurse 09/08/23 Otilia Garcia RN [address] [place] [address] [email or web address] Associate Infusion Nurse 10/20/23 Tri Burleson RN [address] [place] [address] [email or web address] Associate Infusion Nurse 05/15/24 Mildred Rust RN [address] [place] [address] [email or web address] Associate Infusion Nurse 05/15/24 Nanette Tavarez RN [address] [place] [address] [email or web address] [facility] Primary Infusion Nurse 06/23/24 Alina Pop, RN [address] [place] [address] Vicente@[email or web address] Associate Infusion Nurse 06/28/24 Luann House, VINICIUS [address] [place] [address] Olga Lidia@[email or web address] Primary Infusion Nurse 10/02/24 Daxa Leija RN [address] [place] [address] KIRA@[email or web address] .[facility] Associate Infusion Nurse 01/31/25 documented as of this encounter Additional Source Comments The information contained in this document represents components of the legal health record. It is not the complete legal health record.[facility]
--- OUTSIDE RECORDS SUMMARY | 2025-07-24 17:16 | XMS_ITS | Clinical Summary ---
Author Organization [facility] Address [address] [place] [address] Phone Care Team Providers Care Public Health Dentist Name Role Phone Braulio Curran MD Unavailable [phone] Dominic Rivera MD, PhD Unavailable Luli Castillo MD Unavailable Tricia Brock RN Unavailable [email or web address] Otilia Garcia RN Unavailable [phone] Keara Smith ENDOCRINOLOGY SPECIALIST Primary Care Provide r Tri Burleson RN Unavailable ирина [email or web address] Mildred Sarkar RN Unavailable [email or web address] Nanette Tavarez RN Unavailable [email or web address] Alina Mayorga RN Unavailable Parish [email or web address] Luann Lopes RN Unavailable [email or web address] Daxa Soriano RN Unavailable [phone] Allergies No known active allergies Medications cholecalciferol (VITAMIN D3) 25 MCG (1,000 unit) tabletIndications: Tries to take 2000 units daily Take 1,000 Units by mouth daily. Indications: Tries to take 2000 units daily Active rosuvastatin (CRESTOR) 10 MG tabletIndications: Mixed hyperlipidemia TAKE 1 TABLET BY MOUTH EVERY DAY 90 tablet 3 3 Active therapeutic multivitamin tablet Take 1 tablet by mouth daily. Active famotidine (PEPCID) 20 MG tablet Take 20 mg by mouth daily. Active carboxymethylcellu lose (REFRESH TEARS) 0.5 % Drop Place 1-2 drops into each eye 4 (four) times a day as needed (dry eye). 5 Active mupirocin (BACTROBAN) 2 % ointment Apply topically 2 (two) times a day. 22 g 5 Active celecoxib (CELEBREX) 100 MG capsule Take 1 capsule (100 mg total) by mouth daily. 90 capsule 1 5 Active dexAMETHasone 0.5 mg/5 mL solution Swish and spit 10 mL (1 mg total) 4 (four) times a day. For mouth pain from chemo 240 mL 5 Active Active Problems Problem Noted Date Diagnosed Date Pancytopenia 01/03/2025 Assessment & Plan (01/03/2025 10:54 AM EDT): WBC 3, H/H 11.8/34, plts 111 (baseline WBC ~3, qhp65-71, HCT 37-40, 100s-140s)Hemodynamically stable. No reported episodes of bleeding. S/p C25D1 of DFCI protocol 20-601 with the HER3 ADC patritumab deruxtecan monotherapy Per #lungCa 3/. Started on aggressive IVF per #HyperCa, with [...] monotherapy 07/2023 maintained on to date C25D1 3/5, C26 due on day of admit cancelled [...] (11/07/21-07/2024) c/b POD so started DFCI protocol -601 with the HER3 ADC patritumab deruxtecan monotherapy 07/2023 maintained on to date C25D1 3/5, C26 due on day of admit cancelled [...] osimertinib, now on 2L patritumab deruxteecan on [facility] 20-601 here to coninue with C33. Overall she [...] with patritumab deruxtecan [id number] on clinical trial 20-601 - Continue mouth washes which have been helpful - She has h/o hypercalcemia (admitted 01/02 - 01/04/2025 for hypercalcemia, managed with IV fluids, denosumab, and calcitonin), but Ca is normal today at 10.3 - Per her range ecologist, continue her on denosumab 60 mg q6 [...] continue with treatment Acquired hallux valgus 05/13/2023 3 Primary malignant neoplasm o f left lung [...] elevated to 11-12s. Established with a local range ecologist who has been hesitant to treat her [...] Ca(vs primary hyperparathyroidism iso bone mets). Primary driver engineer of hyperCa presumed primary hyperparathyroid vs hyperCa [...] for Hypercalcemia monitoring and therapy. 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 (Primary Dx); Primary 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of lung, unspecified laterality; EGFR-related lung cancer 07/17/2025 11:00 AM EDT Nurse Only [facility] Thoracic Oncology, [facility] at [address] [address] Dominic Rivera MD, PhD Mary Deutsch RN 07/17/2025 11:00 AM EDT Office Visit [facility] Thoracic Oncology, [facility] at [address] [address] Fela Sandoval NP Chemotherapy follow-up examination (Primary Dx); Lung cancer metastatic to bone; 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; EGFR-related lung cancer 07/05/2025 12:00 PM EDT Nurse Only [facility] Thoracic Oncology, [facility] at [address] [address] Dominic Rivera MD, PhD Susanne Aguilar, VINICIUS 07/05/2025 Telephone [facility] On[facility], [facility] [address], [address] [place] [address] Susanne Aguilar, VINICIUS 06/28/2025 Orders Only [facility], [facility] [address] [place] [address] Dominic Rivera MD, PhD Primary 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of lung, unspecified laterality (Primary Dx) 06/26/2025 12:00 PM EDT Infusion Infusion Therapy Services [facility] at [address] [address] Dominic Rivera MD, PhD Chitra Connors, RN 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 (Primary Dx); Primary 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of lung, unspecified laterality; EGFR-related lung cancer; Hyperparathyroidism 06/26/2025 11:00 AM EDT Nurse Only [facility], [facility] at [address] [address] Dominic Rivera MD, PhD Pao Schneider, VINICIUS 06/26/2025 11:00 AM EDT Office Visit [facility] Thoracic Oncology, [facility] at [address] [address] Fela Sandoval NP EGFR-related lung cancer (Primary Dx); Chemotherapy follow-up examination; Hypercalcemia 06/05/2025 9:00 AM EDT Infusion Infusion Therapy Services [address] [place] [address] Dominic Rivera MD, PhD Iris Mera, RN 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 (Primary Dx); EGFR-related lung cancer 06/05/2025 8:00 AM EDT Office Visit [facility] Thoracic Oncology, [facility] [address] [place] [address] Agnes Austin MD, PhD EGFR-related lung cancer (Primary Dx) 06/05/2025 8:00 AM EDT Nurse Only [facility] Thoracic Oncology, [facility] [address] [place] [address] Dominic Rivera MD, PhD Odalis Loomis, VINICIUS 06/05/2025 Orders Only [facility] Thoracic Oncology, [facility] [address], [address] [place] [address] Odalis Loomis, VINICIUS EGFR-related lung cancer (Primary Dx) 06/01/2025 12:06 PM EDT - 06/01/2025 11:59 PM EDT Hospital Encounter [facility], Nuclear Medicine [address] [address] Dominic Rivera MD, PhD Discharge Disposition: Home or Self Care 06/01/2025 10:24 AM EDT - 06/01/2025 12:05 PM EDT Hospital Encounter [facility], MRI [address] [address] Dominic Rivera MD, PhD Discharge Disposition: Home or Self Care 06/01/2025 8:57 AM EDT - 06/01/2025 10:23 AM EDT Hospital Encounter [facility], [place] [address] [address] Dominic Rivera MD, PhD Discharge Disposition: Home or Self Care 06/01/2025 8:57 AM EDT - 06/01/2025 10:23 AM EDT Hospital Encounter [facility], Nuclear Medicine [address] [address] Dominic Rivera MD, PhD Discharge Disposition: Home or Self Care 06/01/2025 7:45 AM EDT - 06/01/2025 8:56 AM EDT Hospital Encounter [facility] Cardiac Echo 850 [address] [facility] [address] [place] [address] Dominic Rivera MD, PhD Lauren David, [facility] Discharge Disposition: Home or Self Care 05/24/2025 Orders Only [facility] for Thoracic Oncology, [facility] Cancer [address], [address] [place] [address] Fela Sandoval, ENDOCRINOLOGY SPECIALIST 05/24/2025 Documentation [facility], [facility] [place] [address] [address] Pao Schneider, VINICIUS 05/19/2025 Refill [facility], [facility] at [address] [address] Fela Sandoval NP Medication Refill 05/15/2025 11:30 AM EDT Infusion Infusion Therapy Services [facility] at [address] [address] Dominic Rivera MD, PhD Tri Burleson, VINICIUS 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 (Primary Dx); EGFR-related lung cancer; Primary 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of lung, unspecified laterality 05/15/2025 10:30 AM EDT Nurse Only [facility], [facility] at [address] [address] Dominic Rivera MD, PhD Pao Schneider, VINICIUS 05/15/2025 10:30 AM EDT Office Visit [facility] Thoracic Oncology, [address] [address] Fela Sandoval NP EGFR-related lung cancer (Primary Dx); Chemotherapy follow-up examination 05/02/2025 Telephone [facility], [facility] [address], [address] [place] [phone] Michelle Phillips RN 04/25/2025 Orders Only [facility], [facility] [address], [address] [place] [address] Dominic Rivera MD, PhD Lung cancer metastatic to bone (Primary Dx); Primary 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of lung, unspecified laterality 04/24/2025 12:00 PM EDT Infusion Infusion Therapy Services [facility] at [address] [address] Dominic Rivera MD, PhD Tri Burleson, RN 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 (Primary Dx); EGFR-related lung cancer 04/24/2025 11:00 AM EDT Nurse Only [facility], [facility] [place] [address] [address] Dominic Rivera MD, PhD Pao Schneider, VINICIUS 04/24/2025 11:00 AM EDT Office Visit [facility], [facility] [place] [address] [address] Fela Sandoval, ZENOBIA Lung cancer metastatic to bone (Primary Dx); Chemotherapy follow-up examination; Hypercalcemia 01/18/2025 Procedure Pass [facility] Cardiac Echo 850 [address] [facility] [address] [place] [address] 01/18/2025 Procedure Pass [facility], MRI [address] [address] 01/18/2025 Procedure Pass [facility], [place] [address] [address] 01/18/2025 Procedure Pass [facility], [place] [address] [address] from Last 3 Months Immunizations Immunization Administration Dates Next Due COVID-19, Unspecified Formulation 01/07/2021,11/2020 INFLUENZA, SPLIT VIRUS, TRIVALENT PF 07/16/2016 INFLUENZA, SPLIT VIRUS, TRIV ALENT W/ PRESERVATIVE IM 07/27/2017 Influenza High-Dose Trivalen t Preservative Free IM 07/17/2025 Influenza Quadrivalent Adjuv anted Preservative Free IM 08/17/2023,08/03/2022,07/14/2021 Influenza Quadrivalent Preservative Free IM 05/12 Influenza, Unspecified Formulation 06/29/2019, Pneumococcal conjugate PCV13 02/08/2017,07/26/20 16,02/09/2016 Pneumococcal polysaccharide PPSV23 06/04/2020, Td, unspecified formulation 10/11/2004 Tdap 03/09/2019 Zoster live 04/20/2011 Zoster recombinant 07/05/2019,05/02/2019 Family History Medical History Relation Comments Bipolar disorder Daughter 1 Hyperlipidemia Daughter 2 No Known Problems Daughter 3 Bipolar disorder Father Arrhythmia Mother Arthritis Mother Hyperlipidemia Mother Lung cancer Mother smoker Osteoporosis Mother Ovarian cancer Sister 1 Arthritis Sister 2 Hyperlipidemia Sister 2 Arthritis Sister 3 Hyperlipidemia Sister 3 Psoriasis Son Relation Status Comments Brother Alive Daughter 1 Alive Daughter 2 Alive Daughter 3 Alive Father (Age 46) Mother Sister 1 (Age 24) Sister 2 Alive Sister 3 Alive Son Alive Social History Tobacco Use Types Packs/Day Years Used Date Smoking Tobacco: Never Smokeless Tobacco: Never Tobacco Cessation:Counseling Given: Not Answered Alcohol Use Standard Drinks/Week Comments Not Currently [...] Orientation Straight 04/07/2023 10 :02 AM EDT Last Filed Vital Signs Vital Sign Reading Time Taken Comments Blood Pressure 124/56 07/17/2025 2:21 PM EDT Pulse 66 07/17/2025 2:21 PM EDT Temperature 36.6 C (97.8 F) 07/17/2025 2:21 PM EDT Respiratory Rate 18 07/17/2025 2:21 PM EDT Oxygen Saturation 98% 07/17/2025 2:21 PM EDT Inhaled Oxygen Concentration - - Weight 75.8 kg (167 lb 1.7 oz) 07/17/2025 10:50 AM EDT Height 159.1 cm (5' 2.64 ) 02/20/2025 12:53 PM E DT Body Mass Index 29.95 02/20/2025 12:53 PM EDT Plan of Treatment Upcoming Encounters Date Type Department Care Team (Late st Contact Info) Description 01/18/2025 Procedure Pass [facility] [employer] Architect [address] [address] 01/18/2025 Procedure Pass [facility] [employer] Architect [address] [place] [address] 01/18/2025 Procedure Pass [facility] Center [address] [facility] [address] [place] [address] 01/18/2025 Procedure Pass [facility] Cardiac Echo 850 [address] [facility] [address] [place] [address] 08/07/2025 9:30 AM EDT Blood Draw Laboratory Services, [facility] at [address] [address] Dominic Rivera MD, PhD [address] [place] [address] 08/07/2025 10:30 AM EDT Office Visit [facility], [facility] at [address] [address] Fela Sandoval NP [address] [place] [phone] [email or web address] 08/07/2025 10:30 AM EDT Nurse Only [facility], [facility] at [address] [address] Dominic Rivera MD, PhD [address] [place] [address] 08/07/2025 11:30 AM EDT Infusion Infusion Therapy Services [place], [facility] at [address] [address] Dominic Rivera MD, PhD [address] [place] [address] Luann House RN [address] [place] [address] [email or web address] [email or web address] 08/24/2025 9:00 AM EST Appointment [facility] Cardiac Echo 850 850 [facility] [address] [place] [address] Dominic Rivera MD, PhD [address] [place] [address] 08/24/2025 10:15 AM EST Appointment [facility] [address] [facility] [address] [place] [address] Dominic Rivera MD, PhD [address] [place] [address] 08/24/2025 11:15 AM EST Appointment [facility] 850 [facility] [address] [place] [address] Dominic Rivera MD, PhD [address] [place] [address] 08/29/2025 10:30 AM EST Blood Draw Laboratory Services, [facility] [address] [place] [address] Dominic Rivera MD, PhD [address] [place] [address] 08/29/2025 11:30 AM EST Office Visit [facility] for Thoracic Oncology, [facility] [address], [address] [place] [address] Dominic Rivera MD, PhD [address] [place] [address] 08/29/2025 11:30 AM EST Nurse Only [facility] for Thoracic Oncology, [address] [place] [address] Domniic Rivera MD, PhD [address] [place] [address] 08/29/2025 12:30 PM EST Infusion Infusion Therapy Services [place] [address], [facility] [address], [address] [place] [address] 08/31/2025 9:00 AM EST Telemedicine [facility] ENDOCRINE MEDICINE [address] [place] [address] Elkin Hogue MD [address] [facility] [address] [place] [address] [email or web address] Health Maintenance Due Date Last Done Comments COLOGUARD 01/28/1996 FIT TEST 01/28/1996 FOBT 01/28/1996 SIGMOIDOSCOPY 01/28/1996 VIRTUAL COLONOSCOPY 01/28/1996 FOLLOW UP BONE DENSITY TESTING 05/01/2024 05/01/2022, 03/18/2020, 02/17/2018 DEPRESSION SCREENING 05/07/2024 05/07/2023 MAMMOGRAM 08/19/2024 08/19/2022, 07/12, 08/06/2021, Additional history exists COVID-19 VACCINE ( season) 2025 08/01/2021, 01/07/2021, 12/12/2020, Additional history exists COLONOSCOPY 07/01/2025 07/01/2020, 03/29/2015 COLORECTAL CANCER SCREENING 07/01/2025 LIPID PANEL 11/17/2028 11/17/2023, 08/12, 06/26/2021, Additional history exists Adult Td,Tdap Booster 03/09/2029 03/09/2019, 005 ZOSTER VACCINES Completed 07/05/2019, 04/11, 04/20/2011 PNEUMOCOCCAL VACCINES (50+ years) Completed 06/04/2020, 02/08/2017, 07/26/2016, Additional history exists OSTEOPOROSIS SCREENING INITIAL (ONE-TIME) Completed 05/01/2022, 03/18/2020, 02/17/2018 HEPATITIS C SCREENING Completed 07/16/2023, 019 RSV VACCINE Completed 11/29/2023 SMOKING STATUS SCREENING (Once After 26 Yrs) Completed 01/02/2025 INFLUENZA VACCINE Completed 07/17/2025, , 08/17/2023, Additional history exists HEPATITIS A VACCINES Aged Out No long er eligible based on patient's age to complete this topic HIB VACCINES Aged Out No longer eligi ble based on patient's age to complete this topic MENINGOCOCCAL VACCINES (ACWY) Aged Out No longer eligible based on patient's age to complete this topic MENINGOCOCCAL VACCINES (B) Aged Out N o longer eligible based on patient's age to complete this topic Medical Devices Implanted Type Area Supervisor Floor Assembly Device Identifier Shelf Expiration Date Model / Serial / Lot Prosthetic Joint Prosthetic Joint Procedures Procedure Name Priority Date/Time Associated Diagnosis Comments BILIRUBIN, DIRECT Routine 07/17/2025 12: 13 PM EDT Primary 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of lung, unspecified laterality URINALYSIS Routine 07/17/2025 10:31 AM EDT Primary 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of lung, unspecified laterality PHOSPHORUS Routine 07/17/2025 10:31 AM EDT Primary 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of lung, unspecified laterality MAGNESIUM Routine 07/17/2025 10:31 AM EDT Primary 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of lung, unspecified laterality LDH Routine 07/17/2025 10:31 AM EDT Primary 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of lung, unspecified laterality BILIRUBIN, DIRECT Routine 07/17/2025 10: 31 AM EDT Primary 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of lung, unspecified laterality COMPREHENSIVE METABOLIC PANEL Routine 07/17/2025 10:31 AM EDT Primary 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of lung, unspecified laterality HC BLOOD COUNT COMPLETE AUTO&AUTO DIFRNTL WBC Routine 07/17/2025 10:31 AM EDT Primary 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of lung, unspecified laterality OUTSIDE LAB 07/03/2025 X-LABEL/STUDY Routine 06/26/2025 1:40 PM EDT Primary 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of lung, unspecified laterality URINALYSIS Routine 06/26/2025 10:14 AM EDT Primary 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of lung, unspecified laterality PHOSPHORUS Routine 06/26/2025 10:14 AM EDT Primary 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of lung, unspecified laterality MAGNESIUM Routine 06/26/2025 10:14 AM EDT Primary 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of lung, unspecified laterality LDH Routine 06/26/2025 10:14 AM EDT Primary 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of lung, unspecified laterality BILIRUBIN, DIRECT Routine 06/26/2025 10: 14 AM EDT Primary 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of lung, unspecified laterality COMPREHENSIVE METABOLIC PANEL Routine 06/26/2025 10:14 AM EDT Primary 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of lung, unspecified laterality HC BLOOD COUNT COMPLETE AUTO&AUTO DIFRNTL WBC Routine 06/26/2025 10:14 AM EDT Primary 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of lung, unspecified laterality LFTS (HEPATIC PANEL) Routine 06/05/2025 8:54 AM EDT EGFR-related lung cancer X-LABEL/STUDY Routine 06/05/2025 8:52 AM EDT EGFR-related lung cancer URINALYSIS Routine 06/05/2025 7:05 AM EDT Primary 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of lung, unspecified laterality PHOSPHORUS Routine 06/05/2025 7:05 AM EDT Primary 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of lung, unspecified laterality MAGNESIUM Routine 06/05/2025 7:05 AM EDT Primary 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of lung, unspecified laterality LDH Routine 06/05/2025 7:05 AM EDT Primary 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of lung, unspecified laterality BILIRUBIN, DIRECT Routine 06/05/2025 7:0 5 AM EDT Primary 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of lung, unspecified laterality COMPREHENSIVE METABOLIC PANEL Routine 06/05/2025 7:05 AM EDT Primary 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of lung, unspecified laterality HC BLOOD COUNT COMPLETE AUTO&AUTO DIFRNTL WBC Routine 06/05/2025 7:05 AM EDT Primary 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of lung, unspecified laterality NM BONE SCAN WHOLE BODY Routine 06/01/2025 1:00 PM EDT 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 MRI BRAIN WITH AND WITHOUT CONTRAST Routine 06/01/2025 11:05 AM EDT 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 CT ABDOMEN/PELVIS WITH CONTRAST Routine 06/01/2025 10:15 AM EDT 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 CT CHEST WITH CONTRAST Routine 06/01/2025 10:15 AM EDT 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 TTE COMPREHENSIVE Routine 06/01/2025 8:3 8 AM EDT 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 X-LABEL/STUDY Routine 05/15/2025 11:15 AM EDT Primary 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of lung, unspecified laterality URINALYSIS Routine 05/15/2025 9:50 AM EDT Primary 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of lung, unspecified laterality PHOSPHORUS Routine 05/15/2025 9:50 AM EDT Primary 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of lung, unspecified laterality MAGNESIUM Routine 05/15/2025 9:50 AM EDT Primary 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of lung, unspecified laterality LDH Routine 05/15/2025 9:50 AM EDT Primary 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of lung, unspecified laterality BILIRUBIN, DIRECT Routine 05/15/2025 9:5 0 AM EDT Primary 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of lung, unspecified laterality COMPREHENSIVE METABOLIC PANEL Routine 05/15/2025 9:50 AM EDT Primary 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of lung, unspecified laterality HC BLOOD COUNT COMPLETE AUTO&AUTO DIFRNTL WBC Routine 05/15/2025 9:50 AM EDT Primary 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of lung, unspecified laterality OUTSIDE LAB 05/01/2025 URINALYSIS Routine 04/24/2025 10:18 AM EDT Primary 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of lung, unspecified laterality PHOSPHORUS Routine 04/24/2025 10:18 AM EDT Primary 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of lung, unspecified laterality MAGNESIUM Routine 04/24/2025 10:18 AM EDT Primary 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of lung, unspecified laterality LDH Routine 04/24/2025 10:18 AM EDT Primary 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of lung, unspecified laterality BILIRUBIN, DIRECT Routine 04/24/2025 10: 18 AM EDT Primary 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of lung, unspecified laterality COMPREHENSIVE METABOLIC PANEL Routine 04/24/2025 10:18 AM EDT Primary 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of lung, unspecified laterality HC BLOOD COUNT COMPLETE AUTO&AUTO DIFRNTL WBC Routine 04/24/2025 10:18 AM EDT Primary 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of lung, unspecified laterality LIPID PANEL Routine 11/17/2023 3:44 PM EST Mixed hyperlipidemia HEPATITIS C ANTIBODY WITH REFLEX TO HCV, RNA QUANTITATIVE REAL-TIME PCR Routine 07/16/2023 12:46 PM EDT Recurrent lung adenocarcinoma, unspecified laterality MAMMOGRAPHY Routine 08/19/2022 OUTSIDE BONE DENSITY SCREENING Routine 05/01/2022 COLONOSCOPY FOR RESULT ENTRY ONLY Routine 07/01/2020 from Last 3 Months or Most Recently Relevant to Health Maintenance Results * Bilirubin, direct (07/17/2025 12:13 PM EDT) Only the most recent of6 resultswithin the time period is included. DIRECT BILIRUBIN 0.2 0.0 - 0.3 mg/dL [facility] Blood 07/17/2025 12:1 3 PM EDT 07/17/2025 12:16 PM EDT Dominic Rivera MD, PhD LAB BLOOD ORDER MARISOL Final Result Performing Organization Address [facility] Co de Phone Number [address] * (ABNORMAL) LDH (07/17/2025 10:31 AM EDT) Only the most recent of5 resultswithin the time period is included. LDH 129(L) 135 - 225 U/L [facility] Comment:INTERPRET WITH CAUTI ON, SPECIMEN HEMOLYZED Blood 07/17/2025 10:3 1 AM EDT 07/17/2025 10:35 AM EDT Dominic Rivera MD, PhD LAB BLOOD ORDER MARISOL Final Result Performing Organization Address [facility] Co de Phone Number [facility] [address] [place] [address], [facility] * (ABNORMAL) Comprehensive metabolic panel (07/17/2025 10:31 AM EDT) Only the most recent of5 resultswithin the time period is included. SODIUM 143 136 - 145 mmol/L [facility] POTASSIUM 4.0 3.4 - 5.1 mmol/L [facility] CHLORIDE 111(H) 98 - 107 mmol/L [facility] CO2 21(L) 22 - 31 mmol/L [facility] BUN 9 6 - 23 mg/dL [facility] CREATININE 0.61 0.50 - 1.20 mg/dL [facility] GLUCOSE 127(H) 70 - 100 mg/dL [facility] ALBUMIN 3.6 3.5 - 5.2 g/dL [facility] TOTAL PROTEIN 6.3(L) 6.4 - 8.3 g/dL [facility] CALCIUM 10.1 8.8 - 10.7 mg/dL [facility] ALKALINE PHOSPHATASE 149(H) 35 - 104 U/L [facility] TOTAL BILIRUBIN 0.7 0.2 - 1.2 mg/dL [facility] AST 55(H) <33 U/L [facility] ALT 44(H) <34 U/L [facility] GLOBULIN 2.7 2.3 - 4.2 g/dL [facility] EGFR 94 >59 mL/min/1.7 3m2 [facility] Comment:Estimated glomerular filtration rate calculated using the CKD-EPI refit equation. ANION GAP 12 7 - 17 mmol/L [facility] Blood 07/17/2025 10:3 1 AM EDT 07/17/2025 10:35 AM EDT us Dominic Rivera MD, PhD LAB BLOOD ORDER MARISOL Final Result [facility] [address] [place] [address], [facility] * (ABNORMAL) Urinalysis (07/17/2025 10:31 AM EDT) Only the most recent of5 resultswithin the time period is included. COLOR LT YELLOW(A) Yellow [facility] [place] CLARITY Clear Clear [facility] GLUCOSE NORMAL NORMAL [facility] [place] BILI Negative Negative [facility] [place] KETONES Negative Negative [facility] SPECIFIC GRAVITY 1.014 1.003 - 1.035 [facility] BLOOD Negative Negative [facility] [place] PH 6.5 4.6 - 8.0 [facility] Protein-UA Negative Negative [facility] UROBILINOGEN 1+(A) NORMAL [facility] [place] NITRITE Negative Negative [facility] [place] Leukocyte esterase, ur Negative Negative [facility] WBC None 0 - 9 /hpf [facility] RBC None 0 - 2 /hpf [facility] BACTERIA None None /hpf [facility] [place] MUCUS Trace(A) None /hpf [facility] Urine (Urine) 07/17/2025 10: 31 AM EDT 07/17/2025 10:35 AM EDT Dominic Rivera MD, PhD URINE ORDERABLE S Final Result [facility] [address] [place] [address], [facility] * (ABNORMAL) CBC and differential (07/17/2025 10:31 AM EDT) Only the most recent of5 resultswithin the time period is included. WBC 2.68(L) 4.00 - 10.00 K/uL [facility] RBC 3.61(L) 3.90 - 6.00 M/uL [facility] HGB 12.6 11.5 - 16.4 g/dL [facility] HCT 37.2 36.0 - 48.0 % [facility] PLT 100(L) 150 - 450 K/uL [facility] MCV 103.0(H) 80.0 - 100.0 fL [facility] MCH 34.9(H) 27.0 - 32.0 pg [facility] MCHC 33.9 32.0 - 36.0 g/dL [facility] RDW 16.1(H) 11.5 - 14.5 % [facility] MPV UNABLE TO RESULT 8.4 - 12.0 fL [facility] NRBC 0.00 0.00 /100 WBCs [facility] ABSOLUTE NRBC 0.00 0 K/uL [facility] DIFF METHOD Auto [facility] NEUTS 58.6 48.0 - 76.0 % [facility] LYMPHS 21.3 18.0 - 41.0 % [facility] MONOS 13.4(H) 4.0 - 11.0 % [facility] EOS 6.0(H) 0.0 - 5.0 % [facility] BASOS 0.7 0.00 - 1.50 % [facility] % IMMATURE GRANS 0.0 0.00 - 1.00 % [facility] ABSOLUTE NEUTS 1.57(L) 1.92 - 7.60 K/uL [facility] ABSOLUTE LYMPHS 0.57(L) 0.72 - 4.10 K/uL [facility] ABSOLUTE MONOS 0.36 0.16 - 1.10 K/uL [facility] ABSOLUTE EOS 0.16 0.00 - 0.50 K/uL [facility] ABSOLUTE BASOS 0.02 0.00 - 0.15 K/uL [facility] ABS IMMATURE GRANS 0.00 0.00 - 0.10 K/uL [facility] Blood 07/17/2025 10:3 1 AM EDT 07/17/2025 10:35 AM EDT us Dominic Rivera MD, PhD LAB BLOOD ORDER MARISOL Final Result [address] * (ABNORMAL) Phosphorus (07/17/2025 10:31 AM EDT) Only the most recent of5 resultswithin the time period is included. PHOSPHORUS 2.2(L) 2.5 - 4.5 mg/dL [facility] Blood 07/17/2025 10:3 1 AM EDT 07/17/2025 10:35 AM EDT Dominic Rivera MD, PhD LAB BLOOD ORDER MARISOL Final Result Performing Organization Address City/[facility]/ZIP Co de Phone Number [address] * Magnesium (07/17/2025 10:31 AM EDT) Only the most recent of5 resultswithin the time period is included. [facility] MAGNESIUM 2.3 1.7 - 2.6 mg/dL [facility] Blood 07/17/2025 10:3 1 AM EDT 07/17/2025 10:35 AM EDT Dominic Rivera MD, PhD LAB BLOOD ORDER MARISOL Final Result Performing Organization Address City/[facility]/ZIP Co de Phone Number [address] * Outside Lab (07/03/2025) Only the most recent of2 resultswithin the time period is included. us Scanning Interface Provider LAB BLOOD ORDERABLES Final Result * X-Label/study (06/26/2025 1:40 PM EDT) Only the most recent of3 resultswithin the time period is included. EXTRA TUBES NEEDED FOR RESEARCH STUDY [facility] Blood 06/26/2025 1:40 PM EDT 06/26/2025 1:52 PM EDT us Dominic Rivera MD, PhD LAB BLOOD ORDER MARISOL Final Result Performing Organization Address [facility] Co de Phone Number [facility] [address] [place] [address], [facility] * (ABNORMAL) LFTs (hepatic panel) (06/05/2025 8:54 AM EDT) TOTAL PROTEIN 6.3(L) 6.4 - 8.3 g/dL [facility] LIC# [id number] ALBUMIN 3.7 3.5 - 5.2 g/dL [facility] LIC# [id number] GLOBULIN 2.6 2.3 - 4.2 g/dL [facility] LIC# [id number] AST 52(H) <33 U/L [facility] LIC# [id number] ALT 48(H) <34 U/L [facility] LIC# [id number] ALKALINE PHOSPHATASE 157(H) 35 - 104 U/L [facility] LIC# [id number] TOTAL BILIRUBIN 0.9 0.2 - 1.2 mg/dL [facility] LIC# [id number] DIRECT BILIRUBIN 0.3 0.0 - 0.3 mg/dL [facility] LIC# [id number] Blood 06/05/2025 8:54 AM EDT 06/05/2025 9:17 AM EDT us Agnes Austin MD, PhD LAB BLOOD ORDERABLES Fi nal Result [facility] LIC# [id number] [address] [place] [address] * NM BONE SCAN WHOLE BODY (06/01/2025 1:00 PM EDT) Anatomical Region Laterality Modality Shoulder Right, Shoulder Lef t, Arm Left, Arm Right, Elbow Left, Elbow Right, Forearm Left, Forearm Right, Wrist Right, Wrist Left, Hand Left, Hand Right, Hip Left, Hip Right, Hip Bilateral, Thigh Left, Thigh Right, Knee Left, Knee Right, Knee Bilateral, Leg Left, Leg Right, Ankle Left, Ankle Right, Foot Left, Foot Right, Pelvis Nucle ar Medicine Other 06/01/2025 2:43 PM EDT Impressions 06/01/2025 3:16 PM EDT 1. Newly noted focal increased uptake in the lateral arc of the right sixth rib, likely healing fracture. 2. Overall mildly decreased radiotracer uptake in the extensive osseous metastatic disease. ATTESTATION: Joseluis Rogers, as teaching physician have reviewed the images, if any, for this patient's exam, and if necessary, have edited the report originally created by Tanvi Abdi. Narrative 06/01/2025 3:16 PM EDT Reason for exam (per EHR order): Research Study; Evaluation for clinical trial 20-601 Additional clinical information obtained from the EHR: 75-year-old female with a history of a metastatic lung adenocarcinoma. TECHNIQUE: Radiopharmaceutical: Tc-99m MDP. Dose: 26.8 mCi. Image acquisition: Approximately three hours following the intravenous administration of radiopharmaceutical, whole body planar imaging was performed in the anterior and posterior projections with additional spot views of the skull and torso. COMPARISON: Bone scan of December 11, 2024/June 23, 2024. CT of chest, abdomen, and pelvis of June 01, 2025. FINDINGS: Newly noted focal increased uptake in the lateral arc of the right sixth rib, likely healed rib fracture matching to CT scan done on same day and on March 02, 2025 There is overall mildly decreased radiotracer uptake in the extensive multifocal metastatic disease in the axial and proximal appendicular skeleton including in the sternum, spine, bilateral iliac bones, and calvarium Focal increased uptake at the left proximal femoral head, likely degenerative changes Interval decreased uptake at the right ankle, likely healed post traumatic changes Degenerative changes in bilateral shoulders spine, both elbows, both wrists, both knees and both first metatarsophalangeal joint Procedure Note Joseluis Small MBBS - 06/01/2025 Reason for exam (per EHR order): Research Study; Evaluation for clinicaltrial 20-601 Additional clinical information obtained from the EHR: 75-year-old femalewith a history of a metastatic lung adenocarcinoma. TECHNIQUE: Radiopharmaceutical: Tc-99m MDP. Dose: 26.8 mCi. Image acquisition: Approximately three hours following the intravenousadministration of radiopharmaceutical, whole body planar imaging wasperformed in the anterior and posterior projections with additional spotviews of the skull and torso. COMPARISON: Bone scan of December 11, 2024/June 23, 2024. CT of chest,abdomen, and pelvis of June 01, 2025. FINDINGS: Newly noted focal increased uptake in the lateral arc of the right sixthrib, likely healed rib fracture matching to CT scan done on same day andon March 02, 2025 There is overall mildly decreased radiotracer uptake in the extensivemultifocal metastatic disease in the axial and proximal appendicularskeleton including in the sternum, spine, bilateral iliac bones, andcalvarium Focal increased uptake at the left proximal femoral head, likelydegenerative changes Interval decreased uptake at the right ankle, likely healed post traumaticchanges Degenerative changes in bilateral shoulders spine, both elbows, bothwrists, both knees and both first metatarsophalangeal joint IMPRESSION: 1. Newly noted focal increased uptake in the lateral arc of the rightsixth rib, likely healing fracture. 2. Overall mildly decreased radiotracer uptake in the extensive osseousmetastatic disease. ATTESTATION: Joseluis Rogers, as teaching physician have reviewed theimages, if any, for this patient's exam, and if necessary, have edited thereport originally created by Tanvi Abdi. Dominic Rivera MD, PhD IMG NM BONE SCA N Final Result * MRI BRAIN WITH AND WITHOUT CONTRAST (06/01/2025 11:05 AM EDT) Anatomical Region Laterality Modality Head Magnetic Resonan ce Other 06/01/2025 1:27 PM EDT Impressions 06/01/2025 2:03 PM EDT 1. No significant change in the multiple punctate enhancing metastases throughout the brain. No new or enlarging lesion. 2. Unchanged 6 mm dural based lesion along the right middle cranial fossa, which may represent a meningioma. Narrative 06/01/2025 2:03 PM EDT MRI BRAIN WITH AND WITHOUT CONTRAST Referring clinician's provided indication for this examination in [facility]: Research Study; Evaluation for clinical trial TECHNIQUE: Multi-sequence, multi-planar MRI of the brain was performed before and after intravenous contrast. COMPARISON: MRI BRAIN WITH AND WITHOUT CONTRAST ; MRI BRAIN WITH AND WITHOUT CONTRAST ; MRI BRAIN WITH AND WITHOUT CONTRAST FINDINGS: Brain Parenchyma: Multiple punctate foci of enhancement in the bilateral cerebral and cerebellar hemispheres, which are not significantly changed from prior study. Unchanged punctate foci of susceptibility artifact associated with some of the lesions, which likely represent chronic microhemorrhage is or mineralization. No definite new or enlarging lesions. No acute infarct or acute hemorrhage. Mild periventricular and subcortical white matter T2/FLAIR hyperintensities, which are nonspecific but most likely represent chronic microangiopathic changes. Ventricular System and Extra-Axial Spaces: Unchanged 6 mm slightly heterogeneous, dural based, enhancing lesion within the right middle cranial fossa along the anterior right temporal lobe. No midline shift or hydrocephalus. Extracranial Structures: Arterial flow voids in the skull base are present. Bilateral lens replacements. Trace fluid in the right mastoid air cells. Procedure Note Edgar Boo MD - 06/01/2025 MRI BRAIN WITH AND WITHOUT CONTRAST Referring clinician's provided indication for this examination in [facility]:Research Study; Evaluation for clinical trial TECHNIQUE: Multi-sequence, multi-planar MRI of the brain was performedbefore and after intravenous contrast. COMPARISON: MRI BRAIN WITH AND WITHOUT CONTRAST ; MRI BRAINWITH AND WITHOUT CONTRAST ; MRI BRAIN WITH AND WITHOUT [id number] FINDINGS: Brain Parenchyma: Multiple punctate foci of enhancement in the bilateralcerebral and cerebellar hemispheres, which are not significantly changedfrom prior study. Unchanged punctate foci of susceptibility artifactassociated with some of the lesions, which likely represent chronicmicrohemorrhage is or mineralization. No definite new or enlarginglesions. No acute infarct or acute hemorrhage. Mild periventricular and subcorticalwhite matter T2/FLAIR hyperintensities, which are nonspecific but mostlikely represent chronic microangiopathic changes. Ventricular System and Extra-Axial Spaces: Unchanged 6 mm slightlyheterogeneous, dural based, enhancing lesion within the right middlecranial fossa along the anterior right temporal lobe. No midline shift orhydrocephalus. Extracranial Structures: Arterial flow voids in the skull base arepresent. Bilateral lens replacements. Trace fluid in the right mastoid aircells. IMPRESSION: 1. No significant change in the multiple punctate enhancing metastasesthroughout the brain. No new or enlarging lesion. 2. Unchanged 6 mm dural based lesion along the right middle cranialfossa, which may represent a meningioma. Dominic Rivera MD, PhD IMG MR HEAD/NEC K Final Result * CT CHEST WITH CONTRAST (06/01/2025 10:15 AM EDT) Anatomical Region Laterality Modality Chest Computed Tomogra phy Other 06/01/2025 2:22 PM EDT Impressions 06/01/2025 2:29 PM EDT 1. Nodular left upper lobe is stable. 2. Poorly fibrosis is stable. 3. Sclerotic bony metastases are stable. Narrative 06/01/2025 2:[address] CHEST WITH CONTRAST Referring clinician's provided indication for this examination in [facility]: Research Study; Evaluation for clinical trial 20-601 TECHNIQUE: Multidetector CT of the chest was performed with intravenous contrast using tailored dose modulation techniques. COMPARISON: CT CHEST WITH CONTRAST FINDINGS: Devices/Tubes/Lines: None. Lungs: 2.0 x 1.4 cm mass in the apical posterior segment of the left upper lobe adjacent to the fissure (4:157) previously measured 2.1 x 1.3 cm. Scarring in the lung apices is stable. Subpleural reticular opacification within the lungs as well as septal thickening and traction bronchiectasis is stable consistent with mild pulmonary fibrosis. The central airways are patent. Pleura: No pleural effusion or pneumothorax. Mediastinum: No thyroid nodules. The heart is of normal size. Small pericardial effusion is seen.. No coronary calcification. Lymph Nodes: No enlarged supraclavicular, axillary, mediastinal, or hilar lymph nodes. Upper Abdomen: Please see concurrent abdominal CT for abdominal findings. Chest Wall: No chest wall mass. Bones: Sclerotic bony lesions are again seen at multiple vertebral levels and the right scapula as well as the sternum. Healed fracture of the right anterolateral sixth rib is unchanged. Procedure Note Farida Gross MD - 06/01/2025 CT CHEST WITH CONTRAST Referring clinician's provided indication for this examination in [facility]:Research Study; Evaluation for clinical trial 20-601 TECHNIQUE: Multidetector CT of the chest was performed with intravenouscontrast using tailored dose modulation techniques. COMPARISON: CT CHEST WITH CONTRAST FINDINGS: Devices/Tubes/Lines: None. Lungs: 2.0 x 1.4 cm mass in the apical posterior segment of the left upperlobe adjacent to the fissure (4:157) previously measured 2.1 x 1.3 cm.Scarring in the lung apices is stable. Subpleural reticular opacificationwithin the lungs as well as septal thickening and traction bronchiectasisis stable consistent with mild pulmonary fibrosis. The central airways arepatent. Pleura: No pleural effusion or pneumothorax. Mediastinum: No thyroid nodules. The heart is of normal size. Smallpericardial effusion is seen.. No coronary calcification. Lymph Nodes: No enlarged supraclavicular, axillary, mediastinal, or hilarlymph nodes. Upper Abdomen: Please see concurrent abdominal CT for abdominalfindings. Chest Wall: No chest wall mass. Bones: Sclerotic bony lesions are again seen at multiple vertebral levelsand the right scapula as well as the sternum. Healed fracture of the rightanterolateral sixth rib is unchanged. IMPRESSION: 1. Nodular left upper lobe is stable. 2. Poorly fibrosis is stable. 3. Sclerotic bony metastases are stable. us Dominic Rivera MD, PhD IMG CT CHEST Final Result * CT ABDOMEN/PELVIS WITH CONTRAST (06/01/2025 10:15 AM EDT) Anatomical Region Laterality Modality Abdomen, Pelvis Computed Tomogra phy Other 06/01/2025 1:29 PM EDT Impressions 06/01/2025 2:21 PM EDT Compared to 03/02/2025 1. Similar osseous metastases. 2. Mildly increased trace ascites. Slightly increased conspicuity of linear and subtle ill-defined peritoneal thickening, without a discrete measurable nodule. Findings are similar to 01/25/205, may represent early carcinomatosis. Narrative 06/01/2025 2:[address] ABDOMEN/PELVIS WITH CONTRAST Referring clinician's provided indication for this examination in [employer]: Research Study; Evaluation for clinical trial 20-601 TECHNIQUE: Multidetector-row CT of the abdomen and pelvis was performed after administration of intravenous contrast using tailored dose modulation techniques. Images were reconstructed in the axial, coronal, and sagittal planes. COMPARISON: 03/02/2025 FINDINGS: Lower Chest: CT chest from the same day is reported separately. Liver: Mildly nodular liver contour is redemonstrated, with patent umbilical vein. Tiny subcentimeter hypodensity in segment 6/7 is similar to prior, too small to characterize (1:20). No new focal liver lesion. Biliary: No biliary ductal dilatation. Tiny dependent gallstone in the gallbladder. Spleen: Mild splenomegaly, measuring 13.6 cm in craniocaudal diameter, previously 12.3 cm. No focal lesions. Pancreas: No masses or ductal dilatation. Similar contour. Adrenal Glands: No nodules. Kidneys/Ureters: No solid masses, stones, or hydronephrosis. Bowel: No distention or wall thickening. Sigmoid colon diverticulosis, without evidence of diverticulitis. Peritoneum/Retroperitoneum: No masses or pneumoperitoneum. Mildly increased trace pelvic ascites. Linear peritoneal thickening in the right lower quadrant (3:287) and linear/nodular peritoneal thickening in the left lower quadrant (3:275 through 306) is slightly increased in conspicuity. Similar mild haziness of the right paracolic gutter (3:198). Unchanged left retroperitoneal fat stranding along the MEIR (1:49). Lymph Nodes: No lymphadenopathy. Pelvic Organs/Bladder: Streak artifact from the right hip prosthesis limits detail in the pelvis. Urinary bladder is partially filled. Uterus is anteverted. No adnexal mass. Vessels: Abdominal aorta is normal in caliber, with mild atherosclerotic calcification. Circumaortic left renal vein. Bones/Soft Tissues: No new destructive osseous lesions. Unchanged multifocal predominantly sclerotic osseous lesions, for example: in posterior bilateral iliac bones (1:57), sacrum (1:54), and lumbar spine (5:82). Unchanged compression deformity of T10 lower endplate with diffuse vertebral body sclerosis (5:83). Status post right total hip arthroplasty. Small fat-containing umbilical hernia Procedure Note Keara Hand MD - 06/01/2025 CT ABDOMEN/PELVIS WITH CONTRAST Referring clinician's provided indication for this examination in [facility]:Research Study; Evaluation for clinical trial 20-601 TECHNIQUE: Multidetector-row CT of the abdomen and pelvis was performedafter administration of intravenous contrast using tailored dosemodulation techniques. Images were reconstructed in the axial, coronal,and sagittal planes. COMPARISON: 03/02/2025 FINDINGS: Lower Chest: CT chest from the same day is reported separately. Liver: Mildly nodular liver contour is redemonstrated, with patentumbilical vein. Tiny subcentimeter hypodensity in segment 6/7 is similarto prior, too small to characterize (1:20). No new focal liver lesion. Biliary: No biliary ductal dilatation. Tiny dependent gallstone in thegallbladder. Spleen: Mild splenomegaly, measuring 13.6 cm in craniocaudal diameter,previously 12.3 cm. No focal lesions. Pancreas: No masses or ductal dilatation. Similar contour. Adrenal Glands: No nodules. Kidneys/Ureters: No solid masses, stones, or hydronephrosis. Bowel: No distention or wall thickening. Sigmoid colon diverticulosis,without evidence of diverticulitis. Peritoneum/Retroperitoneum: No masses or pneumoperitoneum. Mildlyincreased trace pelvic ascites. Linear peritoneal thickening in the rightlower quadrant (3:287) and linear/nodular peritoneal thickening in theleft lower quadrant (3:275 through 306) is slightly increased inconspicuity. Similar mild haziness of the right paracolic gutter (3:198).Unchanged left retroperitoneal fat stranding along the MEIR (1:49). Lymph Nodes: No lymphadenopathy. Pelvic Organs/Bladder: Streak artifact from the right hip prosthesislimits detail in the pelvis. Urinary bladder is partially filled. Uterusis anteverted. No adnexal mass. Vessels: Abdominal aorta is normal in caliber, with mild atheroscleroticcalcification. Circumaortic left renal vein. Bones/Soft Tissues: No new destructive osseous lesions. Unchangedmultifocal predominantly sclerotic osseous lesions, for example: inposterior bilateral iliac bones (1:57), sacrum (1:54), and lumbar spine(5:82). Unchanged compression deformity of T10 lower endplate with diffusevertebral body sclerosis (5:83). Status post right total hip arthroplasty.Small fat-containing umbilical hernia IMPRESSION: Compared to 03/02/2025 1. Similar osseous metastases. 2. Mildly increased trace ascites. Slightly increased conspicuity oflinear and subtle ill-defined peritoneal thickening, without a discretemeasurable nodule. Findings are similar to 01/25/205, may represent earlycarcinomatosis. Dominic Rivera MD, PhD IMG CT ABD/PELV IS Final Result * TTE COMPREHENSIVE (06/01/2025 8:38 AM EDT) Left Ventricle Internal Diameter End Diastole 43 37 - 52 mm Interventricular Septum Thickness 8 6 - 11 mm Height 159 cm Left Ventricle Internal Diameter End Systole 29 <35 mm Left Ventricular Posterior Wall Thickness 8 6 - 11 mm Weight 74 kg Raw LV EF% 55 % Left Atrium Dimension Anterior-Posterior 42 15 - 40 mm Body Surface Area 1.77 m2 Right Ventricle Peak Systolic Pressure 17 mmHg Mitral Valve Area Pressure Half Time Eq 3.4 cm2 Relative Wall Thickness 0.37 0.22 - 0.42 Left Ventricle indexed to BSA 59.5 g/m2 Left Ventricle E Wave Speed 91.8 cm/s Left Ventricle A Wave Speed 96.3 cm/s MV E/A ratio 1.0 Mitral Valve Deceleration Time 223 ms Mitral Valve Pressure Half Time 65 ms Tricuspid Valve Prosthetic Peak Gradient 11 mmHg Tricuspid Valve Peak Gradient 11 mmHg Tricuspid Valve Peak Velocity 1.7 m/s Right Atrium Pressure Estimated 5 mmHg Right Ventricle to Right Atrium Pressure Gradient 12 mmHg Right Ventricle Peak Systolic Pressure (Assuming RAP 10) 22 mmHg MGB CV ECHO TV RVSP (ASSUMING RAP OF 5) 17 mmHg RVSP (Exclusive of RAP) 12 mmHg TR pk grad 1.7 mmHg Right Ventricle Estimated PA Pressure 20.96 mmHg Aortic Sinus Diameter 28 <40 mm Ascending Aorta Diameter 30 <36 mm Left Atrial Volume Index 33 16 - 34 mL/m2 Ejection Fraction 68 50 - 75 % Systolic BP 137 mmHg GLS 24.8 % Diastolic BP 58 mmHg Right Ventricle TAPSE 23 >=17 mm Right Ventricle Pulse Doppler S Wave 9.0 >=9.5 cm/s Left Atrial Volume 58 mL Left Atrial Volume Index by Height 36 mL/m Aortic Valve Sinus Index by BSA 16 mm/m2 Aorta Sinus Index by Height 1.76 cm/m Aorta Sinus CSA index by Height 3.87 cm2/m Ascending Aorta Index 17 mm/m2 Asc Aorta CSA Index by Height 4.44 cm2/m Ascending Aorta Index 17 mm Aortic Sinus Index 16 mm Ascending Aorta Diameter 17 mm Aortic Valve Sinus Index 1 16 19 - 27 mm AO ASC DIAM BSA INDEX 16.95 Anatomical Region Laterality Modality Heart [facility] Narrative 06/01/2025 11:28 AM EDT Left Ventricle The left ventricle is normal in size. There is normal wall thickness. There is normal left ventricular systolic function. The LV ejection fraction is 68% (calculated via biplane measurement). Average global longitudinal strain (GLS) is -24.8%. There are no wall motion abnormalities. Right Ventricle The right ventricle is normal in size. There is normal right ventricular systolic function. Left Atrium The left atrium is normal in size. There are normal flow patterns in the pulmonary vein. Right Atrium The right atrium is normal in size. The IVC is normal in size. Mitral Valve There is no evidence of mitral valve prolapse. There is no mitral stenosis. There is trace to mild mitral regurgitation. Tricuspid Valve The tricuspid valve is suboptimally visualized. There is no obvious structural abnormality. There is trace tricuspid regurgitation. The RV systolic pressure was calculated at 17 mmHg (using TR peak velocity of 1.7 m/s and assuming an RA pressure of 5 mmHg). Aortic Valve The aortic valve is tricuspid. There is no aortic stenosis. There is no aortic regurgitation. The visualized portions of the thoracic aorta appear normal in size. Pulmonic Valve The pulmonic valve is suboptimally visualized. There is trace pulmonic regurgitation. Pericardium There is a trace pericardial effusion. There is no echocardiographic evidence of tamponade. General Findings The image quality was good (2). Comparison Findings Compared to prior TTE on 03/02/2025, there are no important changes. us Dominic Rivera MD, PhD CV ECHO ORDERAB LES Final Result * (ABNORMAL) Lipid panel (11/17/2023 3:44 PM EST) HDL 61 mg/dL [facility] Comment: Interpretation <40 mg/dL: Low HDL cholesterol (major risk factor for CHD) Greater than or equal to 60 mg/dL: High HDL cholesterol ( negative risk factor for CHD) HDL - cholesterol is affected by a number of factors, e.g. smoking, excerise, hormones, sex and age. CHOLESTEROL 163 0 - 240 mg/dL [facility] TRIGLYCERIDES 101 30 - 160 mg/dL [facility] LDL 82 50 - 129 mg/dL [facility] Comment: LDL levels in terms of risk for coronary heart disease: <100 mg/dL: Optimal 100-129 mg/dL: Near or above optimal 130-159 mg/dL: Borderline high 160-189 mg/dL: High >190 mg/dL: Very High CARDIAC RISK RATIO 2.7(L) 3.3 - 4.4 C [facility] Blood 11/17/2023 3:44 PM EST 11/17/2023 3:46 PM EST Result [facility] Kimberly Bullard NP LAB BLOOD ORDERABLES Final Resu lt Performing Organization Address City/[facility]/ZIP Co de Phone Number [address] [address] * Hepatitis C Antibody with Reflex to HCV, RNA quantitative Real-Time PCR (07/16/2023 12:46 PM EDT) Pathologist [facility] HCV Ab Negative Negative [facility] Comment: (NOTE) Fbiceb-ej-ovkngf ratio is <1.00. Blood 07/16/2023 12:4 6 PM EDT 07/16/2023 12:48 PM EDT Dominic Rivera MD, PhD LAB BLOOD ORDER MARISOL Final Result [facility] LAB MED/[facility] [address] [place] [address] * MAMMOGRAPHY FOR RESULT ENTRY ONLY (08/19/2022) Result [facility] Historical Provider HEALTH MAINTENANCE Edited Result - Final * OUTSIDE BONE DENSITY SCREENING (05/01/2022) BONE DENSITY SCREENING - EXTERNAL normal Historical Provider HEALTH MAINTENANCE Final Result * HM COLONOSCOPY FOR RESULT ENTRY ONLY (07/01/2020) Kimberly Bullard NP HEALTH MAINTENANCE Edited Resul t - Final from Last 3 Months or Most Recently Relevant to Health Maintenance Insurance MEDICARE PART A & B MEDICARE SUPPLEMENT MEDICARE PART A & B [employer] MEDICARE SUPPLEMENT MEDICARE PART A & B [facility] MEDIC[facility] SUPPLEMENT MEDICARE PART A & B Member Subscriber Plan / Payer (Ef fective 2016-Present) Name:Marleen Sharpe Member ID:[id number] Relation to Subscriber:Self Name:Marleen Sharpe Subscriber ID:[id number] Payer ID:[id number] Group ID:Not on file Type:Medicare Address: garbs [address] MEDICARE SUPPLEMENT MEDICARE PART A & B MEDICARE SUPPLEMENT MEDICARE PART A & B MEDICARE SUPPLEMENT MEDICARE PART A & [place] [address] MEDICARE PART A & B MEDICARE SUPPLEMENT MEDICARE PART A & B MEDICARE SUPPLEMENT MEDICARE PART A & B [facility] MEDIC[facility] SUPPLEMENT Advance Directives For more information, please contact: [phone] (9AM - 5PM [facility], Wednesday-Wednesday) Documents on File Type Date Recorded Patient Sleep Lab Technician Expl anation MOLST 08/04/2019 MOLST - signed * Full Code (Latest Code Status on File) Date Activated Date Inactivated Comments 01/02/2025 5:01 PM Question Answer Comments Code Status Confirmed With: Patient Care Teams Public Health Dentist Relationship Specialty Start Date End Date Keara Smith NP [address] [place] [address] PCP - General 12/27/23 Braulio Curran MD Endocrinology 06/21/20 Dominic Rivera MD, PhD [address] [place] [address] [email or web address] Medical Oncology 07/16/23 Luli Castillo MD [address] [place] [address] [email or web address] 07/29/23 Tricia Brock, RN [address] [place] [address] [email or web address] Primary Infusion Nurse 09/08/23 Otilia Garcia RN [address] [place] [address] [email or web address] Associate Infusion Nurse 10/20/23 Tri Burleson, VINICIUS [address] [place] [address] [email or web address] Associate Infusion Nurse 05/15/24 Mildred Rust, VINICIUS [address] [place] [address] [email or web address] Associate Infusion Nurse 05/15/24 Nanette Tavarez RN [address] [place] [address] [email or web address] Primary Infusion Nurse 06/23/24 Alina Pop, VINICIUS [address] [place] [address] [email or web address] Associate Infusion Nurse 06/28/24 Luann House RN [address] [place] [address] Olga [email or web address] Primary Infusion Nurse 10/02/24 Daxa Leija, RN [address] [place] [address] [email or web address] Associate Infusion Nurse 01/31/25 Additional Source Comments The information contained in this document represents components of the legal health record. It is not the complete legal health record.[facility]
--- OUTSIDE RECORDS SUMMARY | 2025-07-24 17:16 | XMS_ITS | Encounter Summary ---
Author Organization [facility] Address [address] [place] [address] Phone Care Team Providers Care Spiritual Care Coordinator Name Role Phone Braulio Curran MD Unavailable [phone] Dominic Rivera MD, PhD Unavailable Luli Castillo MD Unavailable [phone] Tricia Brock RN Unavailable Omar [email or web address] .[facility] Otilia Garcia RN Unavailable [phone] Keara Smith INSURANCE CONSULTANT Primary Care Provide r Tri Burleson RN Unavailable ирина [email or web address]. Mildred Sarkar RN Unavailable [email or web address] Nanette Tavarez RN Unavailable [email or web address] [email or web address] Alina Mayorga RN Unavailable Parish [email or web address] Luann Lopes RN Unavailable Batool [email or web address] Daxa Soriano RN Unavailable [phone] Encounter Details Date Type Department Care Team (Late st Contact Info) Description 01/18/2025 Procedure Pass [facility] Cancer [place], [place] [address] 4th Floor [place], [facility] Social History Tobacco Use Types Packs/Day [...] st Contact Info) Description 01/18/2025 Procedure Pass [facility] [address] [facility] [address] [place] [address] 01/18/2025 Procedure Pass [facility] [address] [facility] [address] [place] [address] 01/18/2025 Procedure Pass [facility] [address] [place] [address] 01/18/2025 Procedure Pass [facility] Cardiac Echo 850 [address] [place] [address] 08/07/2025 9:30 AM EDT Blood Draw Laboratory Services, [facility] at [address] [address] Dominic Rivera MD, PhD [address] [place] [address] 08/07/2025 10:30 AM EDT [facility], [facility] [place] at [address] [address] Fela Sandoval NP [address] [place] [phone] [email or web address]. [facility] 08/07/2025 10:30 AM EDT Nurse Only [facility], [facility] at [address] [address] Dominic Rivera MD, PhD [address] [place] [address] 08/07/2025 11:30 AM EDT Infusion [facility] [place], [facility] at [address] [address] Dominic Rivera MD, PhD [address] [place] [address] [email or web address] Luann House RN [address] [place] [address] Olga [email or web address]. [facility] 08/24/2025 9:00 AM EST Appointment [facility] Cardiac Echo [address] [place] [address] Dominic Rivera MD, PhD [address] [place] [address] 08/24/2025 10:15 AM EST Appointment [facility] Floor Nurse [place] [address] [place] [address] Dominic Rivera MD, PhD [address] [place] [address] 08/24/2025 11:15 AM EST Appointment [facility] Floor Nurse [place] [address] [place] [address] Dominic Rivera MD, PhD [address] [place] [address] 08/29/2025 10:30 AM EST Blood Draw Laboratory Services, [address], 2nd [place] [address] Dominic Rivera MD, PhD [address] [place] [address] 08/29/2025 11:30 AM EST Office Visit [facility] for [facility] On[facility], [address], [address] [place] [address] Dominic Rivera MD, PhD [address] [place] [address] [email or web address] 08/29/2025 11:30 AM EST Nurse Only [facility] for Thoracic Oncology, [address], [address] [place] [address] Dominic Rivera MD, PhD [address] [place] [address] [email or web address] 08/29/2025 12:30 PM EST Infusion Infusion Therapy Services [address] [place] [address] 08/31/2025 9:00 AM EST Telemedicine [facility] ENDOCRINE MEDICINE [address] [place] [address] Elkin Hogue MD [address] [place] [address] [address] [place] [address] ANNABELLE@[email or web address] documented as of this encounter Visit Diagnoses Not on filedocumented in this encounter Additional Health Concerns Assessment Noted Time PHQ-2 Depression Total Score: 0 05/07/20 8:20 AM EDT documented as of this encounter Care Teams Spiritual Care Coordinator Relationship Specialty Start Date End Date Keara Smith NP [address] [place] [address] PCP - General 12/27/23 Braulio Curran MD [email or web address] Endocrinology 06/21/20 Dominic Rivera MD, PhD [address] [place] [address] [email or web address] Medical Oncology 07/16/23 Luli Castillo MD [address] [place] [address] [email or web address] Internal Medicine 07/29/23 Tricia Brock, RN [address] [place] [address] [email or web address] Primary Infusion Nurse 09/08/23 Otilia Garcia RN [address] [place] [address] [email or web address] Associate Infusion Nurse 10/20/23 Tri Burleson RN [address] [place] [address] [email or web address] Associate Infusion Nurse 05/15/24 Mildred Rust RN [address] [place] [address] [email or web address] Associate Infusion Nurse 05/15/24 Nanette Tavarez RN [address] [place] [address] [email or web address] Primary Infusion Nurse 06/23/24 Alina Pop, RN [address] [place] [address] [email or web address]@[email or web address] [email or web address].[facility] Associate Infusion Nurse 06/28/24 Luann House, VINICIUS [address] [place] [address] Olga Lidia@[email or web address] Primary Infusion Nurse 10/02/24 Daxa Leija RN [address] [place] [address] [email or web address] .[facility] Associate Infusion Nurse 01/31/25 documented as of this encounter Additional Source Comments The information contained in this document represents components of the legal health record. It is not the complete legal health record.[facility]
--- OUTSIDE RECORDS SUMMARY | 2025-07-24 17:16 | XMS_ITS | Encounter Summary ---
Author Organization [facility] Address [address] [place] [address] Phone Care Team Providers Care Service Consultant Name Role Phone Braulio Curran MD Unavailable [phone] Dominic Rivera MD, PhD Unavailable Luli Castillo MD Unavailable [phone] Tricia Brock RN Unavailable Omar Berman@[email or web address] .[facility] Otilia Garcia RN Unavailable [phone] Keara Smith STAFF TOXICOLOGIST Primary Care Provide r Tri Burleson RN Unavailable ирина [email or web address]. Mildred Sarkar RN Unavailable ham [email or web address] Nanette Tavarez RN Unavailable [email or web address] [email or web address] Alina Mayorga RN Unavailable Parish [email or web address] Luann Lopes RN Unavailable Batool [email or web address] Daxa Soriano RN Unavailable [phone] Encounter Details Date Type Department Care Team (Late st Contact Info) Description 07/25/2024 Procedure Pass [facility] Cancer [place], [place] [address] [place] [id number] Social History Tobacco Use Types Packs/Day Years [...] st Contact Info) Description 01/18/2025 Procedure Pass [facility] Hat Blocking Machine Operator [place] [address] [facility] [address] [place] [address] 01/18/2025 Procedure Pass [facility] [address] [facility] [address] [place] [address] 01/18/2025 Procedure Pass [facility] [address] [facility] [address] [place] [address] 01/18/2025 Procedure Pass [facility] Cardiac Echo 850 [address] [facility] [address] [place] [address] 08/07/2025 9:30 AM EDT Blood Draw Laboratory Services, [facility] at [address] [place] [address] Dominic Rivera MD, PhD [address] [place] [address] 08/07/2025 10:30 AM EDT Office Visit [facility], [facility] [place] at [address] [address] Fela Sandoval NP [address] [place] [phone] [email or web address]. [facility] 08/07/2025 10:30 AM EDT Nurse Only [facility] for [facility] On[facility], [facility] at [address] [address] Dominic Rivera MD, PhD [address] [place] [address] 08/07/2025 11:30 AM EDT Infusion Infusion Therapy Services [place], [facility] at [address] [address] Dominic Rivera MD, PhD [address] [place] [address] Luann House RN [address] [place] [address] Olga Lidia@[email or web address]. [facility] 08/24/2025 9:00 AM EST Appointment [facility] Cardiac Echo [address] [place] [address] [address] [place] [address] Dominic Rivera MD, PhD [address] [place] [address] 08/24/2025 10:15 AM EST Appointment [facility] Hat Blocking Machine Operator [place] [address] [place] [address] Dominic Rivera MD, PhD [address] [place] [address] 08/24/2025 11:15 AM EST Appointment [facility] Hat Blocking Machine Operator [place] [address] [place] [address] Dominic Rivera MD, PhD [address] [place] [address] [email or web address] 08/29/2025 10:30 AM EST Blood Draw Laboratory Services, [facility] [address] [facility], 2nd [place] [address] Dominic Rivera MD, PhD [address] [place] [address] [email or web address] 08/29/2025 11:30 AM EST Office Visit [facility] for Thoracic Oncology, [address], [address] [place] [address] Dominic Rivera MD, PhD [address] [place] [address] [email or web address] 08/29/2025 11:30 AM EST Nurse Only [facility], [address], [address] [place] [address] Dominic Rivera MD, PhD [address] [place] [address] [email or web address] 08/29/2025 12:30 PM EST Infusion Infusion Therapy Services [address] [place] [address] 08/31/2025 9:00 AM EST Telemedicine [facility] ENDOCRINE MEDICINE 45 [place] [address] Elkin Hogue MD [address] [place] [address] [address] [place] [address] ANNABELLE@[email or web address] documented as of this encounter Visit Diagnoses Not on filedocumented in this encounter Additional Health Concerns Assessment Noted Time PHQ-2 Depression Total Score: 0 07/28/20 23 8:20 AM EDT documented as of this encounter Care Teams Service Consultant Relationship Specialty Start Date End Date Keara Smith NP [address] [place] [address] PCP - General 12/27/23 Braulio Curran MD [email or web address] Endocrinology 06/21/20 Dominic Rivera MD, PhD [address] [place] [address] [email or web address] Medical Oncology 07/16/23 Luli Castillo MD [address] [place] [phone] [email or web address] 07/29/23 Tricia Brock RN [address] [place] [address] [email or web address] Primary Infusion Nurse 09/08/23 Otilia Garcia RN [address] [place] [address] [email or web address] Associate Infusion Nurse 10/20/23 Tri Burleson RN [address] [place] [address] [email or web address] Associate Infusion Nurse 05/15/24 Mildred Rust RN [address] [place] [address] [email or web address] Associate Infusion Nurse 05/15/24 Nanette Tavarez RN [address] [place] [address] [email or web address] Primary Infusion Nurse 06/23/24 Alina Pop, RN [address] [place] [address] [email or web address] [email or web address].[facility] Associate Infusion Nurse 06/28/24 Luann House, VINICIUS [address] [place] [address] Olga [email or web address] Primary Infusion Nurse 10/02/24 Daxa Leija RN [address] [place] [address] [email or web address] .[facility] Associate Infusion Nurse 01/31/25 documented as of this encounter Additional Source Comments The information contained in this document represents components of the legal health record. It is not the complete legal health record.[facility]
--- OUTSIDE RECORDS SUMMARY | 2025-07-24 17:16 | XMS_ITS | Encounter Summary ---
Author Organization [facility] Address [address] [place] [address] Phone Care Team Providers Care Gate Supervisor Name Role Phone Braulio Curran MD Unavailable [phone] Dominic Rivera MD, PhD Unavailable Luli Castillo MD Unavailable [phone] Tricia Brock RN Unavailable Omar [email or web address] .[facility] Otilia Garcia RN Unavailable [phone] Keara Smith REVENUE INVESTIGATOR Primary Care Provide r Tri Burleson RN Unavailable ирина [email or web address]. Mildred Sarkar RN Unavailable ham [email or web address] Nanette Tavarez RN Unavailable LIZZY [email or web address].[email or web address] Alina Mayorga RN Unavailable Parish [email or web address] Luann Lopes RN Unavailable Batool [email or web address] Daxa Soriano RN Unavailable [phone] Encounter Details Date Type Department Care Team (Late st Contact Info) Description 01/18/2025 Procedure Pass [facility] [place], [place] [address] [place] [id number] Social History Tobacco Use Types Packs/Day Years [...] you interested in more education? Not on nolvai e 02/05/2023 Are you concerned about learning? [...] st Contact Info) Description 01/18/2025 Procedure Pass [facility] [address] [facility] [address] [place] [address] 01/18/2025 Procedure Pass [facility] 850 [facility] [address] [place] [address] 01/18/2025 Procedure Pass [facility] [address] [facility] [address] [place] [address] 01/18/2025 Procedure Pass [facility] Cardiac Echo 850 [address] [facility] [address] [place] [address] 08/07/2025 9:30 AM EDT Blood Draw Laboratory Services, [facility] at [address] [address] Dominic Rivera MD, PhD [address] [place] [address] 08/07/2025 10:30 AM EDT Office Visit [facility] Center for Thoracic Oncology, [facility] [place] at [address] [address] Fela Sandoval NP [address] [place] [address] [email or web address]. [facility] 08/07/2025 10:30 AM EDT Nurse Only [facility] Center for Thoracic Oncology, [facility] at [address] [address] Dominic Rivera MD, PhD [address] [place] [address] 08/07/2025 11:30 AM EDT Infusion Infusion Therapy Services [place], [facility] at [address] [address] Dominic Rivera MD, PhD [address] [place] [address] [email or web address] Luann House RN [address] [place] [address] Olga Lidia@[email or web address]. [facility] 08/24/2025 9:00 AM EST Appointment [facility] Cardiac Echo [address] [place] [address] Dominic Rivera MD, PhD [address] [place] [address] 08/24/2025 10:15 AM EST Appointment [facility] [place] [address] [place] [address] [place] [address] Dominic Rivera MD, PhD [address] [place] [address] 08/24/2025 11:15 AM EST Appointment [facility] [place] [address] [place] [address] Dominic Rivera MD, PhD [address] [place] [address] 08/29/2025 10:30 AM EST Blood Draw Laboratory Services, [address], 2nd [place] [address] Dominic Rivera MD, PhD [address] [place] [address] 08/29/2025 11:30 AM EST Office Visit [facility] for Thoracic Oncology, [address] [place] [address] Dominic Rivera MD, PhD [address] [place] [address] [email or web address] 08/29/2025 11:30 AM EST Nurse Only [facility], [address], [address] [place] [address] Dominic Rivera MD, PhD [address] [place] [address] [email or web address] 08/29/2025 12:30 PM EST Infusion Infusion Therapy Services [address] [place] [address] 08/31/2025 9:00 AM EST Telemedicine [facility] ENDOCRINE MEDICINE 45 [place] [address] Elkin Hogue MD [address] [place] [address] [address] [place] [address] ANNABELLE@[email or web address] documented as of this encounter Visit Diagnoses Not on filedocumented in this encounter Additional Health Concerns Assessment Noted Time PHQ-2 Depression Total Score: 0 05/07/20 8:20 AM EDT documented as of this encounter Care Teams Gate Supervisor Relationship Specialty Start Date End Date Keara Smith NP [address] [place] [address] PCP - General 12/27/23 Braulio Curran MD [email or web address] Endocrinology 06/21/20 Dominic Rivera MD, PhD [address] [place] [address] [email or web address] Medical Oncology 07/16/23 Luli Castillo MD [address] [place] [address] [email or web address] 07/29/23 Tricia Brock, RN [address] [place] [address] [email or web address]@[email or web address] Primary Infusion Nurse 09/08/23 Otilia Garcia RN [address] [place] [address] WALLY@[email or web address] Associate Infusion Nurse 10/20/23 Tri Burleson RN 300 [place] [address] [email or web address] Associate Infusion Nurse 05/15/24 Mildred Rust RN 300 [place] [address] [email or web address] Associate Infusion Nurse 05/15/24 Nanette Tavarez RN [address] [place] [address] [email or web address] Primary Infusion Nurse 06/23/24 Alina Pop, RN [address] [place] [address] Vicente@[facility] NAJMA.[facility] Associate Infusion Nurse 06/28/24 Luann House, VINICIUS [address] [place] [address] Olga Lidia@[email or web address] Primary Infusion Nurse 10/02/24 Daxa Leija RN [address] [place] [address] KIRA@[email or web address] .[facility] Associate Infusion Nurse 01/31/25 documented as of this encounter Additional Source Comments The information contained in this document represents components of the legal health record. It is not the complete legal health record.[facility]
--- OUTSIDE RECORDS SUMMARY | 2025-07-24 17:16 | XMS_ITS | Encounter Summary ---
Author Organization [facility] Address [address] [place] [address] Phone Care Team Providers Care Library Assistant Name Role Phone Braulio Curran MD Unavailable [phone] Dominic Rivera MD, PhD Unavailable Luli Castillo MD Unavailable [phone] Tricia Brock RN Unavailable Omar Berman@[email or web address] .[facility] Otilia Garcia RN Unavailable [phone] Keara Smith VACUUM SPINDLE SANDER Primary Care Provide r Sherin Thomas RN Unavailable [email or web address] .[facility] Tri Burleson RN Unavailable ирина [email or web address]. Mildred Sarkar RN Unavailable ham [email or web address] .[facility] Nanette Tavarez RN Unavailable LIZZY [email or web address] Alina Mayorga RN Unavailable Parish [email or web address] Lunan Lopes RN Unavailable Batool [email or web address].Daxa Layton RN Unavailable Encounter Details Date Type Department Care Team (Late st Contact Info) Description 04/06/2024 Procedure Pass [facility] [place], [place] [address] 3rd [place] [address] Social History Tobacco Use Types Packs/Day Years [...] st Contact Info) Description 01/18/2025 Procedure Pass [facility] [address] [facility] [address] [place] [address] 01/18/2025 Procedure Pass [facility] [address] [facility] [address] [place] [address] 01/18/2025 Procedure Pass [facility] [address] [facility] [address] [place] [address] 01/18/2025 Procedure Pass [facility] Cardiac Echo 850 [address] [facility] [address] [place] [address] 08/07/2025 9:30 AM EDT Blood Draw Laboratory Services, [facility] [place] at [address] [place] [address] Dominic Rivera MD, PhD [address] [place] [address] 08/07/2025 10:30 AM EDT Office Visit [facility] Center for Thoracic Oncology, [facility] [place] at [address] [address] Fela Sandoval NP [address] [place] [address] [email or web address]. [facility] 08/07/2025 10:30 AM EDT Nurse Only [facility] Center for Thoracic Oncology, [facility] at [address] [address] Dominic Rivera MD, PhD [address] [place] [address] 08/07/2025 11:30 AM EDT Infusion Infusion Therapy Services [facility] at [address] [address] Dominic Rivera MD, PhD [address] [place] [address] Luann House RN [address] [place] [address] Olga Lidia@[facility]. [facility] 08/24/2025 9:00 AM EST Appointment [facility] Cardiac Echo [address] [place] [address] Dominic Rivera MD, PhD [address] [place] [address] 08/24/2025 10:15 AM EST Appointment [facility] [place] [address] [place] [address] Dominic Rivera MD, PhD [address] [place] [address] 08/24/2025 11:15 AM EST Appointment [facility] Tech [place] [address] [address] Dominic Rivera MD, PhD [address] [place] [address] [email or web address] 08/29/2025 10:30 AM EST Blood Draw Laboratory Services, [facility] [address] [facility], 2nd [place] [address] Dominic Rivera MD, PhD [address] [place] [address] [email or web address] 08/29/2025 11:30 AM EST Office Visit [facility], [address], [address]th [place] [address] Dominic Rivera MD, PhD [address] [place] [address] [email or web address] 08/29/2025 11:30 AM EST Nurse Only [facility], [address], [address]th [place] [address] Dominic Rivera MD, PhD [address] [place] [address] [email or web address] 08/29/2025 12:30 PM EST Infusion Infusion Therapy Services [place] [address], [address], [address]th [place] [address] 08/31/2025 9:00 AM EST Telemedicine [facility] ENDOCRINE MEDICINE 45 [place] [address] Elkin Hogue MD [address] [place] [address] [address] [place] [address] ANNABELLE@[email or web address] documented as of this encounter Visit Diagnoses Not on filedocumented in this encounter Additional Health Concerns Assessment Noted Time PHQ-2 Depression Total Score: 0 05/07/20 8:20 AM EDT documented as of this encounter Care Teams Library Assistant Relationship Specialty Start Date End Date Keara Smith NP [address] [place] [address] PCP - General 12/27/23 Braulio Curran MD [email or web address] Endocrinology 06/21/20 Dominic Rivera MD, PhD [address] [place] [address] [email or web address] Medical Oncology 07/16/23 Luli Castillo MD [address] [place] [address] [email or web address] 07/29/23 Tricia Brock, RN [address] [place] [address] [email or web address]. [facility] Primary Infusion Nurse 09/08/23 Otilia Garcia RN 450 [place] [address] [email or web address]@[email or web address] Associate Infusion Nurse 10/20/23 Sherin Thomas RN [address] [place] [address] [email or web address]. [facility] Associate Infusion Nurse 12/20/23 04/11/24 Tri Burleson, VINICIUS [address] [place] [address] [email or web address] Associate Infusion Nurse 05/15/24 Mildred Rust, VINICIUS [address] [place] [address] [email or web address] Associate Infusion Nurse 05/15/24 Nanette Tavarez RN [address] [place] [address] MARINO@[facility] Primary Infusion Nurse 06/23/24 Alina Pop RN [address] [place] [address] Vicente@[facility] Associate Infusion Nurse 06/28/24 Luann House RN 300 [place] [address] Olga Lidia@[facility] Primary Infusion Nurse 10/02/24 Daxa Leija RN [address] [place] [address] [email or web address] Associate Infusion Nurse 01/31/25 documented as of this encounter Additional Source Comments The information contained in this document represents components of the legal health record. It is not the complete legal health record.[facility]
--- OUTSIDE RECORDS SUMMARY | 2025-07-24 17:16 | XMS_ITS | Encounter Summary ---
Author Organization [facility] Address [address] [place] [address] Phone Care Team Providers Care Bingo Cashier Name Role Phone Braulio Curran MD Unavailable [phone] Dominic Rivera MD, PhD Unavailable Luli Castillo MD Unavailable [phone] Tricia Brock RN Unavailable Omar [email or web address] .[facility] Otilia Garcia RN Unavailable [phone] Keara Smith MAT SEWER Primary Care Provide r Tri Burleson RN Unavailable ирина [email or web address]. Mildred Sarkar RN Unavailable ham [email or web address] Nanette Tavarez RN Unavailable LIZZY [email or web address].[employer].E Alina Mayorga RN Unavailable Parish [email or web address].[employer].ED Luann Lopes RN Unavailable Batool [email or web address].[employer].E Daxa Soriano RN Unavailable [phone] Encounter Details Date Type Department Care Team (Late st Contact Info) Description 07/25/2024 Procedure Pass [facility] Cardiac Echo 850 [address] [facility] [address] [place] [id number] Social History Tobacco Use Types Packs/Day Years [...] st Contact Info) Description 01/18/2025 Procedure Pass [facility] [address] [facility] [address] [place] [address] 01/18/2025 Procedure Pass [facility] [address] [facility] [address] [place] [address] 01/18/2025 Procedure Pass [facility] [address] [facility] [address] [place] [address] 01/18/2025 Procedure Pass [facility] Cardiac Echo 850 [address] [facility] [address] [place] [address] 08/07/2025 9:30 AM EDT Blood Draw Laboratory Services, [facility] at [address]rd [place] [address] Dominic Rivera MD, PhD [address] [place] [address] 08/07/2025 10:30 AM EDT Office Visit [facility] Center for Thoracic Oncology, [facility] [place] at [address] [address] Fela Sandoval NP [address] [place] [address] [email or web address]. pending [facility] to [facility] 08/07/2025 10:30 AM EDT Nurse Only [facility] Center for Thoracic Oncology, [facility] at [address] [address] Dominic Rivera MD, PhD [address] [place] [address] [email or web address] 08/07/2025 11:30 AM EDT Infusion Infusion Therapy Services [place], [facility] at [address] [address] Dominic Rivera MD, PhD [address] [place] [address] [email or web address] Luann House RN [address] [place] [address] Olga Lidia@[email or web address]. [facility] 08/24/2025 9:00 AM EST Appointment [facility] Cardiac Echo [address] [place] [address] Dominic Rivera MD, PhD [address] [place] [address] 08/24/2025 10:15 AM EST Appointment [facility] [address] [place] [address] Dominic Rivera MD, PhD [address] [place] [address] 08/24/2025 11:15 AM EST [facility]ointment [facility] [address] [place] [address] Dominic Rivera MD, PhD [address] [place] [address] [email or web address] 08/29/2025 10:30 AM EST Blood Draw Laboratory Services, [address] [place] [address] Dominic Rivera MD, PhD [address] [place] [address] 08/29/2025 11:30 AM EST Office Visit [facility] for Thoracic Oncology, [address] [place] [address] Dominic Rivera MD, PhD [address] [place] [address] [email or web address] 08/29/2025 11:30 AM EST Nurse Only [facility] for Thoracic Oncology, [address], [address] [place] [address] Dominic Rivera MD, PhD [address] [place] [address] [email or web address] 08/29/2025 12:30 PM EST Infusion Infusion Therapy Services [address] [place] [address] 08/31/2025 9:00 AM EST Telemedicine [facility] ENDOCRINE MEDICINE 45 [place] [address] Elkin Hogue MD [address] [place] [address] [address] [place] [address] ANNABELLE@[facility] documented as of this encounter Visit Diagnoses Not on filedocumented in this encounter Additional Health Concerns Assessment Noted Time PHQ-2 Depression Total Score: 0 05/07/20 8:20 AM EDT documented as of this encounter Care Teams Bingo Cashier Relationship Specialty Start Date End Date Keara Smith NP [address] [place] [address] PCP - General 12/27/23 Braulio Curran MD [email or web address] Endocrinology 06/21/20 Dominic Rivera MD, PhD [address] [place] [address] [email or web address] Medical Oncology 07/16/23 Luli Castillo MD [address] [place] [phone] [email or web address] Medicine 07/29/23 Tricia Brock, RN [address] [place] [phone] [email or web address] Primary Infusion Nurse 09/08/23 Otilia Garcia RN [address] [place] [address] [email or web address]@[email or web address] Associate Infusion Nurse 10/20/23 Tri Burleson RN 300 [place] [address] [email or web address] Associate Infusion Nurse 05/15/24 Mildred Rust RN 300 [place] [address] [email or web address] Associate Infusion Nurse 05/15/24 Nanetet Tavarez RN [address] [place] [address] MARINO@[facility] Primary Infusion Nurse 06/23/24 Alina Pop, RN 450 [place] [address] Vicente@[facility] Associate Infusion Nurse 06/28/24 Luann House, VINICIUS [address] [place] [address] Olga Lidia@[facility] Primary Infusion Nurse 10/02/24 Daxa Leija RN [address] [place] [address] KIRA@[facility] Associate Infusion Nurse 01/31/25 documented as of this encounter Additional Source Comments The information contained in this document represents components of the legal health record. It is not the complete legal health record.[facility]
--- OUTSIDE RECORDS SUMMARY | 2025-07-24 17:16 | XMS_ITS | Encounter Summary ---
Author Organization [facility] Address [address] [place] [address] Phone Care Team Providers Care Podiatric Foot And Ankle Specialist Name Role Phone Braulio Curran MD Unavailable [phone] Dominic Rivera MD, PhD Unavailable Luli Castillo MD Unavailable [phone] Tricia Brock RN Unavailable [email or web address] Otilia Garcia RN Unavailable [phone] Keara Smith PERMACULTURE CONTRACTOR Primary Care Provide r Sherin Thomas RN Unavailable [email or web address] Tri Burleson RN Unavailable ирина [email or web address] Mildred Sarkar RN Unavailable [email or web address] Nanette Tavarez RN Unavailable [email or web address] Alina Mayorga RN Unavailable Parish [email or web address] Luann Lopes RN Unavailable [email or web address] Layton RN Unavailable Encounter Details Date Type Department Care Team (Late st Contact Info) Description 04/06/2024 Procedure Pass [facility] Cardiac Echo [address] [place] [address] Social History Tobacco Use Types Packs/Day Years [...] st Contact Info) Description 01/18/2025 Procedure Pass [facility] [address] [place] [address] 01/18/2025 Procedure Pass [facility] [address] [place] [address] 01/18/2025 Procedure Pass [facility] [address] [place] [address] 01/18/2025 Procedure Pass [facility] Cardiac Echo [address] [place] [address] 08/07/2025 9:30 AM EDT Blood Draw Laboratory Services, [facility] at [address] [address] Dominic Rivera MD, PhD [address] [place] [phone] 08/07/2025 10:30 AM EDT Office Visit [facility] Center for Thoracic Oncology, [facility] [place] at [address] [address] Fela Sandoval NP [address] [place] [phone] [email or web address] 08/07/2025 10:30 AM EDT Nurse Only [facility] Center for Thoracic Oncology, [facility] at [address] [address] Dominic Rivera MD, PhD [address] [place] [phone] 08/07/2025 11:30 AM EDT Infusion Infusion Therapy Services [place], [facility] at [address] [address] Dominic Rivera MD, PhD [address] [place] [phone] Luann House RN [address] [place] [phone] [email or web address]. [facility] 08/24/2025 9:00 AM EST Appointment [facility] Cardiac Echo [address] [place] [address] Dominic Rivera MD, PhD [address] [place] [phone] 08/24/2025 10:15 AM EST Appointment [facility] Procurement Officer [place] [address] [place] [address] Dominic Rivera MD, PhD [address] [place] [phone] 08/24/2025 11:15 AM EST Appointment [facility] Procurement Officer [employer] [address] [address] Dominic Rivera MD, PhD [address] [place] [phone] [email or web address] 08/29/2025 10:30 AM EST Blood Draw Laboratory Services, [facility] [address] [facility] 2nd [place] [address] Dominic Rivera MD, PhD [address] [place] [phone] 08/29/2025 11:30 AM EST Office Visit [facility] for Thoracic Oncology, [address] [place] [address] Domiinc Rivera MD, PhD [address] [place] [phone] [email or web address] 08/29/2025 11:30 AM EST Nurse Only [facility] for Thoracic Oncology, [address] [place] [address] Dominic Rivera MD, PhD [address] [place] [phone] [email or web address] 08/29/2025 12:30 PM EST Infusion Infusion Therapy Services [place] [address], [address] [place] [address] 08/31/2025 9:00 AM EST Telemedicine [facility] ENDOCRINE MEDICINE [address] [place] [address] Elkin Hogue MD [address] [place] [address] [address] [place] [address] [email or web address] documented as of this encounter Visit Diagnoses Not on filedocumented in this encounter Additional Health Concerns Assessment Noted Time PHQ-2 Depression Total Score: 0 05/07/20 23 8:20 AM EDT documented as of this encounter Care Teams Podiatric Foot And Ankle Specialist Relationship Specialty Start Date End Date Keara Smith NP [address] [place] [phone] PCP - General 12/27/23 Braulio Curran MD [email or web address] Endocrinology 06/21/20 Dominic Rivera MD, PhD [address] [place] [phone] [email or web address] Medical Oncology 07/16/23 Luli Castillo MD [address] [place] [phone] [email or web address] 07/29/23 Tricia Brock, RN [address] [place] [phone] [email or web address] Primary Infusion Nurse 09/08/23 Otilia Garcia RN [address] [place] [phone] [email or web address] Associate Infusion Nurse 10/20/23 Sherin Thomas, [facility] [address] [place] [phone] [email or web address] Associate Infusion Nurse 12/20/23 04/11/24 Tri Burleson, [facility] [place] [address] [email or web address] Associate Infusion Nurse 05/15/24 Mildred Rust RN [address] [place] [phone] [email or web address] Associate Infusion Nurse 05/15/24 Nanette Tavarez RN [address] [place] [phone] [email or web address] Primary Infusion Nurse 06/23/24 Alina Pop RN [address] [place] [phone] [email or web address] Associate Infusion Nurse 06/28/24 Luann House RN [address] [place] [phone] Olga [email or web address] Primary Infusion Nurse 10/02/24 Daxa Leija RN [address] [place] [phone] [email or web address] Associate Infusion Nurse 01/31/25 documented as of this encounter Additional Source Comments The information contained in this document represents components of the legal health record. It is not the complete legal health record.[facility]
== END 2025-07-24 14:43 | disposition home or self-care (01) ==
LOC: HO.HPS 14:15
PROVIDERS: PCP Nurse Practitioner Family; Visit Provider Hospitalist
DX: J98.11 Atelectasis (principal); C34.90 Malignant neoplasm of unspecified part of unspecified bronchus or lung; J45.40 Moderate persistent asthma, uncomplicated
CPT/HCPCS: 99214; G2211

== ENCOUNTER → 2025-07-24 14:15 | Outpatient (BNVA) | payer MEDICARE, OTHER, SELFPAY | PROVIDERS: PCP Nurse Practitioner Family; Visit Provider Hospitalist | DX: J45.40 Moderate persistent asthma, uncomplicated (principal); C34.90 Malignant neoplasm of unspecified part of unspecified bronchus or lung; J98.11 Atelectasis | CPT/HCPCS: 99212 ==